=== PATIENT | male | born 1945 | race Caucasian/White ===

== ENCOUNTER 2025-04-12 11:57 | Inpatient (IN) | payer MEDICARE, OTHER, SELFPAY ==
--- OUTSIDE RECORDS SUMMARY | 2024-12-10 04:00 | XMS_ITS ---
Author Organization [facility] Address [address] [address] [place] [address] Care Team Providers Care Water Main Installer Helper Name Role Phone Bernabe Zhang Unavailable [phone] Migration, Provider Unavailable Unavailable REASON FOR VISIT EMR-Kalia Encounters Encounter Location Date Provider Diagnosis [place] [address] 12/10/2024 Provider Migration Plan Of Treatment No Information Progress Notes * GABRIELLE SILVERIODOB:[birth year] (79 yo M)Acc No.[id number]:12/10/2024 Patient: GABRIELLE AUGUSTE :1945 A ge:79 Y S ex:Male Address:[facility] [address], [place], [address] Subjective: * Chief Complaints: * E MR-Kalia * * Date:
--- OUTSIDE RECORDS SUMMARY | 2024-12-11 04:00 | XMS_ITS ---
Author Organization [facility] Address [address] [address] [place] [address] Care Team Providers Care Automatic Lathe Setter Name Role Phone Bernabe Zhang Unavailable [phone] Migration, Provider Unavailable Unavailable REASON FOR VISIT EMR-[facility] Medications Medication SIG (Take, Route, Frequency, Duration) Notes Start Date End Date Status Proscar *Pick strength-f orm from Medispan for eRX* Active Loradamed *Pick strength-f orm from Medispan for eRX* Active Hytrin *Reorder from Medispan for eRx and Interaction Alerts* Active E.C. PRIN *Reorder from Medispan for eRx and Interaction Alerts* Active Viagra *Pick strength-f orm from Medispan for eRX* Active Zocor *Pick strength-f orm from Medispan for eRX* Active Lantus SoloStar 100 UNIT/ML Solution Pen-injector Subcutaneous Active Encounters Encounter Location Date Provider Diagnosis [address] [place] [address] 12/11/2024 Provider Migration Plan Of Treatment No Information Progress Notes * SILVERIO, GABRIELLEDOB:[birth year] (79 yo M)Acc No.[id number]:12/11/2024 Patient: GABRIELLE AUGUSTE :1945 A ge:79 Y S ex:Male Address:[facility] [address], [place], [address] Subjective: * Chief Complaints: * E MR-Kalia * Medications: T akingE.C. PRIN , Notes to Pharmacist: *Reorder from Medispan for eRx and Interaction Alerts*Hytrin , Notes to Pharmacist: *Reorder from Medispan for eRx and Interaction Alerts*Lantus SoloStar 100 UNIT/ML Solution Pen-injector Subcutaneous Loradamed , Notes to Pharmacist: *Pick strength-form from Medispan for eRX*Proscar , Notes to Pharmacist: *Pick strength-form from Medispan for eRX*Viagra , Notes to Pharmacist: *Pick strength-form from Medispan for eRX*Zocor , Notes to Pharmacist: *Pick strength-form from Medispan for eRX*Taking E.C. PRIN , Notes to Pharmacist: *Reorder from Medispan for eRx and Interaction Alerts*Taking Hytrin , Notes to Pharmacist: *Reorder from Medispan for eRx and Interaction Alerts*Taking Lantus SoloStar 100 UNIT/ML Solution Pen-injector Subcutaneous Taking Loradamed , Notes to Pharmacist: *Pick strength-form from Medispan for eRX*Taking Proscar , Notes to Pharmacist: *Pick strength-form from Medispan for eRX*Taking Viagra , Notes to Pharmacist: *Pick strength-form from Medispan for eRX*Taking Zocor , Notes to Pharmacist: *Pick strength-form from Medispan for eRX* * * Date:
[2025-04-12] VITALS (9 sets, daily range): BP systolic 89–136; BP diastolic 59–101; PULSE 71–118; RESP 22–28; TEMP 36.4–36.5; O2SAT 95–100; BMI 29.0; BMI 29.1
--- NOTE | 2025-04-12 | ECHO_ITS ---
Patient Info Name: Cosmo Voss Age: 79 years : 1945 Gender: Male Ht: 68 in Wt: 201 lbs BSA: 2.12 m2 HR: 87 bpm BP: 132 / 101 mmHg Heart Rhythm: Indeterminant Technical Quality: Poor Exam Date: 04/12/2025 3:20 PM Patient Status: I Admit Date: 04/12/2025 Exam Type: CA echo dop color flow w con Complete two-dimensional, color flow and Doppler transthoracic echocardiogram is performed with contrast to opacify the left ventricle and to improve the deliniation of the left ventricle endocardial borders. Staff Referring Physician: Lesvia Boyer Bag Bailer: Mark Anthony Jordan III Attending Provider: Klarissa Blackmon Contrast/Agitated Saline Contrast/Ag. Saline: Definity Amount: 2.00 ml Administered By: Mark Anthony Jordan III Existing IV Access: Yes IV Access Condition: patent with no signs of infiltration Summary 1. Patient supine, breathing treatment/meds pushed during echo. Technically difficult echo. 2. Technically difficult echocardiogram, to contrast injected to improve visualization. 3. Normal appearing left ventricular size with vigorous systolic function. 4. Right ventricular enlargement with right ventricular hypokinesia. 5. At least moderate if not moderate to severe aortic stenosis. Left Ventricle Left ventricular chamber dimension is normal. Left ventricular systolic function is normal, estimated at 55-60. The left ventricular diastolic function is indeterminate. Right Ventricle Right ventricular chamber dimension is moderately enlarged. Right ventricular systolic function is reduced. Left Atria Left atrial chamber dimension is normal. Right Atria Right atrial chamber dimension is not well visualized. Aortic Valve The aortic valve is trileaflet. There is moderate aortic valve sclerosis. There is moderate to severe aortic valve stenosis with a peak velocity of 360 cm/s, mean gradient of 29 mmHg, and aortic valve area of 1.3 cm2. Pulmonic Valve The pulmonic valve is not well visualized. Mitral Valve The mitral valve has normal leaflets. The mitral valve annulus is mildly calcified. Tricuspid Valve The tricuspid valve leaflets are not well visualized. Pericardium/Pleural The pericardium appears normal. Aorta The aortic root size at the sinus of Valsalva is normal. Left Ventricular Outflow Tract Name Value Normal LVOT 2D LVOT Diameter 2.3 cm LVOT Doppler LVOT Peak Velocity 103 cm/s LVOT Peak Gradient 4 mmHg LVOT Mean Gradient 2 mmHg LVOT VTI 16 cm LVOT VTI/AV VTI Ratio 0.3 LVOT Stroke Volume 65 ml LVOT CO 15.3 l/min LVOT CI 7.2 l/min/m2 Pulmonic Valve Name Value Normal PV Doppler PV Peak Velocity 87 cm/s PV Peak Gradient 3 mmHg PV Mean Gradient 2 mmHg Mitral Valve Name Value Normal MV Doppler MV Peak Gradient 2 mmHg MV Mean Gradient 1 mmHg MV Area (Cont Eq VTI) 5.5 cm2 MV Diastolic Function MV E Peak Velocity 53 cm/s MV A Peak Velocity 43 cm/s MV E/A 1.2 MV Decel Time (PW) 218 ms MV Annular TDI MV E/e' (Septal) 10.7 MV E/e' (Lateral) 4.6 MV E/e' (Average) 7.6 Tricuspid Valve Name Value Normal TV Annular TDI TV Lateral Мария s' Velocity 11.5 cm/s >=9.5 Aortic Valve Name Value Normal AV Doppler AV Peak Velocity 360 cm/s AV Peak Gradient 52 mmHg AV Mean Gradient 29 mmHg AV VTI 50 cm AV Area (Cont Eq VTI) 1.3 cm2 >=3.0 AV Area (Cont Eq Tay) 1.1 cm2 AV DI (Tay) 0.28 AV Regurgitation 2D LVOT Area 4.0 cm2 Ventricles Name Value Normal LV Dimensions 2D/MM LVOT Diameter 2.3 cm Atria Name Value Normal LA Dimensions LA Volume (4C A-L) 70 ml LA Volume (BP A-L) 64 ml RA Dimensions RA Systolic Major [place] Length (4C) 6.8 cm 2.1-2.7 RA Area (4C) 31.1 cm2 <=18.0 Report Signatures
--- NOTE | ~2025-04-12 | US_ITS ---
EXAMINATION: US venous doppler [facility], 04/15/2025 16:20 CDT HISTORY: rule out DVT COMPARISON: None Technique: James-scale and color Doppler images were attempted of the lower saphenofemoral junction, common femoral vein,superficial femoral vein, proximal deep femoral vein, proximal deep femoral vein, popliteal vein and posterior tibial veins. Findings: Deep Venous System:There is prominence with diminished flow in the right femoral, popliteal and posterior tibial veins, the remaining visualized deep venous system is unremarkable Superficial Venous SystemNo superficial thrombophlebitis. Soft tissues: Soft tissues are unremarkable. Impression: Right-sided DVT detailed above. Reviewed, dictated and finalized at location A. Impression: Right-sided DVT detailed above.
--- NOTE | ~2025-04-12 | US_ITS ---
US renal BI 04/12/2025 20:50 Procedure: Realtime transabdominal ultrasound of the kidneys and bladder. Indication: Acute renal failure Comparison: CT abdomen dated 04/12/2025 Findings: Renal echotexture is normal bilaterally without hydronephrosis, contour deforming mass or renal calculus. There are multiple right renal cysts. Largest cyst measures approximately 2.6 cm. Right kidney measures 12 cm and left kidney measures 12.3 cm. Ackerman catheter present in the bladder limiting evaluation. Impression: 1: Multiple right renal cysts. No suspicious solid masses are identified to suggest malignancy. Reviewed, dictated and finalized at location O. Impression: 1: Multiple right renal cysts. No suspicious solid masses are identified to sug gest malignancy.
--- NOTE | ~2025-04-12 | CT_ITS ---
EXAMINATION: CT abdomen pelvis wo con DATE: 04/12/2025 15:06 INDICATION: Acute renal failure TECHNIQUE: Computed tomography (CT) of the abdomen and pelvis was performed without intravenous contrast. The dose-length product was 870.88 mGy-cm. Automated exposure control and iterative reconstruction technique were employed. COMPARISON: None. FINDINGS: There are interstitial changes in the right lower lobe, likely atelectasis or scarring. Heart size normal. No significant pleural or pericardial effusion. There are multiple right renal masses which are intermediate density. There is bilateral hydroureteronephrosis. There is moderate bilateral perinephric stranding. There is a small hiatal hernia. There is atherosclerosis of the aorta without aneurysm. Right inguinal hernia containing fat. The liver, spleen, pancreas, adrenal glands are unremarkable. Severely enlarged prostate gland with bladder base impression. Severe distention of the bladder, likely secondary to outlet obstruction. Nonobstructive bowel gas pattern. There is a wedge compression fracture of L1, likely chronic. Moderate lumbar spondylosis. IMPRESSION: 1. Multiple right renal masses with intermediate density. Correlation with CT or MRI with contrast recommended for further assessment. 2: Severe enlargement of the prostate gland likely causing outlet obstruction with resultant distention of the bladder and bilateral hydronephrosis. Reviewed, dictated and finalized at location O. IMPRESSION: 1. Multiple right renal masses with intermediate density. Correlation with CT o r MRI with contrast recommended for further assessment. 2: Severe enlargement of the prostate gland likely causing outlet obstruction with resultant distention of the bladder and bilateral hydronephrosis.
--- NOTE | ~2025-04-12 | XR_ITS ---
EXAMINATION: XR chest 1V portable DATE: 04/13/2025 06:47 INDICATION: Shortness of breath TECHNIQUE: frontal view of the chest was obtained. COMPARISON: Chest radiograph dated 04/12/25 FINDINGS: No focal airspace opacities, pulmonary edema, pleural effusion or pneumothorax. The cardiomediastinal silhouette is normal. IMPRESSION: 1. No acute cardiopulmonary disease. Reviewed, dictated and finalized at location A.
--- NOTE | ~2025-04-12 | XR_ITS ---
EXAMINATION: XR abdomen/kub 1V DATE: 04/15/2025 09:43 INDICATION: Ileus versus small bowel obstruction on prior radiographs. TECHNIQUE: A supine view of the abdomen on 2 radiographs was obtained. COMPARISON: 04/13/25 FINDINGS: Ackerman catheter in the bladder. There is oral contrast material throughout the proximal colon. There are multiple gas-filled but not frankly dilated gas-filled loops of large and small bowel in the abdomen. No dilated loops of gas-filled bowel to suggest obstruction. Visualized lower lungs are clear. Heart size is normal. IMPRESSION: 1. Nonspecific mild gas pattern with no frankly dilated gas-filled loops of bowel to suggest obstruction. Reviewed, dictated and finalized at location A. IMPRESSION: 1. Nonspecific mild gas pattern with no frankly dilated gas-filled loops of bow el to suggest obstruction.
--- NOTE | ~2025-04-12 | XR_ITS ---
EXAMINATION: XR chest 2V 04/12/2025 13:16 INDICATION: Shortness of breath PROCEDURE: AP and lateral views of the chest COMPARISON: No prior studies for comparison. FINDINGS: The lungs are clear. The cardiomediastinal silhouette is within normal limits. There are no pleural effusions. There is no pneumothorax suspected. There is an upper lumbar wedge compression fracture, likely chronic. IMPRESSION: 1: NO ACUTE CARDIOPULMONARY DISEASE. Reviewed, dictated and finalized at location O.
--- NOTE | ~2025-04-12 | NM_ITS ---
EXAMINATION: NM lung vent and perfusion DATE: 04/12/2025 16:28 INDICATION: Tachypnea. Hypotension. TECHNIQUE: 19.5 mCi xenon-133 by inhalation and 5.4 mCi Tc-99m MAA by intravenous route. Scintigraphic images of the chest were obtained. COMPARISON: FINDINGS: There is homogeneous radiotracer activity throughout the lungs on the single breath ventilation sequence. There are multiple small, moderate and large perfusion defects involving all lobes of both lungs consistent with high probability for pulmonary embolism. IMPRESSION: 1. High probability for pulmonary embolism. Findings were discussed with Kenna Williamson, the nurse caring for the patient, at 4:36 PM. Reviewed, dictated and finalized at location A.
--- NOTE | ~2025-04-12 | US_ITS ---
EXAMINATION: US venous doppler [facility], 04/22/2025 17:05 CDT HISTORY: swelling Comparison: None Technique: Multiple casas scale and color Doppler sonographic images were obtained of the internal jugular, subclavian, axillary, brachial, basilar, radial and ulnar veins. Findings: Venous System:Normal flow, augmentation and compressibility. No echogenic thrombus identified. Soft tissues: Soft tissues are unremarkable. Impression: Negative for DVT. Reviewed, dictated and finalized at location A. Impression: Negative for DVT.
--- NOTE | ~2025-04-12 | XR_ITS ---
EXAMINATION: XR abdomen/kub 1V DATE: 04/13/2025 16:04 INDICATION: Left lower quadrant pain. TECHNIQUE: 2 AP portable supine images of the abdomen were obtained. COMPARISON: CT abdomen and pelvis 04/12/2025 FINDINGS: A tube projects over the lower mid pelvis. Correlate clinically. Possible contrast in bowel in the right abdomen and pelvis. Correlate clinically. There are several air-filled distended small bowel loops in the left abdomen and pelvis. IMPRESSION: 1. There are several air-filled distended small bowel loops in the left abdomen and pelvis. Differential includes ileus or developing small bowel obstruction. 2. Possible contrast in bowel in the right abdomen and pelvis. Correlate clinically. If symptoms persist or worsen, consider a short-term follow-up study or a CT of the abdomen and pelvis for further assessment. Reviewed, dictated and finalized at location Q. IMPRESSION: 1. There are several air-filled distended small bowel loops in the left abdomen and pelvis. Differential includes ileus or developing small bowel obstruction. 2. Possible contrast in bowel in the right abdomen and pelvis. Correlate clinic ally. If symptoms persist or worsen, consider a short-term follow-up study or a CT of the abdomen and pelvis for further assessment.
--- NOTE | 2025-04-12 12:06 | ECG_ITS ---
Test Date: 2025-04-12 12:08:19 Measurements Intervals [place] Rate: 84 P: 0 CT: 0 QRS: -22 QRSD: 105 T: -14 QT: 410 QTc: 487 Interpretive Statements ATRIAL FIBRILLATION INCOMPLETE RIGHT BUNDLE BRANCH BLOCK [90+ ms QRS DURATION, TERMINAL R IN V1/V2, 40+ ms S IN I/aVL/V4/V5/V6] NONSPECIFIC T-WAVE ABNORMALITY ABNORMAL ELECTROCARDIOGRAM No previous ECG available for comparison Electronically Signed On 04-12-2025 16:24:10 CDT by Rodrick Rodriguez M.D.
--- NOTE | 2025-04-12 12:15 | ED.SOB ---
HPI - SOB/Dyspnea General Chief Complaint: Shortness of Breath/Dyspnea Stated Complaint: SOB Time Seen by Provider: 04/12/25 12:05 History of Present Illness HPI Narrative: This is a 79-year-old male with history of CHF, CKD who presents to the ED for shortness of breath. Patient states that for the past 2 days, he has had worsening shortness of breath to the point this morning he was having difficulty breathing sitting prompting him to call EMS. EN route, he was given a DuoNeb and he feels better since then. He does note that last week, he did drive back here from [place]. He is not on any blood thinners. Denies any chest pain, headache, change in vision, cough, congestion, nausea, diarrhea, constipation, abdominal pain. He does report some mild ankle swelling as well. He has never been admitted for CHF exacerbation. Related Data Allergies Allergy/AdvReac Type Severity Reaction Status Date / Time No Known Allergies Allergy Verified 04/12/25 13:46 Review of Systems Review of Systems: Gen.: Denies fevers or chills Eyes: Denies eye pain or visual change ENT: Denies congestion Respiratory: As per HPI CV: Denies chest pain or palpitations GI: Denies abdominal pain nausea, emesis or diarrhea denies burning, urgency, frequency or hematuria Musculoskeletal: Denies back pain or muscle pain Neuro: Denies numbness, tingling, weakness or focal weakness Skin: Denies rash Except as documented, all other systems reviewed and negative [facility] Past Medical History Medical History (Updated 04/12/25 @ 18:30 by Helio Padilla MD) Hyperlipidemia History of DVT (deep vein thrombosis) Anemia Hypertension Diabetes Multiple myeloma CHF (congestive heart failure) CKD (chronic kidney disease) Surgical History Surgical History (Updated 04/12/25 @ 18:18 by Mari Del Toro MD) Hx of partial nephrectomy left Social History Social History (Updated 04/12/25 @ 18:22 by Mari Del Toro MD) Smoking status: Former smoker Exam Narrative: APPEARANCE: No acute distress, nontoxic, resting in bed EYES: EOMI HEENT: Normocephalic, atraumatic, OMM RESPIRATORY: Mildly increased work of breathing, clear to auscultation bilaterally. CARDIOVASCULAR: Regular rate and rhythm without murmurs rubs or gallops. ABDOMINAL: Soft, nontender, nondistended, no rebound or guarding MUSCULOSKELETAl: Moves all extremities. Trace edema to the bilateral ankles NEURO: Awake and alert. Following commands, speech normal, no focal deficits SKIN:: Warm, dry. No rashes lesions or abrasions PSYCHIATRIC: Normal affect/mood, Course Vital Signs Vital signs: Vital Signs Pulse Rate 75 04/12/25 11:57 Respiratory Rate 26 H 04/12/25 11:57 Blood Pressure 98/66 L 04/12/25 11:57 Pulse Oximetry 100 04/12/25 11:57 Oxygen Delivery Room Air 04/12/25 11:57 Temperature 97.7 F 04/12/25 12:18 Pulse Rate 86 04/12/25 15:15 Respiratory Rate 23 H 04/12/25 15:15 Blood Pressure 132/101 H 04/12/25 13:58 Pulse Oximetry 99 04/12/25 13:58 Oxygen Delivery Room Air 04/12/25 12:07 MDM - SOB/Dyspnea MDM Narrative Medical decision making narrative: 79-year-old male who presents to the ED for shortness of breath. On initial evaluation, patient was mildly tachypneic but otherwise hemodynamically stable, afebrile. Heart and lungs were clear. He had mild bilateral ankle edema. Abdomen soft nontender. He had a mild leukocytosis at 11.7 and mild thrombocytopenia at 114. CMP revealed a potassium of 6.9, bicarb of 8 with anion gap 19 and creatinine 7. This is likely an acute on chronic renal failure. EKG showed no concerning findings. Troponin noted to be 2.76. [place] [address]. Potassium rechecked and was still 6.1. I discussed case with Dr. Del Toro, nephrology, who will see the patient as consult, will discuss with patient possible dialysis today versus tomorrow but does recommend hyperkalemia treatment at this time while that is being determined. Patient was given Kayexalate, insulin, D50. Case was discussed with hospitalist who will admit the patient Differential Diagnosis Differential diagnosis: Likely other (CHF exacerbation, electrolyte abnormality, pneumonia, PE) Medical Records Attestation: I reviewed the patient's medical records. Lab Data Attestation: I reviewed the patient's lab results. 04/12/25 12:21 04/12/25 13:39 Labs: Lab Results 04/12/25 Range/Units 12:21 WBC 11.7 H (4.5-10.0) K/mm3 RBC 4.58 L (4.6-6.20) M/mm3 Hgb 13.6 L (14.0-18.0) g/dL Hct 43.2 (42.0-52.0) % MCV 94.3 (80-100) fl MCH 29.7 (26-34) pg MCHC 31.5 L (32-36) g/dl RDW 15.9 H (11.5-14.5) % Plt Count 114 L (150-375) k/mm3 MPV 11.1 H (7.4-10.4) fl Immature Gran % (Auto) 0.8 H (0-0.5) % Neut % (Auto) 84.3 H (45.5-73.1) % Lymph % (Auto) 7.7 L (18.3-44.2) % [place] % (Auto) 7.1 (2.6-8.5) % Eos % (Auto) 0.0 (0-4.4) % Baso % (Auto) 0.1 L (0.2-1.2) % Lymph # (Auto) 0.90 (0.9-3.2) K/mm3 [place] # (Auto) 0.8 H (0.1-0.6) K/mm3 Eos # (Auto) 0.0 (0-0.3) K/mm3 Baso # (Auto) 0.0 (0.0-0.1) K/mm3 Abs Immat Gran (auto) 0.09 H (0.00-0.031) K/mm3 Absolute Neuts (auto) 9.8 H (1.3-6.7) K/mm3 Absolute Nucleated RBC 0.000 (0.0-0.012) K/mm3 Nucleated RBC % 0.0 (0.0-0.2) % % Immature Plt Fraction 5.2 (0.9-11.2) % PT 16.7 H (11.1-14.7) Seconds INR 1.4 APTT 29.3 (22.3-36.8) Seconds Sodium 141 (137-145) mmol/L Potassium 6.9 H* (3.4-5.0) mmol/L Chloride 114 H (98-107) mmol/L Carbon Dioxide 8 L (22-30) mmol/L Anion Gap 19 H (4-12) mmol/L BUN 75 H (9-20) mg/dL Creatinine 6.99 H (0.7-1.3) mg/dL Estim Creat Clear Calc 9 ml/min Estimated GFR 8 L (59 - ) Glucose 205 H (65-110) mg/dL Calcium 9.2 (8.4-10.2) mg/dL Total Bilirubin 0.9 (0.2-1.3) mg/dL AST 26 (17-59) U/L ALT 18 (6-50) U/L Alkaline Phosphatase 67 (38-126) U/L Troponin I 2.230 H* (0.000-0.034) ng/mL NT-Pro-B Natriuret Pep > 68809 H (19.9-100) pg/mL Total Protein 6.8 (6.3-8.2) g/dL Albumin 4.2 (3.5-5.1) g/dL Imaging Data Radiologist's impression: Impressions Chest X-Ray 04/12/25 13:17 IMPRESSION: 1: NO ACUTE CARDIOPULMONARY DISEASE. ECG Data EKG #1: ECG completion date: 04/12/25 ECG completion time: 12:08 Interpretation: AFib rate of 80 for in a normal axis, her bundle-branch block, nonspecific T-wave changes and no ST wave changes. Discharge Plan Discharge Clinical Impression: Acute hyperkalemia, Acute non-ST elevation myocardial infarction (NSTEMI), Thrombocytopenia Acute on chronic kidney failure Qualifiers: Acute renal failure type: unspecified Chronic kidney disease stage: unspecified stage Qualified Code(s): N17.9 - Acute kidney failure, unspecified; N18.9 - Chronic kidney disease, unspecified CHF (congestive heart failure) Qualifiers: Heart failure type: unspecified Heart failure chronicity: unspecified Qualified Code(s): I50.9 - Heart failure, unspecified Patient Disposition: Still a Patient Condition: Guarded Prognosis
[2025-04-12 12:31] LABS: Hematocrit 43.2 % (42.0-52.0); Hemoglobin 13.6 g/dL (14.0-18.0); Immature Granulocyte Percent A 0.8 % (0-0.5); Immature Platelet Fraction Pct 5.2 % (0.9-11.2); Lymphocytes Absolute Auto 0.90 K/mm3 (0.9-3.2); Mean Corpuscular HGB Conc 31.5 g/dl (32-36); Mean Corpuscular Hemoglobin 29.7 pg (26-34); Mean Corpuscular Volume 94.3 fl (80-100); Nucleated Red Blood Cells Absolute Auto 0.000 K/mm3 (0.0-0.012); Nucleated Red Blood Cells Perc 0.0 % (0.0-0.2); Platelet Count Result 114 k/mm3 (150-375); Red Blood Count 4.58 M/mm3 (4.6-6.20); White Blood Count 11.7 K/mm3 (4.5-10.0)
[2025-04-12 12:43] LABS: Alanine Aminotransferase 18 U/L (6-50); Albumin Level 4.2 g/dL (3.5-5.1); Alkaline Phosphatase 67 U/L (38-126); Anion Gap 19 mmol/L (4-12); Aspartate Amino Transferase 26 U/L (17-59); Bilirubin,Total 0.9 mg/dL (0.2-1.3); Blood Urea Nitrogen 75 mg/dL (9-20); Calcium 9.2 mg/dL (8.4-10.2); Carbon Dioxide 8 mmol/L (22-30); Chloride 114 mmol/L (98-107); Estimated CRCL calculation 9 ml/min; Estimated Glomerular Filt Rate 8; Glucose 205 mg/dL (65-110); Potassium 6.9 mmol/L (3.4-5.0); Sodium 141 mmol/L (137-145); Total Protein 6.8 g/dL (6.3-8.2)
--- OUTSIDE RECORDS SUMMARY | 2025-04-12 12:50 | XMS_ITS | Clinical Summary ---
Author Organization [email or web address] Address [address] [place] [address] Care Team Providers Care Db2 Developer Name Role Phone Kush Romero MD Primary Care Provider Unavail able Social History Tobacco Use Types Packs/Day Years Used Date Smoking Tobacco: Never Assessed Sex and Gender Information Value Date Recorded Sex Assigned at Not on file Legal Sex Male 2:29 PM EST Gender Identity Not on file Sexual Orientation Not on file Last Filed Vital Signs Vital Sign Reading Time Taken Comments Blood Pressure - - Pulse - - Temperature - - Respiratory Rate - - Oxygen Saturation - - Inhaled Oxygen Concentration - - Weight 90.7 kg (200 lb) 10/18/2019 10:29 AM EDT Height 175.3 cm (5' 9) 10/18/2019 10:29 AM EDT Body Mass Index 29.53 10/18/2019 10:29 AM EDT Plan of Treatment Health Maintenance Due Date Last Done Comments Hepatitis C Screening 1945 COVID-19 Vaccine (1 of 4) 1959 DTAP/TDAP/TD (1 - Tdap) 1966 Pneumococcal Vaccine: 65+ Years (1 of 1 - PCV) 1997 Shingrix (1 of 2) 1997 Influenza vaccine (#1) 2025 8, 07/08/2017, 05/12/2016 HEPATITIS B VACCINES Aged Out No long er eligible based on patient's age to complete this topic Meningococcal B Aged Out No longer el igible based on patient's age to complete this topic Care Teams Db2 Developer Relationship Specialty Start Date End Date Kush Romero MD PCP - General 10/18/19
--- OUTSIDE RECORDS SUMMARY | 2025-04-12 12:50 | XMS_ITS | Encounter Summary ---
Author Organization [facility] Address [address] [place] [address] Phone Care Team Providers Care [employer]cre[employer]ion[employer] Name Role Phone Unavailable Primary Care Provider Unavailabl e Encounter Details Date Type Department Care Team (Late st Contact Info) Description 12/04/2022 Community Orders [facility] [place] Travis Maki [facility] [address] [place] [address] Social History Tobacco Use Types Packs/Day Years Used Date Smoking Tobacco: Never Assessed Sex and Gender Information Value Date Recorded Sex Assigned at Not on file Legal Sex Male 11:13 AM EDT Gender Identity Not on file Sexual Orientation Not on file documented as of this encounter Plan of Treatment Not on file documented as of this encounter Visit Diagnoses Not on filedocumented in this encounter
--- OUTSIDE RECORDS SUMMARY | 2025-04-12 12:50 | XMS_ITS | Clinical Summary ---
Author Organization [facility] Address [address] [place] [address] Care Team Providers Care Air Reduction Equipment Operator Name Role Phone Unavailable Primary Care Provider Unavailabl e Social History Tobacco Use Types Packs/Day Years Used Date Smoking Tobacco: Never Assessed Sex and Gender Information Value Date Recorded Sex Assigned at Not on file Legal Sex Male 7:47 AM EDT Gender Identity Not on file Sexual Orientation Not on file Plan of Treatment Health Maintenance Due Date Last Done Comments Pneumococcal Vaccine: 50+ Ye ars (1 of 2 - PCV) 1966 Diabetes: Hemoglobin A1C 12/10/2022 Diabetes: Ophthalmology Exam 12/10/2022 Diabetes: Pedal Pulse Checked 12/10/2022 Diabetes: Sensory Foot Exam 12/10/2022 Diabetes: Visual Foot Exam 12/10/2022 Influenza Vaccine (#1) 2025 Hepatitis B Vaccine Aged Out No longe r eligible based on patient's age to complete this topic Insurance Medicare [facility] [place] 1,2,3 (VACCN)
--- OUTSIDE RECORDS SUMMARY | 2025-04-12 12:50 | XMS_ITS | Encounter Summary ---
Author Organization [facility] Address [address] [place] [address] Care Team Providers Care Plastic Fixture Builder Name Role Phone Rodrick Bosch MD Primary Care Provid er Reason for Referral * MRI/CAT/PET Scan (Routine) - Pending Review Specialty Diagnoses / Procedures Referred By Contac t Referred To Contact Radiology Diagnoses Renal cell carcinoma, unspecified laterality (CMS/HCC) Procedures MRI ABDOMEN W WO CONTRAST Lauri Currie MD [address] [facility] [address] [place] [address] Phone: tel: fax: Referral ID Status Reason Start Date Expiration Date V isits Requested Visits Authorized [id number] Pending Review 02/21/2025 02/21/2026 1 1 Encounter Details Date Type Department Care Team (Late st Contact Info) Description 02/21/2025 [facility] [address] [place] [address] Lauri Currie MD [address] [facility] [address] [place], [place] [id number] Renal cell carcinoma, unspecified laterality (CMS/HCC) (Primary Dx) Social History Tobacco Use Types Packs/Day Years Used Date Smoking Tobacco: Former Cigarettes Q uit: 1990 Smokeless Tobacco: Never Alcohol Use Standard Drinks/Week Comments Never 0 (1 standard drink = 0.6 oz pur e alcohol) Sex and Gender Information Value Date Recorded Sex Assigned at Not on file Legal Sex Male 4:58 PM EDT Gender Identity Male 06/09/2017 3:30 PM EST Sexual Orientation Not on file documented as of this encounter Plan of Treatment Upcoming Encounters Date Type Department Care Team (Late st Contact Info) Description 05/05/2025 2:00 PM EDT Office Visit [facility] [place] [address] [facility] [address] [place] [address] Cosmo Bryant MD [address] [facility] [address] [place], [place] [phone] Return in about 1 month (around 04/30/2025) for 1 month with vein mapping. Scheduled Orders Name Type Priority Associated Diagnoses Orde r Schedule MRI ABDOMEN W WO CONTRAST Imaging Routine Renal cell carcinoma, unspecified laterality (CMS/HCC) Expected: 02/21/2025, Expires: 02/21/2026 documented as of this encounter Visit Diagnoses Diagnosis Renal cell carcinoma, unspecified laterality (CMS/HCC)- Primary documented in this encounter Care Teams Plastic Fixture Builder Relationship Specialty Start Date End Date Rodrick Bosch MD [address] [place] [address] PCP - General Internal Medicine 12/08/22 documented as of this encounter
--- OUTSIDE RECORDS SUMMARY | 2025-04-12 12:50 | XMS_ITS | Encounter Summary ---
Author Organization [facility] Address [address] [place] [address] Care Team Providers Care Mixer Foam Rubber Name Role Phone Rodrick Bosch MD Primary Care Provid er Reason for Referral * MRI/CAT/PET Scan (Routine) - Closed Specialty Diagnoses / Procedures Referred By Contac t Referred To Contact Radiology Diagnoses Malignant neoplasm of prostate (CMS/HCC) Procedures MRI PROSTATE Sachin Gale MD [address] [place] [address], [address] [place] [address] Phone: tel: fax: Referral ID Status Reason Start Date Expiration Date Visits Re quested Visits Authorized [id number] Closed 09/02/2024 03/12/2025 1 1 Encounter Details Date Type Department Care Team (Late st Contact Info) Description 12/06/2024 Transcribe Orders [facility] [address] [place] [address] Sachin Gale MD [address] [place] [address], [address] [place] [address] Malignant neoplasm of prostate (CMS/HCC) (Primary Dx) Social History Tobacco Use [...] EDT Office Visit [facility] [place] [address] [facility] [address] [place] [phone] Cosmo Bryant MD [address] [facility] [address] [place] [address] Return in about 1 month (around 04/30/2025) for 1 month with vein mapping. Scheduled Orders Name Type Priority Associated Diagnoses Orde r Schedule MRI PROSTATE Imaging Routine Malignant neoplasm of prostate (CMS/HCC) Expected: 12/06/2024, Expires: 12/06/2025 documented as of this encounter Visit Diagnoses Diagnosis Malignant neoplasm of prostate (CMS/HCC)- Primary Malignant neoplasm of prostate documented in this encounter Care Teams Mixer Foam Rubber Relationship Specialty Start Date End Date Rodrick Bosch MD [address] [place] [address] PCP - General Internal Medicine 12/08/22 documented as of this encounter
--- OUTSIDE RECORDS SUMMARY | 2025-04-12 12:50 | XMS_ITS | Clinical Summary ---
Author Organization [facility] Address [address] [place] [address] Phone Care Team Providers Care C S S Representative Name Role Phone Unavailable Primary Care Provider Unavailabl e Encounters Date Type Department Care Team Description 01/11/2025 Telephone [facility] [address] [place] [address] Satya Lugo MD from Last 3 Months Social History Tobacco Use Types Packs/Day Years Used Date Smoking Tobacco: Never Assessed Sex and Gender Information Value Date Recorded Sex Assigned at Not on file Legal Sex Male 11:13 AM EDT Gender Identity Not on file Sexual Orientation Not on file Plan of Treatment Not on file
--- OUTSIDE RECORDS SUMMARY | 2025-04-12 12:51 | XMS_ITS | Encounter Summary ---
Author Organization [facility] Address [address] [place] [address] Care Team Providers Care Director Of Research Name Role Phone Pcp, Nessa PENNINGTON Primary Care Provider Rodrick Newton MD Primary Care Provid er Encounter Details Date Type Department Care Team (Late st Contact Info) Description 10/23/2022 Transcribe Orders [facility] [address] [place] [address] Nagi Modi [address] [place], [place] [phone] Malignant neoplasm of prostate (CMS/HCC) (Primary Dx) [...] Description 05/05/2025 2:00 PM EDT Office Visit [facility] Vascular Surgery in [place] [address] [place] [address] Cosmo Bryant MD [address] [place], [place] [phone] Return in about 1 month (around 04/30/2025) for 1 month with vein mapping. documented as of this encounter Visit Diagnoses Diagnosis Malignant neoplasm of prostate (CMS/HCC)- Primary Malignant neoplasm of prostate documented in this encounter Care Teams Director Of Research Relationship Specialty Start Date End Date Nessa Barbosa MD PCP - General Family Medicine 06/09/17 12/07/22 Rodrick Bosch MD [address] [place] [address] PCP - General Internal Medicine 12/08/22 documented as of this encounter
--- OUTSIDE RECORDS SUMMARY | 2025-04-12 12:51 | XMS_ITS | Patient Health Record ---
Author Organization [email or web address] Address [address] [address] [place] [address] Care Team Providers Care Nursing Information Systems Coordinator Name Role Phone Bernabe Zhang Unavailable [phone] Migration, Provider Unavailable Unavailable Reason For Referral No Information Medications Medication SIG (Take, Route, Frequency, Duration) Notes Start Date End Date Status Proscar *Pick strength-f orm from [facility] for eRX* Active Loradamed *Pick strength-f orm from [facility] for eRX* Active Zocor *Pick strength-f orm from [facility] for eRX* Active Lantus SoloStar 100 UNIT/ML Solution Pen-injector Subcutaneous Active Hytrin [facility]* Active E.C. PRIN [facility] and Interaction Alert[facility]* Active Viagra *Pick strength-f orm [facility]* Active Encounters Encounter Location Date Provider Diagnosis Jeri Mart[place] [address] [place] [id number] 12/10/2024 Provider Migration Jeri Marti [address] [place] [address] 12/11/2024 Provider Migration Plan Of Treatment No Information
--- OUTSIDE RECORDS SUMMARY | 2025-04-12 12:51 | XMS_ITS | Encounter Summary ---
Author Organization [facility] Address [address] [place] [address] Care Team Providers Care Detasseler Name Role Phone Rodrick Bosch MD Primary Care Provid er Encounter Details Date Type Department Care Team (Late st Contact Info) Description 11/03/2023 [facility] [address] [place] [address] Surya Sosa, [facility] [address] [facility] [address] [place] [address] Social History Tobacco Use Types Packs/Day Years Used Date Smoking Tobacco: Former Cigarettes Q uit: 1991 Smokeless Tobacco: Never Alcohol Use Standard Drinks/Week [...] Description 05/05/2025 2:00 PM EDT Office Visit [facility] in [place] [address] [place] [phone] Cosmo Bryant MD [address] [facility] [address] [place] [address] Return in about 1 month (around 04/30/2025) for 1 month with vein mapping. documented as of this encounter Visit Diagnoses Not on filedocumented in this encounter Care Teams Detasseler Relationship Specialty Start Date End Date Rodrick Bosch MD [address] [place] [address] PCP - General Internal Medicine 12/08/22 documented as of this encounter
--- OUTSIDE RECORDS SUMMARY | 2025-04-12 12:51 | XMS_ITS | Encounter Summary ---
Author Organization [facility] Address [address] [place] [address] Care Team Providers Care Ultrasound Coordinator Name Role Phone Rodrick Bosch MD Primary Care Provid er Reason for Referral * MRI/CAT/PET Scan (STAT) - Closed Specialty Diagnoses / Procedures Referred By Contac t Referred To Contact Radiology Diagnoses Multiple myeloma not having achieved remission (CMS/HCC) Procedures PET CT WHOLE BODY Lauri Currie MD [address] [facility] [address] [place] [address] Phone: tel: fax: Referral ID Status Reason Start Date Expiration Date Visits Re quested Visits Authorized [id number] Closed 11/24/2022 12/04/2023 1 1 Encounter Details Date Type Department Care Team (Late st Contact Info) Description 02/17/2023 [facility] [address] [place] [address] Lauri Currie MD [address] [facility] [address] [place], [place] [phone] Multiple myeloma not having achieved remission (CMS/HCC) (Primary Dx) Social History Tobacco Use [...] Description 05/05/2025 2:00 PM EDT Office Visit [facility] Vascular Surgery in [place] [address] [place] [address] Cosmo Bryant MD [address] [place], [place] [phone] Return in about 1 month (around 04/30/2025) for 1 month with vein mapping. documented as of this encounter Results * PET CT WHOLE BODY (02/25/2023 9:28 AM EDT) Anatomical Region Laterality Modality WHOLE BODY Positron Emissio n Tomography (PET) 02/25/2023 12:1 6 PM EDT Impressions 02/25/2023 12:56 PM EDT 1. Normal PET Scan Narrative 02/25/2023 12:56 PM EDT PET SCAN WHOLE BODY PET CT WHOLE BODY, 02/25/2023 8:11 AM CLINICAL Clinical Indication: multiple myeloma, C90.00-Multiple myeloma not having achieved remission (CMS/HCC). Comparison: CT dated 12/09/2022. Technique: Following intravenous injection of 9.6 millicuries F-18 FDG, images were obtained from the vertex of the skull through the feet. Images were reconstructed in multiple projections. A noncontrast low dose CT scan of the same region was obtained for attenuation correction and anatomic correlation. All CT scans at this facility use dose modulation, iterative reconstruction, and/or weight based dosing when appropriate to reduce radiation dose to as low as reasonably achievable (ALARA). FINDINGS Head and Neck: No area of abnormal activity is seen. Chest: No area of abnormal activity is seen. Calcification of the thoracic aorta is seen. No aneurysm is observed. Coronary artery calcifications noted. Abdomen and pelvis: No area of abnormal activity is seen. Dense calcification of the abdominal aorta is noted. No aneurysm is seen. Lower Extremities: No area of abnormal activity is seen. Additional: No significant abnormality of the skeleton is seen. There are mild degenerative changes in the spine. An old mild compression fracture of L1 is again observed. Procedure Note John Andrew MD - 02/25/2023 PET SCAN WHOLE BODY PET CT WHOLE BODY, 02/25/2023 8:11 AM CLINICAL Clinical Indication: multiple myeloma, C90.00-Multiple myeloma not havingachieved remission (CMS/HCC). Comparison: CT dated 12/09/2022. Technique: Following intravenous injection of 9.6 millicuries F-18 FDG,images were obtained from the vertex of the skull through the feet. Imageswere reconstructed in multiple projections. A noncontrast low dose CT scanof the same region was obtained for attenuation correction and anatomiccorrelation. All CT scans at this facility use dose modulation, iterativereconstruction, and/or weight based dosing when appropriate to reduceradiation dose to as low as reasonably achievable (ALARA). FINDINGS Head and Neck: No area of abnormal activity is seen. Chest: No area of abnormal activity is seen. Calcification of the thoracic aorta is seen. No aneurysm is observed.Coronary artery calcifications noted. Abdomen and pelvis: No area of abnormal activity is seen. Dense calcification of the abdominal aorta is noted. No aneurysm is seen. Lower Extremities: No area of abnormal activity is seen. Additional: No significant abnormality of the skeleton is seen. There aremild degenerative changes in the spine. An old mild compression fractureof L1 is again observed. IMPRESSION: 1. Normal PET Scan Lauri Currie MD IMG CT PROCEDURES Final Result documented in this encounter Visit Diagnoses Diagnosis Multiple myeloma not having achieved remission (CMS/HCC)- Primary Multiple myeloma not having achieved remission (CMS/HCC) documented in this encounter Care Teams Ultrasound Coordinator Relationship Specialty Start Date End Date Rodrick Bosch MD [address] [place], [place] [phone] PCP - General Internal Medicine 12/08/22 documented as of this encounter
--- OUTSIDE RECORDS SUMMARY | 2025-04-12 12:51 | XMS_ITS ---
Author Organization [facility] Address [address] [place] [address] Care Team Providers Care Pest Control Operator Name Role Phone Rodrick Bosch MD Primary Care Provid er Active Problems Problem Noted Date Diagnosed Date CKD (chronic kidney disease) stage 5, GFR less than 15 ml/min 03/30/2025 Assessment & Plan (03/30/2025 3:29 PM EDT): [facility] [id number] 2+ radial pulses bilaterally We discussed in great detail hemodialysis access options to include indications, risks, and benefits of AV fistula versus graft creation. Will follow-up with patient after upper extremity vein mapping and arterial duplex scan for further preoperative planning. 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 W/ 1st Degree AV block intermittent Will get ECHO Multifactorial possibilities Renal failure, transfusion, cardiology Meds reviewed no offenders. Secondary hyperparathyroidism 12/10/2022 Assessment & Plan (12/10/2022 12:02 PM EDT): Likely RT to renal failure Two x baseline high Symptomatic anemia 12/10/2022 Metabolic acidosis, NAG, bicarbonate losses 04/2023 Assessment & Plan (12/10/2022 11:50 AM EDT): Bicarb drip per [facility] /discontinued Bicarb improving to 20 just shy of normal Assessment & Plan (12/09/2022 2:48 PM EDT): Bicarb drip per [facility] Other pancytopenia 12/08/2022 Assessment & Plan (12/10/2022 11:58 AM EDT): Pancytopenia noted with WBC of 4.4, hemoglobin of 6.8 and thrombocytopenia of 31. Likely chemotherapy vs multiple myeloma related. Currently chemotherapy is on hold. Continue to monitor CBC. 6.5 this am Transfuse for 1 unit. No active bleeding HGB is 8 this morning plts trending up now 41 Assessment & Plan (12/09/2022 2:46 PM EDT): Pancytopenia noted with WBC of 4.4, hemoglobin of 6.8 and thrombocytopenia of 31. Likely chemotherapy vs multiple myeloma related. Currently chemotherapy is on hold. Continue to monitor CBC. 6.5 this am Transfuse for 1 unit. No active bleeding Assessment & Plan (12/08/2022 6:17 PM EDT): Pancytopenia noted with WBC of 4.4, hemoglobin of 6.8 and thrombocytopenia of 31. Likely chemotherapy vs multiple myeloma related. Currently chemotherapy is on hold. Continue to monitor CBC. Multiple myeloma not having achieved remission 0 12/08/2022 Assessment & Plan (12/10/2022 11:51 AM EDT): Patient recently diagnosed with multiple myeloma. He was [facility]. He is going to follow-up with oncologist Dr. Currie Currently chemotherapy on hold due to pancytopenia. Continue acyclovir for prophylaxis. Continue allopurinol. Advised patient to continue follow-up with hematology/oncology upon discharge. Dr. Currie requested 40 mg Decadron IV Pending diagnostics discussed - Pending Renal review Assessment & Plan (12/09/2022 2:47 PM EDT): Patient recently diagnosed with multiple myeloma. He was started on chemotherapy at the [facility]. He is going to follow-up with oncologist Dr. Currie Currently chemotherapy on hold due to pancytopenia. Continue acyclovir for prophylaxis. Continue allopurinol. Advised patient to continue follow-up with hematology/oncology upon discharge. Assessment & Plan (12/08/2022 6:24 PM EDT): Patient recently diagnosed with multiple myeloma. He was started on chemotherapy at the [facility]. He is going to follow-up with oncologist around here. Currently chemotherapy on hold due to pancytopenia. Continue acyclovir for prophylaxis. Continue allopurinol. Advised patient to continue follow-up with hematology/oncology upon discharge. Essential hypertension 12/08/2022 Assessment & Plan (12/10/2022 11:37 AM EDT): Blood pressure currently stable. Continue amlodipine. Held lisinopril due to elevated serum creatinine. Ordered as needed IV hydralazine. Monitor blood pressure. Assessment & Plan (12/09/2022 2:46 PM EDT): Blood pressure currently stable. Continue amlodipine. Held lisinopril due to elevated serum creatinine. Ordered as needed IV hydralazine. Monitor blood pressure. Assessment & Plan (12/08/2022 5:53 PM EDT): Blood pressure currently stable. Continue amlodipine. Held lisinopril due to elevated serum creatinine. Ordered as needed IV hydralazine. Monitor blood pressure. Type 2 diabetes mellitus wit hout complication, with long-term current use of insulin 12/08/2022 Assessment & Plan (12/10/2022 11:37 AM EDT): Blood glucose stable on admission. Started Levemir 8 units and sliding scale insulin. We will hold metformin while in the hospital. Monitor blood glucose and adjust insulin dose as necessary. Assessment & Plan (12/09/2022 2:47 PM EDT): Blood glucose stable on admission. Started Levemir 8 units and sliding scale insulin. We will hold metformin while in the hospital. Monitor blood glucose and adjust insulin dose as necessary. Assessment & Plan (12/08/2022 5:59 PM EDT): Blood glucose stable on admission. Started Levemir 8 units and sliding scale insulin. We will hold metformin while in the hospital. Monitor blood glucose and adjust insulin dose as necessary. Acute kidney injury superimp osed on chronic kidney disease ([facility]/HCC) 12/08/2022 Assessment & Plan (12/10/2022 11:49 AM EDT): Serum creatinine elevated at 4.26. Reportedly baseline serum creatinine was around surgery in the past. Patient does have history of partial left nephrectomy couple of years ago for her left kidney cancer Likely prerenal azotemia is contributing for her recent serum creatinine worsening Avoid nephrotoxins. Renally adjust medications. Held lisinopril and metformin Urine electrolytes and renal ultrasound pending. Closely monitor serum creatinine. Is down trending and is now 3.65 down from 4.26 Nephrology is consulted. Assessment & Plan (12/09/2022 2:45 PM EDT): Serum creatinine elevated at 4.26. Reportedly baseline serum creatinine was around surgery in the past. Patient does have history of partial left nephrectomy couple of years ago for her left kidney cancer Likely prerenal azotemia is contributing for her recent serum creatinine worsening Continue bicarb drip Avoid nephrotoxins. Renally adjust medications. Held lisinopril and metformin Urine electrolytes and renal ultrasound pending. Closely monitor serum creatinine. Nephrology is consulted. Assessment & Plan (12/08/2022 6:01 PM EDT): Serum creatinine elevated at 4.26. Reportedly baseline serum creatinine was around surgery in the past. Patient does have history of partial left nephrectomy couple of years ago for her left kidney cancer Likely prerenal azotemia is contributing for her recent serum creatinine worsening Continue IV fluid. Avoid nephrotoxins. Renally adjust medications. Held lisinopril. Urine electrolytes and renal ultrasound pending. Closely monitor serum creatinine. Nephrology is consulted. History of DVT (deep vein thrombosis) 12/08/2022 Assessment & Plan (12/10/2022 11:33 AM EDT): Patient has history of lower extremity DVT. Continue anticoagulation with Eliquis. Assessment & Plan (12/09/2022 2:46 PM EDT): Patient has history of lower extremity DVT. Continue anticoagulation with Eliquis. Assessment & Plan (12/08/2022 6:01 PM EDT): Patient has history of lower extremity DVT. Continue anticoagulation with Eliquis. Personal history of colonic polyps 12/19/2020 Assessment & Plan (12/19/2020 8:57 PM EDT): After our discussion about the current working diagnosis, patient opted to proceed with colonoscopy/possible biopsies and polypectomy. Other options discussed. We had a detailed discussion about the risks and complications associated with this procedure which included but were not limited to anesthesia events, stroke, , cardiac events, DVT/PE, injury to surrounding structures (such as the spleen), bowel perforation or bleeding (especially of biopsies or polypectomy are performed). Patient was given the opportuity to ask all questions and concerns prior to signing the surgical consent. Current Treatment and Therapy Plans No current plan information found. Past Treatment and Therapy Plans No past plan information found. Treatment Summaries Clear cell renal cell carcinoma (CMS/HCC)* Cancer Treatment Summary Provided by Kesha Hernandez RN on 04/08/24 General Information Patient name Cosmo Voss (home) Date of 1945 Support contact (opt) Name Relationship Lgl Grd Work Phone Home Phone Mobile Phone NEVAEH CASSIDY* Spouse [phone] Surrogate Decision Maker or POA for Healthcare Care Team Surgeon/IR Radiologist Hector Sofia MD Nurse Navigator Kesha Hernandez RN Primary Care Physician Rodrick Bosch MD Urologist Greg Hall MD Cancer Diagnosis Information Diagnosis Clear cell renal cell carcinoma (CMS/HCC) Diagnosis date 04/08/2024 Staging information Cancer Staging No matching staging information was found for the patient. Pathology Clear cell renal cell carcinoma Surgical Treatment CT microwave ablation 12/02/23 Prognosis Prognosis is a forecast of the likely course of a disease. Some refer to prognosis as thelikelihood of cure; the likelihood of relapse; or an estimate of how long you can live with your disease or situation. Not everyone wants to know this information; or are ready for it at the same time. Talk with your doctor about what you want to know about the prognosis of your disease or situation. Expected Response to Treatment Quality of Life and Expected Patient Experience with Treatment We want to work with you and your support team to have as normal a quality of life as is possible. Many patients continue to work and care for family while going through treatment. Others have side effects that limit the ability to workand have the same independence as before treatment. Fatigue and depression or other mood changes are common. You may experience fatigue during and for a short time after chemotherapy. Many patients recover by the time the next chemotherapy cycle rolls around. We encourage you to pace yourself and rest as necessary. Exercise, walking and remaining active will greatly help your quality of life. Youmay experience some degree of sadness or depression due to multiple reasons. Side effects from chemotherapy, changes in body image, wondering about the future and the cancer diagnosis can cause anxiety and fear. We encourage you to talk with your care team, family, friends and a counselor. If you are having a problem with coping in any aspect of your journey, please speak honestly with the team. Please contact your care team for any needs that arise during your treatment with us. Discuss and ask for help along the way. Do not feel embarrassed, or feel like there is a stigma to depression, grief or emotions. Cancer is a challenge that can affect you, not just physically, but emotionally and s piritually. We can refer you to a counselor, pile driver engineer or psychiatrist. Advanced Care Planning We recommend all patients, no matter the stage or prognosis, address advancecare planning with family and legal advisors. This may include living lopez, vazquez of assistant district attorney forhealthcare and finances, personal lopez, etc. This information is stored in your electronic medicalrecord as an advanced directive. Advanced Directive This SmartLink is encounter specific and cannot be used in this activity. Psychosocial Health Needs Please contact your care team for any needs that arise during your treatment with us. Discuss and ask for help along the way. Do not feel embarrassed, or feel like there is a stigma to depression, grief or emotions. Cancer is a challenge that can affect you, not just physically but emotionally, spiritually. We can refer you to resources to address vocational disabilities, legal, financial and psychosocial needs. Estimated Total and Out of Pocket Costs of Cancer Treatment Our financial counselor has met with you and provided you with the financial assessment of your treatment plan including your expected out of pocket costs. Follow-up and Survivorship Care How Frequent? Coordinating Provider Interventional Radiology Following your primary therapy, you should receive a detailed cancer-related history and physical examination by the treating team as directed. Dr Sofia Primary Care visits As directed Rodrick Bosch MD Monitor for ongoing toxicities: As discussed with your Oncology Provider. Call your doctor if you have any of these signs or symptoms It is important to see your primary care doctor for general health care recommended for a person your age, including screening tests for other cancers when appropriate. You should also tell your doctor about brand new or persistent symptoms, and anything that you are worried about which may be related to the cancer coming back. Referrals provided Survivorship care web links National Cancer [place] -- Support Services NCI information specialists are available to help answer your cancer-related questions. https://www.cancer.gov/ https://www.cancer.gov/contact Kidney [employer] Association Educates families and physicians, and serves as an advocate on behalf of patients at the state and federal levels in the [place] and globally. Provides information about kidney cancer and research. https://www.kidneycancer.org/
--- OUTSIDE RECORDS SUMMARY | 2025-04-12 12:51 | XMS_ITS | Encounter Summary ---
Author Organization [facility] Address [address] [place] [address] Care Team Providers Care Produce Service Team Member Name Role Phone Rodrick Bosch MD Primary Care Provid er Reason for Referral * Diagnostic Imaging (STAT) - Closed Specialty Diagnoses / Procedures Referred By Contac t Referred To Contact Radiology Diagnoses Mass of right breast, unspecified quadrant Procedures BI DIAGNOSTIC MAMMOGRAM DARRYL BILATERAL BI MAMMOGRAM DIAGNOSTIC DARRYL RIGHT Lauri Currie MD [address] [facility] [address] [place] [address] Phone: tel: fax: Referral ID Status Reason Start Date Expiration Date Visits Re quested Visits Authorized [id number] Closed 11/03/2023 11/02/2024 1 1 Encounter Details Date Type Department Care Team (Late st Contact Info) Description 11/03/2023 [facility] [address] [place] [address] Lauri Currie MD [address] [facility] [address] [place], [place] [id number] Mass of right breast, unspecified quadrant (Primary Dx) Social History Tobacco Use Types [...] Description 05/05/2025 2:00 PM EDT Office Visit [facility] V[facility] Surgery in [place] [address] [facility] [address] [place] [address] Cosmo Bryant MD [address] [place] [address] Return in about 1 month (around 04/30/2025) for 1 month with vein mapping. documented as of this encounter Results * BI DIAGNOSTIC MAMMOGRAM DARRYL BILATERAL (11/13/2023 10:45 AM EDT) Anatomical Region Laterality Modality BREASTS Bilateral Mammography 11/13/2023 11:0 5 AM EDT Impressions 11/13/2023 5:03 PM EDT 1. Prominent right breast gynecomastia. Minimal gynecomastia on the left. 2. Clinical follow-up is recommended. ACR BIRADS: 2 - Benign RECOMMENDATIONS: Recommend Clinical Exam Follow-up. THE FALSE NEGATIVE RATE FOR MAMMOGRAPHY IS 10%. MANAGEMENT OF PALPABLE ABNORMALITY MUST BE BASED UPON CLINICAL GROUNDS. The [place] [employer] recommends screening breast MRI for women with greater than a 20%-25% lifetime risk for breast cancer, including women with a strong family history of breast or ovarian cancer. Narrative 11/13/2023 5:03 PM EDT PROCEDURE(S): BI DIAGNOSTIC MAMMOGRAM DARRYL BILATERAL, US BREAST RIGHT LIMITED, 11/13/2023 10:28 AM TECHNIQUE: Digital mammography performed with CAD. Digital breast tomosynthesis performed. COMPARISON: None. TISSUE DENSITY: There are scattered areas of fibroglandular density. CLINICAL HISTORY: right breast mass, N63.10-Mass of right breast, unspecified quadrant. FINDINGS: Mammogram: Prominent right breast gynecomastia is noted. Minimal left breast gynecomastia. A few benign-appearing skin calcifications bilaterally with lucent centered appearance on the left and rounded appearance, approximating the skin on the tomosynthesis series bilaterally. No other suspicious masses or calcifications. No suspicious axillary adenopathy. There is no evidence of architectural distortion. Ultrasound: Targeted ultrasound in the region of palpable abnormality performed as indicated by the patient. Gynecomastia is noted in the retroareolar region. There is normal-appearing fibroglandular tissue elsewhere with no mass or cyst. Procedure Note Timmy Ely MD - 11/13/2023 PROCEDURE(S): BI DIAGNOSTIC MAMMOGRAM DARRYL BILATERAL, US BREAST RIGHTLIMITED, 11/13/2023 10:28 AM TECHNIQUE: Digital mammography performed with CAD. Digital breast tomosynthesisperformed. COMPARISON: None. TISSUE DENSITY: There are scattered areas of fibroglandular density. CLINICAL HISTORY: right breast mass, N63.10-Mass of right breast,unspecified quadrant. FINDINGS: Mammogram: Prominent right breast gynecomastia is noted. Minimal left breastgynecomastia. A few benign-appearing skin calcifications bilaterally withlucent centered appearance on the left and rounded appearance,approximating the skin on the tomosynthesis series bilaterally. No othersuspicious masses or calcifications. No suspicious axillary adenopathy.There is no evidence of architectural distortion. Ultrasound: Targeted ultrasound in the region of palpable abnormality performed asindicated by the patient. Gynecomastia is noted in the retroareolarregion. There is normal-appearing fibroglandular tissue elsewhere with nomass or cyst. IMPRESSION: 1. Prominent right breast gynecomastia. Minimal gynecomastia on theleft. 2. Clinical follow-up is recommended. ACR BIRADS: 2 - Benign RECOMMENDATIONS: Recommend Clinical Exam Follow-up. THE FALSE NEGATIVE RATE FOR MAMMOGRAPHY IS 10%. MANAGEMENT OF PALPABLEABNORMALITY MUST BE BASED UPON CLINICAL GROUNDS. The [employer] [employer] recommends screening breast MRI for women withgreater than a 20%-25% lifetime risk for breast cancer, including womenwith a strong family history of breast or ovarian cancer. Lauri Currie MD IMG BI PROCEDURES Final Result documented in this encounter Visit Diagnoses Diagnosis Mass of right breast, unspecified quadrant- Primary Mass of right breast, unspecified quadrant documented in this encounter Care Teams Produce Service Team Member Relationship Specialty Start Date End Date Rodrick Bosch MD [address] [place] [id number] PCP - General Internal Medicine 12/08/22 documented as of this encounter
--- OUTSIDE RECORDS SUMMARY | 2025-04-12 12:51 | XMS_ITS | Encounter Summary ---
Author Organization [facility] Address [address] [place] [address] Care Team Providers Care Teachers' Aide Name Role Phone Rodrick Bosch MD Primary Care Provid er Reason for Referral * Consultation (Routine) - Closed Specialty Diagnoses / Procedures Referred By Contact Referred To Contact Interventional Radiology Diagnoses Malignant neoplasm of left kidney, except renal pelvis (CMS/HCC) Lino [facility] [address] [facility] [place] [address] Phone: tel:[phone] fax:[phone] [place] [facility] [address] [place] [id number] Phone: tel: Referral ID Status Reason Start Date Expiration Date Visits Re quested Visits Authorized [id number] Closed 07/23/2023 07/22/2024 1 1 Scheduling Instructions [facility] Referral #: [id number] Maeve Hopson- Advanced House Decorator [facility] [phone] ext. [phone] Question Answer IR Consult Type? Renal Ablation Has the patient had recent imaging at [facility]? Yes Comments Right Renal Mass Encounter Details Date Type Department Care Team ([facility] st Contact Info) Description 07/23/2023 Transcribe Orders [facility] [address] [place] [address] Lino Torres [address] [place] [id number] Malignant neoplasm of left kidney, except renal pelvis (CMS/HCC) (Primary Dx) Social History Tobacco Use [...] Description 05/05/2025 2:00 PM EDT Office Visit [facility] Vascular Surgery in [place] [address] [email or web address] [address] [place] [address] Cosmo Bryant MD [address] [facility] [address] [place], [place] [phone] Return in about 1 month (around 04/30/2025) for 1 month with vein mapping. Scheduled Referrals Name Type Priority Associated Diagnoses Order Schedule Ambulatory referral to Interventional Radiology Outpatient Referral Routine Malignant neoplasm of left kidney, except renal pelvis (CMS/HCC) Expected: 07/24/2023 (Approximate), Expires: 01/22/2024 documented as of this encounter Visit Diagnoses Diagnosis Malignant neoplasm of left kidney, except renal pelvis (CMS/HCC)- Primary documented in this encounter Care Teams Teachers' Aide Relationship Specialty Start Date End Date Rodrick Bosch MD [address] [place] [id number] PCP - General Internal Medicine 12/08/22 documented as of this encounter
--- OUTSIDE RECORDS SUMMARY | 2025-04-12 12:51 | XMS_ITS | Patient Health Record ---
Author Organization [facility] Address [address] [address] Care Team Providers Care Forestry Farm Laborer Name Role Phone Sebastian Jeff Unavailable [phone] Travis Sauceda Unavailable Andra vailable Reason For Referral No Information Medications Medication SIG (Take, Route, Frequency, Duration) Notes Start Date End Date Status metformin oral *please review f or potential update for e-prescription and drug interaction check* Active Aspir-81 81 MG Tablet Delayed Release Oral *please review for potential update for e-prescription and drug interaction check* Active Simvastatin 80 MG Tablet Oral Active Omeprazole 20 MG Capsule Delayed Release Oral Active Loratadine oral *please review f or potential update for e-prescription and drug interaction check* Active Lantus 100 unit/mL solution inject by subcutaneous route as per insulin protocol subcutaneous 0 Active Social History Social History Additional Details Category Social Info Options Details Migrated Social History Migrated Social History Substance Use :: Alcohol :: Former , Substance Use :: Denies substance abuse , Substance Use :: Tobacco :: Former Problems Problem Type SNOMED Code ICD Code Onset Dates Problem Status W/U Status Risk Notes Problem Benign neoplasm of colon (45608823) Colon polyps (K63.5) Active confirmed Plan Of Treatment No Information Insurance Providers Payer Name Payer Address Payer Phone Subscriber Number Group Number Insured Name Patient Relationship to Insured Coverage Start Date Coverage End Date [employer] on [id number] [facility] [place] [address] [id number] None Cosmo Voss Self - patient is the insured 4 4 Medical (General) History Surgical History Surgery Date(Month/Year) Other: both eyes; 2014-06-20
--- OUTSIDE RECORDS SUMMARY | 2025-04-12 12:51 | XMS_ITS | Clinical Summary ---
Author Organization [facility] Address [address] [place] [address] Care Team Providers Care Fish Hatchery Worker Name Role Phone Rodrick Bosch MD Primary Care Provid er Allergies No known active allergies Medications finasteride (PROSCAR) 5 mg tablet Take 5 mg by mouth daily. Active simvastatin (ZOCOR) 80 mg tablet Take 40 mg by mouth 2 (two) times a day. Active aspirin (Ecotrin) 81 mg EC tablet Take 81 mg by mouth daily. Active omeprazole (PriLOSEC) 40 mg capsule Take 40 mg by mouth every morning before breakfast. Active insulin glargine (LANTUS) 100 unit/mL vialIndications: Acute kidney injury superimposed on chronic kidney disease (CMS/HCC) (CMS/HCC) Inject 0.1 mL (10 Units total) under the skin nightly. 0 3 Active apixaban (ELIQUIS) 5 mg tabletIndication s:Acute kidney injury superimposed on chronic kidney disease (CMS/HCC) (CMS/HCC) Take 1 tablet (5 mg total) by mouth 2 (two) times a day. 60 tablet 3 Active allopurinol (ZYLOPRIM) 100 mg tabletIndication s:Acute kidney injury superimposed on chronic kidney disease (CMS/HCC) (CMS/HCC) Take 1 tablet (100 mg total) by mouth daily. 30 tablet 3 Active amLODIPine (Norvasc) 5 mg tabletIndication s:Other pancytopenia (CMS/HCC) Take 1 tablet (5 mg total) by mouth daily. 30 tablet 3 Active rosuvastatin (CRESTOR) 20 mg tablet 10 mg. 3 Active terazosin (HYTRIN) 2 mg capsule 4 mg. 3 Active furosemide (LASIX) 20 mg tablet 20 mg. 2 Active magnesium oxide 420 mg tablet 840 mg. 2 Active montelukast (SINGULAIR) 10 mg tablet 3 Active dexAMETHasone (DECADRON) 4 mg tablet SMARTSI Tablet(s) By Mouth Once a Week 3 Active acyclovir (ZOVIRAX) 800 mg tablet Take 0.5 tablets by mouth 2 (two) times a day. 3 Active amLODIPine (NORVASC) 10 mg tablet 10 mg. 3 Active insulin glargine (LANTUS) 100 unit/mL (3 mL) pen injection INJECT 6 UNITS UNDER THE SKIN EVERY DAY 2 Active fluticasone propionate (FLONASE) 50 mcg/actuation nasal sprayIndications :Acute non-recurrent frontal sinusitis Administer 1 spray into each nostril 2 (two) times a day. 16 mL 3 Active Additional Information Patient not taking.Reason: Not available, Reported on 08/01/2023 sevelamer (RENVELA) 800 mg tablet Take 800 mg by mouth 3 (three) times a day with meals. Active promethazine-DM (PROMETHAZINE-DM ) 6.25-15 mg/5 mL syrupIndications :Acute maxillary sinusitis, recurrence not specified Take 5 mL by mouth 4 (four) times a day as needed for cough. 180 mL 3 Active Additional Information Patient not taking.Reason: Not available, Reported on 08/01/2023 benzonatate (TESSALON) 200 mg capsuleIndicatio ns:Upper respiratory tract infection, unspecified type Take 1 capsule (200 mg total) by mouth 3 (three) times a day as needed for cough. 20 capsule 3 Active Active Problems Problem Noted Date Diagnosed Date CKD (chronic kidney disease) stage 5, GFR less than 15 ml/min 03/30/2025 Assessment & Plan (03/30/2025 3:29 PM EDT): [facility] Aicqh-xvat-buwxvcme 2+ radial pulses bilaterally We discussed in [...] (12/10/2022 11:50 AM EDT): Bicarb drip per [facility] /discontinued Bicarb improving to 20 just shy of normal Assessment & Plan (12/09/2022 2:48 PM EDT): Bicarb drip per [facility] Other pancytopenia 12/08/2022 Assessment & Plan (12/10/2022 [...] [facility] was [facility] at the [place]. He is going to follow-up with oncologist [...] He was started on chemotherapy at the [place]. He is going to follow-up with oncologist Dr. Currie Currently chemotherapy on hold due to pancytopenia. Continue acyclovir for prophylaxis. Continue allopurinol. Advised patient to continue follow-up with hematology/oncology upon discharge. Assessment & Plan (12/08/2022 6:24 PM EDT): Patient recently diagnosed with multiple myeloma. He was started on chemotherapy at the [place]. He is going to follow-up with oncologist [...] injury superimp osed on chronic kidney disease ([facility]) 12/08/2022 Assessment & Plan (12/10/2022 11:49 AM [...] concerns prior to signing the surgical consent. Encounters Date Type Department Care Team Description 03/30/2025 2:15 PM EDT Office Visit [facility] [place] [address] [address] Cosmo Bryant MD CKD (chronic kidney disease) stage 5, GFR less than 15 ml/min (CMS/HCC) (Primary Dx) 03/24/2025 Telephone [facility] [place] [address] [place] [address] Cosmo Bryant MD 03/02/2025 Telephone [facility] [place] [address] [place] [address] Cosmo Bryant MD [facility] 03/01/2025 Telephone [facility] [place] [address] [place] [address] Jose Alejandro Kumar MD 02/21/2025 [facility] [address] [place] [address] Lauri Currie MD Renal cell carcinoma, unspecified laterality (CMS/HCC) (Primary Dx) 01/11/2025 Travel from Last 3 Months Family History Medical History Relation Name Comments No Known Problems Father No Known Problems Mother Relation Name Status Comments Father Mother Social History Tobacco Use Types Packs/Day Years Used Date Smoking Tobacco: Former Cigarettes Q uit: 1990 Smokeless Tobacco: Never Tobacco Cessation:Counseling Given: No Alcohol Use Standard Drinks/Week Comments Never 0 (1 standard drink = 0.6 oz pur e alcohol) Sex and Gender Information Value Date Recorded Sex Assigned at Not on file Legal Sex Male 4:58 PM EDT Gender Identity Male 06/09/2017 3:30 PM EST Sexual Orientation Not on file Last Filed Vital Signs Vital Sign Reading Time Taken Comments Blood Pressure 151/74 03/30/2025 1:43 PM EDT Pulse 55 03/30/2025 1:43 PM EDT Temperature 36.2 C (97.2 F) 03/30/2025 1:38 PM EDT Respiratory Rate 18 12/02/2023 11:40 AM EDT Oxygen Saturation 98% 03/30/2025 1:43 PM EDT Inhaled Oxygen Concentration - - Weight 92.5 kg (204 lb) 03/30/2025 1:38 PM EDT Height 175.3 cm (5' 9) 03/30/2025 1:38 PM EDT Body Mass Index 30.13 03/30/2025 1:38 PM EDT Plan of Treatment Upcoming Encounters Date Type Department Care Team (Late st Contact Info) Description 05/05/2025 2:00 PM EDT Office Visit [facility] [place] [address] [place] [address] Cosmo Bryant MD [address] [facility] [address] [place] [address] Return in about 1 month (around 04/30/2025) for 1 month with vein mapping. Health Maintenance Due Date Last Done Comments Hemoglobin A1C 1947 Hepatitis C Screening 1947 Lipid Panel 1947 Annual Visit Non Medicare 1950 Annual Visit 1950 Foot Exam 1957 Ophthalmology Exam 1957 Alcohol Screening 1958 Depression Screening 1959 Fall Risk Assessment 2012 Influenza Vaccine (#1) 2025 , 05/21/2023, 05/25/2018, Additional history exists COVID-19 Vaccine (10 - Pfizer risk 2023- season) 2025 11/14/2024, 03/14/2024, 08/10/2023, Additional history exists DTaP,Tdap,and Td Vaccines (3 - Td or Tdap) 03/14/2034 03/14/2024, 08/03/2003 Pneumococcal Vaccine 50+ Completed 018, 04/16/2015, 05/03/2010 Colonoscopy Discontinued 01/15/2021 Colorectal Cancer Screening Discontinued Zoster Vaccines Completed 09/26/2021, 06/25/2021 Abdominal Aortic Aneurysm (AAA) Screen Discontinued 03/03/2024, 10/02/2023, 08/12/2023, Additional history exists RSV Vaccine Completed 11/14/2024 Cologuard Discontinued FOBT/FIT Discontinued HIB Vaccines Aged Out No longer eligi ble based on patient's age to complete this topic Hepatitis A Vaccines Aged Out No long er eligible based on patient's age to complete this topic Hepatitis B Vaccines Aged Out No long er eligible based on patient's age to complete this topic IPV Vaccines Aged Out No longer eligi ble based on patient's age to complete this topic Meningococcal Vaccine Aged Out No sarah brennan eligible based on patient's age to complete this topic Sigmoidoscopy Discontinued Procedures Procedure Name Priority Date/Time Associated Diagnosis Comments MRI ABDOMEN WO CONTRAST Routine 03/03/2024 3:40 PM EDT Renal mass, right HM COLONOSCOPY Routine 01/15/2021 from Last 3 Months or Most Recently Relevant to Health Maintenance Results * MRI ABDOMEN WO CONTRAST (03/03/2024 3:40 PM EDT) Anatomical Region Laterality Modality Abdomen Magnetic Resonan ce 03/08/2024 2:37 PM EDT Impressions 03/08/2024 2:48 PM EDT 1. Post ablation changes noted within the exophytic mass off the lower pole the right kidney. Heterogeneous T1 and T2 signal suggest hemorrhagic/proteinaceous material with some surrounding inflammation. There is some very subtle intermediate T2 signal still present, nonspecific but attention on follow-up imaging is recommended to exclude residual tumor. 2. Changes of partial left nephrectomy again noted. Bilateral simple appearing renal cysts noted. The above report was created using voice recognition technology. Although efforts are made to correct all errors prior to signing please notify us at the following number if any dictation errors are noted. [phone]. Narrative 03/08/2024 2:48 PM EDT PROCEDURE(S): MRI ABDOMEN WO CONTRAST, 03/03/2024 3:10 PM TECHNIQUE: Multisequence, multiplanar MRI of the abdomen was performed without intravenous contrast. Informed consent was obtained and there were no immediate complications. COMPARISON: CT exams with the most recent 10/02/2023. CLINICAL HISTORY: Kidney cancer, monitor, Post right microwave ablation, N28.89-Renal mass, right Right renal microwave ablation 12/02/2023 of the lower pole lesion. History of left partial nephrectomy. FINDINGS: Liver: The liver is normal in signal intensity. No concerning liver masses. Small simple hepatic cysts just lateral to the intrahepatic IVC. Gallbladder: The gallbladder appears normal. Bile ducts: The biliary ducts are normal in caliber. 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 Pancreatic duct normal in caliber. No surrounding inflammation. Adrenal glands: Adrenal glands appear normal. Kidneys: Changes of partial nephrectomy noted on the left with the pole absent. Surrounding scarring is noted. 4.0 x 3.0 cm exophytic mass off the lower pole the right kidney is noted. Small peripheral rim of intrinsic high T1 signal suggesting a products or proteinaceous material. Predominantly low signal intensity on T2 with only very subtle margins of intermediate T2 signal. There is some surrounding inflammation in keeping with recent ablation. Simple cyst in the upper pole the right kidney. Stable peripelvic cysts in the left kidney. Lymph nodes: No suspicious lymph nodes Bowel: Stomach and visualized large and small bowel loops with no acute or concerning chronic findings. Bones: Impression deformity at L1 without chapo edema suggesting remote compression fracture. Lung bases axial small right pleural effusion.: Lung bases appear clear. Vasculature: Vascular structures appear unremarkable. Coronal views demonstrate partial visualization of a enlarged prostate gland. Procedure Note Sonny Hunt MD - 03/08/2024 PROCEDURE(S): MRI ABDOMEN WO CONTRAST, 03/03/2024 3:10 PM TECHNIQUE: Multisequence, multiplanar MRI of the abdomen was performedwithout intravenous contrast. Informed consent was obtained and there wereno immediate complications. COMPARISON: CT exams with the most recent 10/02/2023. CLINICAL HISTORY: Kidney cancer, monitor, Post right microwave ablation,N28.89- Renal mass, right Right renal microwave ablation 12/02/2023 of the lower pole lesion. Historyof left partial nephrectomy. FINDINGS: Liver: The liver is normal in signal intensity. No concerning livermasses. Small simple hepatic cysts just lateral to the intrahepatic IVC. Gallbladder: The gallbladder appears normal. Bile ducts: The biliary ducts are normal in caliber. Spleen: Lymph angioma versus small splenic cyst noted within the base ofthe spleen Pancreas: There are few cysts within the body and tail the pancreasmeasuring up to 3 mm. Pancreatic duct normal in caliber. No surroundinginflammation. Adrenal glands: Adrenal glands appear normal. Kidneys: Changes of partial nephrectomy noted on the left with the pole absent.Surrounding scarring is noted. 4.0 x 3.0 cm exophytic mass off the lower pole the right kidney is noted.Small peripheral rim of intrinsic high T1 signal suggesting a products orproteinaceous material. Predominantly low signal intensity on T2 with onlyvery subtle margins of intermediate T2 signal. There is some surroundinginflammation in keeping with recent ablation. Simple cyst in the upper pole the right kidney. Stable peripelvic cysts inthe left kidney. Lymph nodes: No suspicious lymph nodes Bowel: Stomach and visualized large and small bowel loops with no acute orconcerning chronic findings. Bones: Impression deformity at L1 without chapo edema suggesting remotecompression fracture. Lung bases axial small right pleural effusion.: Lung bases appear clear. Vasculature: Vascular structures appear unremarkable. Coronal views demonstrate partial visualization of a enlarged prostategland. IMPRESSION: 1. Post ablation changes noted within the exophytic mass off the lowerpole the right kidney. Heterogeneous T1 and T2 signal suggesthemorrhagic/proteinaceous material with some surrounding inflammation.There is some very subtle intermediate T2 signal still present,nonspecific but attention on follow-up imaging is recommended to excluderesidual tumor. 2. Changes of partial left nephrectomy again noted. Bilateral simpleappearing renal cysts noted. The above report was created using voice recognition technology. Althoughefforts are made to correct all errors prior to signing please notify usat the following number if any dictation errors are noted. [phone]. us Hector Sofia MD IMG MRI PROCEDURES Final R esult * Hm Colonoscopy (01/15/2021) Adam Calvillo MD [facility] Final Result from Last 3 Months or Most Recently Relevant to Health Maintenance Insurance MEDICARE MEDICARE [address] [place] [id number] [facility] [id number] [place] [id number] Advance Directives * Full Code (Latest Code Status on File) Date Activated Date Inactivated Comments 12/08/2022 7:21 PM 12/10/2022 6:16 PM Care Teams Fish Hatchery Worker Relationship Specialty Start Date End Date Rodrick Bosch MD [address] [place] [address] PCP - General Internal Medicine 12/08/22
[2025-04-12 12:57] LABS: Troponin I 2.230 ng/mL (0.000-0.034)
[2025-04-12 13:04] LABS: NT Pro B Type Natriuretic Pept > 30000 pg/mL (19.9-100)
--- NOTE | 2025-04-12 13:11 | PC.NURSE ---
patient to radiology at this time
--- OUTSIDE RECORDS SUMMARY | 2025-04-12 13:16 | XMS_ITS | Encounter Summary ---
Author Organization [facility] Address [address] [place] [address] Care Team Providers Care Activity Specialist Name Role Phone Rodrick Bosch MD Primary Care Provid er Reason for Referral * Diagnostic Imaging (STAT) - Closed Specialty Diagnoses / Procedures Referred By Contac t Referred To Contact Radiology Diagnoses Mass of right breast, unspecified quadrant Procedures BI DIAGNOSTIC MAMMOGRAM DARRYL BILATERAL BI MAMMOGRAM DIAGNOSTIC DARRYL RIGHT Lauri Currie MD [address] [facility] [address] [place] [address] Phone: tel: fax: Referral ID Status Reason Start Date Expiration Date Visits Re quested Visits Authorized [id number] Closed 11/03/2023 11/02/2024 1 1 Encounter Details Date Type Department Care Team (Late st Contact Info) Description 11/03/2023 [facility] [address] [place] [address] Lauri Currie MD [address] [facility] [address] [place], [place] [id number] Mass of right breast, unspecified quadrant (Primary [...] Description 05/05/2025 2:00 PM EDT Office Visit [facility] [place] [address] [facility] [address] [place] [address] Cosmo Bryant MD [address] [place] [address] Return in about 1 month [...] MUST BE BASED UPON CLINICAL GROUNDS. The [place] [employer] recommends screening breast MRI for [...] MUST BE BASED UPON CLINICAL GROUNDS. The [place] [employer] recommends screening breast MRI for women withgreater than a 20%-25% lifetime risk for breast cancer, including womenwith a strong family history of breast or ovarian cancer. Lauri Currie MD IMG BI PROCEDURES Final Result documented in this encounter Visit Diagnoses Diagnosis Mass of right breast, unspecified quadrant- Primary Mass of right breast, unspecified quadrant documented in this encounter Care Teams Activity Specialist Relationship Specialty Start Date End Date Rodrick Bosch MD [address] [place] [address] PCP - General Internal Medicine 12/08/22 documented as of this encounter
--- OUTSIDE RECORDS SUMMARY | 2025-04-12 13:16 | XMS_ITS | Encounter Summary ---
Author Organization [facility] Address [address] [place] [address] Care Team Providers Care Senior Stock Plan Administrator Name Role Phone Rodrick Bosch MD Primary Care Provid er Encounter Details Date Type Department Care Team (Late st Contact Info) Description 11/03/2023 [facility] [address] [place] [address] Surya Sosa, [facility] [address] [address] [place] [address] Social History Tobacco Use Types Packs/Day Years [...] EDT Office Visit [facility] [place] [address] [place] [phone] Cosmo Bryant MD [address] [facility] [address] [place] [address] Return in about 1 month (around 04/30/2025) for 1 month with vein mapping. documented as of this encounter Visit Diagnoses Not on filedocumented in this encounter Care Teams Senior Stock Plan Administrator Relationship Specialty Start Date End Date Rodrick Bosch MD [address] [place] [address] PCP - General Internal Medicine 12/08/22 documented as of this encounter
--- OUTSIDE RECORDS SUMMARY | 2025-04-12 13:16 | XMS_ITS | Encounter Summary ---
Author Organization [facility] Address [address] [place] [address] Care Team Providers Care Laser Beam Color Scanner Operator Name Role Phone Pcp, Nessa PENNINGTON Primary Care Provider Rodrick Newton MD Primary Care Provid er Encounter Details Date Type Department Care Team (Late st Contact Info) Description 10/23/2022 Transcribe Orders [facility] [address] [place] [address] Nagi Modi [address] [place], [place] [id number] Malignant neoplasm of prostate (CMS/HCC) (Primary Dx) [...] Description 05/05/2025 2:00 PM EDT Office Visit [facility] in [place] [address] [place] [address] Cosmo Bryant MD [address] [place], [place] [phone] Return in about 1 month (around 04/30/2025) for 1 month with vein mapping. documented as of this encounter Visit Diagnoses Diagnosis Malignant neoplasm of prostate (CMS/HCC)- Primary Malignant neoplasm of prostate documented in this encounter Care Teams Laser Beam Color Scanner Operator Relationship Specialty Start Date End Date Nessa Barbosa MD PCP - General Family Medicine 06/09/17 12/07/22 Rodrick Bosch MD [address] [place] [address] PCP - General Internal Medicine 12/08/22 documented as of this encounter
--- OUTSIDE RECORDS SUMMARY | 2025-04-12 13:16 | XMS_ITS | Encounter Summary ---
Author Organization [facility] Address [address] [place] [address] Care Team Providers Care Doweler Name Role Phone Rodrick Bosch MD Primary Care Provid er Reason for Referral * MRI/CAT/PET Scan (Routine) - Closed Specialty Diagnoses / Procedures Referred By Contac t Referred To Contact Radiology Diagnoses Malignant neoplasm of prostate (CMS/HCC) Procedures MRI PROSTATE Sachin Gale MD [address] [place] [address], [address] [place] [address] Phone: tel: fax: Referral ID Status Reason Start Date Expiration Date Visits Re quested Visits Authorized [id number] Closed 09/02/2024 03/12/2025 1 1 Encounter Details Date Type Department Care Team (Late st Contact Info) Description 12/06/2024 Transcribe Orders [facility] [address] [place] [address] Sachin Gale MD [address] [place] [address], [address] [place] [address] Malignant neoplasm of prostate (CMS/HCC) [...] EDT Office Visit [facility] [place] [address] [place] [phone] Cosmo Bryant MD [address] [facility] [address] [place] [address] Return in about 1 month (around 04/30/2025) for 1 month with vein mapping. Scheduled Orders Name Type Priority Associated Diagnoses Orde r Schedule MRI PROSTATE Imaging Routine Malignant neoplasm of prostate (CMS/HCC) Expected: 12/06/2024, Expires: 12/06/2025 documented as of this encounter Visit Diagnoses Diagnosis Malignant neoplasm of prostate (CMS/HCC)- Primary Malignant neoplasm of prostate documented in this encounter Care Teams Doweler Relationship Specialty Start Date End Date Rodrick Bosch MD [address] [place] [address] PCP - General Internal Medicine 12/08/22 documented as of this encounter
--- OUTSIDE RECORDS SUMMARY | 2025-04-12 13:16 | XMS_ITS | Encounter Summary ---
Author Organization [facility] Address [address] [place] [address] Care Team Providers Care Corporate Scheduler Name Role Phone Rodrick Bosch MD Primary Care Provid er Reason for Referral * MRI/CAT/PET Scan (Routine) - Pending Review Specialty Diagnoses / Procedures Referred By Contac t Referred To Contact Radiology Diagnoses Renal cell carcinoma, unspecified laterality (CMS/HCC) Procedures MRI ABDOMEN W WO CONTRAST Lauri Currie MD [address] [facility] [address] [facility] [address] [facility] [address] [place] [address] Phone: tel: fax: Referral ID Status Reason Start Date Expiration Date V isits Requested Visits Authorized [id number] Pending Review 02/21/2025 02/21/2026 1 1 Encounter Details Date Type Department Care Team (Late st Contact Info) Description 02/21/2025 [facility] [address] [place] [address] Lauri Currie MD [address] [facility] [address] [place], [place] [phone] Renal cell carcinoma, unspecified laterality (CMS/HCC) (Primary [...] EDT Office Visit [facility] [place] [address] [facility] [address] [place] [address] Cosmo Bryant MD [address] [facility] [address] [place], [place] [phone] Return in about 1 month (around 04/30/2025) for 1 month with vein mapping. Scheduled Orders Name Type Priority Associated Diagnoses Orde r Schedule MRI ABDOMEN W WO CONTRAST Imaging Routine Renal cell carcinoma, unspecified laterality (CMS/HCC) Expected: 02/21/2025, Expires: 02/21/2026 documented as of this encounter Visit Diagnoses Diagnosis Renal cell carcinoma, unspecified laterality (CMS/HCC)- Primary documented in this encounter Care Teams Corporate Scheduler Relationship Specialty Start Date End Date Rodrick Bosch MD [address] [place] [address] PCP - General Internal Medicine 12/08/22 documented as of this encounter
--- OUTSIDE RECORDS SUMMARY | 2025-04-12 13:16 | XMS_ITS | Encounter Summary ---
Author Organization [facility] Address [address] [place] [address] Care Team Providers Care Quality Assurance Intern Name Role Phone Rodrick Bosch MD Primary Care Provid er Reason for Referral * Consultation (Routine) - Closed Specialty Diagnoses / Procedures Referred By Contact Referred To Contact Interventional Radiology Diagnoses Malignant neoplasm of left kidney, except renal pelvis (CMS/HCC) Lino Torres [address] [facility] [place] [address] Phone: tel:[phone] fax:[phone] [place] [facility] [address] [place] [phone] Phone: tel: Referral ID Status Reason Start Date Expiration Date Visits Re quested Visits Authorized [id number] Closed 07/23/2023 07/22/2024 1 1 Scheduling Instructions [facility] Referral #: [id number] Maeve Hopson- Advanced Stoker Installer [facility] [phone] ext. [phone] Question Answer IR Consult Type? Renal Ablation Has the patient had recent imaging at [facility]? Yes Comments Right Renal Mass Encounter Details Date Type Department Care Team ([facility] st Contact Info) Description 07/23/2023 Transcribe Orders [facility] [address] [place] [address] Lino Torres [address] [place] [id number] Malignant neoplasm of left kidney, except renal [...] Description 05/05/2025 2:00 PM EDT Office Visit [facility] in [place] [address] [facility] [address] [place] [address] Cosmo Bryant MD [address] [facility] [address] [place], [place] [id number] Return in about 1 month (around 04/30/2025) [...] Primary documented in this encounter Care Teams Quality Assurance Intern Relationship Specialty Start Date End Date Rodrick Bosch MD [address] [place] [address] PCP - General Internal Medicine 12/08/22 documented as of this encounter
--- OUTSIDE RECORDS SUMMARY | 2025-04-12 13:16 | XMS_ITS | Encounter Summary ---
Author Organization [facility] Address [address] [place] [address] Care Team Providers Care Health Advisor Name Role Phone Rodrick Bosch MD Primary Care Provid er Reason for Referral * MRI/CAT/PET Scan (STAT) - Closed Specialty Diagnoses / Procedures Referred By Contac t Referred To Contact Radiology Diagnoses Multiple myeloma not having achieved remission (CMS/HCC) Procedures PET CT WHOLE BODY Lauri Currie MD [address] [facility] [address] [place] [address] Phone: tel: fax: Referral ID Status Reason Start Date Expiration Date Visits Re quested Visits Authorized [id number] Closed 11/24/2022 12/04/2023 1 1 Encounter Details Date Type Department Care Team (Late st Contact Info) Description 02/17/2023 [facility] [address] [place] [address] Lauri Currie MD [address] [facility] [address] [place], [place] [id number] Multiple myeloma not having achieved remission (CMS/HCC) [...] Description 05/05/2025 2:00 PM EDT Office Visit [facility] Vascular Surgery in [place] [address] [facility] [address] [place] [address] Cosmo Bryant MD [address] [facility] [facility] [address] [facility] [address] [place], [place] [phone] Return in about 1 month (around 04/30/2025) [...] (CMS/HCC) documented in this encounter Care Teams Health Advisor Relationship Specialty Start Date End Date Rodrick Bosch MD [address] [place], [place] [phone] PCP - General Internal Medicine 12/08/22 documented as of this encounter
--- OUTSIDE RECORDS SUMMARY | 2025-04-12 13:16 | XMS_ITS | Clinical Summary ---
Author Organization [facility] Address [address] [place] [address] Care Team Providers Care Packaging Inspector Name Role Phone Rodrick Bosch MD Primary [...] by the [facility] Not yet on dialysis Yryim-iizs-cpxsboyu 2+ radial pulses bilaterally We discussed in [...] (12/10/2022 11:50 AM EDT): Bicarb drip per [facility] /discontinued Bicarb improving to 20 just shy of normal Assessment & Plan (12/09/2022 2:48 PM EDT): Bicarb drip per [facility] Other pancytopenia 12/08/2022 Assessment & [...] He was started on [place] at the [place]. He is going to follow-up with oncologist [...] He was started on chemotherapy at the [place]. He is going to follow-up with oncologist Dr. Currie Currently chemotherapy on hold due to pancytopenia. Continue acyclovir for prophylaxis. Continue allopurinol. Advised patient to continue follow-up with hematology/oncology upon discharge. Assessment & Plan (12/08/2022 6:24 PM EDT): Patient recently diagnosed with multiple myeloma. He was started on chemotherapy at the [place]. He is going to follow-up with oncologist [...] injury superimp osed on chronic kidney disease ([facility]) 12/08/2022 Assessment & Plan (12/10/2022 11:49 AM [...] EDT Office Visit [facility] [place] [address] [place] [address] Cosmo Bryant MD CKD (chronic kidney disease) stage 5, GFR less than 15 ml/min (CMS/HCC) (Primary Dx) 03/24/2025 Telephone [facility] [place] [address] [place] [address] Cosmo Bryant MD 03/02/2025 Telephone [facility] [place] [address] [place] [address] Cosmo Bryant MD [facility] AUTH 03/01/2025 Telephone [facility] [place] [address] [place] [address] Jose Alejandro Kumar MD 02/21/2025 [facility] [address] [place] [address] Lauri Currie MD Renal cell carcinoma, unspecified [...] EDT Office Visit [facility] [place] [address] [place] [address] Cosmo Bryant MD [address] [facility] [address] [place] [address] Return in about 1 month [...] number if any dictation errors are noted. [phone]. Narrative 03/08/2024 2:48 PM EDT PROCEDURE(S): MRI [...] number if any dictation errors are noted. [phone]. us Hector Sofia MD IMG MRI PROCEDURES Final R esult * Hm Colonoscopy (01/15/2021) Adam Calvillo MD [facility] Final Result from Last 3 Months or Most Recently Relevant to Health Maintenance Insurance MEDICARE MEDICARE [address] [place] [id number] [facility] [id number] [place] [id number] Advance Directives * Full Code (Latest Code Status on File) Date Activated Date Inactivated Comments 12/08/2022 7:21 PM 12/10/2022 6:16 PM Care Teams Packaging Inspector Relationship Specialty Start Date End Date Rodrick Bosch MD [address] [place] [address] PCP - General Internal Medicine 12/08/22
--- OUTSIDE RECORDS SUMMARY | 2025-04-12 13:16 | XMS_ITS | Clinical Summary ---
Author Organization [facility] Address [address] [place] [address] Phone Care Team Providers Care Outdoor Pursuits Instructor Name Role Phone Unavailable Primary Care Provider Unavailabl e Encounters Date Type Department Care Team Description 01/11/2025 Telephone [facility] [address] [place] [address] Satya Lugo MD from Last 3 Months Social History Tobacco Use Types Packs/Day Years Used Date Smoking Tobacco: Never Assessed Sex and Gender Information Value Date Recorded Sex Assigned at Not on file Legal Sex Male 11:13 AM EDT Gender Identity Not on file Sexual Orientation Not on file Plan of Treatment Not on file
--- OUTSIDE RECORDS SUMMARY | 2025-04-12 13:16 | XMS_ITS | Clinical Summary ---
Author Organization [facility] Address [address] [place] [address] Care Team Providers Care Transplant Coordinator Name Role Phone Unavailable Primary Care Provider [...] age to complete this topic Insurance Medicare [facility] Regions 1,2,3 (VACCN)
--- OUTSIDE RECORDS SUMMARY | 2025-04-12 13:16 | XMS_ITS ---
Author Organization [facility] Address [address] [place] [address] Care Team Providers Care Alarm Installation Technician Name Role Phone Rodrick Bosch MD Primary Care Provid er Active Problems Problem Noted Date Diagnosed Date CKD (chronic kidney disease) stage 5, GFR less than 15 ml/min 03/30/2025 Assessment & Plan (03/30/2025 3:29 PM EDT): [facility] Not yet on dialysis Gulrx-bbwf-cnaukadp 2+ radial pulses bilaterally We discussed in [...] (12/10/2022 11:50 AM EDT): Bicarb drip per [facility] /discontinued Bicarb improving to 20 just shy of normal Assessment & Plan (12/09/2022 2:48 PM EDT): Bicarb drip per [facility] Other pancytopenia 12/08/2022 Assessment & [...] He was started on [place]. He is going to follow-up with oncologist [...] He was started on chemotherapy at the [place]. He is going to follow-up with oncologist Dr. Currie Currently chemotherapy on hold due to pancytopenia. Continue acyclovir for prophylaxis. Continue allopurinol. Advised patient to continue follow-up with hematology/oncology upon discharge. Assessment & Plan (12/08/2022 6:24 PM EDT): Patient recently diagnosed with multiple myeloma. He was started on chemotherapy at the [place]. He is going to follow-up with oncologist [...] injury superimp osed on chronic kidney disease ([facility]/HCC) 12/08/2022 Assessment & Plan (12/10/2022 11:49 [...] Home Phone Mobile Phone NEVAEH CASSIDY* Spouse [phone] Surrogate Decision Maker or POA for Healthcare [...] We can refer you to a counselor, agronomy manager or psychiatrist. Advanced Care Planning We recommend all patients, no matter the stage or prognosis, address advancecare planning with family and legal advisors. This may include living lopez, vazquez of rubber goods assembler forhealthcare and finances, personal lopez, etc. This [...] provided Survivorship care web links National Cancer [place] -- Support Services NCI information specialists are available to help answer your cancer-related questions. https://www.cancer.gov/ https://www.cancer.gov/contact Kidney Cancer Association Educates families and physicians, and serves as an advocate on behalf of patients at the state and federal levels in the [place] and globally. Provides information about kidney cancer and research. https://www.kidneycancer.org/
--- OUTSIDE RECORDS SUMMARY | 2025-04-12 13:16 | XMS_ITS | Encounter Summary ---
Author Organization [facility] Address [address] [place] [address] Phone Care Team Providers Care Subscription Crew Leader Name Role Phone Unavailable Primary Care Provider Unavailabl e Encounter Details Date Type Department Care Team (Late st Contact Info) Description 12/04/2022 Community Orders [facility] [place] Travis Maki [facility] Di[facility] [address] [place] [address] Social History Tobacco Use Types Packs/Day Years [...]
--- OUTSIDE RECORDS SUMMARY | 2025-04-12 13:16 | XMS_ITS | Clinical Summary ---
Author Organization [facility] Address [address] [place] [address] Care Team Providers Care Recreational Therapist Name Role Phone Kush Romero MD Primary [...] age to complete this topic Care Teams Recreational Therapist Relationship Specialty Start Date End Date Kush Romero MD PCP - General 10/18/19
[2025-04-12 14:12] LABS: Magnesium 1.8 mg/dL (1.6-2.3); Potassium 6.1 mmol/L (3.4-5.0)
[2025-04-12] MEDS: SODIUM POLYSTYRENE SULFONONATE 15 GM/60 ML BTL 30 GM PO (14:15)
[2025-04-12] MEDS: DEXTROSE 50% 25 GM/50 ML SYRINGE IV PUSH (14:15)
[2025-04-12] MEDS: INSULIN HUMAN REGULAR (*BKC) 100 UNITS/ML 10 UNITS IV PUSH (14:16)
[2025-04-12 14:33] LABS: Influenza A QL RT-PCR Negative (Negative); Influenza B QL RT-PCR Negative (Negative); RSV RNA, RT-PCR Negative (Negative); SARS-CoV-2 RNA PCR Negative (Negative)
--- NOTE | 2025-04-12 15:07 | PC.NURSE ---
pt in radiology at this time, called and gave report to Kenna in IMU- discussed calling her when the patient heads out of the department to his room. Discussed with Kenna that patient would get his medications and 3 hour troponin prior to transport to IMU.
[2025-04-12] MEDS: CALCIUM GLUCONATE 1,000 MG/10 ML VIAL 1000 MG IV PUSH (15:12)
[2025-04-12] MEDS: LACTATED RINGERS 1,000 ML 999 ML IV CONT (15:13)
[2025-04-12] MEDS: SODIUM BICARBONATE 8.4% 50 MEQ/50 ML SYRINGE 100 MEQ IV PUSH (15:13)
[2025-04-12] MEDS: ALBUTEROL SULFATE NEB 2.5 MG/3 ML INH 10 MG INHALATION (15:15)
--- NOTE | 2025-04-12 15:22 | PCRCNOTE ---
Delay in administering patients continuous Albuterol nebulizer due to the patient being taken to CT scan. Neb given when patient returned. Nurse aware.
--- NOTE | 2025-04-12 15:26 | PM.IMHP ---
H&P: HPI History of Present Illness Date/Time: 04/12/25 15:26 Chief Complaint: Shortness of Breath Narrative: 79 y/o M with PMH of CHF, multiple myeloma, partial nephrectomy (believes it was on the left), DM2, HLD, BPH, and CKD (has previously had discussion for possible dialysis) presents here with shortness of breath. The patient presents here from a local hotel on 04/12 for further evaluation of shortness of breath. He reports onset 2 days prior to arrival with significant worsening this morning which prompted him to seek care and call EMS. He reports recent travel from [place] via car approximately 1 week ago. He is not currently on anticoagulation and he denies a previous history of DVT/PE. Shortness of breath is accompanied by diarrhea, abdominal pain (mild, between his umbilicus and suprapubic, intermittent) and lower extremity edema. He denies cough, hemoptysis, chest pain, nausea, vomiting, fever, chills, abdominal pain, or weight gain. He denies a previous hx of atrial fibrillation. Typically get his care at the [facility] in [place], [place] and [facility] in [place], [place] for his oncology care ([facility]). He is currently traveling to the area to visit with friends and family. Initial VS at presentation: 97.7? F, HR 75, R 26, 98/66, and 100% on RA. ED workup showed: WBC 11.7, hemoglobin 13.6, potassium 6.9, CO2 8, gap 19, creatinine 6.99 and GFR 8 (no previous available for comparison), glucose 205, phosphorus 6.5, initial troponin 2.23, BNP greater than 30,000. CXR showed no acute cardiopulmonary disease. EKG showed atrial fibrillation, rate 84, incomplete right bundle branch block, possible anterior HI of indeterminate age. Review of Systems Review of Systems: All systems reviewed & are unremarkable except as noted in HPI and below PMFSH Past Medical History Medical History (Updated 04/12/25 @ 22:22 by Lesvia Boyer APRN) Renal carcinoma Hyperlipidemia History of DVT (deep vein thrombosis) Anemia Hypertension Diabetes Multiple myeloma CHF (congestive heart failure) CKD (chronic kidney disease) Surgical History Surgical History History of bilateral cataract extraction History of cardiac catheterization Hx of partial nephrectomy left Social History Social History Smoking packs per day: 2 Smoking cigarettes per day: 40.0 Years smoked: 20 Smoking pack-years: 40.00 Smoking status: Former smoker Tobacco type: cigarettes Additional smoking assessment comments: quit 1990 Alcohol intake: never Substance use: never Lack of Transportation: No Lack of Food: Never True Current Housing: I Have Housing Concerned About Future Housing: No Difficulty Paying Gas/Electric Bills: No Difficulty Paying for Meds: No Currently Unemployed: No Education: Bachelor's Degree Difficulty w/ Childcare or Family Care: No Spiritual care concerns: No Meds Home Medications and Allergies Home Medications ?Medication ?Instructions ?Recorded ?Confirmed ?Type acyclovir 400 mg tablet 200 mg PO Q12H 04/12/25 04/12/25 History aspirin 81 mg tablet,delayed 81 mg PO HS 04/12/25 04/12/25 History release carvedilol 3.125 mg tablet 3.125 mg PO Q12H 04/12/25 04/12/25 History dexamethasone 4 mg tablet 12 mg PO WEEKLY 04/12/25 04/12/25 History finasteride 5 mg tablet 5 mg PO HS 04/12/25 04/12/25 History tamsulosin 0.4 mg capsule 0.4 mg PO HS 04/12/25 04/12/25 History Allergies Allergy/AdvReac Type Severity Reaction Status Date / Time No Known Allergies Allergy Verified 04/12/25 13:46 Vital Signs Vital Signs - 24 hr 04/12/25 11:57 04/12/25 12:07 04/12/25 12:18 Temperature 97.7 F Pulse Rate 75 73 Respiratory Rate 26 H 24 H Blood Pressure 98/66 L 89/67 L Pulse Oximetry 100 98 100 Oxygen Delivery Room Air Room Air 04/12/25 13:58 04/12/25 15:15 Temperature Pulse Rate 87 86 Respiratory Rate 22 H 23 H Blood Pressure 132/101 H Pulse Oximetry 99 Oxygen Delivery Exam Const: General: comfortable and no acute distress Other: , male, elderly, modestly ill-appearing HENMT: Face/Nose/Sinus: Normal nares present Mouth: Yes moist mucous membranes Eyes: General: appearance normal, both eyes and all related structures Sclera: sclerae normal Pupils: Equal, round and reactive pupils present EOM: EOMs intact bilaterally Resp: Other: Increased work of breathing without accessory muscle use. No wheezing or crackles noted on exam. Nasal cannula place for patient comfort, no hypoxia noted on monitor. Cardio: Rate: regular rate Rhythm: abnormal rhythm Other: No murmur or rub appreciated. GI: Other: Abdomen soft, nondistended, nontender. Normoactive bowel sounds in all quadrants. Skin: General skin exam: normal color and no rashes or lesions noted Wounds: no wounds Neuro: Speech: normal speech Motor exam (neuro): 5/5 motor strength present throughout Sensory Exam: normal sensation Other: A&O x4 Extrem: Other: Trace edema to bilateral ankles, symmetric without erythema Psych: Mental Status: mental status grossly normal Affect: normal affect Other: Good insight and judgment, pleasant H&P: Results Labs Labs: Short CBC 04/12/25 Range/Units 12:21 WBC 11.7 H (4.5-10.0) K/mm3 Hgb 13.6 L (14.0-18.0) g/dL Hct 43.2 (42.0-52.0) % Plt Count 114 L (150-375) k/mm3 BMP 04/12/25 04/12/25 12:21 13:39 Sodium 141 Potassium 6.9 H* 6.1 H* Chloride 114 H Carbon Dioxide 8 L BUN 75 H Creatinine 6.99 H Glucose 205 H Calcium 9.2 Cardiac Enzymes 04/12/25 Range/Units 12:21 Troponin I 2.230 H* (0.000-0.034) ng/mL Liver Function 04/12/25 Range/Units 12:21 Total Bilirubin 0.9 (0.2-1.3) mg/dL AST 26 (17-59) U/L ALT 18 (6-50) U/L Alkaline Phosphatase 67 (38-126) U/L Albumin 4.2 (3.5-5.1) g/dL Assessment and Plan Assessment and plan (1) Pulmonary embolism: Qualifiers: Acute cor pulmonale presence: unspecified Chronicity: acute Pulmonary embolism type: unspecified Qualified Code(s): I26.99 - Other pulmonary embolism without acute cor pulmonale Code(s): I26.99 - Other pulmonary embolism without acute cor pulmonale Status: Acute Assessment and Plan: Patient reports recent travel from [place] approximately 1 week ago via car, denied history of DVT/PE however told the data conversion developer he has a history of a DVT. - V/Q scan and, at 04/12: High probability for PE - started on heparin gtt on 04/12 - U/S of bilateral lower extremities - checking echo for right heart strain >> no right heart strain noted - troponin elevated at 2.23, repeat 2.76. Continue to follow. (2) Shortness of breath: Code(s): R06.02 - Shortness of breath Status: Acute Assessment and Plan: - CXR: No acute cardiopulmonary disease - viral PCR negative on 04/12 - patient had a recent travel from [place] approximately 1 week ago and is not on anticoagulation at raising concerns for pulmonary embolism, due to patient's current renal function he is not a candidate for a CTA. NM V/Q scan ordered, awaiting results. Vital signs currently stable and patient remains on room air. ->> VQ scan with high probability for PE, see above. This is likely source of patient's shortness of breath. 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 No clear baseline as the patient has never before been seen at [facility]. He does report he has previously had dialysis discussed with him. This increases concern that patient has been in the later stages of CKD prior to today. - significant electrolyte derangements noted upon initial evaluation on 04/12: Potassium 6.9, CO2 8, gap 19, creatinine 6.99, BUN 75, GFR 8, phosphorus 6.5 - CT abd/pelvis showed multiple renal masses with indeterminate density ->> findings discussed with patient, he reports a history of renal carcinoma and partial nephrectomy as well as CKD. Requesting records from prior facilities in [place]. - nephrology has been consulted, but no immediate dialysis indicated - trial IV fluids over the next 24 hours and monitor renal response: 2L bolus, monitor toleration. If tolerated well will start slow infusion of IV fluids. - check renal ultrasound >> Multiple right renal cysts. No suspicious solid masses are identified to suggest malignancy. - check urine lytes and CK - bicarb IVP x1, nephro starting bicarb gtt - trend renal function and electrolytes, correct as needed (4) Hyperkalemia: Code(s): E87.5 - Hyperkalemia Status: Acute Assessment and Plan: - K 6.9 upon initial evaluation on 04/12 - initial treatment in the ED with dextrose/insulin and Kayexalate. Ordered calcium, albuterol and sodium bicarbonate IVP. Nephrology adding sodium bicarbonate gtt and Lokelma b.i.d. - recheck potassium this evening >> 5.5, will continue bicarb drip and IV fluids, repeat at 3:00 a.m. - trend - telemetry monitoring (5) Elevated troponin: Code(s): R79.89 - Other specified abnormal findings of blood chemistry Status: Acute Assessment and Plan: - EKG, initial: AFib, rate 84, incomplete right bundle branch block, nonspecific T-wave abnormality - EKG, repeat (1): Sinus rhythm with second-degree AV block Mobitz type 2 with occasional viewed jugular premature complexes, incomplete right bundle branch block, inferior HI of indeterminate age, moderate to of abnormality. When compared to EKG done earlier same day there are new ventricular premature complexes and HI findings with possible ischemia, atrial fibrillation no longer present, and T-wave abnormality still present. Awaiting formal read. >> per my review no significant ST elevations or depressions. - Troponin: 2.23 -> 2.76 -> 4.54 - cardiology consulted, awaiting recs - on heparin gtt due to concurrent concern for PE - check lipid panel - continue daily aspirin 81 mg - echo completed, see impression - telemetry monitoring Suspect patient's troponin is elevated secondary to pulmonary embolism and patient's hypotension. Denying any chest pain. (6) Atrial fibrillation: Qualifiers: Atrial fibrillation type: paroxysmal Qualified Code(s): I48.0 - Paroxysmal atrial fibrillation Code(s): I48.91 - Unspecified atrial fibrillation Status: Acute Assessment and Plan: Denies previous history of dysrhythmia or atrial fibrillation. Initial EKG showed atrial fibrillation. Repeat EKG showed resolution of AFib, likely paroxysmal. Currently rate controlled. On carvedilol daily outpatient, continued at this time. - cardiology consulted - telemetry monitoring - chads Vasc: 5 (H, CHF history, thromboembolism history), on heparin gtt (7) CHF (congestive heart failure): Qualifiers: Heart failure chronicity: unspecified Heart failure type: unspecified Qualified Code(s): I50.9 - Heart failure, unspecified Code(s): I50.9 - Heart failure, unspecified Status: Acute Assessment and Plan: - patient reported history of CHF - no previous echo on file, ordered. - BNP greater than 30,000 - monitor I&Os and daily weights - not on daily diuretic outpatient, given 1 time dose of Lasix for hyperkalemia and worsening shortness of breath with known CHF history. - on clinical exam a patient largely appears euvolemic, does have trace edema to bilateral ankles that is symmetric and nonpitting (8) Diarrhea: Qualifiers: Diarrhea type: presumed infectious Qualified Code(s): R19.7 - Diarrhea, unspecified Code(s): R19.7 - Diarrhea, unspecified Status: Acute Assessment and Plan: - viral PCR negative - CT abd/pelvis: 1. Multiple right renal masses with intermediate density. Correlation with CT or MRI with contrast recommended for further assessment. 2: Severe enlargement of the prostate gland likely causing outlet obstruction with resultant distention of the bladder and bilateral hydronephrosis. - possible TEOFILO superimposed on CKD, see CKD - check c. diff - IV fluids: 2L bolus, now on bicarb gtt - monitor BP and renal function (9) Diabetes: Qualifiers: Diabetes mellitus type: type 2 Diabetes mellitus correction insulin use: without watermelon inspector use Diabetes mellitus complication status: with kidney complications Diabetes mellitus complication detail: with chronic kidney disease Chronic kidney disease stage: stage 5 (GFR < 15), not on chronic dialysis Qualified Code(s): E11.22 - Type 2 diabetes mellitus with diabetic chronic kidney disease; N18.5 - Chronic kidney disease, stage 5 Code(s): E11.9 - Type 2 diabetes mellitus without complications Status: Chronic Assessment and Plan: - reported history of type 2 diabetes, however he denies being on anti diabetic medications - initial glucose was 185. Will check A1c. Plan Diet: Renal GI Prophylaxis: N/a DVT Prophylaxis: heparin gtt IV fluids: 2L bolus -> sodium bicarbonate gtt at 75 mL/hour Lines/Tubes: Peripheral IV Code Status: Full code Quality VTE Prophylaxis VTE prophylaxis: pharmacologic ordered Critical Care Time: I personally spent 90 minutes of direct patient care including (but not limited to) the physical examination, decision-making, bedside evaluation, review of medical records, review of labs and imaging, discussion with nursing staff and other providers for collaborative, critical care management of this patient. Hospitalist MIPS Advance Care Plan I have confirmed that the patient's Advanced Care Plan is present, code status is documented, or surrogate decision maker is listed in patient medical record.: Yes Medication Reconciliation I have utilized all available resources to obtain, update and review the patients current medications (includes all prescriptions, OTC, herbals, cannabis, and nutritional supplements).: Yes
[2025-04-12 15:54] LABS: Creatine Kinase 175 U/L (55-170)
[2025-04-12 16:08] LABS: Troponin I 2.760 ng/mL (0.000-0.034)
[2025-04-12] MEDS: PERFLUTREN LIPID MICROSPHERES 1.5 ML VIAL DILUTED TO 10 ML TOTAL VOLUME IV PUSH (16:09)
--- NOTE | 2025-04-12 16:09 | IVDEFINITY ---
Prior to administration of IV Definity the patient was educated on the risks and benefits of the imaging enhancing agent including potential adverse side effects. The patient verbalized understanding. Allergies were verified. No exclusion criteria were identified and at least one of the following inclusion criteria were met: 1) physician request, 2) patient technically difficult to image (per the [place] [employer] guidelines of two or more segments not discernable within the apical view), or 3) questionable left ventricular function. ?
[2025-04-12 16:21] LABS: Procalcitonin 0.5 ng/mL
[2025-04-12 17:09] LABS: INR 1.4; Partial Thromboplastin Time 29.3 Seconds (22.3-36.8); Prothrombin Time 16.7 Seconds (11.1-14.7)
[2025-04-12] MEDS: HEPARIN SOD/D5W 100 UNITS/ML 25,000 UNITS/250 ML BAG 14 UNITS IV CONT (17:18)
--- NOTE | 2025-04-12 17:34 | PC.NURSE ---
Dr. Wang called to speak to the RN caring for this pt. Pt still in ED at the time of the results. This RN took results from Radiologist and reported them to Lesvia Boyer NP. Results were High probability for pulmonary embolism. per VQ scan. PANTOGRAPH ENGRAVER placed orders per PE protocol. This RN then called ED and updated BIANCA St (RN caring for this patient) on VQ scan results, and that PANTOGRAPH ENGRAVER had placed new orders. Alma Rosa stated I see the heparin drip. I will get the PT/INR & PTT and start the heparin drip before bringing him up to the floor.
--- NOTE | 2025-04-12 18:14 | P.CONNP_ITS ---
Assessment and Plan Assessment and plan (1) Acute kidney injury: Code(s): N17.9 - Acute kidney failure, unspecified Status: Acute Assessment and Plan: * suspect this is present * despite #2, he was never told that he needed urgent FIELD EVIDENCE TECHNICIAN/dialysis prior to traveling... * evaluation to date noted: * CT of A/P with evidence of obstruction * urine electrolytes pending * CPK okay * renal ultrasound pending * now complicated by hyperkalemia and significant metabolic acidosis... * bailon catheter placed given CT scan findings * trial of IVFs with bicarb * follow respiratory and volume status closely * remains at risk for needing FIELD EVIDENCE TECHNICIAN/hemodialysis... * follow repeat labs and UOP (2) Stage 5 chronic kidney disease: Code(s): N18.5 - Chronic kidney disease, stage 5 Status: Chronic Assessment and Plan: * unclear what baseline creatinine normally runs... * however, patient able to verify that he has CKD stage V * was referred to Vascular Surgery for AV access placement * attempt to get records from his physician back home ([place], [place]) to ascertain baseline creatinine/GFR) (3) Hyperkalemia: Code(s): E87.5 - Hyperkalemia Status: Acute Assessment and Plan: * as noted on presentation * s/p medical management * scheduled lokelma * follow trend of K+ (4) Metabolic acidosis: Code(s): E87.20 - Acidosis, unspecified Status: Acute Assessment and Plan: * presumably secondary to TEOFILO (although may have a chronic acidosis from his advanced CKD) * bicarb IVFS and oral bicarbonate to compensate * follow trend of CO2 (5) Pulmonary embolism: Qualifiers: Acute cor pulmonale presence: unspecified Chronicity: acute Pulmonary embolism type: unspecified Qualified Code(s): I26.99 - Other pulmonary embolism without acute cor pulmonale Code(s): I26.99 - Other pulmonary embolism without acute cor pulmonale Status: Acute Assessment and Plan: * presumed etiology of shortness of breath * recent car travel a week ago ([place], [place] --> to this area) * V/Q scan with high probability for PE * checking lower extremity dopplers * started on heparin gtt (6) Shortness of breath: Code(s): R06.02 - Shortness of breath Status: Acute Assessment and Plan: * as noted on presentation * no evidence of hypoxia * viral testing for influenza/RSV/COVID negative * CXR wtih no acute cardiopulmonary disease * V/Q scan noted (see #5) (7) Elevated troponin: Code(s): R79.89 - Other specified abnormal findings of blood chemistry Status: Acute Assessment and Plan: * noted by testing in ER * EKGs noted - evidence of Afib but no acute ST elevations/depressions * Cardiology consulted * Echo results noted: * normal appearing left ventricular size with vigorous systolic function * right ventricular enlargement with right ventricular hypokinesia * at least moderate if not moderate to severe aortic stenosis. * suspect secondary to right heart strain from PE (8) Atrial fibrillation: Qualifiers: Atrial fibrillation type: paroxysmal Qualified Code(s): I48.0 - Paroxysmal atrial fibrillation Code(s): I48.91 - Unspecified atrial fibrillation Status: Acute Assessment and Plan: * supposedly new onset (or at least paroxysmal) * follow telemetry * rate control strategy * on anticoagulation (heparin gtt) (9) Multiple myeloma: Code(s): C90.00 - Multiple myeloma not having achieved remission Status: Chronic Assessment and Plan: * follows with Hem/Onc * on active treatment (10) Diabetes: Qualifiers: Chronic kidney disease stage: stage 5 (GFR < 15), not on chronic dialysis Diabetes mellitus complication detail: with chronic kidney disease D iabetes mellitus complication status: with kidney complications Diabetes mellitus assisted insulin use: without assisted use Diabetes mellitus type: t ype 2 Qualified Code(s): E11.22 - Type 2 diabetes mellitus with diabetic chronic kidney disease; N18.5 - Chronic kidney disease, stage 5 Code(s): E11.9 - Type 2 diabetes mellitus without complications Status: Chronic Assessment and Plan: * reported history * however, on no medications (diet controlled?) * follow blood sugars * institute SSI if needed Long and extensive discussion (> 20 minutes) The patient and his family members at bedside in the emergency room I voiced my concerns to him that given his advanced chronic kidney disease in association with his hyperkalemia and metabolic acidosis, he may require intervention in the form of hemodialysis. As already mentioned above, he was already somewhat aware that this possibility was clinically needed in the near future as his outpatient relationship counselor referred him for AV access placement for this purpose. I explained that we are attempting medical management to try to optimize his renal function and only time will tell this will be successful. He has family appeared to voice understanding. I will continue to follow the patient with you while he remains hospitalized and make further recommendations as deemed necessary. Thank you for allowing me to participate in the care of this patient. L History of Present Illness Reason for Consult Consult date: 04/12/25 Reason for consult: acute renal failure (on chronic kidney disease) Chief Complaint Chief complaint: Acute on Chronic Renal Failure/CHF Exacerbation/Hy History of Present Illness Narrative: The patient is a 79-year-old male with a past medical history as outlined below who presented to [facility] Room he EMS for shortness of breath Patient recently traveled to this area [employer] about a week ago from [place], [place]. He is in this area visiting with friends and family. Apparently approximately 2 days prior to his presentation to ER noticed rather acute shortness of breath. This seemed progressively get worse until this morning which prompted to call 911/EMS for further assistance. He reports that his shortness of breath has been associated with some diarrhea mild abdominal pain, and increasing lower extremity swelling /edema. Gave no history with regard to chest pain, productive hemoptysis nausea, vomiting fevers chills or significant weight gain. Workup and evaluation emergency room demonstrated the patient to be hemodynamically stable although his systolic BP was in the high 90s but was otherwise afebrile and with no evidence of hypoxia. Routine testing demonstrated hemoglobin 11.7, hemoglobin 13.6, platelet count 114, sodium 141, potassium 6.9, bicarbonate 8, creatinine 6.99, glucose 205, phosphorus 6.5, troponin of 2.23, and BNP greater than 30,000. his viral testing for influenza, RSV, and COVID were negative. His chest x-ray showed no acute cardiopulmonary disease and his EKGs initially showed atrial fibrillation with repeat EKG showing normal sinus rhythm without any evidence of acute ischemic findings the initial plan was a CTA of his chest but given his renal dysfunction, a V/Q scan was done instead which showed a high probability of a pulmonary embolism. It was presumed that his shortness of breath was secondary to suspected pulmonary embolism he was applied on supplemental oxygen more so for comfort as his oxygen saturations were stable. He was initiated on a heparin drip and received medical management for his hyperkalemia. He was initiated on a bicarb drip given his acidosis he was subsequently admitted to the hospital further evaluation therapy. Renal consultation is requested due to his suspected acute kidney injury on top of his baseline chronic kidney disease. From my discussion with the patient, he has known advanced chronic kidney disease stage 5 although he was unable to give me specifics in terms of what his last creatinine or GFR was. However, given his advanced chronic kidney disease, his outpatient relationship counselor did refer him to vascular surgery for placement of an AV access. The presumed etiology of his chronic kidney disease is likely hypertension, diabetes, and loss of nephron mass from his previous left partial nephrectomy for renal cell carcinoma with possible contributions from his multiple myeloma in association with age-related change. Currently, the time my evaluation in the ER, he still feels somewhat short of breath but in no acute distress. Review of Systems 2 Review of Systems: As per HPI. [facility] Past Medical History Medical History (Updated 04/15/25 @ 05:47 by Mari Del Toro MD) Renal carcinoma Hyperlipidemia History of DVT (deep vein thrombosis) Anemia Hypertension Diabetes Multiple myeloma CHF (congestive heart failure) CKD (chronic kidney disease) Surgical History Surgical History History of bilateral cataract extraction History of cardiac catheterization Hx of partial nephrectomy left Social History Social History Smoking packs per day: 2 Smoking cigarettes per day: 40.0 Years smoked: 20 Smoking pack-years: 40.00 Smoking status: Former smoker Tobacco type: cigarettes Additional smoking assessment comments: quit 1990 Alcohol intake: never Substance use: never Lack of Transportation: No Lack of Food: Never True Current Housing: I Have Housing Concerned About Future Housing: No Difficulty Paying Gas/Electric Bills: No Difficulty Paying for Meds: No Currently Unemployed: No Education: Bachelor's Degree Difficulty w/ Childcare or Family Care: No Spiritual care concerns: No Meds Home Medications and Allergies Home Medications ?Medication ?Instructions ?Recorded ?Confirmed ?Type acyclovir 400 mg tablet 200 mg PO Q12H 04/12/2504/03 History aspirin 81 mg tablet,delayed 81 mg PO HS 04/12/2504/03 History release carvedilol 3.125 mg tablet 3.125 mg PO Q12H 04/12/25 0 04/12/25 History dexamethasone 4 mg tablet 12 mg PO WEEKLY 04/12/2505/27 History finasteride 5 mg tablet 5 mg PO HS 04/12/25 04/12/25 History tamsulosin 0.4 mg capsule 0.4 mg PO HS 04/12/25 History Allergies Allergy/AdvReac Type Severity Reaction Status Date / Time No Known Allergies Allergy Verified 04/12/25 13:46 Vital Signs Vital Signs Temp Pulse Resp BP Pulse Ox O2 Del Method 04/12/25 15:15 86 23 H 04/12/25 13:58 87 22 H 132/101 H 99 04/12/25 12:18 97.7 F 73 24 H 89/67 L 100 04/12/25 12:07 98 Room Air 04/12/25 11:57 75 26 H 98/66 L 100 Room Air Exam 2 Narrative: GENERAL APPEARANCE: elderly but well developed well nourished male in no acute distress HEENT: normocephalic, atraumatic, normal conjunctiva and sclera, nares patient NECK: no lymphadenopathy, thyromegaly, or JVD MOUTH: normal lips, teeth, and gums CARDIOVASCULAR: RRR, normal S1 and S2, no rub RESPIRATORY: clear to auscultation ABDOMEN: soft, nontender, nondistended, positive bowel sounds present EXTREMITIES: no evidence of cyanosis, clubbing; trace edema NEUROLOGICAL: alert and oriented x 3; CN II - XII intact bilaterally; no focal deficits noted Results Lab Results 04/15/25 02:10 04/15/25 02:10 Lab results: 04/12/25 12:21 PT 16.7 H INR 1.4 APTT 29.3 Sodium 141 Potassium 6.9 H* Chloride 114 H Carbon Dioxide 8 L Anion Gap 19 H BUN 75 H Creatinine 6.99 H Estim Creat Clear Calc 9 Estimated GFR 8 L Glucose 205 H Calcium 9.2 Phosphorus 6.5 H Magnesium 1.8 Total Bilirubin 0.9 AST 26 ALT 18 Alkaline Phosphatase 67 Troponin I 2.230 H* NT-Pro-B Natriuret Pep > 71099 H Total Protein 6.8 Albumin 4.2 Influenza B (RT-PCR) Negative RSV (RT-PCR) Negative SARS-CoV-2 RNA (RT-PCR) Negative 04/12/25 04/12/25 15:38 18:09 Total Creatine Kinase 175 H Troponin I 2.760 H* D Procalcitonin 0.5 Ur Random Sodium 90 Ur Random Potassium 23.6 Urine Creatinine Pending Protein/Creat Ratio 2 Pending
--- NOTE | 2025-04-12 18:16 | PC.NURSE ---
Patient had multiple imaging and radiology echo to be done prior to the patient being transfer to the IMU- patient found to have probable PE. heparin drip orders placed. prior to heparin drip starting coagulation panel needed to be ordered and resulted. when discussing this with imu rn they asked about the ct showing distended bladder and if a bailon could be placed prior to transport upstairs. patient had a BM that he let me know about prior to placing bailon catheter. patient cleaned up, depend changed, sheets changed. bailon catheter placed, urine sample sent to lab. IMU called at 1818 to let them know that the patient was on his way.
--- NOTE | 2025-04-12 18:23 | ADMGEN ---
This patient, Cosmo Voss, was admitted to IMU Room 211-01. Patient/family oriented to hospital policies and general routines including ID bracelet, bed and alarms, visiting hours, pain management, procedures, bathroom and other care routines, personal items, smoking policy, room service/diet, and visiting hours. Information on how to activate the Rapid Response Team has been discussed. Patient/Family are encouraged to report perceived risks to care and to ask questions if they do not understand what they are told or what they should do. Report received from [facility] @ [id number]
[2025-04-12 18:29] LABS: Total Protein Urine Random 95 mg/dL; Ur Ttl Prot Creatinine Ratio 1.14 mg/mg (0-0.20)
[2025-04-12 18:50] LABS: Add Urine Microscopic? YES; Appearance Urine Clear (Clear); Glucose Urine UA Negative (Negative); Leukocyte Esterase Ur Negative LEU/UL (Negative); Nitrate Urine Negative (Negative); Non Pathogenic Casts 0-2; Specific Grav Ur 1.013 (1.001-1.035)
[2025-04-12 19:01] LABS: Total Protein Urine Random 98 mg/dL; Ur Ttl Prot Creatinine Ratio 1.10 mg/mg (0-0.20)
[2025-04-12] MEDS: SODIUM BICARBONATE 8.4% 75 MEQ in SODIUM CHLORIDE 0.45% 1,000 ML IV CONT (19:01)
[2025-04-12] MEDS: SODIUM ZIRCONIUM CYCLOSILICATE 10 GM POWD.PACK PO (19:02)
[2025-04-12] MEDS: SODIUM BICARBONATE TAB 650 MG TABLET 1300 MG PO (19:05)
[2025-04-12] MEDS: FUROSEMIDE INJ 40 MG/4 ML VIAL IV PUSH (19:12)
[2025-04-12] MEDS: LACTATED RINGERS 1,000 ML 250 ML IV CONT (19:30)
[2025-04-12 19:41] LABS: Toxigenic C. Diff NEGATIVE (NEGATIVE)
[2025-04-12 20:25] LABS: Urine Eos QC 2nd Tech Confirmed
[2025-04-12 20:33] LABS: Hematocrit 39.9 % (42.0-52.0); Hemoglobin 12.6 g/dL (14.0-18.0); Immature Platelet Fraction Pct 5.9 % (0.9-11.2); Mean Corpuscular HGB Conc 31.6 g/dl (32-36); Mean Corpuscular Hemoglobin 30.0 pg (26-34); Mean Corpuscular Volume 95.0 fl (80-100); Platelet Count Result 99 k/mm3 (150-375); Red Blood Count 4.20 M/mm3 (4.6-6.20); White Blood Count 11.0 K/mm3 (4.5-10.0)
[2025-04-12 20:46] LABS: Anion Gap 19 mmol/L (4-12); Blood Urea Nitrogen 82 mg/dL (9-20); Calcium 9.1 mg/dL (8.4-10.2); Carbon Dioxide 11 mmol/L (22-30); Chloride 115 mmol/L (98-107); Estimated CRCL calculation 8 ml/min; Estimated Glomerular Filt Rate 8; Glucose 185 mg/dL (65-110); Magnesium 1.9 mg/dL (1.6-2.3); Potassium 5.5 mmol/L (3.4-5.0); Sodium 145 mmol/L (137-145)
[2025-04-12 21:01] LABS: Band Neutrophils Percent 1 % (0-6); Basophils Absolute Manual 0.11 K/mm3 (0.0-0.1); Basophils Percent Manual 1 % (0-1); Lymphocytes Absolute Manual 0.11 K/mm3 (1.1-4.5); Lymphocytes Percent Manual 1.0 % (18-44); Monocytes Absolute Manual 0.88 K/mm3 (0.1-0.90); Monocytes Percent Manual 8 % (3-9); Neutrophils Absolute Manual 9.90 K/mm3 (1.3-6.7); Neutrophils Percent Manual 89 % (46-73); Total Cells Counted 100
[2025-04-12 21:02] LABS: Anisocytosis 2+; Hypochromasia 1+; Schistocytes None Seen; Troponin I 4.540 ng/mL (0.000-0.034)
--- NOTE | 2025-04-12 21:06 | ECG_ITS ---
Test Date: 2025-04-12 21:21:51 Measurements Intervals Machias Rate: 63 P: 0 AL: 0 QRS: -21 QRSD: 100 T: -13 QT: 442 QTc: 453 Interpretive Statements SINUS RHYTHM WITH FIRST-DEGREE AV BLOCK RARE VENTRICULAR PREMATURE COMPLEXES INCOMPLETE RIGHT BUNDLE BRANCH BLOCK [90+ ms QRS DURATION, TERMINAL R IN V1/V2, 40+ ms S IN I/aVL/V4/V5/V6] INFERIOR MYOCARDIAL INFARCTION [40+ ms Q WAVE AND/OR ST/T ABNORMALITY IN II/aVF], OF INDETERMINATE AGE MODERATE T-WAVE ABNORMALITY, CONSIDER ANTEROLATERAL ISCHEMIA [-0.1+ mV T WAVE IN V3-V6] Compared to ECG 04/12/2025 12:08:19 Ventricular premature complex(es) now present Atrial fibrillation no longer present T-wave abnormality still present Electronically Signed On 04-13-2025 11:04:56 CDT by Reji Ulrich M.D.
[2025-04-13] VITALS (19 sets, daily range): BP systolic 103–123; BP diastolic 57–79; PULSE 68–98; RESP 20–28; TEMP 36.4–36.8; O2SAT 94–98
[2025-04-13 00:03] LABS: Partial Thromboplastin Time > 200.0 Seconds (22.3-36.8)
[2025-04-13] MEDS: ASPIRIN 81 MG ENTERIC TABLET PO ×2 (00:33→21:11)
[2025-04-13] MEDS: FINASTERIDE 5 MG TABLET PO ×2 (00:33→21:11)
[2025-04-13] MEDS: ACYCLOVIR 200 MG CAPSULE PO ×3 (00:33→21:11)
[2025-04-13] MEDS: TAMSULOSIN HCL 0.4 MG CAPSULE PO ×2 (00:33→21:11)
[2025-04-13 03:16] LABS: Hematocrit 37.2 % (42.0-52.0); Hemoglobin 11.7 g/dL (14.0-18.0); Immature Granulocyte Percent A 0.6 % (0-0.5); Immature Platelet Fraction Pct 5.7 % (0.9-11.2); Lymphocytes Absolute Auto 0.94 K/mm3 (0.9-3.2); Mean Corpuscular HGB Conc 31.5 g/dl (32-36); Mean Corpuscular Hemoglobin 29.1 pg (26-34); Mean Corpuscular Volume 92.5 fl (80-100); Nucleated Red Blood Cells Absolute Auto 0.040 K/mm3 (0.0-0.012); Nucleated Red Blood Cells Perc 0.4 % (0.0-0.2); Platelet Count Result 105 k/mm3 (150-375); Red Blood Count 4.02 M/mm3 (4.6-6.20); White Blood Count 10.6 K/mm3 (4.5-10.0)
[2025-04-13 03:28] LABS: Alanine Aminotransferase 19 U/L (6-50); Albumin Level 3.3 g/dL (3.5-5.1); Alkaline Phosphatase 54 U/L (38-126); Anion Gap 14 mmol/L (4-12); Aspartate Amino Transferase 31 U/L (17-59); Bilirubin,Total 0.9 mg/dL (0.2-1.3); Blood Urea Nitrogen 85 mg/dL (9-20); Calcium 8.5 mg/dL (8.4-10.2); Carbon Dioxide 13 mmol/L (22-30); Chloride 114 mmol/L (98-107); Cholesterol 165 mg/dL (0-200); Estimated CRCL calculation 8 ml/min; Estimated Glomerular Filt Rate 8; Glucose 154 mg/dL (65-110); HDL Direct 47 mg/dL; Magnesium 1.7 mg/dL (1.6-2.3); Potassium 4.8 mmol/L (3.4-5.0); Sodium 141 mmol/L (137-145); Total Protein 5.4 g/dL (6.3-8.2); Triglycerides 95 mg/dL (<150)
[2025-04-13 03:49] LABS: Hemoglobin A1C 7.2 % (<5.7)
[2025-04-13 03:57] LABS: Thyroid Stimulating Hormone Reflex 0.213 uIU/mL (0.465-4.68)
[2025-04-13 03:58] LABS: Hepatitis B Surface Antigen Negative (Negative)
[2025-04-13 04:15] LABS: Hepatitis B Surface Anti Res Negative
[2025-04-13 04:51] LABS: Free T4 Free Thyroxine Reflex 1.69 ng/dL (0.78-2.19)
[2025-04-13 05:04] LABS: Total Triiodothyronine (T3) 0.60 NG/ML (0.82-1.58)
[2025-04-13] MEDS: SODIUM BICARBONATE 8.4% 75 MEQ in SODIUM CHLORIDE 0.45% 1,000 ML IV CONT ×2 (06:29→22:31)
[2025-04-13 07:40] LABS: Partial Thromboplastin Time 116.8 Seconds (22.3-36.8)
--- NOTE | 2025-04-13 08:26 | PM.IMPN ---
Progress Note: A&P Assessment and Plan (1) Pulmonary embolism: Qualifiers: Acute cor pulmonale presence: unspecified Chronicity: acute Pulmonary embolism type: unspecified Qualified Code(s): I26.99 - Other pulmonary embolism without acute cor pulmonale Code(s): I26.99 - Other pulmonary embolism without acute cor pulmonale Status: Acute Assessment and Plan: Patient reports recent travel from [place] approximately 1 week ago via car, denied history of DVT/PE however told the administrative hearing officer he has a history of a DVT. - V/Q scan and, at 04/12: High probability for PE - started on heparin gtt on 04/12 - U/S of bilateral lower extremities - checking echo for right heart strain >> no right heart strain noted - troponin elevated at 2.23, repeat 2.76. Continue to follow. (2) Shortness of breath: Code(s): R06.02 - Shortness of breath Status: Acute Assessment and Plan: - CXR: No acute cardiopulmonary disease - viral PCR negative on 04/12 - patient had a recent travel from [place] approximately 1 week ago and is not on anticoagulation at raising concerns for pulmonary embolism, due to patient's current renal function he is not a candidate for a CTA. NM V/Q scan ordered, awaiting results. Vital signs currently stable and patient remains on room air. ->> VQ scan with high probability for PE, see above. This is likely source of patient's shortness of breath. 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 No clear baseline as the patient has never before been seen at [facility]. He does report he has previously had dialysis discussed with him. This increases concern that patient has been in the later stages of CKD prior to today. - significant electrolyte derangements noted upon initial evaluation on 04/12: Potassium 6.9, CO2 8, gap 19, creatinine 6.99, BUN 75, GFR 8, phosphorus 6.5 - CT abd/pelvis showed multiple renal masses with indeterminate density ->> findings discussed with patient, he reports a history of renal carcinoma and partial nephrectomy as well as CKD. Requesting records from prior facilities in [place]. - nephrology has been consulted, but no immediate dialysis indicated - trial IV fluids over the next 24 hours and monitor renal response: 2L bolus, monitor toleration. If tolerated well will start slow infusion of IV fluids. - check renal ultrasound >> Multiple right renal cysts. No suspicious solid masses are identified to suggest malignancy. - check urine lytes and CK - bicarb IVP x1, nephro starting bicarb gtt - trend renal function and electrolytes, correct as needed --check PSA (may be elevated with bailon) --Referral to urology for renal masses --Check MRI abd w/wo contrast--evaluate renal masses and LLQ pain if continues. Unable to go to MRI on heparin drip. Can consider changing to eliquis if continued abdominal pain (4) Hyperkalemia: Code(s): E87.5 - Hyperkalemia Status: Acute Assessment and Plan: - K 6.9 upon initial evaluation on 04/12 - initial treatment in the ED with dextrose/insulin and Kayexalate. Ordered calcium, albuterol and sodium bicarbonate IVP. Nephrology adding sodium bicarbonate gtt and Lokelma b.i.d. - recheck potassium >> 5.5>4.8, will continue bicarb drip and IV fluids. Follow BMP in AM - trend - telemetry monitoring --Renal following (5) Elevated troponin: Code(s): R79.89 - Other specified abnormal findings of blood chemistry Status: Acute Assessment and Plan: - EKG, initial: AFib, rate 84, incomplete right bundle branch block, nonspecific T-wave abnormality - EKG, repeat (1): Sinus rhythm with second-degree AV block Mobitz type 2 with occasional viewed jugular premature complexes, incomplete right bundle branch block, inferior KS of indeterminate age, moderate to of abnormality. When compared to EKG done earlier same day there are new ventricular premature complexes and KS findings with possible ischemia, atrial fibrillation no longer present, and T-wave abnormality still present. Awaiting formal read. >> per my review no significant ST elevations or depressions. - Troponin: 2.23 -> 2.76 -> 4.54--4.52 - cardiology consulted, noted question of heart strain but no recommendation for thrombectomy at this point. Overall patient reports symptomatically improving but troponin elevated as noted --TTE no heart strain - on heparin gtt due to concurrent concern for PE - check lipid panel - continue daily aspirin 81 mg - echo completed, see impression - telemetry monitoring Suspect patient's troponin is elevated secondary to pulmonary embolism and patient's hypotension. Denying any chest pain. (6) Atrial fibrillation: Qualifiers: Atrial fibrillation type: paroxysmal Qualified Code(s): I48.0 - Paroxysmal atrial fibrillation Code(s): I48.91 - Unspecified atrial fibrillation Status: Acute Assessment and Plan: Denies previous history of dysrhythmia or atrial fibrillation. Initial EKG showed atrial fibrillation. Repeat EKG showed resolution of AFib, likely paroxysmal. Currently rate controlled. On carvedilol daily outpatient, continued at this time. - cardiology consulted - telemetry monitoring - chads Vasc: 5 (H, CHF history, thromboembolism history), on heparin gtt --Can change to apixaban closer to discharge (7) CHF (congestive heart failure): Qualifiers: Heart failure chronicity: unspecified Heart failure type: unspecified Qualified Code(s): I50.9 - Heart failure, unspecified Code(s): I50.9 - Heart failure, unspecified Status: Acute Assessment and Plan: - patient reported history of CHF - no previous echo on file, ordered. - BNP greater than 30,000 - monitor I&Os and daily weights - not on daily diuretic outpatient, given 1 time dose of Lasix for hyperkalemia and worsening shortness of breath with known CHF history. - on clinical exam a patient largely appears euvolemic, does have trace edema to bilateral ankles that is symmetric and nonpitting (8) Diarrhea: Qualifiers: Diarrhea type: presumed infectious Qualified Code(s): R19.7 - Diarrhea, unspecified Code(s): R19.7 - Diarrhea, unspecified Status: Acute Assessment and Plan: viral PCR negative - CT abd/pelvis: 1. Multiple right renal masses with intermediate density. Correlation with CT or MRI with contrast recommended for further assessment. 2: Severe enlargement of the prostate gland likely causing outlet obstruction with resultant distention of the bladder and bilateral hydronephrosis. - possible TEOFILO superimposed on CKD, see CKD - c. diff pending - IV fluids: 2L bolus, now on bicarb gtt - monitor BP and renal function (9) Diabetes: Qualifiers: Chronic kidney disease stage: stage 5 (GFR < 15), not on chronic dialysis Diabetes mellitus complication detail: with chronic kidney disease Diabetes mellitus complication status: with kidney complications Diabetes mellitus [facility] insulin use: without intermediate designer use Diabetes mellitus type: type 2 Qualified Code(s): E11.22 - Type 2 diabetes mellitus with diabetic chronic kidney disease; N18.5 - Chronic kidney disease, stage 5 Code(s): E11.9 - Type 2 diabetes mellitus without complications Status: Chronic Assessment and Plan: - reported history of type 2 diabetes, however he denies being on anti diabetic medications - initial glucose was 185. Will check A1c. (10) Abdominal pain: Code(s): R10.9 - Unspecified abdominal pain Status: Acute Assessment and Plan: Reporting Left lower abdominal pain. No explanation on recent CT --Check KUB --If continued pain, consider MRI abdomen since unable to have CT contrast, but would need to stop heparin drip and would rather switch to eliquis prior to that given high risk PE Plan Diet: Renal GI Prophylaxis: N/a DVT Prophylaxis: heparin gtt IV fluids: 2L bolus -> sodium bicarbonate gtt at 75 mL/hour Lines/Tubes: Peripheral IV Code Status: Full code Time Spent With Patient Time: 57 minutes Subjective Date/time seen: 04/13/25 08:26 Interval history: VSS Reporting LLQ pain, describes it as twisting Potassium 4.8 today, changed lokelma to daily CT abd/pelvis yesterday showed multiple right renal masses with intermediate density and severe enlargement of the prostate gland Repeat troponin downtrending this afternoon Review of Systems Review of Systems: 79 y/o M with PMH of CHF, multiple myeloma, partial nephrectomy (believes it was on the left), DM2, HLD, BPH, and CKD (has previously had discussion for possible dialysis) presents here with shortness of breath. All systems reviewed & are unremarkable except as noted in HPI and below Exam Narrative: General - Awake and alert. No acute distress Eyes - PERRLA, EOM intact ENT - No thrush, No erythema Neck - No noticeable or palpable swelling Lymph Nodes - No lymphadenopathy Cardiovascular - RRR no m/r/g, no JVD Lungs: Clear to auscultation, No wheezing, use of accessory muscles, no crackles Skin - Skin warm and dry, no wounds or rashes Abdomen - Normal bowel sounds, abdomen soft, TTP left abdomen Extremities - No edema, cyanosis or clubbing Musculoskeletal - 5/5 strength, normal range of motion, no swollen or erythematous joints. Neurological ? Alert and oriented x 3, CN 2-12 grossly intact. Psych: Normal mood and affect Objective Data Vital Signs Vital Signs: Vital Signs - 24 hr 04/12/25 11:57 04/12/25 12:07 04/12/25 12:18 Temperature 97.7 F Pulse Rate 75 73 Respiratory Rate 26 H 24 H Blood Pressure 98/66 L 89/67 L Pulse Oximetry 100 98 100 Oxygen Delivery Room Air Room Air Oxygen Flow Rate 04/12/25 13:58 04/12/25 15:15 04/12/25 18:16 Temperature Pulse Rate 87 86 118 H Respiratory Rate 22 H 23 H 28 H Blood Pressure 132/101 H Pulse Oximetry 99 95 Oxygen Delivery Nasal Cannula Oxygen Flow Rate 2 04/12/25 18:16 04/12/25 20:00 04/12/25 20:02 Temperature 97.6 F 97.6 F Pulse Rate 118 H 98 73 Respiratory Rate 28 H 23 H Blood Pressure 114/59 L 136/73 Pulse Oximetry 95 100 Oxygen Delivery Oxygen Flow Rate 04/12/25 22:00 04/13/25 00:00 04/13/25 00:33 Temperature Pulse Rate 71 90 70 Respiratory Rate Blood Pressure Pulse Oximetry Oxygen Delivery Oxygen Flow Rate 04/13/25 00:36 04/13/25 02:00 04/13/25 04:00 Temperature 97.8 F Pulse Rate 88 72 89 Respiratory Rate 22 H Blood Pressure 123/59 L Pulse Oximetry 94 Oxygen Delivery Oxygen Flow Rate 04/13/25 04:35 04/13/25 06:00 Temperature 97.6 F Pulse Rate 70 83 Respiratory Rate 21 H Blood Pressure 106/79 Pulse Oximetry 97 Oxygen Delivery Oxygen Flow Rate Intake/Output Intake/Output: Intake & Output 04/10/25 04/11/25 04/12/25 04/13/25 23:59 23:59 23:59 23:59 Intake Total 1000 1253.8 Output Total 1600 300 Balance -600 953.8 Meds/Results Medications: Active Medications Generic Name Dose Route Start Last Admin Trade Name Freq PRN Reason Stop Dose Admin Acetaminophen 650 mg 04/12/25 15:51 Acetaminophen 325 Mg Tablet PO Q6H PRN Mild Pain (1-3) or Fever Hydrocodone Bitart/Acetaminophen 1 tab 04/12/25 15:51 Hydrocodone/Acetaminophen (*Crx) 5-325 Mg Tablet PO Q6H PRN Pain Rated 4-6 Acyclovir 200 mg 04/12/25 22:30 04/13/25 00:33 Acyclovir 200 Mg Capsule PO 200 mg Q12HR MANISHA Administration Aspirin 81 mg 04/12/25 22:30 04/13/25 00:33 Aspirin 81 Mg Enteric Tablet PO 81 mg HS MANISHA Administration Calcium Carbonate 200 mg 04/12/25 15:51 Calcium Carbonate (Tums) 500 Mg (200 Mg Elemental) PO Q6H PRN Indigestion Carvedilol 3.125 mg 04/12/25 22:30 04/13/25 00:33 Carvedilol 3.125 Mg Tablet PO 3.125 mg Q12HR MANISHA Administration Dexamethasone 12 mg 04/18/25 09:00 Dexamethasone 4 Mg Tablet PO WEEKLY MANISHA Finasteride 5 mg 04/12/25 22:30 04/13/25 00:33 Finasteride 5 Mg Tablet PO 5 mg HS MANISHA Administration Heparin Sodium (Porcine) 6,000 units 04/12/25 16:39 Heparin Sodium 5,000 Units/Ml Vial IV PUSH PRN PRN aPTT less than 55 seconds Heparin Sodium (Porcine) 3,000 units 04/12/25 16:39 Heparin Sodium 5,000 Units/Ml Vial IV PUSH PRN PRN aPTT 55 - 70 seconds Sodium Bicarbonate 75 meq/ 1,075 mls @ 75 mls/hr 04/12/25 15:30 04/13/25 06:29 Sodium Chloride IV CONT 75 mls/hr .[id number] MANISHA Administration Heparin Sodium/Dextrose 25,000 units in 250 mls @ 12 mls/hr 04/12/25 16:40 04/13/25 01:14 Heparin Sodium/D5w 100 Units/Ml IV CONT 1,200 units/hr .[id number] MANISHA 12 mls/hr Protocol Titration 1,200 UNITS/HR Ondansetron HCl 4 mg 04/12/25 15:51 Ondansetron Hcl Odt 4 Mg Tablet PO Q6H PRN Nausea And Vomiting Sodium Bicarbonate 1,300 mg 04/12/25 17:00 04/12/25 19:05 Sodium Bicarbonate Tab 650 Mg Tablet PO 1,300 mg BID MANISHA Administration Sodium Zirconium Cyclosilicate 10 gm 04/12/25 18:00 04/12/25 19:02 Sodium Zirconium Cyclosilicate 10 Gm Powd.Pack PO 10 gm BID@1000,1800 MANISHA Administration Tamsulosin HCl 0.4 mg 04/12/25 22:30 04/13/25 00:33 Tamsulosin Hcl 0.4 Mg Capsule PO 0.4 mg HS MANISHA Administration Radiology Results: ITS Impressions Abdomen/Pelvis CT 04/12/25 15:19 IMPRESSION: 1. Multiple right renal masses with intermediate density. Correlation with CT or MRI with contrast recommended for further assessment. 2: Severe enlargement of the prostate gland likely causing outlet obstruction with resultant distention of the bladder and bilateral hydronephrosis. Pulmonary Perfusion Imaging 04/12/25 16:34 IMPRESSION: 1. High probability for pulmonary embolism. Findings were discussed with Kenna Williamson, the nurse caring for the patient, at 4:36 PM. Renal Ultrasound 04/12/25 21:07 Impression: 1: Multiple right renal cysts. No suspicious solid masses are identified to suggest malignancy. Labs Labs: Laboratory Results - last 24 hr 04/12/25 04/12/25 04/12/25 12:21 13:39 13:40 WBC 11.7 H RBC 4.58 L Hgb 13.6 L Hct 43.2 MCV 94.3 MCH 29.7 MCHC 31.5 L RDW 15.9 H Plt Count 114 L MPV 11.1 H Immature Gran % (Auto) 0.8 H Neut % (Auto) 84.3 H Lymph % (Auto) 7.7 L [place] % (Auto) 7.1 Eos % (Auto) 0.0 Baso % (Auto) 0.1 L Lymph # (Auto) 0.90 [place] # (Auto) 0.8 H Eos # (Auto) 0.0 Baso # (Auto) 0.0 Abs Immat Gran (auto) 0.09 H Absolute Neuts (auto) 9.8 H Absolute Nucleated RBC 0.000 Total Counted Neutrophils % (Manual) Band Neutrophils % Lymphocytes % (Manual) Monocytes % (Manual) Basophils % (Manual) Nucleated RBC % 0.0 Abs Neuts (Manual) Abs Lymphs (Manual) Abs Monocytes (Manual) Abs Basophils (Manual) Platelet Estimate % Immature Plt Fraction 5.2 Hypochromasia Anisocytosis Schistocytes PT 16.7 H INR 1.4 APTT 29.3 Sodium 141 Potassium 6.9 H* 6.1 H* Chloride 114 H Carbon Dioxide 8 L Anion Gap 19 H BUN 75 H Creatinine 6.99 H Estim Creat Clear Calc 9 Estimated GFR 8 L Glucose 205 H Hemoglobin A1c Calcium 9.2 Phosphorus 6.5 H Magnesium 1.8 Total Bilirubin 0.9 AST 26 ALT 18 Alkaline Phosphatase 67 Total Creatine Kinase Troponin I 2.230 H* NT-Pro-B Natriuret Pep > 65500 H Total Protein 6.8 Albumin 4.2 Triglycerides Cholesterol LDL Cholesterol Direct HDL Direct Procalcitonin TSH (Reflex) Free T4 Total T3 Urine Color Urine Appearance Urine pH Ur Specific [place] Urine Protein Urine Glucose (UA) Urine Ketones Ur Blood (Man) Urine Nitrate Urine Bilirubin Urine Urobilinogen Leukocyte Esterase Rfl Urine RBC Urine WBC Ur Squamous Epith Cells Urine Bacteria Urine Casts Urine Eosinophils U Random Total Protein Ur Random Sodium Ur Random Potassium Urine Total Volume Urine Creatinine Protein/Creat Ratio 2 C. difficile (PCR) Hep Bs Antigen Hep Bs Antibody Hep B Core Total Ab Influenza A (RT-PCR) Negative Influenza B (RT-PCR) Negative RSV (RT-PCR) Negative SARS-CoV-2 RNA (RT-PCR) Negative 04/12/25 04/12/25 04/12/25 15:38 18:09 18:41 WBC RBC Hgb Hct MCV MCH MCHC RDW Plt Count MPV Immature Gran % (Auto) Neut % (Auto) Lymph % (Auto) [place] % (Auto) Eos % (Auto) Baso % (Auto) Lymph # (Auto) [place] # (Auto) Eos # (Auto) Baso # (Auto) Abs Immat Gran (auto) Absolute Neuts (auto) Absolute Nucleated RBC Total Counted Neutrophils % (Manual) Band Neutrophils % Lymphocytes % (Manual) Monocytes % (Manual) Basophils % (Manual) Nucleated RBC % Abs Neuts (Manual) Abs Lymphs (Manual) Abs Monocytes (Manual) Abs Basophils (Manual) Platelet Estimate % Immature Plt Fraction Hypochromasia Anisocytosis Schistocytes PT INR APTT Sodium Potassium Chloride Carbon Dioxide Anion Gap BUN Creatinine Estim Creat Clear Calc Estimated GFR Glucose Hemoglobin A1c Calcium Phosphorus Magnesium Total Bilirubin AST ALT Alkaline Phosphatase Total Creatine Kinase 175 H Troponin I 2.760 H* D NT-Pro-B Natriuret Pep Total Protein Albumin Triglycerides Cholesterol LDL Cholesterol Direct HDL Direct Procalcitonin 0.5 TSH (Reflex) Free T4 Total T3 Urine Color Yellow Urine Appearance Clear Urine pH 5.0 Ur Specific [place] 1.013 Urine Protein 2+ H Urine Glucose (UA) Negative Urine Ketones Negative Ur Blood (Man) 1+ H Urine Nitrate Negative Urine Bilirubin Negative Urine Urobilinogen 0.2 Leukocyte Esterase Rfl Negative Urine RBC 0-2 Urine WBC 0-5 Ur Squamous Epith Cells None seen Urine Bacteria None seen Urine Casts 0-2 Urine Eosinophils None seen U Random Total Protein 95 98 Ur Random Sodium 90 Ur Random Potassium 23.6 Urine Total Volume Urine Creatinine 83.6 Protein/Creat Ratio 2 1.14 H C. difficile (PCR) Hep Bs Antigen Hep Bs Antibody Hep B Core Total Ab Influenza A (RT-PCR) Influenza B (RT-PCR) RSV (RT-PCR) SARS-CoV-2 RNA (RT-PCR) 04/12/25 04/12/25 04/12/25 18:41 20:26 23:17 WBC 11.0 H RBC 4.20 L Hgb 12.6 L Hct 39.9 L MCV 95.0 MCH 30.0 MCHC 31.6 L RDW 16.1 H Plt Count 99 L MPV 11.3 H Immature Gran % (Auto) Not Reportable Neut % (Auto) Not Reportable Lymph % (Auto) Not Reportable [place] % (Auto) Not Reportable Eos % (Auto) Not Reportable Baso % (Auto) Not Reportable Lymph # (Auto) Not Reportable [place] # (Auto) Not Reportable Eos # (Auto) Not Reportable Baso # (Auto) Not Reportable Abs Immat Gran (auto) Not Reportable Absolute Neuts (auto) Not Reportable Absolute Nucleated RBC Not Reportable Total Counted 100 Neutrophils % (Manual) 89 H Band Neutrophils % 1 Lymphocytes % (Manual) 1.0 L Monocytes % (Manual) 8 Basophils % (Manual) 1 Nucleated RBC % Not Reportable Abs Neuts (Manual) 9.90 H Abs Lymphs (Manual) 0.11 L Abs Monocytes (Manual) 0.88 Abs Basophils (Manual) 0.11 H Platelet Estimate Decreased % Immature Plt Fraction 5.9 Hypochromasia 1+ Anisocytosis 2+ Schistocytes None seen PT INR APTT > 200.0 H* Sodium 145 Potassium 5.5 H Chloride 115 H Carbon Dioxide 11 L Anion Gap 19 H BUN 82 H Creatinine 6.84 H Estim Creat Clear Calc 8 Estimated GFR 8 L Glucose 185 H Hemoglobin A1c Calcium 9.1 Phosphorus 5.4 H Magnesium 1.9 Total Bilirubin AST ALT Alkaline Phosphatase Total Creatine Kinase Troponin I 4.540 H* D NT-Pro-B Natriuret Pep Total Protein Albumin Triglycerides Cholesterol LDL Cholesterol Direct HDL Direct Procalcitonin TSH (Reflex) Free T4 Total T3 Urine Color Urine Appearance Urine pH Ur Specific [place] Urine Protein Urine Glucose (UA) Urine Ketones Ur Blood (Man) Urine Nitrate Urine Bilirubin Urine Urobilinogen Leukocyte Esterase Rfl Urine RBC Urine WBC Ur Squamous Epith Cells Urine Bacteria Urine Casts Urine Eosinophils U Random Total Protein Cancelled Ur Random Sodium Ur Random Potassium Urine Total Volume Cancelled Urine Creatinine 89.3 Protein/Creat Ratio 2 1.10 H C. difficile (PCR) Negative Hep Bs Antigen Hep Bs Antibody Hep B Core Total Ab Influenza A (RT-PCR) Influenza B (RT-PCR) RSV (RT-PCR) SARS-CoV-2 RNA (RT-PCR) 04/13/25 04/13/25 04/13/25 03:07 03:08 06:59 WBC 10.6 H RBC 4.02 L Hgb 11.7 L Hct 37.2 L MCV 92.5 MCH 29.1 MCHC 31.5 L RDW 16.1 H Plt Count 105 L MPV 11.0 H Immature Gran % (Auto) 0.6 H Neut % (Auto) 81.1 H Lymph % (Auto) 8.9 L [place] % (Auto) 9.2 H Eos % (Auto) 0.0 Baso % (Auto) 0.2 Lymph # (Auto) 0.94 [place] # (Auto) 1.0 H Eos # (Auto) 0.0 Baso # (Auto) 0.0 Abs Immat Gran (auto) 0.06 H Absolute Neuts (auto) 8.6 H Absolute Nucleated RBC 0.040 H Total Counted Neutrophils % (Manual) Band Neutrophils % Lymphocytes % (Manual) Monocytes % (Manual) Basophils % (Manual) Nucleated RBC % 0.4 H Abs Neuts (Manual) Abs Lymphs (Manual) Abs Monocytes (Manual) Abs Basophils (Manual) Platelet Estimate % Immature Plt Fraction 5.7 Hypochromasia Anisocytosis Schistocytes PT INR APTT 116.8 H Sodium 141 Potassium 4.8 Chloride 114 H Carbon Dioxide 13 L Anion Gap 14 H BUN 85 H Creatinine 6.63 H Estim Creat Clear Calc 8 Estimated GFR 8 L Glucose 154 H Hemoglobin A1c 7.2 H Calcium 8.5 Phosphorus 5.5 H Magnesium 1.7 Total Bilirubin 0.9 AST 31 ALT 19 Alkaline Phosphatase 54 Total Creatine Kinase Troponin I NT-Pro-B Natriuret Pep Total Protein 5.4 L Albumin 3.3 L Triglycerides 95 Cholesterol 165 LDL Cholesterol Direct 72 HDL Direct 47 Procalcitonin TSH (Reflex) 0.213 L Free T4 1.69 Total T3 0.60 L Urine Color Urine Appearance Urine pH Ur Specific [place] Urine Protein Urine Glucose (UA) Urine Ketones Ur Blood (Man) Urine Nitrate Urine Bilirubin Urine Urobilinogen Leukocyte Esterase Rfl Urine RBC Urine WBC Ur Squamous Epith Cells Urine Bacteria Urine Casts Urine Eosinophils U Random Total Protein Ur Random Sodium Ur Random Potassium Urine Total Volume Urine Creatinine Protein/Creat Ratio 2 C. difficile (PCR) Hep Bs Antigen Negative Hep Bs Antibody Negative Hep B Core Total Ab Cancelled Influenza A (RT-PCR) Influenza B (RT-PCR) RSV (RT-PCR) SARS-CoV-2 RNA (RT-PCR) Quality VTE Prophylaxis VTE prophylaxis: pharmacologic ordered Hospitalist MIPS Advance Care Plan I have confirmed that the patient's Advanced Care Plan is present, code status is documented, or surrogate decision maker is listed in patient medical record.: Yes Medication Reconciliation I have utilized all available resources to obtain, update and review the patients current medications (includes all prescriptions, OTC, herbals, cannabis, and nutritional supplements).: Yes
[2025-04-13] MEDS: SODIUM BICARBONATE TAB 650 MG TABLET 1300 MG PO ×2 (08:56→17:21)
[2025-04-13] MEDS: SODIUM ZIRCONIUM CYCLOSILICATE 10 GM POWD.PACK PO (08:56)
--- NOTE | 2025-04-13 10:39 | P.CONCA_ITS ---
Assessment and Plan Assessment and plan (1) Elevated troponin: Code(s): R79.89 - Other specified abnormal findings of blood chemistry Status: Acute (2) Atrial fibrillation: Qualifiers: Atrial fibrillation type: paroxysmal Qualified Code(s): I48.0 - Paroxysmal atrial fibrillation Code(s): I48.91 - Unspecified atrial fibrillation Status: Acute (3) Pulmonary embolism: Qualifiers: Pulmonary embolism type: unspecified Chronicity: acute Acute cor pulmonale presence: unspecified Qualified Code(s): I26.99 - Other pulmonary embolism without acute cor pulmonale Code(s): I26.99 - Other pulmonary embolism without acute cor pulmonale Status: Acute (4) Moderate aortic stenosis: Code(s): I35.0 - Nonrheumatic aortic (valve) stenosis Status: Acute Plan 79-year-old man with chronic systolic heart failure (LVEF normalized), paroxysmal atrial fibrillation, moderate aortic stenosis, diabetes, chronic kidney disease stage 5, previous history of partial left nephrectomy, multiple myeloma, and hyperlipidemia presents with shortness of breath found to have pulmonary embolism with right heart strain Pulmonary embolism with right heart strain -continue anticoagulation and will need to transition to oral anticoagulant -given his symptom duration and his worsening renal function, would recommend medical management -I have discussed with options of thrombectomy and medical management and at this time agree to proceed with medical management as long as he remains hemodynamically stable -trend troponins to peak Paroxysmal atrial fibrillation -will need oral anticoagulant -can continue his carvedilol at 3.125 mg p.o. b.i.d. for now Moderate aortic stenosis -continue outpatient surveillance echocardiogram History of Present Illness History of Present Illness Consult date/time: 04/13/25 10:39 Requesting physician: Maryann Hopson APRN Consult reason: Other Reason For Visit: Acute on Chronic Renal Failure/CHF Exacerbation/Hy Narrative: 79-year-old man with chronic systolic heart failure (LVEF normalized), paroxysmal atrial fibrillation, moderate aortic stenosis, diabetes, chronic kidney disease stage 5, previous history of partial left nephrectomy, multiple myeloma, and hyperlipidemia presents with shortness of breath. He was driving up from [place] and upon arrival about 1 week ago he started to develop shortness of breath. He noted that his shortness of breath had significantly worsened prompting him to come to the emergency room for further assistance. Since being admitted, he does endorse that his shortness of breath has been better. He denies any lower extremity pain. He does endorse that he has some lower extremity swelling. Denies any orthopnea. No chest discomfort. No syncopal events. Review of Systems 2 Cardiovascular: Cardiovascular: Reports as per HPI Respiratory: Respiratory: Reports as per HPI [facility] Past Medical History Medical History (Updated 04/13/25 @ 10:49 by Reji Ulrich MD) Renal carcinoma Hyperlipidemia History of DVT (deep vein thrombosis) Anemia Hypertension Diabetes Multiple myeloma CHF (congestive heart failure) CKD (chronic kidney disease) Surgical History Surgical History History of bilateral cataract extraction History of cardiac catheterization Hx of partial nephrectomy left Social History Social History Smoking packs per day: 2 Smoking cigarettes per day: 40.0 Years smoked: 20 Smoking pack-years: 40.00 Smoking status: Former smoker Tobacco type: cigarettes Additional smoking assessment comments: quit 1990 Alcohol intake: never Substance use: never Lack of Transportation: No Lack of Food: Never True Current Housing: I Have Housing Concerned About Future Housing: No Difficulty Paying Gas/Electric Bills: No Difficulty Paying for Meds: No Currently Unemployed: No Education: Bachelor's Degree Difficulty w/ Childcare or Family Care: No Spiritual care concerns: No Meds Home Medications and Allergies Home Medications ?Medication ?Instructions ?Recorded ?Confirmed ?Type acyclovir 400 mg tablet 200 mg PO Q12H 04/12/2504/03 History aspirin 81 mg tablet,delayed 81 mg PO HS 04/12/2504/03 History release carvedilol 3.125 mg tablet 3.125 mg PO Q12H 04/12/25 0 04/12/25 History dexamethasone 4 mg tablet 12 mg PO WEEKLY 04/12/2505/27 History finasteride 5 mg tablet 5 mg PO HS 04/12/25 04/12/25 History tamsulosin 0.4 mg capsule 0.4 mg PO HS 04/12/25 History Allergies Allergy/AdvReac Type Severity Reaction Status Date / Time No Known Allergies Allergy Verified 04/12/25 13:46 Vital Signs Vital Signs - 24 hr 04/12/25 11:57 04/12/25 12:07 04/12/25 12:18 Temperature 36.5 C Pulse Rate 75 73 Respiratory Rate 26 H 24 H Blood Pressure 98/66 L 89/67 L Pulse Oximetry 100 98 100 Oxygen Delivery Room Air Room Air Oxygen Flow Rate 04/12/25 13:58 04/12/25 15:15 04/12/25 18:16 Temperature Pulse Rate 87 86 118 H Respiratory Rate 22 H 23 H 28 H Blood Pressure 132/101 H Pulse Oximetry 99 95 Oxygen Delivery Nasal Cannula Oxygen Flow Rate 2 04/12/25 18:16 04/12/25 20:00 04/12/25 20:02 Temperature 36.4 C 36.4 C Pulse Rate 118 H 98 73 Respiratory Rate 28 H 23 H Blood Pressure 114/59 L 136/73 Pulse Oximetry 95 100 Oxygen Delivery Oxygen Flow Rate 04/12/25 22:00 04/13/25 00:00 04/13/25 00:33 Temperature Pulse Rate 71 90 70 Respiratory Rate Blood Pressure Pulse Oximetry Oxygen Delivery Oxygen Flow Rate 04/13/25 00:36 04/13/25 02:00 04/13/25 04:00 Temperature 36.6 C Pulse Rate 88 72 89 Respiratory Rate 22 H Blood Pressure 123/59 L Pulse Oximetry 94 Oxygen Delivery Oxygen Flow Rate 04/13/25 04:35 04/13/25 06:00 04/13/25 08:00 Temperature 36.4 C 36.6 C Pulse Rate 70 83 87 Respiratory Rate 21 H 20 Blood Pressure 106/79 103/62 Pulse Oximetry 97 97 Oxygen Delivery Oxygen Flow Rate 04/13/25 08:00 04/13/25 08:56 Temperature Pulse Rate 86 86 Respiratory Rate 20 Blood Pressure Pulse Oximetry 97 Oxygen Delivery Nasal Cannula Oxygen Flow Rate 2 Exam 2 Const: General: comfortable HENMT: Mouth: Yes moist mucous membranes Eyes: EOM: EOMs intact bilaterally Neck: Neck: no JVD Resp: Effort & Inspection: normal respiratory effort Auscultation: clear to auscultation bilaterally Cardio: Rate: regular rate Rhythm: abnormal rhythm Heart sounds: Murmur heart sound present Neuro: Speech: normal speech Extrem: General: no pedal edema Results Labs and Meds 04/13/25 03:07 04/13/25 03:07 Lab results: Cardiac Enzymes 04/12/25 04/12/25 04/12/25 Range/Units 12:21 15:38 20:26 AST 26 (17-59) U/L Troponin I 2.230 H* 2.760 H* D 4.540 H* D (0.000-0.034) ng/mL 04/13/25 Range/Units 03:07 AST 31 (17-59) U/L Troponin I (0.000-0.034) ng/mL Coagulation 04/12/25 04/12/25 04/13/25 Range/Units 12:21 23:17 06:59 PT 16.7 H (11.1-14.7) Seconds APTT 29.3 > 200.0 H* 116.8 H (22.3-36.8) Seconds Lipids 04/13/25 Range/Units 03:07 Triglycerides 95 (<150) mg/dL Cholesterol 165 (0-200) mg/dL CBC 04/12/25 04/12/25 04/13/25 Range/Units 12:21 20:26 03:07 WBC 11.7 H 11.0 H 10.6 H (4.5-10.0) K/mm3 RBC 4.58 L 4.20 L 4.02 L (4.6-6.20) M/mm3 Hgb 13.6 L 12.6 L 11.7 L (14.0-18.0) g/dL Hct 43.2 39.9 L 37.2 L (42.0-52.0) % Plt Count 114 L 99 L 105 L (150-375) k/mm3 Lymph # (Auto) 0.90 Not Reportable 0.94 (0.9-3.2) K/mm3 Swift # (Auto) 0.8 H Not Reportable 1.0 H (0.1-0.6) K/mm3 Eos # (Auto) 0.0 Not Reportable 0.0 (0-0.3) K/mm3 Baso # (Auto) 0.0 Not Reportable 0.0 (0.0-0.1) K/mm3 Comprehensive Metabolic Panel 04/12/25 04/12/25 04/12/25 Range/Units 12:21 13:39 20:26 Sodium 141 145 (137-145) mmol/L Potassium 6.9 H* 6.1 H* 5.5 H (3.4-5.0) mmol/L Chloride 114 H 115 H (98-107) mmol/L Carbon Dioxide 8 L 11 L (22-30) mmol/L BUN 75 H 82 H (9-20) mg/dL Creatinine 6.99 H 6.84 H (0.7-1.3) mg/dL Glucose 205 H 185 H (65-110) mg/dL Calcium 9.2 9.1 (8.4-10.2) mg/dL AST 26 (17-59) U/L ALT 18 (6-50) U/L Alkaline Phosphatase 67 (38-126) U/L Total Protein 6.8 (6.3-8.2) g/dL Albumin 4.2 (3.5-5.1) g/dL 04/13/25 Range/Units 03:07 Sodium 141 (137-145) mmol/L Potassium 4.8 (3.4-5.0) mmol/L Chloride 114 H (98-107) mmol/L Carbon Dioxide 13 L (22-30) mmol/L BUN 85 H (9-20) mg/dL Creatinine 6.63 H (0.7-1.3) mg/dL Glucose 154 H (65-110) mg/dL Calcium 8.5 (8.4-10.2) mg/dL AST 31 (17-59) U/L ALT 19 (6-50) U/L Alkaline Phosphatase 54 (38-126) U/L Total Protein 5.4 L (6.3-8.2) g/dL Albumin 3.3 L (3.5-5.1) g/dL Intake and Output 04/12/25 04/13/25 04/13/25 23:59 07:59 15:59 Intake Total 1000 1253.8 86.8 Output Total 1600 300 Balance -600 953.8 86.8 Intake: IV 1000 953.8 86.8 Heparin Sod/D5w 100 Units/ml 25 93.8 86.8 ,000 units In 250 ml @ 1,200 UNITS/HR 12 mls/hr IV CONT . [id number] ON LICENSE OF [facility] Rx#:[id number] Lactated Ringers 1,000 ml @ 999 1000 mls/hr IV CONT .Q1H1M STA Rx#: [id number] Sodium Bicarbonate 8.4% 75 meq 860 In Sodium Chloride 0.45% 1,000 ml @ 75 mls/hr IV CONT .[id number] ON LICENSE OF [facility] Rx#:[id number] Oral 300 Output: Urine 1600 Catheter Urine 300 Urethral Catheter 300 Other: Number of Bowel Movements Today 3 Patient Weight 04/13/25 23:59 Weight 90.5 kg
--- NOTE | 2025-04-13 13:04 | P.PNNP_ITS ---
Progress Note: A&P Assessment and Plan (1) Acute kidney injury: Code(s): N17.9 - Acute kidney failure, unspecified Status: Acute Assessment and Plan: * slow improvement * suspect this is present * despite #2, he was never told that he needed urgent BACK OFFICE MEDICAL ASSISTANT/dialysis prior to traveling... * multifactorial etiology: * obstruction/urinary retention * relative hypotension * possible embolic event (given #5)? * element of CKD progression(?) * other(?) * evaluation to date noted: * CT of A/P with evidence of BPH and obstruction/bilateral hydronephrosis * renal ultrasound with multiple right renal cysts * urine electrolytes non-prerenal * urine eosinophils negative * CPK only mildly elevated (not enough to affect kidney function) * moderate proteinuria * complicated by hyperkalemia and significant metabolic acidosis on admission * bailon catheter in place * on IVFs with bicarb * follow respiratory and volume status closely * remains at risk for needing BACK OFFICE MEDICAL ASSISTANT/hemodialysis... * follow repeat labs and UOP (2) Stage 5 chronic kidney disease: Code(s): N18.5 - Chronic kidney disease, stage 5 Status: Chronic Assessment and Plan: * unclear what baseline creatinine normally runs... * however, patient able to verify that he has CKD stage V * was referred to Vascular Surgery for AV access placement * attempt to get records from his physician back home ([place], [place]) to ascertain baseline creatinine/GFR) (3) Hyperkalemia: Code(s): E87.5 - Hyperkalemia Status: Acute Assessment and Plan: * improvement noted * as noted on presentation * s/p medical management * scheduled lokelma * follow trend of K+ (4) Metabolic acidosis: Code(s): E87.20 - Acidosis, unspecified Status: Acute Assessment and Plan: * slow improvement * presumably secondary to TEOFILO (although may have a chronic acidosis from his advanced CKD) * bicarb IVFS and oral bicarbonate to compensate * follow trend of CO2 (5) Pulmonary embolism: Qualifiers: Acute cor pulmonale presence: unspecified Chronicity: acute Pulmonary embolism type: unspecified Qualified Code(s): I26.99 - Other pulmonary embolism without acute cor pulmonale Code(s): I26.99 - Other pulmonary embolism without acute cor pulmonale Status: Acute Assessment and Plan: * presumed etiology of shortness of breath * recent car travel a week ago ([place], [place] --> to this area) * V/Q scan with high probability for PE * consider checking lower extremity dopplers (although may not exchange specialist) * started on heparin gtt (6) Shortness of breath: Code(s): R06.02 - Shortness of breath Status: Acute Assessment and Plan: * as noted on presentation * no evidence of hypoxia * viral testing for influenza/RSV/COVID negative * CXR wtih no acute cardiopulmonary disease * V/Q scan noted (see #5) (7) Elevated troponin: Code(s): R79.89 - Other specified abnormal findings of blood chemistry Status: Acute Assessment and Plan: * noted by testing in ER * EKGs noted - evidence of Afib but no acute ST elevations/depressions * Cardiology recommendations noted * Echo results noted: * normal appearing left ventricular size with vigorous systolic function * right ventricular enlargement with right ventricular hypokinesia * at least moderate if not moderate to severe aortic stenosis. * suspect secondary to right heart strain from PE (8) Atrial fibrillation: Qualifiers: Atrial fibrillation type: paroxysmal Qualified Code(s): I48.0 - Paroxysmal atrial fibrillation Code(s): I48.91 - Unspecified atrial fibrillation Status: Acute Assessment and Plan: * supposedly new onset (or at least paroxysmal) * follow telemetry * rate control strategy * on anticoagulation (heparin gtt) (9) Multiple myeloma: Code(s): C90.00 - Multiple myeloma not having achieved remission Status: Chronic Assessment and Plan: * follows with Hem/Onc * on active treatment (10) Diabetes: Qualifiers: Chronic kidney disease stage: stage 5 (GFR < 15), not on chronic dialysis Diabetes mellitus complication detail: with chronic kidney disease D iabetes mellitus complication status: with kidney complications Diabetes 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 L Subjective Date/time seen: 04/13/25 13:04 Interval history: Follow-up for acute kidney injury/acute renal failure (presumed) on chronic kidney disease. Improvement in potassium noted with slight improvement in acidosis; reports some improvement in breathing/respiratory status but now complaining left sided abdominal pain; no other acute issues/events overnight or earlier this morning. Exam 2 Narrative: General: elderly but WD/WN male in NAD Heart: normal S1 and S2; no rub Lungs: clear to auscultation Abdomen: mild TTP in LLQ; nondistended, positive bowel sounds Extremities: no cyanosis or clubbing; trace edema Skin: warm and dry Objective Data Vital Signs Vital Signs: Vital Signs Temp Pulse Resp BP Pulse Ox O2 Del Method O2 Flow Rate 04/13/25 12:00 68 28 H 98 Nasal Cannula 2 04/13/25 11:00 97.6 F 68 28 H 112/66 98 04/13/25 10:00 80 04/13/25 08:56 86 04/13/25 08:00 74 04/13/25 08:00 86 20 97 Nasal Cannula 2 04/13/25 08:00 97.8 F 87 20 103/62 97 04/13/25 06:00 83 04/13/25 04:35 97.6 F 70 21 H 106/79 97 04/13/25 04:00 89 04/13/25 02:00 72 04/13/25 00:36 97.8 F 88 22 H 123/59 L 94 04/13/25 00:33 70 04/13/25 00:00 90 04/12/25 22:00 71 04/12/25 20:02 97.6 F 73 23 H 136/73 100 04/12/25 20:00 98 04/12/25 18:16 97.6 F 118 H 28 H 114/59 L 95 04/12/25 18:16 118 H 28 H 95 Nasal Cannula 2 Intake/Output Intake/Output: Intake & Output 04/10/25 04/11/25 04/12/25 04/13/25 23:59 23:59 23:59 23:59 Intake Total 1000 2286.6 Output Total 1600 1652 Balance -600 634.6 Meds/Results Medications: Active Medications Generic Name Dose Route Start Last Admin Trade Name Freq PRN Reason Stop Dose Admin Acetaminophen 650 mg 04/12/25 15:51 Acetaminophen 325 Mg Tablet PO Q6H PRN Mild Pain (1-3) or Fever Hydrocodone Bitart/Acetaminophen 1 tab 04/12/25 15:51 Hydrocodone/Acetaminophen (*Crx) 5-325 Mg Tablet PO Q6H PRN Pain Rated 4-6 Acyclovir 200 mg 04/12/25 22:30 04/13/25 08:56 Acyclovir 200 Mg Capsule PO 200 mg Q12HR MANISHA Administration Aspirin 81 mg 04/12/25 22:30 04/13/25 00:33 Aspirin 81 Mg Enteric Tablet PO 81 mg HS MANISHA Administration Calcium Carbonate 200 mg 04/12/25 15:51 Calcium Carbonate (Tums) 500 Mg (200 Mg Elemental) PO Q6H PRN Indigestion Carvedilol 3.125 mg 04/12/25 22:30 04/13/25 08:56 Carvedilol 3.125 Mg Tablet PO 3.125 mg On Hold: 04/13/25 13:25 Q12HR MANISHA Administration Dexamethasone 12 mg 04/18/25 09:00 Dexamethasone 4 Mg Tablet PO WEEKLY MANISHA Finasteride 5 mg 04/12/25 22:30 04/13/25 00:33 Finasteride 5 Mg Tablet PO 5 mg HS MANISHA Administration Heparin Sodium (Porcine) 6,000 units 04/12/25 16:39 Heparin Sodium 5,000 Units/Ml Vial IV PUSH PRN PRN aPTT less than 55 seconds Heparin Sodium (Porcine) 3,000 units 04/12/25 16:39 Heparin Sodium 5,000 Units/Ml Vial IV PUSH PRN PRN aPTT 55 - 70 seconds Sodium Bicarbonate 75 meq/ 1,075 mls @ 75 mls/hr 04/12/25 15:30 04/13/25 06:29 Sodium Chloride IV CONT 75 mls/hr .[id number] MANISHA Administration Heparin Sodium/Dextrose 25,000 units in 250 mls @ 10 mls/hr 04/12/25 16:40 04/13/25 15:04 Heparin Sodium/D5w 100 Units/Ml IV CONT 1,000 units/hr .Q24H MANISHA 10 mls/hr Protocol Titration 1,000 UNITS/HR Ondansetron HCl 4 mg 04/12/25 15:51 Ondansetron Hcl Odt 4 Mg Tablet PO Q6H PRN Nausea And Vomiting Sodium Bicarbonate 1,300 mg 04/12/25 17:00 04/13/25 08:56 Sodium Bicarbonate Tab 650 Mg Tablet PO 1,300 mg BID MANISHA Administration Sodium Zirconium Cyclosilicate 10 gm 04/14/25 10:00 Sodium Zirconium Cyclosilicate 10 Gm Powd.Pack PO DAILY@1000 MANISHA Tamsulosin HCl 0.4 mg 04/12/25 22:30 04/13/25 00:33 Tamsulosin Hcl 0.4 Mg Capsule PO 0.4 mg HS MANISHA Administration Radiology Results: ITS Impressions Abdomen/Pelvis CT 04/12/25 15:19 IMPRESSION: 1. Multiple right renal masses with intermediate density. Correlation with CT or MRI with contrast recommended for further assessment. 2: Severe enlargement of the prostate gland likely causing outlet obstruction with resultant distention of the bladder and bilateral hydronephrosis. Pulmonary Perfusion Imaging 04/12/25 16:34 IMPRESSION: 1. High probability for pulmonary embolism. Findings were discussed with Kenna Williamson, the nurse caring for the patient, at 4:36 PM. Renal Ultrasound 04/12/25 21:07 Impression: 1: Multiple right renal cysts. No suspicious solid masses are identified to suggest malignancy. Chest X-Ray 04/13/25 08:35 IMPRESSION: 1. No acute cardiopulmonary disease. Labs Labs: Laboratory Tests 04/13/25 03:07 04/13/25 03:07 Hemoglobin A1c 7.2 H Calcium 8.5 Phosphorus 5.5 H Magnesium 1.7 Total Bilirubin 0.9 AST 31 ALT 19 Alkaline Phosphatase 54 Total Protein 5.4 L Albumin 3.3 L Triglycerides 95 Cholesterol 165 LDL Cholesterol Direct 72 HDL Direct 47
[2025-04-13 14:51] LABS: Partial Thromboplastin Time 83.9 Seconds (22.3-36.8)
[2025-04-13 15:04] LABS: Troponin I 4.520 ng/mL (0.000-0.034)
[2025-04-13] MEDS: HEPARIN SOD/D5W 100 UNITS/ML 25,000 UNITS/250 ML BAG 10 UNITS IV CONT (16:50)
[2025-04-13 21:05] LABS: Albumin Level 3.2 g/dL (3.5-5.1); Anion Gap 13 mmol/L (4-12); Blood Urea Nitrogen 90 mg/dL (9-20); Calcium 8.0 mg/dL (8.4-10.2); Carbon Dioxide 16 mmol/L (22-30); Chloride 110 mmol/L (98-107); Estimated CRCL calculation 10 ml/min; Estimated Glomerular Filt Rate 9; Glucose 198 mg/dL (65-110); Potassium 4.3 mmol/L (3.4-5.0); Sodium 139 mmol/L (137-145)
[2025-04-13 21:20] LABS: Partial Thromboplastin Time 63.4 Seconds (22.3-36.8)
[2025-04-14] VITALS (15 sets, daily range): BP systolic 93–127; BP diastolic 60–81; PULSE 60–97; RESP 18–21; TEMP 36.3–36.8; O2SAT 95–99
[2025-04-14 04:34] LABS: Hematocrit 34.5 % (42.0-52.0); Hemoglobin 11.2 g/dL (14.0-18.0); Immature Granulocyte Percent A 0.9 % (0-0.5); Immature Platelet Fraction Pct 6.8 % (0.9-11.2); Lymphocytes Absolute Auto 1.28 K/mm3 (0.9-3.2); Mean Corpuscular HGB Conc 32.5 g/dl (32-36); Mean Corpuscular Hemoglobin 29.7 pg (26-34); Mean Corpuscular Volume 91.5 fl (80-100); Nucleated Red Blood Cells Absolute Auto 0.040 K/mm3 (0.0-0.012); Nucleated Red Blood Cells Perc 0.3 % (0.0-0.2); Platelet Count Result 113 k/mm3 (150-375); Red Blood Count 3.77 M/mm3 (4.6-6.20); White Blood Count 11.6 K/mm3 (4.5-10.0)
[2025-04-14 04:40] LABS: Alanine Aminotransferase 15 U/L (6-50); Albumin Level 2.8 g/dL (3.5-5.1); Alkaline Phosphatase 55 U/L (38-126); Anion Gap 11 mmol/L (4-12); Aspartate Amino Transferase 22 U/L (17-59); Bilirubin,Total 0.5 mg/dL (0.2-1.3); Blood Urea Nitrogen 97 mg/dL (9-20); Calcium 7.6 mg/dL (8.4-10.2); Carbon Dioxide 19 mmol/L (22-30); Chloride 108 mmol/L (98-107); Estimated CRCL calculation 10 ml/min; Estimated Glomerular Filt Rate 9; Glucose 158 mg/dL (65-110); Magnesium 1.8 mg/dL (1.6-2.3); Potassium 3.9 mmol/L (3.4-5.0); Sodium 138 mmol/L (137-145); Total Protein 5.0 g/dL (6.3-8.2)
[2025-04-14 04:55] LABS: Partial Thromboplastin Time 135.1 Seconds (22.3-36.8)
[2025-04-14 05:18] LABS: Prostate Specific Antigen 37.8 ng/mL (< OR = 4.0)
[2025-04-14] MEDS: ACYCLOVIR 200 MG CAPSULE PO ×2 (09:15→20:54)
[2025-04-14] MEDS: SODIUM BICARBONATE TAB 650 MG TABLET 1300 MG PO (09:15)
[2025-04-14] MEDS: SODIUM ZIRCONIUM CYCLOSILICATE 10 GM POWD.PACK PO (09:16)
[2025-04-14 10:08] LABS: Hep B Core Ab, Total Negative (Negative)
--- NOTE | 2025-04-14 10:09 | P.PNNP_ITS ---
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 * multifactorial etiology: * obstruction/urinary retention * relative hypotension * possible embolic event (given #5)? * element of CKD progression(?) * other(?) * evaluation to date noted: * CT of A/P with evidence of BPH and obstruction/bilateral hydronephrosis * renal ultrasound with multiple right renal cysts * urine electrolytes non-prerenal * urine eosinophils negative * CPK only mildly elevated (not enough to affect kidney function) * moderate proteinuria * complicated by hyperkalemia and significant metabolic acidosis on admission * bailon catheter in place * on IVFs with bicarb * follow respiratory and volume status closely * remains at risk for needing AUTOMATION MACHINE BUILDER/hemodialysis... * follow repeat labs and UOP (2) Stage 5 chronic kidney disease: Code(s): N18.5 - Chronic kidney disease, stage 5 Status: Chronic Assessment and Plan: * unclear what baseline creatinine normally runs... * however, patient able to verify that he has CKD stage V * was referred to Vascular Surgery for AV access placement * attempt to get records from his physician back home ([place], [place]) to ascertain baseline creatinine/GFR) (3) Hyperkalemia: Code(s): E87.5 - Hyperkalemia Status: Acute Assessment and Plan: * improvement noted * as noted on presentation * s/p medical management * scheduled lokelma * follow trend of K+ (4) Metabolic acidosis: Code(s): E87.20 - Acidosis, unspecified Status: Acute Assessment and Plan: * slow improvement * presumably secondary to TEOFILO (although may have a chronic acidosis from his advanced CKD) * bicarb IVFS and oral bicarbonate to compensate * follow trend of CO2 (5) Pulmonary embolism: Qualifiers: Pulmonary embolism type: unspecified Chronicity: acute Acute cor pulmonale presence: unspecified Qualified Code(s): I26.99 - Other pulmonary embolism without acute cor pulmonale Code(s): I26.99 - Other pulmonary embolism without acute cor pulmonale Status: Acute Assessment and Plan: * presumed etiology of shortness of breath * recent car travel a week ago ([place], [place] --> to this area) * V/Q scan with high probability for PE * consider checking lower extremity dopplers (although may not exchange administrator) * started on heparin gtt (6) Azotemia: Code(s): R79.89 - Other specified abnormal findings of blood chemistry Status: Acute Assessment and Plan: * noted rising BUN (despite improvement in creatinine) * etiology? * possible catabolic state? * bleeding issue? * related to his advanced CKD... * no culprit medications (on steroids but none recently) * follow trend of BUN (7) Shortness of breath: Code(s): R06.02 - Shortness of breath Status: Acute Assessment and Plan: * as noted on presentation * no evidence of hypoxia * viral testing for influenza/RSV/COVID negative * CXR wtih no acute cardiopulmonary disease * V/Q scan noted (see #5) (8) Elevated troponin: Code(s): R79.89 - Other specified abnormal findings of blood chemistry Status: Acute Assessment and Plan: * noted by testing in ER * EKGs noted - evidence of Afib but no acute ST elevations/depressions * Cardiology recommendations noted * Echo results noted: * normal appearing left ventricular size with vigorous systolic function * right ventricular enlargement with right ventricular hypokinesia * at least moderate if not moderate to severe aortic stenosis. * suspect secondary to right heart strain from PE (9) Atrial fibrillation: Qualifiers: Atrial fibrillation type: paroxysmal Qualified Code(s): I48.0 - Paroxysmal atrial fibrillation Code(s): I48.91 - Unspecified atrial fibrillation Status: Acute Assessment and Plan: * supposedly new onset (or at least paroxysmal) * follow telemetry * rate control strategy * on anticoagulation (heparin gtt) (10) Anemia: Code(s): D64.9 - Anemia, unspecified Status: Acute Assessment and Plan: * due in part to TEOFILO and CKD along with IVF hydration * cannot discount multiple myeloma playing a role * no need for JOSE * follow trend of H/H (11) Multiple myeloma: Code(s): C90.00 - Multiple myeloma not having achieved remission Status: Chronic Assessment and Plan: * follows with Hem/Onc * on active treatment (12) Diabetes: Qualifiers: Diabetes mellitus type: type 2 Diabetes mellitus long line teamster insulin use: without long line teamster use Diabetes mellitus complication status: with kidney complications Diabetes mellitus complication detail: with chronic kidney disease Chronic kidney disease stage: stage 5 (GFR < 15), not on chronic dialysis Qualified Code(s): E11.22 - Type 2 diabetes mellitus with diabetic chronic kidney disease; N18.5 - Chronic kidney disease, stage 5 Code(s): E11.9 - Type 2 diabetes mellitus without complications Status: Chronic Assessment and Plan: * reported history * however, on no medications (diet controlled?) * follow blood sugars * institute SSI if needed Will continue to follow. L Subjective Date/time seen: 04/14/25 10:09 Interval history: Follow-up for acute kidney injury/acute renal failure on chronic kidney disease. Stability if not mild improvement in renal function/creatinine in the last 24 hours although noted rise in BUN; stable electrolytes noted with reasonable urine output as well; states that his breathing as well as his abdominal pain are doing better today; no apparent distress noted at the time of my visit. Exam 2 Narrative: General: elderly but WD/WN male in NAD Heart: normal S1 and S2; no rub Lungs: clear to auscultation Abdomen: mild TTP in LLQ; nondistended, positive bowel sounds Extremities: no cyanosis or clubbing; trace edema Skin: warm and intact Objective Data Vital Signs Vital Signs: Vital Signs Temp Pulse Resp BP Pulse Ox O2 Del Method O2 Flow Rate 04/14/25 10:00 98.2 F 76 18 93/62 L 97 04/14/25 08:00 97 04/14/25 08:00 97 Nasal Cannula 2 04/14/25 08:00 97.6 F 76 21 H 106/80 97 04/14/25 06:00 81 04/14/25 04:00 79 04/14/25 03:35 98 Nasal Cannula 2 04/14/25 03:21 97.7 F 75 18 110/60 96 04/14/25 00:00 87 04/13/25 23:58 96 Nasal Cannula 2 04/13/25 23:50 97.8 F 98 20 108/57 L 97 04/13/25 20:00 94 04/13/25 20:00 97 Nasal Cannula 2 04/13/25 19:51 97.9 F 83 22 H 116/65 97 Intake/Output Intake/Output: Intake & Output 04/11/25 04/12/25 04/13/2525 23:59 23:59 23:59 23:59 Intake Total 1000 4205.3 2729.4 Output Total 1600 1652 1400 Balance -600 2553.3 1329.4 Meds/Results Medications: Active Medications Generic Name Dose Route Start Last Admin Trade Name Freq PRN Reason Stop Dose Admin Acetaminophen 650 mg 04/12/25 15:51 Acetaminophen 325 Mg Tablet PO Q6H PRN Mild Pain (1-3) or Fever Hydrocodone Bitart/Acetaminophen 1 tab 04/12/25 15:51 Hydrocodone/Acetaminophen (*Crx) 5-325 Mg Tablet PO Q6H PRN Pain Rated 4-6 Acyclovir 200 mg 04/12/25 22:30 04/14/25 09:15 Acyclovir 200 Mg Capsule PO 200 mg Q12HR MANISHA Administration Aspirin 81 mg 04/12/25 22:30 04/13/25 21:11 Aspirin 81 Mg Enteric Tablet PO 81 mg HS MANISHA Administration Calcium Carbonate 200 mg 04/12/25 15:51 Calcium Carbonate (Tums) 500 Mg (200 Mg Elemental) PO Q6H PRN Indigestion Carvedilol 3.125 mg 04/12/25 22:30 04/13/25 08:56 Carvedilol 3.125 Mg Tablet PO 3.125 mg On Hold: 04/13/25 13:25 Q12HR MANISHA Administration Dexamethasone 12 mg 04/18/25 09:00 Dexamethasone 4 Mg Tablet PO WEEKLY MANISHA Finasteride 5 mg 04/12/25 22:30 04/13/25 21:11 Finasteride 5 Mg Tablet PO 5 mg HS MANISHA Administration Heparin Sodium (Porcine) 6,000 units 04/12/25 16:39 Heparin Sodium 5,000 Units/Ml Vial IV PUSH PRN PRN aPTT less than 55 seconds Heparin Sodium (Porcine) 3,000 units 04/12/25 16:39 04/14/25 14:05 Heparin Sodium 5,000 Units/Ml Vial IV PUSH 3,000 units PRN PRN Administration aPTT 55 - 70 seconds Sodium Bicarbonate 75 meq/ 1,075 mls @ 30 mls/hr 04/12/25 15:30 04/14/25 15:45 Sodium Chloride IV CONT 30 mls/hr .Q24H MANISHA Infusion Heparin Sodium/Dextrose 25,000 units in 250 mls @ 12 mls/hr 04/12/25 16:40 04/14/25 14:05 Heparin Sodium/D5w 100 Units/Ml IV CONT 1,200 units/hr .[id number] MANISHA 12 mls/hr Protocol Administration 1,200 UNITS/HR Ondansetron HCl 4 mg 04/12/25 15:51 Ondansetron Hcl Odt 4 Mg Tablet PO Q6H PRN Nausea And Vomiting Sodium Bicarbonate 650 mg 04/14/25 17:00 04/14/25 16:47 Sodium Bicarbonate Tab 650 Mg Tablet PO 650 mg BID MANISHA Administration Tamsulosin HCl 0.4 mg 04/12/25 22:30 04/13/25 21:11 Tamsulosin Hcl 0.4 Mg Capsule PO 0.4 mg HS MANISHA Administration Radiology Results: ITS Impressions Abdomen/Pelvis CT 04/12/25 15:19 IMPRESSION: 1. Multiple right renal masses with intermediate density. Correlation with CT or MRI with contrast recommended for further assessment. 2: Severe enlargement of the prostate gland likely causing outlet obstruction with resultant distention of the bladder and bilateral hydronephrosis. Pulmonary Perfusion Imaging 04/12/25 16:34 IMPRESSION: 1. High probability for pulmonary embolism. Findings were discussed with Kenna Williamson, the nurse caring for the patient, at 4:36 PM. Renal Ultrasound 04/12/25 21:07 Impression: 1: Multiple right renal cysts. No suspicious solid masses are identified to suggest malignancy. Chest X-Ray 04/13/25 08:35 IMPRESSION: 1. No acute cardiopulmonary disease. Abdomen X-Ray 04/13/25 16:07 IMPRESSION: 1. There are several air-filled distended small bowel loops in the left abdomen and pelvis. Differential includes ileus or developing small bowel obstruction. 2. Possible contrast in bowel in the right abdomen and pelvis. Correlate clinically. If symptoms persist or worsen, consider a short-term follow-up study or a CT of the abdomen and pelvis for further assessment. Labs Labs: Laboratory Tests 04/14/25 04:04 04/14/25 04:04 Calcium 7.6 L Phosphorus 5.7 H Magnesium 1.8 Total Bilirubin 0.5 AST 22 ALT 15 Alkaline Phosphatase 55 Total Protein 5.0 L Albumin 2.8 L Prostate Specific Ag 37.8 H
[2025-04-14] MEDS: SODIUM BICARBONATE 8.4% 75 MEQ in SODIUM CHLORIDE 0.45% 1,000 ML IV CONT (11:05)
--- NOTE | 2025-04-14 12:38 | P.PNCA_ITS ---
Progress Note: A&P Assessment and Plan (1) Elevated troponin: Code(s): R79.89 - Other specified abnormal findings of blood chemistry Status: Acute (2) Atrial fibrillation: Qualifiers: Atrial fibrillation type: paroxysmal Qualified Code(s): I48.0 - Paroxysmal atrial fibrillation Code(s): I48.91 - Unspecified atrial fibrillation Status: Acute (3) Pulmonary embolism: Qualifiers: Pulmonary embolism type: unspecified Chronicity: acute Acute cor pulmonale presence: unspecified Qualified Code(s): I26.99 - Other pulmonary embolism without acute cor pulmonale Code(s): I26.99 - Other pulmonary embolism without acute cor pulmonale Status: Acute Plan 79-year-old man with chronic systolic heart failure (LVEF normalized), paroxysmal atrial fibrillation, moderate aortic stenosis, diabetes, chronic kidney disease stage 5, previous history of partial left nephrectomy, multiple myeloma, and hyperlipidemia presents with shortness of breath found to have pulmonary embolism with right heart strain Pulmonary embolism with right heart strain -continue anticoagulation and will need to transition to oral anticoagulant -on clinically improving from a symptom standpoint on the current medical regimen -continue to hold beta-lolly and antihypertensives Paroxysmal atrial fibrillation -will need oral anticoagulant; rates are well controlled Moderate aortic stenosis -continue outpatient surveillance echocardiogram Subjective Date/time seen: 04/14/25 12:38 Interval history: Patient states that his breathing is much better today. Denies any chest pain or lightheadedness Review of Systems Cardiovascular: Cardiovascular: Reports as per HPI Respiratory: Respiratory: Reports as per HPI Exam Const: General: comfortable HENMT: Mouth: Yes moist mucous membranes Eyes: EOM: EOMs intact bilaterally Neck: Neck: no JVD Resp: Effort & Inspection: normal respiratory effort Auscultation: diminished lung sounds Cardio: Rate: regular rate Rhythm: abnormal rhythm Heart sounds: Murmur heart sound present Neuro: Speech: normal speech Extrem: General: normal to inspection Objective Data Vital Signs Vital Signs: Vital Signs - 24 hr 04/13/25 14:00 04/13/25 16:00 04/13/25 16:00 Temperature 36.8 C Pulse Rate 78 74 74 Respiratory Rate 24 H 24 H Blood Pressure 103/66 Pulse Oximetry 97 97 Oxygen Delivery Nasal Cannula Oxygen Flow Rate 2 04/13/25 16:00 04/13/25 18:00 04/13/25 19:51 Temperature 36.6 C Pulse Rate 91 82 83 Respiratory Rate 22 H Blood Pressure 116/65 Pulse Oximetry 97 Oxygen Delivery Oxygen Flow Rate 04/13/25 20:00 04/13/25 20:00 04/13/25 23:50 Temperature 36.6 C Pulse Rate 94 98 Respiratory Rate 20 Blood Pressure 108/57 L Pulse Oximetry 97 97 Oxygen Delivery Nasal Cannula Oxygen Flow Rate 2 04/13/25 23:58 04/14/25 00:00 04/14/25 03:21 Temperature 36.5 C Pulse Rate 87 75 Respiratory Rate 18 Blood Pressure 110/60 Pulse Oximetry 96 96 Oxygen Delivery Nasal Cannula Oxygen Flow Rate 2 04/14/25 03:35 04/14/25 04:00 04/14/25 06:00 Temperature Pulse Rate 79 81 Respiratory Rate Blood Pressure Pulse Oximetry 98 Oxygen Delivery Nasal Cannula Oxygen Flow Rate 2 04/14/25 08:00 04/14/25 08:00 04/14/25 08:00 Temperature 36.4 C Pulse Rate 76 97 Respiratory Rate 21 H Blood Pressure 106/80 Pulse Oximetry 97 97 Oxygen Delivery Nasal Cannula Oxygen Flow Rate 2 04/14/25 10:00 04/14/25 12:00 Temperature 36.8 C Pulse Rate 77 76 Respiratory Rate 18 Blood Pressure 93/62 L Pulse Oximetry 97 Oxygen Delivery Oxygen Flow Rate Intake/Output Intake/Output: Intake & Output 04/11/25 04/12/25 04/13/25 04/14/25 23:59 23:59 23:59 23:59 Intake Total 1000 4205.3 1821.1 Output Total 1600 1652 700 Balance -600 2553.3 1121.1 Meds/Results Medications: Active Medications Generic Name Dose Route Start Last Admin Trade Name Freq PRN Reason Stop Dose Admin Acetaminophen 650 mg 04/12/25 15:51 Acetaminophen 325 Mg Tablet PO Q6H PRN Mild Pain (1-3) or Fever Hydrocodone Bitart/Acetaminophen 1 tab 04/12/25 15:51 Hydrocodone/Acetaminophen (*Crx) 5-325 Mg Tablet PO Q6H PRN Pain Rated 4-6 Acyclovir 200 mg 04/12/25 22:30 04/14/25 09:15 Acyclovir 200 Mg Capsule PO 200 mg Q12HR MANISHA Administration Aspirin 81 mg 04/12/25 22:30 04/13/25 21:11 Aspirin 81 Mg Enteric Tablet PO 81 mg HS MANISHA Administration Calcium Carbonate 200 mg 04/12/25 15:51 Calcium Carbonate (Tums) 500 Mg (200 Mg Elemental) PO Q6H PRN Indigestion Carvedilol 3.125 mg 04/12/25 22:30 04/13/25 08:56 Carvedilol 3.125 Mg Tablet PO 3.125 mg On Hold: 04/13/25 13:25 Q12HR MANISHA Administration Dexamethasone 12 mg 04/18/25 09:00 Dexamethasone 4 Mg Tablet PO WEEKLY [facility] Finasteride 5 mg 04/12/25 22:30 04/13/25 21:11 Finasteride 5 Mg Tablet PO 5 mg HS MANISHA Administration Heparin Sodium (Porcine) 6,000 units 04/12/25 16:39 Heparin Sodium 5,000 Units/Ml Vial IV PUSH PRN PRN aPTT less than 55 seconds Heparin Sodium (Porcine) 3,000 units 04/12/25 16:39 04/13/25 21:53 Heparin Sodium 5,000 Units/Ml Vial IV PUSH 3,000 units PRN PRN Administration aPTT 55 - 70 seconds Sodium Bicarbonate 75 meq/ 1,075 mls @ 75 mls/hr 04/12/25 15:30 04/14/25 11:05 Sodium Chloride IV CONT 75 mls/hr .[id number] MANISHA Administration Heparin Sodium/Dextrose 25,000 units in 250 mls @ 10 mls/hr 04/12/25 16:40 04/14/25 06:15 Heparin Sodium/D5w 100 Units/Ml IV CONT 1,000 units/hr .Q24H MANISHA 10 mls/hr Protocol Titration 1,000 UNITS/HR Ondansetron HCl 4 mg 04/12/25 15:51 Ondansetron Hcl Odt 4 Mg Tablet PO Q6H PRN Nausea And Vomiting Sodium Bicarbonate 1,300 mg 04/12/25 17:00 04/14/25 09:15 Sodium Bicarbonate Tab 650 Mg Tablet PO 1,300 mg BID MANISHA Administration Sodium Zirconium Cyclosilicate 10 gm 04/14/25 10:00 04/14/25 09:16 Sodium Zirconium Cyclosilicate 10 Gm Powd.Pack PO 10 gm DAILY@1000 MANISHA Administration Tamsulosin HCl 0.4 mg 04/12/25 22:30 04/13/25 21:11 Tamsulosin Hcl 0.4 Mg Capsule PO 0.4 mg HS MANISHA Administration Radiology Results: ITS Impressions Abdomen/Pelvis CT 04/12/25 15:19 IMPRESSION: 1. Multiple right renal masses with intermediate density. Correlation with CT or MRI with contrast recommended for further assessment. 2: Severe enlargement of the prostate gland likely causing outlet obstruction with resultant distention of the bladder and bilateral hydronephrosis. Pulmonary Perfusion Imaging 04/12/25 16:34 IMPRESSION: 1. High probability for pulmonary embolism. Findings were discussed with Kenna Williamson, the nurse caring for the patient, at 4:36 PM. Renal Ultrasound 04/12/25 21:07 Impression: 1: Multiple right renal cysts. No suspicious solid masses are identified to suggest malignancy. Chest X-Ray 04/13/25 08:35 IMPRESSION: 1. No acute cardiopulmonary disease. Abdomen X-Ray 04/13/25 16:07 IMPRESSION: 1. There are several air-filled distended small bowel loops in the left abdomen and pelvis. Differential includes ileus or developing small bowel obstruction. 2. Possible contrast in bowel in the right abdomen and pelvis. Correlate clinically. If symptoms persist or worsen, consider a short-term follow-up study or a CT of the abdomen and pelvis for further assessment. Labs Labs: Laboratory Results - last 24 hr 04/13/25 04/13/25 04/13/25 03:08 14:29 20:29 WBC RBC Hgb Hct MCV MCH MCHC RDW Plt Count MPV Immature Gran % (Auto) Neut % (Auto) Lymph % (Auto) Appling % (Auto) Eos % (Auto) Baso % (Auto) Lymph # (Auto) [place] # (Auto) Eos # (Auto) Baso # (Auto) Abs Immat Gran (auto) Absolute Neuts (auto) Absolute Nucleated RBC Nucleated RBC % % Immature Plt Fraction APTT 83.9 H 63.4 H Sodium 139 Potassium 4.3 Chloride 110 H Carbon Dioxide 16 L Anion Gap 13 H BUN 90 H Creatinine 6.30 H Estim Creat Clear Calc 10 Estimated GFR 9 L Glucose 198 H Calcium 8.0 L Phosphorus 5.4 H Magnesium Total Bilirubin AST ALT Alkaline Phosphatase Troponin I 4.520 H* Total Protein Albumin 3.2 L Prostate Specific Ag Hep B Core Total Ab Negative 04/14/25 04:04 WBC 11.6 H RBC 3.77 L Hgb 11.2 L Hct 34.5 L MCV 91.5 MCH 29.7 MCHC 32.5 RDW 15.8 H Plt Count 113 L MPV 11.7 H Immature Gran % (Auto) 0.9 H Neut % (Auto) 77.9 H Lymph % (Auto) 11.0 L Appling % (Auto) 9.9 H Eos % (Auto) 0.1 Baso % (Auto) 0.2 Lymph # (Auto) 1.28 Appling # (Auto) 1.2 H Eos # (Auto) 0.0 Baso # (Auto) 0.0 Abs Immat Gran (auto) 0.10 H Absolute Neuts (auto) 9.0 H Absolute Nucleated RBC 0.040 H Nucleated RBC % 0.3 H % Immature Plt Fraction 6.8 APTT 135.1 H Sodium 138 Potassium 3.9 Chloride 108 H Carbon Dioxide 19 L Anion Gap 11 BUN 97 H Creatinine 6.27 H Estim Creat Clear Calc 10 Estimated GFR 9 L Glucose 158 H Calcium 7.6 L Phosphorus 5.7 H Magnesium 1.8 Total Bilirubin 0.5 AST 22 ALT 15 Alkaline Phosphatase 55 Troponin I Total Protein 5.0 L Albumin 2.8 L Prostate Specific Ag 37.8 H Hep B Core Total Ab
[2025-04-14 12:40] LABS: Partial Thromboplastin Time 55.4 Seconds (22.3-36.8)
[2025-04-14] MEDS: HEPARIN SOD/D5W 100 UNITS/ML 25,000 UNITS/250 ML BAG 12 UNITS IV CONT ×2 (14:05→17:10)
--- NOTE | 2025-04-14 14:43 | PM.IMPN ---
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 - V/Q scan and, at 04/12: High probability for PE - started on heparin gtt on 04/12 - U/S of bilateral lower extremities - checking echo for right heart strain >> no right heart strain noted - troponin elevated at 2.23, repeat 2.76. Continue to follow. (2) Shortness of breath: Code(s): R06.02 - Shortness of breath Status: Acute Assessment and Plan: - CXR: No acute cardiopulmonary disease - viral PCR negative on 04/12 - patient had a recent travel from [place] approximately 1 week ago and is not on anticoagulation at raising concerns for pulmonary embolism, due to patient's current renal function he is not a candidate for a CTA. NM V/Q scan ordered, awaiting results. Vital signs currently stable and patient remains on room air. ->> VQ scan with high probability for PE, see above. This is likely source of patient's shortness of breath. 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 No clear baseline as the patient has never before been seen at [facility]. He does report he has previously had dialysis discussed with him. This increases concern that patient has been in the later stages of CKD prior to today. - significant electrolyte derangements noted upon initial evaluation on 04/12: Potassium 6.9, CO2 8, gap 19, creatinine 6.99, BUN 75, GFR 8, phosphorus 6.5 - CT abd/pelvis showed multiple renal masses with indeterminate density ->> findings discussed with patient, he reports a history of renal carcinoma and partial nephrectomy as well as CKD. Requesting records from prior facilities in [place]. - nephrology has been consulted, but no immediate dialysis indicated - trial IV fluids over the next 24 hours and monitor renal response: 2L bolus, monitor toleration. If tolerated well will start slow infusion of IV fluids. - check renal ultrasound >> Multiple right renal cysts. No suspicious solid masses are identified to suggest malignancy. - check urine lytes and CK - bicarb IVP x1, nephro starting bicarb gtt - trend renal function and electrolytes, correct as needed --check PSA (may be elevated with bailon) --Referral to urology for renal masses --Check MRI abd w/wo contrast--evaluate renal masses and LLQ pain if continues. Unable to go to MRI on heparin drip. Can consider changing to eliquis if continued abdominal pain (4) Hyperkalemia: Code(s): E87.5 - Hyperkalemia Status: Acute Assessment and Plan: - K 6.9 upon initial evaluation on 04/12 - initial treatment in the ED with dextrose/insulin and Kayexalate. Ordered calcium, albuterol and sodium bicarbonate IVP. Nephrology adding sodium bicarbonate gtt and Lokelma b.i.d. - recheck potassium >> 5.5>4.8, will continue bicarb drip and IV fluids. Follow BMP in AM - trend - telemetry monitoring --Renal following (5) Elevated troponin: Code(s): R79.89 - Other specified abnormal findings of blood chemistry Status: Acute Assessment and Plan: - EKG, initial: AFib, rate 84, incomplete right bundle branch block, nonspecific T-wave abnormality - EKG, repeat (1): Sinus rhythm with second-degree AV block Mobitz type 2 with occasional viewed jugular premature complexes, incomplete right bundle branch block, inferior CA of indeterminate age, moderate to of abnormality. When compared to EKG done earlier same day there are new ventricular premature complexes and CA findings with possible ischemia, atrial fibrillation no longer present, and T-wave abnormality still present. Awaiting formal read. >> per my review no significant ST elevations or depressions. - Troponin: 2.23 -> 2.76 -> 4.54--4.52 - cardiology consulted, noted question of heart strain but no recommendation for thrombectomy at this point. Overall patient reports symptomatically improving but troponin elevated as noted --TTE no heart strain - on heparin gtt due to concurrent concern for PE - check lipid panel - continue daily aspirin 81 mg - echo completed, see impression - telemetry monitoring Suspect patient's troponin is elevated secondary to pulmonary embolism and patient's hypotension. Denying any chest pain. (6) Atrial fibrillation: Qualifiers: Atrial fibrillation type: paroxysmal Qualified Code(s): I48.0 - Paroxysmal atrial fibrillation Code(s): I48.91 - Unspecified atrial fibrillation Status: Acute Assessment and Plan: Denies previous history of dysrhythmia or atrial fibrillation. Initial EKG showed atrial fibrillation. Repeat EKG showed resolution of AFib, likely paroxysmal. Currently rate controlled. On carvedilol daily outpatient, continued at this time. - cardiology consulted - telemetry monitoring - chads Vasc: 5 (H, CHF history, thromboembolism history), on heparin gtt --Can change to apixaban closer to discharge (7) CHF (congestive heart failure): Qualifiers: Heart failure type: unspecified Heart failure chronicity: unspecified Qualified Code(s): I50.9 - Heart failure, unspecified Code(s): I50.9 - Heart failure, unspecified Status: Acute Assessment and Plan: - patient reported history of CHF - no previous echo on file, ordered. - BNP greater than 30,000 - monitor I&Os and daily weights - not on daily diuretic outpatient, given 1 time dose of Lasix for hyperkalemia and worsening shortness of breath with known CHF history. - on clinical exam a patient largely appears euvolemic, does have trace edema to bilateral ankles that is symmetric and nonpitting (8) Diarrhea: Qualifiers: Diarrhea type: presumed infectious Qualified Code(s): R19.7 - Diarrhea, unspecified Code(s): R19.7 - Diarrhea, unspecified Status: Acute Assessment and Plan: viral PCR negative - CT abd/pelvis: 1. Multiple right renal masses with intermediate density. Correlation with CT or MRI with contrast recommended for further assessment. 2: Severe enlargement of the prostate gland likely causing outlet obstruction with resultant distention of the bladder and bilateral hydronephrosis. - possible TEOFILO superimposed on CKD, see CKD - c. diff pending - IV fluids: 2L bolus, now on bicarb gtt - monitor BP and renal function 04/14/25 KUB noted. 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 Will check A1c. (10) Abdominal pain: Code(s): R10.9 - Unspecified abdominal pain Status: Acute Assessment and Plan: Reporting Left lower abdominal pain. No explanation on recent CT --Check KUB --If continued pain, consider MRI abdomen since unable to have CT contrast, but would need to stop heparin drip and would rather switch to eliquis prior to that given high risk PE Plan Diet: Renal GI Prophylaxis: N/a DVT Prophylaxis: heparin gtt IV fluids: 2L bolus -> sodium bicarbonate gtt at 75 mL/hour Lines/Tubes: Peripheral IV Code Status: Full code Subjective Date/time seen: 04/14/25 14:43 Interval history: Patient was seen during the morning rounds today. Patient states that his breathing is much better today. Denies any chest pain or lightheadedness Denies abdominal pain Had a bowel movement today Review of Systems Review of Systems: 79 y/o M with PMH of CHF, multiple myeloma, partial nephrectomy (believes it was on the left), DM2, HLD, BPH, and CKD (has previously had discussion for possible dialysis) presents here with shortness of breath. All systems reviewed & are unremarkable except as noted in HPI and below Exam Narrative: General - Awake and alert. No acute distress Eyes - PERRLA, EOM intact ENT - No thrush, No erythema Neck - No noticeable or palpable swelling Lymph Nodes - No lymphadenopathy Cardiovascular - RRR no m/r/g, no JVD Lungs: Clear to auscultation, No wheezing, use of accessory muscles, no crackles Skin - Skin warm and dry, no wounds or rashes Abdomen - Normal bowel sounds, abdomen soft, TTP left abdomen Extremities - No edema, cyanosis or clubbing Musculoskeletal - 5/5 strength, normal range of motion, no swollen or erythematous joints. Neurological ? Alert and oriented x 3, CN 2-12 grossly intact. Psych: Normal mood and affect Const: General: comfortable and no acute distress Other: , male, elderly, modestly ill-appearing HENMT: Face/Nose/Sinus: Normal nares present Mouth: Yes moist mucous membranes Eyes: General: appearance normal, both eyes and all related structures Sclera: sclerae normal Pupils: Equal, round and reactive pupils present EOM: EOMs intact bilaterally Resp: Other: Increased work of breathing without accessory muscle use. No wheezing or crackles noted on exam. Nasal cannula place for patient comfort, no hypoxia noted on monitor. Cardio: Rate: regular rate Rhythm: abnormal rhythm Other: No murmur or rub appreciated. GI: Other: Abdomen soft, nondistended, nontender. Normoactive bowel sounds in all quadrants. Skin: General skin exam: normal color and no rashes or lesions noted Wounds: no wounds Neuro: Cranial nerves: Yes Equal, round and reactive pupils present Speech: normal speech Motor exam (neuro): 5/5 motor strength present throughout Sensory Exam: normal sensation Other: A&O x4 Extrem: Other: Trace edema to bilateral ankles, symmetric without erythema Psych: Mental Status: mental status grossly normal Affect: normal affect Other: Good insight and judgment, pleasant Objective Data Vital Signs Vital Signs: Vital Signs - 24 hr 04/13/25 16:00 04/13/25 16:00 04/13/25 16:00 Temperature 36.8 C Pulse Rate 74 74 91 Respiratory Rate 24 H 24 H Blood Pressure 103/66 Pulse Oximetry 97 97 Oxygen Delivery Nasal Cannula Oxygen Flow Rate 2 04/13/25 18:00 04/13/25 19:51 04/13/25 20:00 Temperature 36.6 C Pulse Rate 82 83 Respiratory Rate 22 H Blood Pressure 116/65 Pulse Oximetry 97 97 Oxygen Delivery Nasal Cannula Oxygen Flow Rate 2 04/13/25 20:00 04/13/25 23:50 04/13/25 23:58 Temperature 36.6 C Pulse Rate 94 98 Respiratory Rate 20 Blood Pressure 108/57 L Pulse Oximetry 97 96 Oxygen Delivery Nasal Cannula Oxygen Flow Rate 2 04/14/25 00:00 04/14/25 03:21 04/14/25 03:35 Temperature 36.5 C Pulse Rate 87 75 Respiratory Rate 18 Blood Pressure 110/60 Pulse Oximetry 96 98 Oxygen Delivery Nasal Cannula Oxygen Flow Rate 2 04/14/25 04:00 04/14/25 06:00 04/14/25 08:00 Temperature 36.4 C Pulse Rate 79 81 76 Respiratory Rate 21 H Blood Pressure 106/80 Pulse Oximetry 97 Oxygen Delivery Oxygen Flow Rate 04/14/25 08:00 04/14/25 08:00 04/14/25 10:00 Temperature Pulse Rate 97 77 Respiratory Rate Blood Pressure Pulse Oximetry 97 Oxygen Delivery Nasal Cannula Oxygen Flow Rate 2 04/14/25 12:00 04/14/25 14:28 Temperature 36.8 C Pulse Rate 76 Respiratory Rate 18 18 Blood Pressure 93/62 L Pulse Oximetry 97 96 Oxygen Delivery Nasal Cannula Oxygen Flow Rate 1 Intake/Output Intake/Output: Intake & Output 04/11/25 04/12/25 04/13/25 04/14/25 23:59 23:59 23:59 23:59 Intake Total 1000 4205.3 2139.4 Output Total 1600 1652 700 Balance -600 2553.3 1439.4 Meds/Results Medications: Active Medications Generic Name Dose Route Start Last Admin Trade Name Freq PRN Reason Stop Dose Admin Acetaminophen 650 mg 04/12/25 15:51 Acetaminophen 325 Mg Tablet PO Q6H PRN Mild Pain (1-3) or Fever Hydrocodone Bitart/Acetaminophen 1 tab 04/12/25 15:51 Hydrocodone/Acetaminophen (*Crx) 5-325 Mg Tablet PO Q6H PRN Pain Rated 4-6 Acyclovir 200 mg 04/12/25 22:30 04/14/25 09:15 Acyclovir 200 Mg Capsule PO 200 mg Q12HR MANISHA Administration Aspirin 81 mg 04/12/25 22:30 04/13/25 21:11 Aspirin 81 Mg Enteric Tablet PO 81 mg HS MANISHA Administration Calcium Carbonate 200 mg 04/12/25 15:51 Calcium Carbonate (Tums) 500 Mg (200 Mg Elemental) PO Q6H PRN Indigestion Carvedilol 3.125 mg 04/12/25 22:30 04/13/25 08:56 Carvedilol 3.125 Mg Tablet PO 3.125 mg On Hold: 04/13/25 13:25 Q12HR MANISHA Administration Dexamethasone 12 mg 04/18/25 09:00 Dexamethasone 4 Mg Tablet PO WEEKLY MANISHA Finasteride 5 mg 04/12/25 22:30 04/13/25 21:11 Finasteride 5 Mg Tablet PO 5 mg HS MANISHA Administration Heparin Sodium (Porcine) 6,000 units 04/12/25 16:39 Heparin Sodium 5,000 Units/Ml Vial IV PUSH PRN PRN aPTT less than 55 seconds Heparin Sodium (Porcine) 3,000 units 04/12/25 16:39 04/14/25 14:05 Heparin Sodium 5,000 Units/Ml Vial IV PUSH 3,000 units PRN PRN Administration aPTT 55 - 70 seconds Sodium Bicarbonate 75 meq/ 1,075 mls @ 75 mls/hr 04/12/25 15:30 04/14/25 11:05 Sodium Chloride IV CONT 75 mls/hr .[id number] MANISHA Administration Heparin Sodium/Dextrose 25,000 units in 250 mls @ 12 mls/hr 04/12/25 16:40 04/14/25 14:05 Heparin Sodium/D5w 100 Units/Ml IV CONT 1,200 units/hr .[id number] MANISHA 12 mls/hr Protocol Administration 1,200 UNITS/HR Ondansetron HCl 4 mg 04/12/25 15:51 Ondansetron Hcl Odt 4 Mg Tablet PO Q6H PRN Nausea And Vomiting Sodium Bicarbonate 1,300 mg 04/12/25 17:00 04/14/25 09:15 Sodium Bicarbonate Tab 650 Mg Tablet PO 1,300 mg BID MANISHA Administration Sodium Zirconium Cyclosilicate 10 gm 04/14/25 10:00 04/14/25 09:16 Sodium Zirconium Cyclosilicate 10 Gm Powd.Pack PO 10 gm DAILY@1000 MANISHA Administration Tamsulosin HCl 0.4 mg 04/12/25 22:30 04/13/25 21:11 Tamsulosin Hcl 0.4 Mg Capsule PO 0.4 mg HS MANISHA Administration Radiology Results: ITS Impressions Abdomen/Pelvis CT 04/12/25 15:19 IMPRESSION: 1. Multiple right renal masses with intermediate density. Correlation with CT or MRI with contrast recommended for further assessment. 2: Severe enlargement of the prostate gland likely causing outlet obstruction with resultant distention of the bladder and bilateral hydronephrosis. Pulmonary Perfusion Imaging 04/12/25 16:34 IMPRESSION: 1. High probability for pulmonary embolism. Findings were discussed with Kenna Williamson, the nurse caring for the patient, at 4:36 PM. Renal Ultrasound 04/12/25 21:07 Impression: 1: Multiple right renal cysts. No suspicious solid masses are identified to suggest malignancy. Chest X-Ray 04/13/25 08:35 IMPRESSION: 1. No acute cardiopulmonary disease. Abdomen X-Ray 04/13/25 16:07 IMPRESSION: 1. There are several air-filled distended small bowel loops in the left abdomen and pelvis. Differential includes ileus or developing small bowel obstruction. 2. Possible contrast in bowel in the right abdomen and pelvis. Correlate clinically. If symptoms persist or worsen, consider a short-term follow-up study or a CT of the abdomen and pelvis for further assessment. Labs Labs: Laboratory Results - last 24 hr 04/13/25 04/13/25 04/13/25 03:08 14:29 20:29 WBC RBC Hgb Hct MCV MCH MCHC RDW Plt Count MPV Immature Gran % (Auto) Neut % (Auto) Lymph % (Auto) Payne % (Auto) Eos % (Auto) Baso % (Auto) Lymph # (Auto) Payne # (Auto) Eos # (Auto) Baso # (Auto) Abs Immat Gran (auto) Absolute Neuts (auto) Absolute Nucleated RBC Nucleated RBC % % Immature Plt Fraction APTT 83.9 H 63.4 H Sodium 139 Potassium 4.3 Chloride 110 H Carbon Dioxide 16 L Anion Gap 13 H BUN 90 H Creatinine 6.30 H Estim Creat Clear Calc 10 Estimated GFR 9 L Glucose 198 H Calcium 8.0 L Phosphorus 5.4 H Magnesium Total Bilirubin AST ALT Alkaline Phosphatase Troponin I 4.520 H* Total Protein Albumin 3.2 L Prostate Specific Ag Hep B Core Total Ab Negative 04/14/25 04/14/25 04:04 12:22 WBC 11.6 H RBC 3.77 L Hgb 11.2 L Hct 34.5 L MCV 91.5 MCH 29.7 MCHC 32.5 RDW 15.8 H Plt Count 113 L MPV 11.7 H Immature Gran % (Auto) 0.9 H Neut % (Auto) 77.9 H Lymph % (Auto) 11.0 L Payne % (Auto) 9.9 H Eos % (Auto) 0.1 Baso % (Auto) 0.2 Lymph # (Auto) 1.28 Payne # (Auto) 1.2 H Eos # (Auto) 0.0 Baso # (Auto) 0.0 Abs Immat Gran (auto) 0.10 H Absolute Neuts (auto) 9.0 H Absolute Nucleated RBC 0.040 H Nucleated RBC % 0.3 H % Immature Plt Fraction 6.8 APTT 135.1 H 55.4 H Sodium 138 Potassium 3.9 Chloride 108 H Carbon Dioxide 19 L Anion Gap 11 BUN 97 H Creatinine 6.27 H Estim Creat Clear Calc 10 Estimated GFR 9 L Glucose 158 H Calcium 7.6 L Phosphorus 5.7 H Magnesium 1.8 Total Bilirubin 0.5 AST 22 ALT 15 Alkaline Phosphatase 55 Troponin I Total Protein 5.0 L Albumin 2.8 L Prostate Specific Ag 37.8 H Hep B Core Total Ab Quality VTE Prophylaxis VTE prophylaxis: pharmacologic ordered
[2025-04-14] MEDS: SODIUM BICARBONATE TAB 650 MG TABLET PO (16:47)
[2025-04-14 20:12] LABS: Partial Thromboplastin Time 65.2 Seconds (22.3-36.8)
[2025-04-14 20:24] LABS: Albumin Level 2.7 g/dL (3.5-5.1); Anion Gap 13 mmol/L (4-12); Blood Urea Nitrogen 102 mg/dL (9-20); Calcium 7.2 mg/dL (8.4-10.2); Carbon Dioxide 16 mmol/L (22-30); Chloride 106 mmol/L (98-107); Estimated CRCL calculation 11 ml/min; Estimated Glomerular Filt Rate 10; Glucose 184 mg/dL (65-110); Potassium 3.7 mmol/L (3.4-5.0); Sodium 135 mmol/L (137-145)
[2025-04-14] MEDS: ASPIRIN 81 MG ENTERIC TABLET PO (20:54)
[2025-04-14] MEDS: TAMSULOSIN HCL 0.4 MG CAPSULE PO (20:54)
[2025-04-14] MEDS: FINASTERIDE 5 MG TABLET PO (20:54)
[2025-04-15] VITALS (10 sets, daily range): BP systolic 115–142; BP diastolic 72–88; PULSE 67–92; RESP 20–24; TEMP 36.7–36.9; O2SAT 96–97
[2025-04-15 02:18] LABS: Hematocrit 34.9 % (42.0-52.0); Hemoglobin 11.3 g/dL (14.0-18.0); Immature Granulocyte Percent A 1.0 % (0-0.5); Immature Platelet Fraction Pct 6.2 % (0.9-11.2); Lymphocytes Absolute Auto 1.25 K/mm3 (0.9-3.2); Mean Corpuscular HGB Conc 32.4 g/dl (32-36); Mean Corpuscular Hemoglobin 29.9 pg (26-34); Mean Corpuscular Volume 92.3 fl (80-100); Nucleated Red Blood Cells Absolute Auto 0.050 K/mm3 (0.0-0.012); Nucleated Red Blood Cells Perc 0.5 % (0.0-0.2); Platelet Count Result 125 k/mm3 (150-375); Red Blood Count 3.78 M/mm3 (4.6-6.20); White Blood Count 9.6 K/mm3 (4.5-10.0)
[2025-04-15 02:30] LABS: Partial Thromboplastin Time 111.1 Seconds (22.3-36.8)
[2025-04-15 02:34] LABS: Alanine Aminotransferase 18 U/L (6-50); Albumin Level 3.0 g/dL (3.5-5.1); Alkaline Phosphatase 55 U/L (38-126); Anion Gap 10 mmol/L (4-12); Aspartate Amino Transferase 28 U/L (17-59); Bilirubin,Total 0.6 mg/dL (0.2-1.3); Blood Urea Nitrogen 103 mg/dL (9-20); Calcium 7.5 mg/dL (8.4-10.2); Carbon Dioxide 24 mmol/L (22-30); Chloride 103 mmol/L (98-107); Estimated CRCL calculation 10 ml/min; Estimated Glomerular Filt Rate 9; Glucose 137 mg/dL (65-110); Magnesium 1.7 mg/dL (1.6-2.3); Potassium 4.1 mmol/L (3.4-5.0); Sodium 137 mmol/L (137-145); Total Protein 5.3 g/dL (6.3-8.2)
[2025-04-15] MEDS: ACYCLOVIR 200 MG CAPSULE PO ×2 (08:48→20:25)
--- NOTE | 2025-04-15 09:16 | PM.IMPN ---
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 - V/Q scan and, at 04/12: High probability for PE - started on heparin gtt on 04/12 - U/S of bilateral lower extremities - checking echo for right heart strain >> no right heart strain noted - troponin elevated at 2.23, repeat 2.76. Continue to follow. (2) Shortness of breath: Code(s): R06.02 - Shortness of breath Status: Acute Assessment and Plan: - CXR: No acute cardiopulmonary disease - viral PCR negative on 04/12 - patient had a recent travel from [place] approximately 1 week ago and is not on anticoagulation at raising concerns for pulmonary embolism, due to patient's current renal function he is not a candidate for a CTA. NM V/Q scan ordered, awaiting results. Vital signs currently stable and patient remains on room air. ->> VQ scan with high probability for PE, see above. This is likely source of patient's shortness of breath. 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 No clear baseline as the patient has never before been seen at [facility]. He does report he has previously had dialysis discussed with him. This increases concern that patient has been in the later stages of CKD prior to today. - significant electrolyte derangements noted upon initial evaluation on 04/12: Potassium 6.9, CO2 8, gap 19, creatinine 6.99, BUN 75, GFR 8, phosphorus 6.5 - CT abd/pelvis showed multiple renal masses with indeterminate density ->> findings discussed with patient, he reports a history of renal carcinoma and partial nephrectomy as well as CKD. Requesting records from prior facilities in [place]. - nephrology has been consulted, but no immediate dialysis indicated - trial IV fluids over the next 24 hours and monitor renal response: 2L bolus, monitor toleration. If tolerated well will start slow infusion of IV fluids. - check renal ultrasound >> Multiple right renal cysts. No suspicious solid masses are identified to suggest malignancy. - check urine lytes and CK - bicarb IVP x1, nephro starting bicarb gtt - trend renal function and electrolytes, correct as needed --check PSA (may be elevated with bailon) --Referral to urology for renal masses --Check MRI abd w/wo contrast--evaluate renal masses and LLQ pain if continues. Unable to go to MRI on heparin drip. Can consider changing to eliquis if continued abdominal pain (4) Hyperkalemia: Code(s): E87.5 - Hyperkalemia Status: Acute Assessment and Plan: - K 6.9 upon initial evaluation on 04/12 - initial treatment in the ED with dextrose/insulin and Kayexalate. Ordered calcium, albuterol and sodium bicarbonate IVP. Nephrology adding sodium bicarbonate gtt and Lokelma b.i.d. - recheck potassium >> 5.5>4.8, will continue bicarb drip and IV fluids. Follow BMP in AM - trend - telemetry monitoring --Renal following (5) Elevated troponin: Code(s): R79.89 - Other specified abnormal findings of blood chemistry Status: Acute Assessment and Plan: - EKG, initial: AFib, rate 84, incomplete right bundle branch block, nonspecific T-wave abnormality - EKG, repeat (1): Sinus rhythm with second-degree AV block Mobitz type 2 with occasional viewed jugular premature complexes, incomplete right bundle branch block, inferior CO of indeterminate age, moderate to of abnormality. When compared to EKG done earlier same day there are new ventricular premature complexes and CO findings with possible ischemia, atrial fibrillation no longer present, and T-wave abnormality still present. Awaiting formal read. >> per my review no significant ST elevations or depressions. - Troponin: 2.23 -> 2.76 -> 4.54--4.52 - cardiology consulted, noted question of heart strain but no recommendation for thrombectomy at this point. Overall patient reports symptomatically improving but troponin elevated as noted --TTE no heart strain - on heparin gtt due to concurrent concern for PE - check lipid panel - continue daily aspirin 81 mg - echo completed, see impression - telemetry monitoring Suspect patient's troponin is elevated secondary to pulmonary embolism and patient's hypotension. Denying any chest pain. (6) Atrial fibrillation: Qualifiers: Atrial fibrillation type: paroxysmal Qualified Code(s): I48.0 - Paroxysmal atrial fibrillation Code(s): I48.91 - Unspecified atrial fibrillation Status: Acute Assessment and Plan: Denies previous history of dysrhythmia or atrial fibrillation. Initial EKG showed atrial fibrillation. Repeat EKG showed resolution of AFib, likely paroxysmal. Currently rate controlled. On carvedilol daily outpatient, continued at this time. - cardiology consulted - telemetry monitoring - chads Vasc: 5 (H, CHF history, thromboembolism history), on heparin gtt --Can change to apixaban closer to discharge (7) CHF (congestive heart failure): Qualifiers: Heart failure chronicity: unspecified Heart failure type: unspecified Qualified Code(s): I50.9 - Heart failure, unspecified Code(s): I50.9 - Heart failure, unspecified Status: Acute Assessment and Plan: - patient reported history of CHF - no previous echo on file, ordered. - BNP greater than 30,000 - monitor I&Os and daily weights - not on daily diuretic outpatient, given 1 time dose of Lasix for hyperkalemia and worsening shortness of breath with known CHF history. - on clinical exam a patient largely appears euvolemic, does have trace edema to bilateral ankles that is symmetric and nonpitting (8) Diarrhea: Qualifiers: Diarrhea type: presumed infectious Qualified Code(s): R19.7 - Diarrhea, unspecified Code(s): R19.7 - Diarrhea, unspecified Status: Acute Assessment and Plan: viral PCR negative - CT abd/pelvis: 1. Multiple right renal masses with intermediate density. Correlation with CT or MRI with contrast recommended for further assessment. 2: Severe enlargement of the prostate gland likely causing outlet obstruction with resultant distention of the bladder and bilateral hydronephrosis. - possible TEOFILO superimposed on CKD, see CKD - c. diff pending - IV fluids: 2L bolus, now on bicarb gtt - monitor BP and renal function 04/14/25 KUB noted. Patient had a bowel movement today Will repeat in am (9) Diabetes: Qualifiers: Chronic kidney disease stage: stage 5 (GFR < 15), not on chronic dialysis Diabetes mellitus complication detail: with chronic kidney disease Diabetes mellitus complication status: with kidney complications Diabetes mellitus transportation sales consultant insulin use: without halfway use Diabetes mellitus type: type 2 Qualified Code(s): E11.22 - Type 2 diabetes mellitus with diabetic chronic kidney disease; N18.5 - Chronic kidney disease, stage 5 Code(s): E11.9 - Type 2 diabetes mellitus without complications Status: Chronic Assessment and Plan: - reported history of type 2 diabetes, however he denies being on anti diabetic medications - initial glucose was 185. Will check A1c. (10) Abdominal pain: Code(s): R10.9 - Unspecified abdominal pain Status: Acute Assessment and Plan: Reporting Left lower abdominal pain. No explanation on recent CT --Check KUB --If continued pain, consider MRI abdomen since unable to have CT contrast, but would need to stop heparin drip and would rather switch to eliquis prior to that given high risk PE Plan Diet: Renal GI Prophylaxis: N/a DVT Prophylaxis: heparin gtt IV fluids: 2L bolus -> sodium bicarbonate gtt at 75 mL/hour Lines/Tubes: Peripheral IV Code Status: Full code Subjective Date/time seen: 04/15/25 09:16 Interval history: Interval history:79-year-old man with chronic systolic heart failure (LVEF normalized), paroxysmal atrial fibrillation, moderate aortic stenosis, diabetes, chronic kidney disease stage 5, previous history of partial left nephrectomy, multiple myeloma, and hyperlipidemia presents with shortness of breath found to have pulmonary embolism with right heart strain. During the discussion patient reports he has a history of multiple myeloma and follows up with oncologist at [place]. Patient knows he has CKD [facility] cardiac catheterization was performed approximately 2 and of years ago but no significant finding. Patient also history of multiple myeloma follows up with the oncologist. No reports of diarrhea. Hematology-Oncology has been consulted Review of Systems Review of Systems: All systems reviewed & are unremarkable except as noted in HPI and below Exam Narrative: General - Awake and alert. No acute distress Eyes - PERRLA, EOM intact ENT - No thrush, No erythema Neck - No noticeable or palpable swelling Lymph Nodes - No lymphadenopathy Cardiovascular - RRR no m/r/g, no JVD Lungs: Clear to auscultation, No wheezing, use of accessory muscles, no crackles Skin - Skin warm and dry, no wounds or rashes Abdomen - Normal bowel sounds, abdomen soft, TTP left abdomen Extremities - No edema, cyanosis or clubbing Musculoskeletal - 5/5 strength, normal range of motion, no swollen or erythematous joints. Neurological ? Alert and oriented x 3, CN 2-12 grossly intact. Psych: Normal mood and affect Const: General: comfortable and no acute distress Other: , male, elderly, modestly ill-appearing HENMT: Face/Nose/Sinus: Normal nares present Mouth: Yes moist mucous membranes Eyes: General: appearance normal, both eyes and all related structures Sclera: sclerae normal Pupils: Equal, round and reactive pupils present EOM: EOMs intact bilaterally Resp: Other: Increased work of breathing without accessory muscle use. No wheezing or crackles noted on exam. Nasal cannula place for patient comfort, no hypoxia noted on monitor. Cardio: Rate: regular rate Rhythm: abnormal rhythm Other: No murmur or rub appreciated. GI: Other: Abdomen soft, nondistended, nontender. Normoactive bowel sounds in all quadrants. Skin: General skin exam: normal color and no rashes or lesions noted Wounds: no wounds Neuro: Cranial nerves: Yes Equal, round and reactive pupils present Speech: normal speech Motor exam (neuro): 5/5 motor strength present throughout Sensory Exam: normal sensation Other: A&O x4 Extrem: Other: Trace edema to bilateral ankles, symmetric without erythema Psych: Mental Status: mental status grossly normal Affect: normal affect Other: Good insight and judgment, pleasant Objective Data Vital Signs Vital Signs: Vital Signs - 24 hr 04/14/25 10:00 04/14/25 12:00 04/14/25 12:00 Temperature 98.2 F Pulse Rate 77 76 74 Respiratory Rate 18 Blood Pressure 93/62 L Pulse Oximetry 97 Oxygen Delivery Oxygen Flow Rate 04/14/25 14:00 04/14/25 14:28 04/14/25 15:47 Temperature 97.3 F L Pulse Rate 81 62 Respiratory Rate 18 18 Blood Pressure 114/67 Pulse Oximetry 96 99 Oxygen Delivery Nasal Cannula Oxygen Flow Rate 1 04/14/25 16:00 04/14/25 19:56 04/14/25 20:00 Temperature 98.2 F Pulse Rate 71 60 Respiratory Rate 20 Blood Pressure 127/81 Pulse Oximetry 97 96 Oxygen Delivery Nasal Cannula Oxygen Flow Rate 1 04/14/25 20:00 04/14/25 23:53 04/15/25 00:00 Temperature 98.1 F Pulse Rate 74 79 74 Respiratory Rate 20 Blood Pressure 110/62 Pulse Oximetry 95 Oxygen Delivery Oxygen Flow Rate 04/15/25 04:00 04/15/25 07:40 04/15/25 07:44 Temperature 98.4 F Pulse Rate 69 92 Respiratory Rate 20 Blood Pressure 142/88 H Pulse Oximetry 97 Oxygen Delivery Room Air Oxygen Flow Rate 04/15/25 07:45 Temperature Pulse Rate 80 Respiratory Rate Blood Pressure Pulse Oximetry Oxygen Delivery Oxygen Flow Rate Intake/Output Intake/Output: Intake & Output 04/12/25 04/13/25 04/14/25 04/15/25 23:59 23:59 23:59 23:59 Intake Total 1000 4205.3 2810.6 608.9 Output Total 1600 1652 1400 450 Balance -600 2553.3 1410.6 158.9 Meds/Results Medications: Active Medications Generic Name Dose Route Start Last Admin Trade Name Freq PRN Reason Stop Dose Admin Acetaminophen 650 mg 04/12/25 15:51 Acetaminophen 325 Mg Tablet PO Q6H PRN Mild Pain (1-3) or Fever Hydrocodone Bitart/Acetaminophen 1 tab 04/12/25 15:51 Hydrocodone/Acetaminophen (*Crx) 5-325 Mg Tablet PO Q6H PRN Pain Rated 4-6 Acyclovir 200 mg 04/12/25 22:30 04/15/25 08:48 Acyclovir 200 Mg Capsule PO 200 mg Q12HR MANISHA Administration Aspirin 81 mg 04/12/25 22:30 04/14/25 20:54 Aspirin 81 Mg Enteric Tablet PO 81 mg HS MANISHA Administration Calcium Carbonate 200 mg 04/12/25 15:51 Calcium Carbonate (Tums) 500 Mg (200 Mg Elemental) PO Q6H PRN Indigestion Carvedilol 3.125 mg 04/12/25 22:30 04/13/25 08:56 Carvedilol 3.125 Mg Tablet PO 3.125 mg On Hold: 04/13/25 13:25 Q12HR MANISHA Administration Dexamethasone 12 mg 04/18/25 09:00 Dexamethasone 4 Mg Tablet PO WEEKLY MANISHA Finasteride 5 mg 04/12/25 22:30 04/14/25 20:54 Finasteride 5 Mg Tablet PO 5 mg HS MANISHA Administration Heparin Sodium (Porcine) 6,000 units 04/12/25 16:39 Heparin Sodium 5,000 Units/Ml Vial IV PUSH PRN PRN aPTT less than 55 seconds Heparin Sodium (Porcine) 3,000 units 04/12/25 16:39 04/14/25 20:50 Heparin Sodium 5,000 Units/Ml Vial IV PUSH 3,000 units PRN PRN Administration aPTT 55 - 70 seconds Sodium Bicarbonate 75 meq/ 1,075 mls @ 30 mls/hr 04/12/25 15:30 04/15/25 07:44 Sodium Chloride IV CONT Not Given .Q24H MANISHA Heparin Sodium/Dextrose 25,000 units in 250 mls @ 12 mls/hr 04/12/25 16:40 04/15/25 03:12 Heparin Sodium/D5w 100 Units/Ml IV CONT 1,200 units/hr .[id number] MANISHA 12 mls/hr Protocol Titration 1,200 UNITS/HR Miscellaneous Information 1 each 04/15/25 00:01 Hold Home Sodium Bicarb Tablets? Pt Is On A Sodium Bicarb Drip XX 05/15/25 00:00 CLARIFY MANISHA Ondansetron HCl 4 mg 04/12/25 15:51 Ondansetron Hcl Odt 4 Mg Tablet PO Q6H PRN Nausea And Vomiting Sodium Bicarbonate 1,300 mg 04/15/25 09:00 Sodium Bicarbonate Tab 650 Mg Tablet PO BID MANISHA Tamsulosin HCl 0.4 mg 04/12/25 22:30 04/14/25 20:54 Tamsulosin Hcl 0.4 Mg Capsule PO 0.4 mg HS MANISHA Administration Radiology Results: ITS Impressions Abdomen/Pelvis CT 04/12/25 15:19 IMPRESSION: 1. Multiple right renal masses with intermediate density. Correlation with CT or MRI with contrast recommended for further assessment. 2: Severe enlargement of the prostate gland likely causing outlet obstruction with resultant distention of the bladder and bilateral hydronephrosis. Pulmonary Perfusion Imaging 04/12/25 16:34 IMPRESSION: 1. High probability for pulmonary embolism. Findings were discussed with Kenna Williamson, the nurse caring for the patient, at 4:36 PM. Renal Ultrasound 04/12/25 21:07 Impression: 1: Multiple right renal cysts. No suspicious solid masses are identified to suggest malignancy. Chest X-Ray 04/13/25 08:35 IMPRESSION: 1. No acute cardiopulmonary disease. Abdomen X-Ray 04/13/25 16:07 IMPRESSION: 1. There are several air-filled distended small bowel loops in the left abdomen and pelvis. Differential includes ileus or developing small bowel obstruction. 2. Possible contrast in bowel in the right abdomen and pelvis. Correlate clinically. If symptoms persist or worsen, consider a short-term follow-up study or a CT of the abdomen and pelvis for further assessment. Labs Labs: Laboratory Results - last 24 hr 04/13/25 04/14/25 04/14/25 03:08 12:22 19:53 WBC RBC Hgb Hct MCV MCH MCHC RDW Plt Count MPV Immature Gran % (Auto) Neut % (Auto) Lymph % (Auto) [place] % (Auto) Eos % (Auto) Baso % (Auto) Lymph # (Auto) [place] # (Auto) Eos # (Auto) Baso # (Auto) Abs Immat Gran (auto) Absolute Neuts (auto) Absolute Nucleated RBC Nucleated RBC % % Immature Plt Fraction APTT 55.4 H 65.2 H Sodium 135 L Potassium 3.7 Chloride 106 Carbon Dioxide 16 L Anion Gap 13 H BUN 102 H* Creatinine 5.80 H Estim Creat Clear Calc 11 Estimated GFR 10 L Glucose 184 H Calcium 7.2 L Phosphorus 5.3 H Magnesium Total Bilirubin AST ALT Alkaline Phosphatase Total Protein Albumin 2.7 L Hep B Core Total Ab Negative 04/15/25 02:10 WBC 9.6 RBC 3.78 L Hgb 11.3 L Hct 34.9 L MCV 92.3 MCH 29.9 MCHC 32.4 RDW 15.7 H Plt Count 125 L MPV 11.9 H Immature Gran % (Auto) 1.0 H Neut % (Auto) 74.3 H Lymph % (Auto) 13.1 L [place] % (Auto) 10.1 H Eos % (Auto) 1.4 Baso % (Auto) 0.1 L Lymph # (Auto) 1.25 [place] # (Auto) 1.0 H Eos # (Auto) 0.1 Baso # (Auto) 0.0 Abs Immat Gran (auto) 0.10 H Absolute Neuts (auto) 7.1 H Absolute Nucleated RBC 0.050 H Nucleated RBC % 0.5 H % Immature Plt Fraction 6.2 APTT 111.1 H Sodium 137 Potassium 4.1 Chloride 103 Carbon Dioxide 24 Anion Gap 10 BUN 103 H* Creatinine 6.16 H Estim Creat Clear Calc 10 Estimated GFR 9 L Glucose 137 H Calcium 7.5 L Phosphorus 5.4 H Magnesium 1.7 Total Bilirubin 0.6 AST 28 ALT 18 Alkaline Phosphatase 55 Total Protein 5.3 L Albumin 3.0 L Hep B Core Total Ab Quality VTE Prophylaxis VTE prophylaxis: pharmacologic ordered Hospitalist MIPS Advance Care Plan I have confirmed that the patient's Advanced Care Plan is present, code status is documented, or surrogate decision maker is listed in patient medical record.: Yes Medication Reconciliation I have utilized all available resources to obtain, update and review the patients current medications (includes all prescriptions, OTC, herbals, cannabis, and nutritional supplements).: Yes
--- NOTE | 2025-04-15 09:38 | PM.PNCARD ---
Progress Note: A&P Assessment and Plan (1) Elevated troponin: Code(s): R79.89 - Other specified abnormal findings of blood chemistry Status: Acute Assessment and Plan: Continue heparin drip. Troponin likely secondary to the right heart strain from the pulmonary embolism (2) Atrial fibrillation: Qualifiers: Atrial fibrillation type: paroxysmal Qualified Code(s): I48.0 - Paroxysmal atrial fibrillation Code(s): I48.91 - Unspecified atrial fibrillation Status: Acute Assessment and Plan: Will resume his carvedilol today at 3.125 mg p.o. b.i.d.. Blood pressure is increasing and he is having some ventricular ectopy. Her AFib is still controlled (3) Pulmonary embolism: Qualifiers: Pulmonary embolism type: unspecified Chronicity: acute Acute cor pulmonale presence: unspecified Qualified Code(s): I26.99 - Other pulmonary embolism without acute cor pulmonale Code(s): I26.99 - Other pulmonary embolism without acute cor pulmonale Status: Acute Assessment and Plan: Continue heparin for now. Significant renal failure needs to be considered when choosing anticoagulant. Treatment per hospitalist (4) Moderate aortic stenosis: Code(s): I35.0 - Nonrheumatic aortic (valve) stenosis Status: Acute Assessment and Plan: Moderate. Will need outpatient echocardiographic surveillance (5) CHF (congestive heart failure): Code(s): I50.9 - Heart failure, unspecified Status: Acute Assessment and Plan: Chronic systolic: Adding back carvedilol today Subjective Date/time seen: 04/15/25 09:38 Interval history: 79-year-old with a history of atrial fibrillation. Admitted for pulmonary embolism worsening shortness of breath, AFib Date of service 04/15/2025: Heart rate is controlled. Breathing better. No chest pain Review of Systems Review of Systems: All systems reviewed & are unremarkable except as noted in HPI and below Constitutional: Constitutional: Denies difficulty sleeping Eyes: Eyes: Denies blurry vision ENT: Reports Normal hearing present Cardiovascular: Cardiovascular: Denies chest pain Respiratory: Respiratory: Reports dyspnea Gastrointestinal: Gastrointestinal: Denies abdominal pain Genitourinary: Genitourinary: Denies hematuria Musculoskeletal: Musculoskeletal: Denies back pain Integumentary/Breasts: Skin/Breast: Denies rash Neurologic: Denies Abnormal speech present Psychiatric: Psychiatric: Denies anxiety Endocrine: Endocrine: Denies change in body appearance Hematologic/Lymphatic: Hematologic/Lymphatic: Denies easy bleeding Allergic/Immunologic: Allergic/Immunologic: Denies GI upset with certain foods Exam Narrative: Appears stated age Const: General: comfortable and no acute distress HENMT: Ears: TM's normal bilaterally Face/Nose/Sinus: Normal nares present Eyes: General: appearance normal, both eyes and all related structures Sclera: sclerae normal Neck: Neck: no JVD Resp: Effort & Inspection: normal respiratory effort Auscultation: clear to auscultation bilaterally and diminished lung sounds Cardio: Rate: regular rate Rhythm: abnormal rhythm Heart sounds: Murmur heart sound present GI: Inspection: non-distended GI Palp: Yes Soft to palpation Urinary Catheter: Urinary Catheter: patent and draining Skin: General skin exam: normal color Neuro: General: gait normal Speech: normal speech Extrem: General: normal to inspection and no pedal edema Psych: Mental Status: mental status grossly normal Objective Data Vital Signs Vital Signs: Vital Signs - 24 hr 04/14/25 10:00 04/14/25 12:00 04/14/25 12:00 Temperature 36.8 C Pulse Rate 77 76 74 Respiratory Rate 18 Blood Pressure 93/62 L Pulse Oximetry 97 Oxygen Delivery Oxygen Flow Rate 04/14/25 14:00 04/14/25 14:28 04/14/25 15:47 Temperature 36.3 C L Pulse Rate 81 62 Respiratory Rate 18 18 Blood Pressure 114/67 Pulse Oximetry 96 99 Oxygen Delivery Nasal Cannula Oxygen Flow Rate 1 04/14/25 16:00 04/14/25 19:56 04/14/25 20:00 Temperature 36.8 C Pulse Rate 71 60 Respiratory Rate 20 Blood Pressure 127/81 Pulse Oximetry 97 96 Oxygen Delivery Nasal Cannula Oxygen Flow Rate 1 04/14/25 20:00 04/14/25 23:53 04/15/25 00:00 Temperature 36.7 C Pulse Rate 74 79 74 Respiratory Rate 20 Blood Pressure 110/62 Pulse Oximetry 95 Oxygen Delivery Oxygen Flow Rate 04/15/25 04:00 04/15/25 07:40 04/15/25 07:44 Temperature 36.9 C Pulse Rate 69 92 Respiratory Rate 20 Blood Pressure 142/88 H Pulse Oximetry 97 Oxygen Delivery Room Air Oxygen Flow Rate 04/15/25 07:45 Temperature Pulse Rate 80 Respiratory Rate Blood Pressure Pulse Oximetry Oxygen Delivery Oxygen Flow Rate Intake/Output Intake/Output: Intake & Output 04/12/25 04/13/25 04/14/25 04/15/25 23:59 23:59 23:59 23:59 Intake Total 1000 4205.3 2810.6 608.9 Output Total 1600 1652 1400 450 Balance -600 2553.3 1410.6 158.9 Meds/Results Medications: Active Medications Generic Name Dose Route Start Last Admin Trade Name Freq PRN Reason Stop Dose Admin Acetaminophen 650 mg 04/12/25 15:51 Acetaminophen 325 Mg Tablet PO Q6H PRN Mild Pain (1-3) or Fever Hydrocodone Bitart/Acetaminophen 1 tab 04/12/25 15:51 Hydrocodone/Acetaminophen (*Crx) 5-325 Mg Tablet PO Q6H PRN Pain Rated 4-6 Acyclovir 200 mg 04/12/25 22:30 04/15/25 08:48 Acyclovir 200 Mg Capsule PO 200 mg Q12HR MANISHA Administration Aspirin 81 mg 04/12/25 22:30 04/14/25 20:54 Aspirin 81 Mg Enteric Tablet PO 81 mg HS MANISHA Administration Calcium Carbonate 200 mg 04/12/25 15:51 Calcium Carbonate (Tums) 500 Mg (200 Mg Elemental) PO Q6H PRN Indigestion Carvedilol 3.125 mg 04/12/25 22:30 04/13/25 08:56 Carvedilol 3.125 Mg Tablet PO 3.125 mg On Hold: 04/13/25 13:25 Q12HR MANISHA Administration Dexamethasone 12 mg 04/18/25 09:00 Dexamethasone 4 Mg Tablet PO WEEKLY MANISHA Finasteride 5 mg 04/12/25 22:30 04/14/25 20:54 Finasteride 5 Mg Tablet PO 5 mg HS MANISHA Administration Heparin Sodium (Porcine) 6,000 units 04/12/25 16:39 Heparin Sodium 5,000 Units/Ml Vial IV PUSH PRN PRN aPTT less than 55 seconds Heparin Sodium (Porcine) 3,000 units 04/12/25 16:39 04/14/25 20:50 Heparin Sodium 5,000 Units/Ml Vial IV PUSH 3,000 units PRN PRN Administration aPTT 55 - 70 seconds Sodium Bicarbonate 75 meq/ 1,075 mls @ 30 mls/hr 04/12/25 15:30 04/15/25 07:44 Sodium Chloride IV CONT Not Given .Q24H MANISHA Heparin Sodium/Dextrose 25,000 units in 250 mls @ 12 mls/hr 04/12/25 16:40 04/15/25 03:12 Heparin Sodium/D5w 100 Units/Ml IV CONT 1,200 units/hr .[id number] MANISHA 12 mls/hr Protocol Titration 1,200 UNITS/HR Miscellaneous Information 1 each 04/15/25 00:01 Hold Home Sodium Bicarb Tablets? Pt Is On A Sodium Bicarb Drip XX 05/15/25 00:00 CLARIFY MANISHA Ondansetron HCl 4 mg 04/12/25 15:51 Ondansetron Hcl Odt 4 Mg Tablet PO Q6H PRN Nausea And Vomiting Sodium Bicarbonate 1,300 mg 04/15/25 09:00 Sodium Bicarbonate Tab 650 Mg Tablet PO BID MANISHA Tamsulosin HCl 0.4 mg 04/12/25 22:30 04/14/25 20:54 Tamsulosin Hcl 0.4 Mg Capsule PO 0.4 mg HS MANISHA Administration Radiology Results: ITS Impressions Abdomen/Pelvis CT 04/12/25 15:19 IMPRESSION: 1. Multiple right renal masses with intermediate density. Correlation with CT or MRI with contrast recommended for further assessment. 2: Severe enlargement of the prostate gland likely causing outlet obstruction with resultant distention of the bladder and bilateral hydronephrosis. Pulmonary Perfusion Imaging 04/12/25 16:34 IMPRESSION: 1. High probability for pulmonary embolism. Findings were discussed with Kenna Williamson, the nurse caring for the patient, at 4:36 PM. Renal Ultrasound 04/12/25 21:07 Impression: 1: Multiple right renal cysts. No suspicious solid masses are identified to suggest malignancy. Chest X-Ray 04/13/25 08:35 IMPRESSION: 1. No acute cardiopulmonary disease. Abdomen X-Ray 04/13/25 16:07 IMPRESSION: 1. There are several air-filled distended small bowel loops in the left abdomen and pelvis. Differential includes ileus or developing small bowel obstruction. 2. Possible contrast in bowel in the right abdomen and pelvis. Correlate clinically. If symptoms persist or worsen, consider a short-term follow-up study or a CT of the abdomen and pelvis for further assessment. Labs Labs: Laboratory Results - last 24 hr 04/13/25 04/14/25 04/14/25 03:08 12:22 19:53 WBC RBC Hgb Hct MCV MCH MCHC RDW Plt Count MPV Immature Gran % (Auto) Neut % (Auto) Lymph % (Auto) [place] % (Auto) Eos % (Auto) Baso % (Auto) Lymph # (Auto) [place] # (Auto) Eos # (Auto) Baso # (Auto) Abs Immat Gran (auto) Absolute Neuts (auto) Absolute Nucleated RBC Nucleated RBC % % Immature Plt Fraction APTT 55.4 H 65.2 H Sodium 135 L Potassium 3.7 Chloride 106 Carbon Dioxide 16 L Anion Gap 13 H BUN 102 H* Creatinine 5.80 H Estim Creat Clear Calc 11 Estimated GFR 10 L Glucose 184 H Calcium 7.2 L Phosphorus 5.3 H Magnesium Total Bilirubin AST ALT Alkaline Phosphatase Total Protein Albumin 2.7 L Hep B Core Total Ab Negative 04/15/25 02:10 WBC 9.6 RBC 3.78 L Hgb 11.3 L Hct 34.9 L MCV 92.3 MCH 29.9 MCHC 32.4 RDW 15.7 H Plt Count 125 L MPV 11.9 H Immature Gran % (Auto) 1.0 H Neut % (Auto) 74.3 H Lymph % (Auto) 13.1 L [place] % (Auto) 10.1 H Eos % (Auto) 1.4 Baso % (Auto) 0.1 L Lymph # (Auto) 1.25 [place] # (Auto) 1.0 H Eos # (Auto) 0.1 Baso # (Auto) 0.0 Abs Immat Gran (auto) 0.10 H Absolute Neuts (auto) 7.1 H Absolute Nucleated RBC 0.050 H Nucleated RBC % 0.5 H % Immature Plt Fraction 6.2 APTT 111.1 H Sodium 137 Potassium 4.1 Chloride 103 Carbon Dioxide 24 Anion Gap 10 BUN 103 H* Creatinine 6.16 H Estim Creat Clear Calc 10 Estimated GFR 9 L Glucose 137 H Calcium 7.5 L Phosphorus 5.4 H Magnesium 1.7 Total Bilirubin 0.6 AST 28 ALT 18 Alkaline Phosphatase 55 Total Protein 5.3 L Albumin 3.0 L Hep B Core Total Ab
[2025-04-15 09:49] LABS: Partial Thromboplastin Time 41.3 Seconds (22.3-36.8)
--- NOTE | 2025-04-15 10:32 | P.PNNP_ITS ---
Progress Note: A&P Assessment and Plan (1) Acute kidney injury: Code(s): N17.9 - Acute kidney failure, unspecified Status: Acute Assessment and Plan: * acute kidney injury. * suspect this is present * His creatinine was almost 7 before he came in and dropped into the 5s with fluid. * multifactorial etiology: * relative hypotension * possible embolic event (given #5)? * element of CKD progression(?) * other(?) * evaluation to date noted: * CT of A/P with evidence of BPH and obstruction/bilateral hydronephrosis * renal ultrasound with multiple right renal cysts * urine electrolytes non-prerenal * urine eosinophils negative * CPK only mildly elevated (not enough to affect kidney function) * moderate proteinuria * complicated by hyperkalemia and significant metabolic acidosis on admission. Both of these have resolved. He is getting IV bicarb plus p.o. bicarb. Will change the fluids to normal saline. * bailon catheter in place * follow respiratory and volume status closely . So far no sign of volume overload. * Creatinine seemed to gradually be getting better although some up and down. Will check another creatinine tomorrow. * He has no symptoms of uremia nor volume overload and so I do not think he needs dialysis. * He said that he is going to be set up for a fistula once he gets back to [place]. * Check some labs tomorrow. (2) Stage 5 chronic kidney disease: Code(s): N18.5 - Chronic kidney disease, stage 5 Status: Chronic Assessment and Plan: * unclear what baseline creatinine normally runs... * however, patient able to verify that he has CKD stage V * was referred to Vascular Surgery for AV access placement * attempt to get records from his physician back home ([place], [place]) to ascertain baseline creatinine/GFR) (3) Hyperkalemia: Code(s): E87.5 - Hyperkalemia Status: Acute Assessment and Plan: * improvement noted * as noted on presentation * s/p medical management * scheduled lokelma . He was not on this on admission. I agree with stopping this and see how his potassium is over the next few days. * Check another potassium tomorrow (4) Metabolic acidosis: Code(s): E87.20 - Acidosis, unspecified Status: Acute Assessment and Plan: * resolved * see how he does on just oral bicarb (5) Pulmonary embolism: Qualifiers: Pulmonary embolism type: unspecified Chronicity: acute Acute cor pulmonale presence: unspecified Qualified Code(s): I26.99 - Other pulmonary embolism without acute cor pulmonale Code(s): I26.99 - Other pulmonary embolism without acute cor pulmonale Status: Acute Assessment and Plan: * presumed etiology of shortness of breath * recent car travel a week ago ([place], [place] --> to this area) * V/Q scan with high probability for PE * myeloma * consider checking lower extremity dopplers (although may not manager exchange) * on heparin gtt (6) Azotemia: Code(s): R79.89 - Other specified abnormal findings of blood chemistry Status: Acute Assessment and Plan: * noted rising BUN (despite improvement in creatinine) * etiology? * possible hypercatabolic state? * bleeding issue? * related to his advanced CKD... * BUN seems to be plateauing. * follow trend of BUN (7) Shortness of breath: Code(s): R06.02 - Shortness of breath Status: Acute Assessment and Plan: * as noted on presentation * likely due to PE (8) Elevated troponin: Code(s): R79.89 - Other specified abnormal findings of blood chemistry Status: Acute Assessment and Plan: * noted by testing in ER * EKGs noted - evidence of Afib but no acute ST elevations/depressions * Cardiology recommendations noted * Echo results noted: * normal appearing left ventricular size with vigorous systolic function * right ventricular enlargement with right ventricular hypokinesia * at least moderate if not moderate to severe aortic stenosis. * suspect secondary to right heart strain from PE (9) Atrial fibrillation: Qualifiers: Atrial fibrillation type: paroxysmal Qualified Code(s): I48.0 - Paroxysmal atrial fibrillation Code(s): I48.91 - Unspecified atrial fibrillation Status: Acute Assessment and Plan: * supposedly new onset (or at least paroxysmal) * follow telemetry * rate control strategy * on anticoagulation (heparin gtt) (10) Anemia: Code(s): D64.9 - Anemia, unspecified Status: Acute Assessment and Plan: * due in part to TEOFILO and CKD along with IVF hydration * cannot discount multiple myeloma playing a role * no need for JOSE * Hb 11.3 (11) Multiple myeloma: Code(s): C90.00 - Multiple myeloma not having achieved remission Status: Chronic Assessment and Plan: * follows with Hem/Onc * on active treatment (12) Diabetes: Qualifiers: Diabetes mellitus type: type 2 Diabetes mellitus meterman insulin use: without shelter use Diabetes mellitus complication status: with kidney complications Diabetes mellitus complication detail: with chronic kidney disease Chronic kidney disease stage: stage 5 (GFR < 15), not on chronic dialysis Qualified Code(s): E11.22 - Type 2 diabetes mellitus with diabetic chronic kidney disease; N18.5 - Chronic kidney disease, stage 5 Code(s): E11.9 - Type 2 diabetes mellitus without complications Status: Chronic Assessment and Plan: * reported history * however, on no medications (diet controlled?) * follow blood sugars * institute SSI if needed Will continue to follow. Subjective Date/time seen: 04/15/25 10:32 Interval history: Cosmo is a very pleasant gentleman from [place] who is here because of shortness of breath his breathing is better but still has some shortness of breath. Urinating okay. No nausea or vomiting. Exam Narrative: General: elderly but WD/WN male in NAD Heart: normal S1 and S2; no rub or gallop Lungs: clear to auscultation Abdomen: nontender, bowel sounds positive Extremities: no cyanosis or clubbing; trace edema Skin: No rash Objective Data Vital Signs Vital Signs: Vital Signs - 24 hr 04/14/25 12:00 04/14/25 12:00 04/14/25 14:00 Temperature 98.2 F Pulse Rate 76 74 81 Respiratory Rate 18 Blood Pressure 93/62 L Pulse Oximetry 97 Oxygen Delivery Oxygen Flow Rate 04/14/25 14:28 04/14/25 15:47 04/14/25 16:00 Temperature 97.3 F L Pulse Rate 62 71 Respiratory Rate 18 18 Blood Pressure 114/67 Pulse Oximetry 96 99 Oxygen Delivery Nasal Cannula Oxygen Flow Rate 1 04/14/25 19:56 04/14/25 20:00 04/14/25 20:00 Temperature 98.2 F Pulse Rate 60 74 Respiratory Rate 20 Blood Pressure 127/81 Pulse Oximetry 97 96 Oxygen Delivery Nasal Cannula Oxygen Flow Rate 1 04/14/25 23:53 04/15/25 00:00 04/15/25 04:00 Temperature 98.1 F Pulse Rate 79 74 69 Respiratory Rate 20 Blood Pressure 110/62 Pulse Oximetry 95 Oxygen Delivery Oxygen Flow Rate 04/15/25 07:40 04/15/25 07:44 04/15/25 07:45 Temperature 98.4 F Pulse Rate 92 80 Respiratory Rate 20 Blood Pressure 142/88 H Pulse Oximetry 97 Oxygen Delivery Room Air Oxygen Flow Rate Intake/Output Intake/Output: Intake & Output 04/12/25 04/13/25 04/14/25 04/15/25 23:59 23:59 23:59 23:59 Intake Total 1000 4205.3 2810.6 691.3 Output Total 1600 1652 1400 450 Balance -600 2553.3 1410.6 241.3 Meds/Results Medications: Active Medications Generic Name Dose Route Start Last Admin Trade Name Freq PRN Reason Stop Dose Admin Acetaminophen 650 mg 04/12/25 15:51 Acetaminophen 325 Mg Tablet PO Q6H PRN Mild Pain (1-3) or Fever Hydrocodone Bitart/Acetaminophen 1 tab 04/12/25 15:51 Hydrocodone/Acetaminophen (*Crx) 5-325 Mg Tablet PO Q6H PRN Pain Rated 4-6 Acyclovir 200 mg 04/12/25 22:30 04/15/25 08:48 Acyclovir 200 Mg Capsule PO 200 mg Q12HR MANISHA Administration Aspirin 81 mg 04/12/25 22:30 04/14/25 20:54 Aspirin 81 Mg Enteric Tablet PO 81 mg HS MANISHA Administration Calcium Carbonate 200 mg 04/12/25 15:51 Calcium Carbonate (Tums) 500 Mg (200 Mg Elemental) PO Q6H PRN Indigestion Carvedilol 3.125 mg 04/12/25 22:30 04/13/25 08:56 Carvedilol 3.125 Mg Tablet PO 3.125 mg Q12HR MANISHA Administration Dexamethasone 12 mg 04/18/25 09:00 Dexamethasone 4 Mg Tablet PO WEEKLY MANISHA Finasteride 5 mg 04/12/25 22:30 04/14/25 20:54 Finasteride 5 Mg Tablet PO 5 mg HS MANISHA Administration Heparin Sodium (Porcine) 6,000 units 04/12/25 16:39 04/15/25 10:05 Heparin Sodium 5,000 Units/Ml Vial IV PUSH 6,000 units PRN PRN Administration aPTT less than 55 seconds Heparin Sodium (Porcine) 3,000 units 04/12/25 16:39 04/14/25 20:50 Heparin Sodium 5,000 Units/Ml Vial IV PUSH 3,000 units PRN PRN Administration aPTT 55 - 70 seconds Sodium Bicarbonate 75 meq/ 1,075 mls @ 30 mls/hr 04/12/25 15:30 04/15/25 07:44 Sodium Chloride IV CONT Not Given .Q24H MANISHA Heparin Sodium/Dextrose 25,000 units in 250 mls @ 15 mls/hr 04/12/25 16:40 04/15/25 10:04 Heparin Sodium/D5w 100 Units/Ml IV CONT 1,500 units/hr .[id number] MANISHA 15 mls/hr Protocol Titration 1,500 UNITS/HR Miscellaneous Information 1 each 04/15/25 00:01 Hold Home Sodium Bicarb Tablets? Pt Is On A Sodium Bicarb Drip XX 05/15/25 00:00 CLARIFY MANISHA Ondansetron HCl 4 mg 04/12/25 15:51 Ondansetron Hcl Odt 4 Mg Tablet PO Q6H PRN Nausea And Vomiting Sodium Bicarbonate 1,300 mg 04/15/25 09:00 Sodium Bicarbonate Tab 650 Mg Tablet PO BID MANISHA Tamsulosin HCl 0.4 mg 04/12/25 22:30 04/14/25 20:54 Tamsulosin Hcl 0.4 Mg Capsule PO 0.4 mg HS MANISHA Administration Radiology Results: ITS Impressions Abdomen/Pelvis CT 04/12/25 15:19 IMPRESSION: 1. Multiple right renal masses with intermediate density. Correlation with CT or MRI with contrast recommended for further assessment. 2: Severe enlargement of the prostate gland likely causing outlet obstruction with resultant distention of the bladder and bilateral hydronephrosis. Pulmonary Perfusion Imaging 04/12/25 16:34 IMPRESSION: 1. High probability for pulmonary embolism. Findings were discussed with Kenna Williamson, the nurse caring for the patient, at 4:36 PM. Renal Ultrasound 04/12/25 21:07 Impression: 1: Multiple right renal cysts. No suspicious solid masses are identified to suggest malignancy. Chest X-Ray 04/13/25 08:35 IMPRESSION: 1. No acute cardiopulmonary disease. Labs Labs: Laboratory Results - last 24 hr 04/14/25 04/14/25 04/15/25 12:22 19:53 02:10 WBC 9.6 RBC 3.78 L Hgb 11.3 L Hct 34.9 L MCV 92.3 MCH 29.9 MCHC 32.4 RDW 15.7 H Plt Count 125 L MPV 11.9 H Immature Gran % (Auto) 1.0 H Neut % (Auto) 74.3 H Lymph % (Auto) 13.1 L [place] % (Auto) 10.1 H Eos % (Auto) 1.4 Baso % (Auto) 0.1 L Lymph # (Auto) 1.25 [place] # (Auto) 1.0 H Eos # (Auto) 0.1 Baso # (Auto) 0.0 Abs Immat Gran (auto) 0.10 H Absolute Neuts (auto) 7.1 H Absolute Nucleated RBC 0.050 H Nucleated RBC % 0.5 H % Immature Plt Fraction 6.2 APTT 55.4 H 65.2 H 111.1 H Sodium 135 L 137 Potassium 3.7 4.1 Chloride 106 103 Carbon Dioxide 16 L 24 Anion Gap 13 H 10 BUN 102 H* 103 H* Creatinine 5.80 H 6.16 H Estim Creat Clear Calc 11 10 Estimated GFR 10 L 9 L Glucose 184 H 137 H Calcium 7.2 L 7.5 L Phosphorus 5.3 H 5.4 H Magnesium 1.7 Total Bilirubin 0.6 AST 28 ALT 18 Alkaline Phosphatase 55 Total Protein 5.3 L Albumin 2.7 L 3.0 L 04/15/25 09:07 WBC RBC Hgb Hct MCV MCH MCHC RDW Plt Count MPV Immature Gran % (Auto) Neut % (Auto) Lymph % (Auto) [place] % (Auto) Eos % (Auto) Baso % (Auto) Lymph # (Auto) [place] # (Auto) Eos # (Auto) Baso # (Auto) Abs Immat Gran (auto) Absolute Neuts (auto) Absolute Nucleated RBC Nucleated RBC % % Immature Plt Fraction APTT 41.3 H Sodium Potassium Chloride Carbon Dioxide Anion Gap BUN Creatinine Estim Creat Clear Calc Estimated GFR Glucose Calcium Phosphorus Magnesium Total Bilirubin AST ALT Alkaline Phosphatase Total Protein Albumin
[2025-04-15] MEDS: SODIUM CHLORIDE 0.9% IV 1,000 ML 75 ML IV CONT (11:15)
[2025-04-15] MEDS: SODIUM BICARBONATE TAB 650 MG TABLET 1300 MG PO ×2 (11:15→16:44)
--- NOTE | 2025-04-15 14:58 | WPDONCCN ---
Assessment and Plan Assessment and plan (1) Pulmonary embolism: Qualifiers: Pulmonary embolism type: unspecified Chronicity: acute Acute cor pulmonale presence: unspecified Qualified Code(s): I26.99 - Other pulmonary embolism without acute cor pulmonale Code(s): I26.99 - Other pulmonary embolism without acute cor pulmonale Status: Acute Assessment and Plan: Patient presented to ER on 04/12/2025 for acute shortness of breath. Patient has been visiting the family here and lives in [place]. At admission patient was found to have a creatinine of 6.99 and potassium of 6.9. He was admitted for renal failure. A V/Q scan was performed to rule out pulmonary embolism due to his acute shortness of breath on 04/12/2025 which showed multiple small, moderate and large perfusion defects involving all lobes of both lungs consistent with high probability for pulmonary embolism. Due to his renal dysfunction he was started on heparin drip and remains on heparin drip. Due to severe renal dysfunction with a GFR of 9, none of the direct oral anticoagulants can be administered as all of them has significant renal excretion and are not recommended for GFR less than 15. Therefore patient cannot get any of the DOAC. His only option is vitamin K antagonist- warfarin. Patient can be transitioned to warfarin from heparin per pharmacy warfarin to heparin switching guidelines. We recommend both anticoagulant to be overlapped until the INR is therapeutic at greater than 2. INR goal is between 2- 3 for therapeutic warfarin as anticoagulation for PE. (2) Multiple myeloma: Code(s): C90.00 - Multiple myeloma not having achieved remission Status: Chronic Assessment and Plan: Patient has a known diagnosis of multiple myeloma. He reports that he was diagnosed about 2 and half years ago and has been getting chemotherapy with Dr. Currie in [facility]. He is currently on Velcade day 1 8 and 15 on at 28 day cycle and Daratumumab every 28 days. This is maintenance treatment for multiple myeloma after the induction regimen about 2 and half years ago. He never had autologous stem cell transplant. Per patient he is stable with myeloma with this regimen for bone marrow biopsy done previously. Patient was to start his next cycle of Velcade on 04/18/2025 but will have to postpone since he is here. 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 Currie as soon as he reaches home. HPI Data of Consult Date/Time: 04/15/25 14:58 Requesting Physician: Klarissa Blackmon MD Primary Care Provider: [facility] Consult Narrative Narrative: Cosmo Voss is a 79 year old male who presented to ER on 04/12/2025 for acute shortness of breath. Patient has been visiting the family here and lives in [place]. At admission patient was found to have a creatinine of 6.99 and potassium of 6.9. He was admitted for renal failure. A V/Q scan was performed to rule out pulmonary embolism due to his acute shortness of breath on 04/12/2025 which showed multiple small, moderate and large perfusion defects involving all lobes of both lungs consistent with high probability for pulmonary embolism. Due to his renal dysfunction he was started on heparin drip and remains on heparin drip. Patient has a known diagnosis of multiple myeloma. He reports that he was diagnosed about 2 and half years ago and has been getting chemotherapy with Dr. Currie in [facility]. He is currently on Velcade day 1 8 and 15 on at 28 day cycle and Daratumumab every 28 days. This is maintenance treatment for multiple myeloma after the induction regimen about 2 and half years ago. He never had autologous stem cell transplant. Per patient he is stable with myeloma with this regimen for bone marrow biopsy done previously. 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 Review of Systems Review of Systems: Patient reports that he feels better since admission and shortness of breath is also resolved. He denies any lower extremity edema. Patient reports that he drove from [place] to [place] to visit family with his . He was taking breaks in between during the road trip. Patient states that he has been tolerating multiple myeloma treatment very well and denies any neuropathy. Currently he does not have any nausea vomiting or diarrhea. He denies any chest pain or shortness of breath at this time. He denies fever chills or night sweats. Weight is stable. No hematochezia or melena no diarrhea. Rest of the 12 point review of system is negative. [facility] Past Medical History Medical History (Updated 04/15/25 @ 09:45 by Ricky Jung MD) Renal carcinoma Hyperlipidemia History of DVT (deep vein thrombosis) Anemia Hypertension Diabetes Multiple myeloma CHF (congestive heart failure) CKD (chronic kidney disease) Surgical History Surgical History History of bilateral cataract extraction History of cardiac catheterization Hx of partial nephrectomy left Social History Social History Smoking packs per day: 2 Smoking cigarettes per day: 40.0 Years smoked: 20 Smoking pack-years: 40.00 Smoking status: Former smoker Tobacco type: cigarettes Additional smoking assessment comments: quit 1990 Alcohol intake: never Substance use: never Lack of Transportation: No Lack of Food: Never True Current Housing: I Have Housing Concerned About Future Housing: No Difficulty Paying Gas/Electric Bills: No Difficulty Paying for Meds: No Currently Unemployed: No Education: Bachelor's Degree Difficulty w/ Childcare or Family Care: No Spiritual care concerns: No Meds Home Medications and Allergies Home Medications ?Medication ?Instructions ?Recorded ?Confirmed ?Type acyclovir 400 mg tablet 200 mg PO Q12H 04/12/25 04/12/25 History aspirin 81 mg tablet,delayed 81 mg PO 04/12/25 04/12/25 History release carvedilol 3.125 mg tablet 3.125 mg PO Q12H 04/12/25 04/12/25 History dexamethasone 4 mg tablet 12 mg PO WEEKLY 04/12/25 04/12/25 History finasteride 5 mg tablet 5 mg PO 04/12/25 04/12/25 History tamsulosin 0.4 mg capsule 0.4 mg PO 04/12/25 04/12/25 History Allergies Allergy/AdvReac Type Severity Reaction Status Date / Time No Known Allergies Allergy Verified 04/12/25 13:46 Vital Signs Vital Signs - 24 hr 04/14/25 15:47 04/14/25 16:00 04/14/25 19:56 Temperature 36.3 C L 36.8 C Pulse Rate 62 71 60 Respiratory Rate 18 20 Blood Pressure 114/67 127/81 Pulse Oximetry 99 97 Oxygen Delivery Oxygen Flow Rate 04/14/25 20:00 04/14/25 20:00 04/14/25 23:53 Temperature 36.7 C Pulse Rate 74 79 Respiratory Rate 20 Blood Pressure 110/62 Pulse Oximetry 96 95 Oxygen Delivery Nasal Cannula Oxygen Flow Rate 1 04/15/25 00:00 04/15/25 04:00 04/15/25 07:40 Temperature Pulse Rate 74 69 Respiratory Rate Blood Pressure Pulse Oximetry Oxygen Delivery Room Air Oxygen Flow Rate 04/15/25 07:44 04/15/25 07:45 04/15/25 12:00 Temperature 36.9 C Pulse Rate 92 80 76 Respiratory Rate 20 Blood Pressure 142/88 H Pulse Oximetry 97 Oxygen Delivery Oxygen Flow Rate Exam Narrative: General: Alert and oriented x3, no acute distress HEENT: EOMI, PERRL, no lymphadenopathy CV: RRR, No m/g/r RESP: Clear to auscultation bilaterally ABD: soft, NT, ND, BS+ EXT: no edema or cyanosis NEURO: No focal deficits SKIN: no rash or open wounds Results Labs 04/15/25 02:10 04/15/25 02:10 Labs: Short CBC 04/15/25 Range/Units 02:10 WBC 9.6 (4.5-10.0) K/mm3 Hgb 11.3 L (14.0-18.0) g/dL Hct 34.9 L (42.0-52.0) % Plt Count 125 L (150-375) k/mm3 BMP 04/14/25 04/15/25 19:53 02:10 Sodium 135 L 137 Potassium 3.7 4.1 Chloride 106 103 Carbon Dioxide 16 L 24 BUN 102 H* 103 H* Creatinine 5.80 H 6.16 H Glucose 184 H 137 H Calcium 7.2 L 7.5 L Liver Function 04/14/25 04/15/25 Range/Units 19:53 02:10 Total Bilirubin 0.6 (0.2-1.3) mg/dL AST 28 (17-59) U/L ALT 18 (6-50) U/L Alkaline Phosphatase 55 (38-126) U/L Albumin 2.7 L 3.0 L (3.5-5.1) g/dL
[2025-04-15 17:10] LABS: Partial Thromboplastin Time 128.3 Seconds (22.3-36.8)
[2025-04-15] MEDS: HEPARIN SOD/D5W 100 UNITS/ML 25,000 UNITS/250 ML BAG 13 UNITS IV CONT (19:20)
[2025-04-15] MEDS: ASPIRIN 81 MG ENTERIC TABLET PO (20:25)
[2025-04-15] MEDS: FINASTERIDE 5 MG TABLET PO (20:26)
[2025-04-15] MEDS: TAMSULOSIN HCL 0.4 MG CAPSULE PO (20:26)
[2025-04-16] VITALS (7 sets, daily range): BP systolic 133–142; BP diastolic 67–75; PULSE 64–79; RESP 16–20; TEMP 36.8; O2SAT 94–95
--- NOTE | 2025-04-16 00:27 | PC.NURSE ---
This patient, Cosmo Voss, was transferred to room 206-01 on 04/15/25 at 2137 due to increased confusion/impulsiveness upon awakening. Personal belongings sent with patient. Appropriate documentation sent with patient.
[2025-04-16 00:51] LABS: Partial Thromboplastin Time 92.6 Seconds (22.3-36.8)
[2025-04-16 06:23] LABS: Hematocrit 34.0 % (42.0-52.0); Hemoglobin 11.1 g/dL (14.0-18.0); Immature Granulocyte Percent A 1.2 % (0-0.5); Lymphocytes Absolute Auto 1.00 K/mm3 (0.9-3.2); Mean Corpuscular HGB Conc 32.6 g/dl (32-36); Mean Corpuscular Hemoglobin 30.2 pg (26-34); Mean Corpuscular Volume 92.6 fl (80-100); Nucleated Red Blood Cells Absolute Auto 0.120 K/mm3 (0.0-0.012); Nucleated Red Blood Cells Perc 1.5 % (0.0-0.2); Platelet Count Result 152 k/mm3 (150-375); Red Blood Count 3.67 M/mm3 (4.6-6.20); White Blood Count 7.8 K/mm3 (4.5-10.0)
[2025-04-16 06:39] LABS: Partial Thromboplastin Time 93.6 Seconds (22.3-36.8)
[2025-04-16 06:49] LABS: Alanine Aminotransferase 20 U/L (6-50); Albumin Level 2.8 g/dL (3.5-5.1); Alkaline Phosphatase 62 U/L (38-126); Anion Gap 10 mmol/L (4-12); Aspartate Amino Transferase 25 U/L (17-59); Bilirubin,Total 0.8 mg/dL (0.2-1.3); Blood Urea Nitrogen 106 mg/dL (9-20); Calcium 7.4 mg/dL (8.4-10.2); Carbon Dioxide 23 mmol/L (22-30); Chloride 103 mmol/L (98-107); Estimated CRCL calculation 12 ml/min; Estimated Glomerular Filt Rate 10; Glucose 138 mg/dL (65-110); Magnesium 1.7 mg/dL (1.6-2.3); Potassium 3.3 mmol/L (3.4-5.0); Sodium 136 mmol/L (137-145); Total Protein 5.0 g/dL (6.3-8.2)
[2025-04-16] MEDS: SODIUM BICARBONATE TAB 650 MG TABLET 1300 MG PO ×2 (08:57→17:17)
[2025-04-16] MEDS: SODIUM CHLORIDE 0.9% IV 1,000 ML 75 ML IV CONT ×2 (08:58→20:25)
[2025-04-16] MEDS: ACYCLOVIR 200 MG CAPSULE PO ×2 (08:58→20:25)
--- NOTE | 2025-04-16 09:01 | P.PNNP_ITS ---
Progress Note: A&P Assessment and Plan (1) Acute kidney injury: Code(s): N17.9 - Acute kidney failure, unspecified Status: Acute Assessment and Plan: * acute kidney injury. * suspect this is present * His creatinine was almost 7 before he came in and dropped into the 5s with fluid. * multifactorial etiology: * relative hypotension * possible embolic event (given #5)? * element of CKD progression(?) * other(?) * evaluation to date noted: * CT of A/P with evidence of BPH and obstruction/bilateral hydronephrosis * renal ultrasound with multiple right renal cysts * urine electrolytes non-prerenal * urine eosinophils negative * CPK only mildly elevated (not enough to affect kidney function) * moderate proteinuria * potassium is actually low and bicarbonate is normal. * Will supplement potassium * bailon catheter in place * follow respiratory and volume status closely . So far no sign of volume overload. * Creatinine is up and down. Today is a bit lower than yesterday * He has no symptoms of uremia nor volume overload and so I do not think he needs dialysis. * He said that he is going to be set up for a fistula once he gets back to [place]. * recheck potassium and creatinine tomorrow (2) Stage 5 chronic kidney disease: Code(s): N18.5 - Chronic kidney disease, stage 5 Status: Chronic Assessment and Plan: * unclear what baseline creatinine normally runs... * however, patient able to verify that he has CKD stage V * was referred to Vascular Surgery for AV access placement * attempt to get records from his physician back home ([place], [place]) to ascertain baseline creatinine/GFR) (3) Hyperkalemia: Code(s): E87.5 - Hyperkalemia Status: Acute Assessment and Plan: * resolved actually a bit low today. Will give a supplement (4) Metabolic acidosis: Code(s): E87.20 - Acidosis, unspecified Status: Acute Assessment and Plan: * resolved * on oral bicarb (5) Pulmonary embolism: Qualifiers: Pulmonary embolism type: unspecified Chronicity: acute Acute cor pulmonale presence: unspecified Qualified Code(s): I26.99 - Other pulmonary embolism without acute cor pulmonale Code(s): I26.99 - Other pulmonary embolism without acute cor pulmonale Status: Acute Assessment and Plan: * presumed etiology of shortness of breath * recent car travel a week ago ([place], [place] --> to this area) * V/Q scan with high probability for PE * myeloma * consider checking lower extremity dopplers (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 * possible hypercatabolic state? * bleeding issue? * related to his advanced CKD... * BUN seems to be plateauing. * follow trend of BUN (7) Shortness of breath: Code(s): R06.02 - Shortness of breath Status: Acute Assessment and Plan: * as noted on presentation * likely due to PE (8) Elevated troponin: Code(s): R79.89 - Other specified abnormal findings of blood chemistry Status: Acute Assessment and Plan: * noted by testing in ER * EKGs noted - evidence of Afib but no acute ST elevations/depressions * Cardiology recommendations noted * Echo results noted: * normal appearing left ventricular size with vigorous systolic function * right ventricular enlargement with right ventricular hypokinesia * at least moderate if not moderate to severe aortic stenosis. * suspect secondary to right heart strain from PE (9) Atrial fibrillation: Qualifiers: Atrial fibrillation type: paroxysmal Qualified Code(s): I48.0 - Paroxysmal atrial fibrillation Code(s): I48.91 - Unspecified atrial fibrillation Status: Acute Assessment and Plan: * supposedly new onset (or at least paroxysmal) * last EKG shows sinus rhythm * follow telemetry * rate control strategy * on anticoagulation (heparin gtt) (10) Anemia: Code(s): D64.9 - Anemia, unspecified Status: Acute Assessment and Plan: * due in part to TEOFILO and CKD along with IVF hydration * cannot discount multiple myeloma playing a role * no need for JOSE * Hb 11.3 (11) Multiple myeloma: Code(s): C90.00 - Multiple myeloma not having achieved remission Status: Chronic Assessment and Plan: * follows with Hem/Onc * on active treatment (12) Diabetes: Qualifiers: Diabetes mellitus type: type 2 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 Subjective Date/time seen: 04/16/25 09:01 Interval history: patient is alert. He feels okay. Yesterday evening he became transiently confused. He is doing okay this morning Exam Narrative: General: elderly but WD/WN male in NAD Heart: normal S1 and S2; no rub or gallop Lungs: clear to auscultation Abdomen: nontender, bowel sounds positive Extremities: no cyanosis or clubbing; trace edema Skin: No rash or subcu nodules Objective Data Vital Signs Vital Signs: Vital Signs - 24 hr 04/15/25 12:00 04/15/25 15:59 04/15/25 16:00 Temperature 98.0 F Pulse Rate 76 75 71 Respiratory Rate 24 H Blood Pressure 115/72 Pulse Oximetry 96 Oxygen Delivery 04/15/25 20:00 04/15/25 20:02 04/15/25 20:25 Temperature Pulse Rate 67 67 78 Respiratory Rate 20 Blood Pressure Pulse Oximetry 96 Oxygen Delivery Room Air 04/16/25 00:00 04/16/25 00:00 04/16/25 04:00 Temperature 98.3 F Pulse Rate 69 72 79 Respiratory Rate 20 Blood Pressure 133/75 Pulse Oximetry 94 Oxygen Delivery 04/16/25 07:46 04/16/25 08:00 Temperature 98.2 F Pulse Rate 64 Respiratory Rate 16 Blood Pressure 142/67 H Pulse Oximetry 95 Oxygen Delivery Room Air Intake/Output Intake/Output: Intake & Output 09/11/25 09/12/25 09/13/25 09/14/25 23:59 23:59 23:59 23:59 Intake Total 4205.3 2810.6 1085.8 1189.1 Output Total 1652 1400 850 525 Balance 2553.3 1410.6 235.8 664.1 Meds/Results Medications: Active Medications Generic Name Dose Route Start Last Admin Trade Name Freq PRN Reason Stop Dose Admin Acetaminophen 650 mg 04/12/25 15:51 Acetaminophen 325 Mg Tablet PO Q6H PRN Mild Pain (1-3) or Fever Hydrocodone Bitart/Acetaminophen 1 tab 04/12/25 15:51 Hydrocodone/Acetaminophen (*Crx) 5-325 Mg Tablet PO Q6H PRN Pain Rated 4-6 Acyclovir 200 mg 04/12/25 22:30 04/16/25 08:58 Acyclovir 200 Mg Capsule PO 200 mg Q12HR MANISHA Administration Aspirin 81 mg 04/12/25 22:30 04/15/25 20:25 Aspirin 81 Mg Enteric Tablet PO 81 mg HS MANISHA Administration Calcium Carbonate 200 mg 04/12/25 15:51 Calcium Carbonate (Tums) 500 Mg (200 Mg Elemental) PO Q6H PRN Indigestion Carvedilol 3.125 mg 04/12/25 22:30 04/16/25 08:57 Carvedilol 3.125 Mg Tablet PO 3.125 mg Q12HR MANISHA Administration Dexamethasone 12 mg 04/18/25 09:00 Dexamethasone 4 Mg Tablet PO WEEKLY MANISHA Finasteride 5 mg 04/12/25 22:30 04/15/25 20:26 Finasteride 5 Mg Tablet PO 5 mg HS MANISHA Administration Heparin Sodium (Porcine) 6,000 units 04/12/25 16:39 04/15/25 10:05 Heparin Sodium 5,000 Units/Ml Vial IV PUSH 6,000 units PRN PRN Administration aPTT less than 55 seconds Heparin Sodium (Porcine) 3,000 units 04/12/25 16:39 04/14/25 20:50 Heparin Sodium 5,000 Units/Ml Vial IV PUSH 3,000 units PRN PRN Administration aPTT 55 - 70 seconds Heparin Sodium/Dextrose 25,000 units in 250 mls @ 13 mls/hr 04/12/25 16:40 04/16/25 07:46 Heparin Sodium/D5w 100 Units/Ml IV CONT Not Given .[id number] MANISHA Protocol 1,300 UNITS/HR Sodium Chloride 1,000 mls @ 75 mls/hr 04/15/25 10:40 04/16/25 08:58 Normal Saline Iv IV CONT 75 mls/hr .[id number] MANISHA Administration Ondansetron HCl 4 mg 04/12/25 15:51 Ondansetron Hcl Odt 4 Mg Tablet PO Q6H PRN Nausea And Vomiting Sodium Bicarbonate 1,300 mg 04/15/25 10:45 04/16/25 08:57 Sodium Bicarbonate Tab 650 Mg Tablet PO 1,300 mg BID MANISHA Administration Tamsulosin HCl 0.4 mg 04/12/25 22:30 04/15/25 20:26 Tamsulosin Hcl 0.4 Mg Capsule PO 0.4 mg HS MANISHA Administration Radiology Results: ITS Impressions Abdomen/Pelvis CT 04/12/25 15:19 IMPRESSION: 1. Multiple right renal masses with intermediate density. Correlation with CT or MRI with contrast recommended for further assessment. 2: Severe enlargement of the prostate gland likely causing outlet obstruction with resultant distention of the bladder and bilateral hydronephrosis. Pulmonary Perfusion Imaging 04/12/25 16:34 IMPRESSION: 1. High probability for pulmonary embolism. Findings were discussed with Kenna Williamson, the nurse caring for the patient, at 4:36 PM. Renal Ultrasound 04/12/25 21:07 Impression: 1: Multiple right renal cysts. No suspicious solid masses are identified to suggest malignancy. Chest X-Ray 04/13/25 08:35 IMPRESSION: 1. No acute cardiopulmonary disease. Venous Doppler Study 04/15/25 16:38 Impression: Right-sided DVT detailed above. Labs Labs: Laboratory Results - last 24 hr 04/15/25 04/15/25 04/15/25 09:07 16:49 17:58 WBC RBC Hgb Hct MCV MCH MCHC RDW Plt Count MPV Immature Gran % (Auto) Neut % (Auto) Lymph % (Auto) Ferry % (Auto) Eos % (Auto) Baso % (Auto) Lymph # (Auto) [place]erry # (Auto) Eos # (Auto) Baso # (Auto) Abs Immat Gran (auto) Absolute Neuts (auto) Absolute Nucleated RBC Nucleated RBC % APTT 41.3 H 128.3 H Sodium Potassium Chloride Carbon Dioxide Anion Gap BUN Creatinine Estim Creat Clear Calc Estimated GFR Glucose POC Capillary Glucose 145 H Calcium Phosphorus Magnesium Total Bilirubin AST ALT Alkaline Phosphatase Total Protein Albumin 04/16/25 04/16/25 00:18 06:02 WBC 7.8 RBC 3.67 L Hgb 11.1 L Hct 34.0 L MCV 92.6 MCH 30.2 MCHC 32.6 RDW 15.6 H Plt Count 152 MPV 12.1 H Immature Gran % (Auto) 1.2 H Neut % (Auto) 74.7 H Lymph % (Auto) 12.9 L Ferry % (Auto) 9.9 H Eos % (Auto) 1.2 Baso % (Auto) 0.1 L Lymph # (Auto) 1.00 Ferry # (Auto) 0.8 H Eos # (Auto) 0.1 Baso # (Auto) 0.0 Abs Immat Gran (auto) 0.09 H Absolute Neuts (auto) 5.8 Absolute Nucleated RBC 0.120 H Nucleated RBC % 1.5 H APTT 92.6 H 93.6 H Sodium 136 L Potassium 3.3 L Chloride 103 Carbon Dioxide 23 Anion Gap 10 BUN 106 H* Creatinine 5.43 H Estim Creat Clear Calc 12 Estimated GFR 10 L Glucose 138 H POC Capillary Glucose Calcium 7.4 L Phosphorus 5.0 H Magnesium 1.7 Total Bilirubin 0.8 AST 25 ALT 20 Alkaline Phosphatase 62 Total Protein 5.0 L Albumin 2.8 L
--- NOTE | 2025-04-16 09:48 | P.PNIM_ITS ---
Progress Note: A&P Assessment and Plan (1) Pulmonary embolism: Qualifiers: Acute cor pulmonale presence: unspecified Chronicity: acute Pulmonary embolism type: unspecified Qualified Code(s): I26.99 - Other pulmonary embolism without acute cor pulmonale Code(s): I26.99 - Other pulmonary embolism without acute cor pulmonale Status: Acute Assessment and Plan: Patient reports recent travel from [place] approximately 1 week ago via car, denied history of DVT/PE however told the finger buffs assembler he has a history of a DVT. - V/Q scan and, at 04/12: High probability for PE - started on heparin gtt on 04/12 - U/S of bilateral lower extremities - checking echo for right heart strain >> no right heart strain noted - troponin elevated at 2.23, repeat 2.76. Continue to follow. 04/16/2025:Right leg DVT Possible pulmonary embolism Currently on heparin Started warfarin 5 mg p.o. q.d.. Target INR 2-3. Will stop heparin once INR 2-3. INR daily Follow recommendation from Hematology and pharmacy (2) Shortness of breath: Code(s): R06.02 - Shortness of breath Status: Acute Assessment and Plan: - CXR: No acute cardiopulmonary disease - viral PCR negative on 04/12 - patient had a recent travel from [place] approximately 1 week ago and is not on anticoagulation at raising concerns for pulmonary embolism, due to patient's current renal function he is not a candidate for a CTA. NM V/Q scan ordered, awaiting results. Vital signs currently stable and patient remains on room air. ->> VQ scan with high probability for PE, see above. This is likely source of patient's shortness of breath. 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 No clear baseline as the patient has never before been seen at [facility]. He does report he has previously had dialysis discussed with him. This increases concern that patient has been in the later stages of CKD prior to today. - significant electrolyte derangements noted upon initial evaluation on 04/12: Potassium 6.9, CO2 8, gap 19, creatinine 6.99, BUN 75, GFR 8, phosphorus 6.5 - CT abd/pelvis showed multiple renal masses with indeterminate density ->> findings discussed with patient, he reports a history of renal carcinoma and partial nephrectomy as well as CKD. Requesting records from prior facilities in [place]. - nephrology has been consulted, but no immediate dialysis indicated - trial IV fluids over the next 24 hours and monitor renal response: 2L bolus, monitor toleration. If tolerated well will start slow infusion of IV fluids. - check renal ultrasound >> Multiple right renal cysts. No suspicious solid masses are identified to suggest malignancy. - check urine lytes and CK - bicarb IVP x1, nephro starting bicarb gtt - trend renal function and electrolytes, correct as needed --check PSA (may be elevated with bailon) --Referral to urology for renal masses --Check MRI abd w/wo contrast--evaluate renal masses and LLQ pain if continues. Unable to go to MRI on heparin drip. Can consider changing to eliquis if continued abdominal pain (4) Hyperkalemia: Code(s): E87.5 - Hyperkalemia Status: Acute Assessment and Plan: - K 6.9 upon initial evaluation on 04/12 - initial treatment in the ED with dextrose/insulin and Kayexalate. Ordered calcium, albuterol and sodium bicarbonate IVP. Nephrology adding sodium bicarbonate gtt and Lokelma b.i.d. - recheck potassium >> 5.5>4.8, will continue bicarb drip and IV fluids. Follow BMP in AM - trend - telemetry monitoring --Renal following (5) Elevated troponin: Code(s): R79.89 - Other specified abnormal findings of blood chemistry Status: Acute Assessment and Plan: - EKG, initial: AFib, rate 84, incomplete right bundle branch block, nonspecific T-wave abnormality - EKG, repeat (1): Sinus rhythm with second-degree AV block Mobitz type 2 with occasional viewed jugular premature complexes, incomplete right bundle branch block, inferior TN of indeterminate age, moderate to of abnormality. When compared to EKG done earlier same day there are new ventricular premature complexes and TN findings with possible ischemia, atrial fibrillation no longer present, and T-wave abnormality still present. Awaiting formal read. >> per my review no significant ST elevations or depressions. - Troponin: 2.23 -> 2.76 -> 4.54--4.52 - cardiology consulted, noted question of heart strain but no recommendation for thrombectomy at this point. Overall patient reports symptomatically improving but troponin elevated as noted --TTE no heart strain - on heparin gtt due to concurrent concern for PE - check lipid panel - continue daily aspirin 81 mg - echo completed, see impression - telemetry monitoring Suspect patient's troponin is elevated secondary to pulmonary embolism and patient's hypotension. Denying any chest pain. (6) Atrial fibrillation: Qualifiers: Atrial fibrillation type: paroxysmal Qualified Code(s): I48.0 - Paroxysmal atrial fibrillation Code(s): I48.91 - Unspecified atrial fibrillation Status: Acute Assessment and Plan: Denies previous history of dysrhythmia or atrial fibrillation. Initial EKG showed atrial fibrillation. Repeat EKG showed resolution of AFib, likely paroxysmal. Currently rate controlled. On carvedilol daily outpatient, continued at this time. - cardiology consulted - telemetry monitoring - chads Vasc: 5 (H, CHF history, thromboembolism history), on heparin gtt --discussed with plating stripper patient needs to be on warfarin -Right leg DVT Possible pulmonary embolism Currently on heparin Started warfarin 5 mg p.o. q.d.. Target INR 2-3. Will stop heparin once INR 2-3. INR daily Follow recommendation from Hematology and pharmacy (7) CHF (congestive heart failure): Qualifiers: Heart failure chronicity: unspecified Heart failure type: unspecified Qualified Code(s): I50.9 - Heart failure, unspecified Code(s): I50.9 - Heart failure, unspecified Status: Acute Assessment and Plan: - patient reported history of CHF - no previous echo on file, ordered. - BNP greater than 30,000 - monitor I&Os and daily weights - not on daily diuretic outpatient, given 1 time dose of Lasix for hyperkalemia and worsening shortness of breath with known CHF history. - on clinical exam a patient largely appears euvolemic, does have trace edema to bilateral ankles that is symmetric and nonpitting (8) Diarrhea: Qualifiers: Diarrhea type: presumed infectious Qualified Code(s): R19.7 - Diarrhea, unspecified Code(s): R19.7 - Diarrhea, unspecified Status: Acute Assessment and Plan: viral PCR negative - CT abd/pelvis: 1. Multiple right renal masses with intermediate density. Correlation with CT or MRI with contrast recommended for further assessment. 2: Severe enlargement of the prostate gland likely causing outlet obstruction with resultant distention of the bladder and bilateral hydronephrosis. - possible TEOFILO superimposed on CKD, see CKD - c. diff pending - IV fluids: 2L bolus, now on bicarb gtt - monitor BP and renal function 04/14/25 KUB noted. Patient had a bowel movement today (9) Diabetes: Qualifiers: Chronic kidney disease stage: stage 5 (GFR < 15), not on chronic dialysis Diabetes mellitus complication detail: with chronic kidney disease Diabetes mellitus complication status: with kidney complications Diabetes mellitus assisted insulin use: without assisted use Diabetes mellitus type: type 2 Qualified Code(s): E11.22 - Type 2 diabetes mellitus with diabetic chronic kidney disease; N18.5 - Chronic kidney disease, stage 5 Code(s): E11.9 - Type 2 diabetes mellitus without complications Status: Chronic Assessment and Plan: - reported history of type 2 diabetes, however he denies being on anti diabetic medications - initial glucose was 185. Will check A1c. (10) Abdominal pain: Code(s): R10.9 - Unspecified abdominal pain Status: Acute Assessment and Plan: Reporting Left lower abdominal pain. No explanation on recent CT --Check KUB --If continued pain, consider MRI abdomen since unable to have CT contrast, but would need to stop heparin drip and would rather switch to eliquis prior to that given high risk PE (11) DVT (deep venous thrombosis): Code(s): I82.409 - Acute embolism and thrombosis of unspecified deep veins of unspecified lower extremity Status: Acute Assessment and Plan: Right leg DVT Possible pulmonary embolism Currently on heparin Started warfarin 5 mg p.o. q.d.. Target INR 2-3. Will stop heparin once INR 2-3. INR daily Follow recommendation from Hematology and pharmacy Plan Diet: Renal GI Prophylaxis: N/a DVT Prophylaxis: heparin gtt IV fluids: 2L bolus -> sodium bicarbonate gtt at 75 mL/hour Lines/Tubes: Peripheral IV Code Status: Full code Subjective Date/time seen: 04/16/25 09:48 Interval history: Patient has evidence of a right lower extremity DVT. Discussed with a plating stripper. Patient Is a not a candidate for any DOAC. Will start him on warfarin 5 mg p.o. q.d.. Target INR 2-3. Will stop heparin once INR 2-3. INR daily In regards to CKD patient will be getting fistula. Patient is from [facility] and needs to follows up with his primary finger buffs assembler for further treatment in regards to CKD. Patient also has diagnosis of multiple myeloma and he follows up with Dr. Currie in [facility] Review of Systems Review of Systems: 79 y/o M with PMH of CHF, multiple myelo ma, partial nephrectomy (believes it was on the left), DM2, HLD, BPH, and CKD (has previously had discussion for possible dialysis) presents here with shortness of breath. All systems reviewed & are unremarkable except as noted in HPI and below Exam Narrative: General - Awake and alert. No acute distress Eyes - PERRLA, EOM intact ENT - No thrush, No erythema Neck - No noticeable or palpable swelling Lymph Nodes - No lymphadenopathy Cardiovascular - RRR no m/r/g, no JVD Lungs: Clear to auscultation, No wheezing, use of accessory muscles, no crackles Skin - Skin warm and dry, no wounds or rashes Abdomen - Normal bowel sounds, abdomen soft, TTP left abdomen Extremities - No edema, cyanosis or clubbing Musculoskeletal - 5/5 strength, normal range of motion, no swollen or erythematous joints. Neurological ? Alert and oriented x 3, CN 2-12 grossly intact. Psych: Normal mood and affect Const: General: comfortable and no acute distress Other: , male, elderly, modestly ill-appearing HENMT: Face/Nose/Sinus: Normal nares present Mouth: Yes moist mucous membranes Eyes: General: appearance normal, both eyes and all related structures Sclera: sclerae normal Pupils: Equal, round and reactive pupils present EOM: EOMs intact bilaterally Resp: Other: Increased work of breathing without accessory muscle use. No wheezing or crackles noted on exam. Nasal cannula place for patient comfort, no hypoxia noted on monitor. Cardio: Rate: regular rate Rhythm: abnormal rhythm Other: No murmur or rub appreciated. GI: Other: Abdomen soft, nondistended, nontender. Normoactive bowel sounds in all quadrants. Skin: General skin exam: normal color and no rashes or lesions noted Wounds: no wounds Neuro: Cranial nerves: Yes Equal, round and reactive pupils present Speech: normal speech Motor exam (neuro): 5/5 motor strength present throughout Sensory Exam: normal sensation Other: A&O x4 Extrem: Other: Trace edema to bilateral ankles, symmetric without erythema Psych: Mental Status: mental status grossly normal Affect: normal affect Other: Good insight and judgment, pleasant Objective Data Vital Signs Vital Signs: Vital Signs - 24 hr 04/15/25 12:00 04/15/25 15:59 04/15/25 16:00 Temperature 98.0 F Pulse Rate 76 75 71 Respiratory Rate 24 H Blood Pressure 115/72 Pulse Oximetry 96 Oxygen Delivery 04/15/25 20:00 04/15/25 20:02 04/15/25 20:25 Temperature Pulse Rate 67 67 78 Respiratory Rate 20 Blood Pressure Pulse Oximetry 96 Oxygen Delivery Room Air 04/16/25 00:00 04/16/25 00:00 04/16/25 04:00 Temperature 98.3 F Pulse Rate 69 72 79 Respiratory Rate 20 Blood Pressure 133/75 Pulse Oximetry 94 Oxygen Delivery 04/16/25 07:46 04/16/25 08:00 Temperature 98.2 F Pulse Rate 64 Respiratory Rate 16 Blood Pressure 142/67 H Pulse Oximetry 95 Oxygen Delivery Room Air Intake/Output Intake/Output: Intake & Output 04/13/25 04/14/25 04/15/25 04/16/25 23:59 23:59 23:59 23:59 Intake Total 4205.3 2810.6 1085.8 1189.1 Output Total 1652 1400 850 525 Balance 2553.3 1410.6 235.8 664.1 Meds/Results Medications: Active Medications Generic Name Dose Route Start Last Admin Trade Name Freq PRN Reason Stop Dose Admin Acetaminophen 650 mg 04/12/25 15:51 Acetaminophen 325 Mg Tablet PO Q6H PRN Mild Pain (1-3) or Fever Hydrocodone Bitart/Acetaminophen 1 tab 04/12/25 15:51 Hydrocodone/Acetaminophen (*Crx) 5-325 Mg Tablet PO Q6H PRN Pain Rated 4-6 Acyclovir 200 mg 04/12/25 22:30 04/16/25 08:58 Acyclovir 200 Mg Capsule PO 200 mg Q12HR MANISHA Administration Aspirin 81 mg 04/12/25 22:30 04/15/25 20:25 Aspirin 81 Mg Enteric Tablet PO 81 mg HS MANISHA Administration Calcium Carbonate 200 mg 04/12/25 15:51 Calcium Carbonate (Tums) 500 Mg (200 Mg Elemental) PO Q6H PRN Indigestion Carvedilol 3.125 mg 04/12/25 22:30 04/16/25 08:57 Carvedilol 3.125 Mg Tablet PO 3.125 mg Q12HR MANISHA Administration Dexamethasone 12 mg 04/18/25 09:00 Dexamethasone 4 Mg Tablet PO WEEKLY MANISHA Finasteride 5 mg 04/12/25 22:30 04/15/25 20:26 Finasteride 5 Mg Tablet PO 5 mg HS MANISHA Administration Heparin Sodium (Porcine) 6,000 units 04/12/25 16:39 04/15/25 10:05 Heparin Sodium 5,000 Units/Ml Vial IV PUSH 6,000 units PRN PRN Administration aPTT less than 55 seconds Heparin Sodium (Porcine) 3,000 units 04/12/25 16:39 04/14/25 20:50 Heparin Sodium 5,000 Units/Ml Vial IV PUSH 3,000 units PRN PRN Administration aPTT 55 - 70 seconds Heparin Sodium/Dextrose 25,000 units in 250 mls @ 13 mls/hr 04/12/25 16:40 04/16/25 07:46 Heparin Sodium/D5w 100 Units/Ml IV CONT Not Given .[id number] MANISHA Protocol 1,300 UNITS/HR Sodium Chloride 1,000 mls @ 75 mls/hr 04/15/25 10:40 04/16/25 08:58 Normal Saline Iv IV CONT 75 mls/hr .[id number] MANISHA Administration Ondansetron HCl 4 mg 04/12/25 15:51 Ondansetron Hcl Odt 4 Mg Tablet PO Q6H PRN Nausea And Vomiting Sodium Bicarbonate 1,300 mg 04/15/25 10:45 04/16/25 08:57 Sodium Bicarbonate Tab 650 Mg Tablet PO 1,300 mg BID MANISHA Administration Tamsulosin HCl 0.4 mg 04/12/25 22:30 04/15/25 20:26 Tamsulosin Hcl 0.4 Mg Capsule PO 0.4 mg HS MANISHA Administration Radiology Results: ITS Impressions Abdomen/Pelvis CT 04/12/25 15:19 IMPRESSION: 1. Multiple right renal masses with intermediate density. Correlation with CT or MRI with contrast recommended for further assessment. 2: Severe enlargement of the prostate gland likely causing outlet obstruction with resultant distention of the bladder and bilateral hydronephrosis. Pulmonary Perfusion Imaging 04/12/25 16:34 IMPRESSION: 1. High probability for pulmonary embolism. Findings were discussed with Kenna Williamson, the nurse caring for the patient, at 4:36 PM. Renal Ultrasound 04/12/25 21:07 Impression: 1: Multiple right renal cysts. No suspicious solid masses are identified to suggest malignancy. Chest X-Ray 04/13/25 08:35 IMPRESSION: 1. No acute cardiopulmonary disease. Venous Doppler Study 04/15/25 16:38 Impression: Right-sided DVT detailed above. Labs Labs: Laboratory Results - last 24 hr 04/15/25 04/15/25 04/15/25 09:07 16:49 17:58 WBC RBC Hgb Hct MCV MCH MCHC RDW Plt Count MPV Immature Gran % (Auto) Neut % (Auto) Lymph % (Auto) [place] % (Auto) Eos % (Auto) Baso % (Auto) Lymph # (Auto) [place] # (Auto) Eos # (Auto) Baso # (Auto) Abs Immat Gran (auto) Absolute Neuts (auto) Absolute Nucleated RBC Nucleated RBC % APTT 41.3 H 128.3 H Sodium Potassium Chloride Carbon Dioxide Anion Gap BUN Creatinine Estim Creat Clear Calc Estimated GFR Glucose POC Capillary Glucose 145 H Calcium Phosphorus Magnesium Total Bilirubin AST ALT Alkaline Phosphatase Total Protein Albumin 04/16/25 04/16/25 00:18 06:02 WBC 7.8 RBC 3.67 L Hgb 11.1 L Hct 34.0 L MCV 92.6 MCH 30.2 MCHC 32.6 RDW 15.6 H Plt Count 152 MPV 12.1 H Immature Gran % (Auto) 1.2 H Neut % (Auto) 74.7 H Lymph % (Auto) 12.[address] [place] % (Auto) 9.9 H Eos % (Auto) 1.2 Baso % (Auto) 0.1 L Lymph # (Auto) 1.00 [place] # (Auto) 0.8 H Eos # (Auto) 0.1 Baso # (Auto) 0.0 Abs Immat Gran (auto) 0.09 H Absolute Neuts (auto) 5.8 Absolute Nucleated RBC 0.120 H Nucleated RBC % 1.5 H APTT 92.6 H 93.6 H Sodium 136 L Potassium 3.3 L Chloride 103 Carbon Dioxide 23 Anion Gap 10 BUN 106 H* Creatinine 5.43 H Estim Creat Clear Calc 12 Estimated GFR 10 L Glucose 138 H POC Capillary Glucose Calcium 7.4 L Phosphorus 5.0 H Magnesium 1.7 Total Bilirubin 0.8 AST 25 ALT 20 Alkaline Phosphatase 62 Total Protein 5.0 L Albumin 2.8 L Hospitalist MIPS Advance Care Plan I have confirmed that the patient's Advanced Care Plan is present, code status is documented, or surrogate decision maker is listed in patient medical record.: Yes Medication Reconciliation I have utilized all available resources to obtain, update and review the patients current medications (includes all prescriptions, OTC, herbals, ca nnabis, and nutritional supplements).: Yes
[2025-04-16] MEDS: POTASSIUM CHLORIDE 20 MEQ ER TABLET PO (09:53)
--- NOTE | 2025-04-16 10:15 | WPDONCPN ---
Progress Note: A&P Assessment and Plan (1) Pulmonary embolism: Qualifiers: Acute cor pulmonale presence: unspecified Chronicity: acute Pulmonary embolism type: unspecified Qualified Code(s): I26.99 - Other pulmonary embolism without acute cor pulmonale Code(s): I26.99 - Other pulmonary embolism without acute cor pulmonale Status: Acute Assessment and Plan: Patient presented to ER on 04/12/2025 for acute shortness of breath. Patient has been visiting the family here and lives in [place]. At admission patient was found to have a creatinine of 6.99 and potassium of 6.9. He was admitted for renal failure. A V/Q scan was performed to rule out pulmonary embolism due to his acute shortness of breath on 04/12/2025 which showed multiple small, moderate and large perfusion defects involving all lobes of both lungs consistent with high probability for pulmonary embolism. Due to his renal dysfunction he was started on heparin drip and remains on heparin drip. 04/15/25 lower extremity venous Doppler showed Right Lower extremity DVT. Due to severe renal dysfunction with a GFR of 9, none of the direct oral anticoagulants can be administered as all of them has significant renal excretion and are not recommended for GFR less than 15. Therefore patient cannot get any of the DOAC. His only option is vitamin K antagonist- warfarin. Patient can be transitioned to warfarin from heparin per pharmacy warfarin to heparin switching guidelines. We recommend both anticoagulant to be overlapped until the INR is therapeutic at range of more than 2 for at least TWO consecutive days. INR goal is between 2- 3 for therapeutic warfarin as anticoagulation for PE. Patient should follow with his denture packer in [place] when he returns back home. Hem/onc will now sign off (2) Multiple myeloma: Code(s): C90.00 - Multiple myeloma not having achieved remission Status: Chronic Assessment and Plan: Patient has a known diagnosis of multiple myeloma. He reports that he was diagnosed about 2 and half years ago and has been getting chemotherapy with Dr. Currie in [facility]. He is currently on Velcade day 1 8 and 15 on at 28 day cycle and Daratumumab every 28 days. This is maintenance treatment for multiple myeloma after the induction regimen about 2 and half years ago. He never had autologous stem cell transplant. Per patient he is stable with myeloma with this regimen for bone marrow biopsy done previously. Patient was to start his next cycle of Velcade on 04/18/2025 but will have to postpone since he is here. Patient will follow up with his denture packer Dr. Currie as soon as he reaches home. Subjective Date/time seen: 04/16/25 10:15 Interval history: No overnight events. Review of Systems Review of Systems Patient reports that he feels better since admission and shortness of breath has resolved. He denies any lower extremity edema. Patient reports that he drove from [place] to [place] to visit family with his . He was taking breaks in between during the road trip. Patient states that he has been tolerating multiple myeloma treatment very well and denies any neuropathy. Currently he does not have any nausea vomiting or diarrhea. He denies any chest pain or shortness of breath at this time. He denies fever chills or night sweats. Weight is stable. No hematochezia or melena no diarrhea. Rest of the 12 point review of system is negative. Exam Narrative: General: Alert and oriented x3, no acute distress HEENT: EOMI, PERRL, no lymphadenopathy CV: RRR, No m/g/r RESP: Clear to auscultation bilaterally ABD: soft, NT, ND, BS+ EXT: no edema or cyanosis NEURO: No focal deficits SKIN: no rash or open wounds Objective Data Vital Signs Vital Signs: Vital Signs - 24 hr 04/15/25 12:00 04/15/25 15:59 04/15/25 16:00 Temperature 36.7 C Pulse Rate 76 75 71 Respiratory Rate 24 H Blood Pressure 115/72 Pulse Oximetry 96 Oxygen Delivery 04/15/25 20:00 04/15/25 20:02 04/15/25 20:25 Temperature Pulse Rate 67 67 78 Respiratory Rate 20 Blood Pressure Pulse Oximetry 96 Oxygen Delivery Room Air 04/16/25 00:00 04/16/25 00:00 04/16/25 04:00 Temperature 36.8 C Pulse Rate 69 72 79 Respiratory Rate 20 Blood Pressure 133/75 Pulse Oximetry 94 Oxygen Delivery 04/16/25 07:46 04/16/25 08:00 Temperature 36.8 C Pulse Rate 64 Respiratory Rate 16 Blood Pressure 142/67 H Pulse Oximetry 95 Oxygen Delivery Room Air Intake/Output Intake/Output: Intake & Output 04/13/25 04/14/25 04/15/25 04/16/25 23:59 23:59 23:59 23:59 Intake Total 4205.3 2810.6 1085.8 1189.1 Output Total 1652 1400 850 525 Balance 2553.3 1410.6 235.8 664.1 Meds/Results Medications: Active Medications Generic Name Dose Route Start Last Admin Trade Name Freq PRN Reason Stop Dose Admin Acetaminophen 650 mg 04/12/25 15:51 Acetaminophen 325 Mg Tablet PO Q6H PRN Mild Pain (1-3) or Fever Hydrocodone Bitart/Acetaminophen 1 tab 04/12/25 15:51 Hydrocodone/Acetaminophen (*Crx) 5-325 Mg Tablet PO Q6H PRN Pain Rated 4-6 Acyclovir 200 mg 04/12/25 22:30 04/16/25 08:58 Acyclovir 200 Mg Capsule PO 200 mg Q12HR MANISHA Administration Aspirin 81 mg 04/12/25 22:30 04/15/25 20:25 Aspirin 81 Mg Enteric Tablet PO 81 mg HS MANISHA Administration Calcium Carbonate 200 mg 04/12/25 15:51 Calcium Carbonate (Tums) 500 Mg (200 Mg Elemental) PO Q6H PRN Indigestion Carvedilol 3.125 mg 04/12/25 22:30 04/16/25 08:57 Carvedilol 3.125 Mg Tablet PO 3.125 mg Q12HR MANISHA Administration Dexamethasone 12 mg 04/18/25 09:00 Dexamethasone 4 Mg Tablet PO WEEKLY MANISHA Finasteride 5 mg 04/12/25 22:30 04/15/25 20:26 Finasteride 5 Mg Tablet PO 5 mg HS MANISHA Administration Heparin Sodium (Porcine) 6,000 units 04/12/25 16:39 04/15/25 10:05 Heparin Sodium 5,000 Units/Ml Vial IV PUSH 6,000 units PRN PRN Administration aPTT less than 55 seconds Heparin Sodium (Porcine) 3,000 units 04/12/25 16:39 04/14/25 20:50 Heparin Sodium 5,000 Units/Ml Vial IV PUSH 3,000 units PRN PRN Administration aPTT 55 - 70 seconds Heparin Sodium/Dextrose 25,000 units in 250 mls @ 13 mls/hr 04/12/25 16:40 04/16/25 07:46 Heparin Sodium/D5w 100 Units/Ml IV CONT Not Given .[id number] MANISHA Protocol 1,300 UNITS/HR Sodium Chloride 1,000 mls @ 75 mls/hr 04/15/25 10:40 04/16/25 08:58 Normal Saline Iv IV CONT 75 mls/hr .[id number] MANISHA Administration Ondansetron HCl 4 mg 04/12/25 15:51 Ondansetron Hcl Odt 4 Mg Tablet PO Q6H PRN Nausea And Vomiting Sodium Bicarbonate 1,300 mg 04/15/25 10:45 04/16/25 08:57 Sodium Bicarbonate Tab 650 Mg Tablet PO 1,300 mg BID MANISHA Administration Tamsulosin HCl 0.4 mg 04/12/25 22:30 04/15/25 20:26 Tamsulosin Hcl 0.4 Mg Capsule PO 0.4 mg HS MANISHA Administration Radiology Results: ITS Impressions Abdomen/Pelvis CT 04/12/25 15:19 IMPRESSION: 1. Multiple right renal masses with intermediate density. Correlation with CT or MRI with contrast recommended for further assessment. 2: Severe enlargement of the prostate gland likely causing outlet obstruction with resultant distention of the bladder and bilateral hydronephrosis. Pulmonary Perfusion Imaging 04/12/25 16:34 IMPRESSION: 1. High probability for pulmonary embolism. Findings were discussed with Kenna Williamson, the nurse caring for the patient, at 4:36 PM. Renal Ultrasound 04/12/25 21:07 Impression: 1: Multiple right renal cysts. No suspicious solid masses are identified to suggest malignancy. Chest X-Ray 04/13/25 08:35 IMPRESSION: 1. No acute cardiopulmonary disease. Venous Doppler Study 04/15/25 16:38 Impression: Right-sided DVT detailed above. Labs Labs: Laboratory Results - last 24 hr 04/15/25 04/15/25 04/16/25 16:49 17:58 00:18 WBC RBC Hgb Hct MCV MCH MCHC RDW Plt Count MPV Immature Gran % (Auto) Neut % (Auto) Lymph % (Auto) [place] % (Auto) Eos % (Auto) Baso % (Auto) Lymph # (Auto) [place] # (Auto) Eos # (Auto) Baso # (Auto) Abs Immat Gran (auto) Absolute Neuts (auto) Absolute Nucleated RBC Nucleated RBC % APTT 128.3 H 92.6 H Sodium Potassium Chloride Carbon Dioxide Anion Gap BUN Creatinine Estim Creat Clear Calc Estimated GFR Glucose POC Capillary Glucose 145 H Calcium Phosphorus Magnesium Total Bilirubin AST ALT Alkaline Phosphatase Total Protein Albumin 04/16/25 06:02 WBC 7.8 RBC 3.67 L Hgb 11.1 L Hct 34.0 L MCV 92.6 MCH 30.2 MCHC 32.6 RDW 15.6 H Plt Count 152 MPV 12.1 H Immature Gran % (Auto) 1.2 H Neut % (Auto) 74.7 H Lymph % (Auto) 12.9 L [place] % (Auto) 9.9 H Eos % (Auto) 1.2 Baso % (Auto) 0.1 L Lymph # (Auto) 1.00 [place] # (Auto) 0.8 H Eos # (Auto) 0.1 Baso # (Auto) 0.0 Abs Immat Gran (auto) 0.09 H Absolute Neuts (auto) 5.8 Absolute Nucleated RBC 0.120 H Nucleated RBC % 1.5 H APTT 93.6 H Sodium 136 L Potassium 3.3 L Chloride 103 Carbon Dioxide 23 Anion Gap 10 BUN 106 H* Creatinine 5.43 H Estim Creat Clear Calc 12 Estimated GFR 10 L Glucose 138 H POC Capillary Glucose Calcium 7.4 L Phosphorus 5.0 H Magnesium 1.7 Total Bilirubin 0.8 AST 25 ALT 20 Alkaline Phosphatase 62 Total Protein 5.0 L Albumin 2.8 L
--- NOTE | 2025-04-16 10:44 | PC.NURSE ---
This patient, Cosmo Voss, was transferred to [ [facility]] on 04/16/25 at 1044. Personal belongings sent with patient. Report given to [ neil]. Appropriate documentation sent with patient.
--- NOTE | 2025-04-16 11:17 | PM.PNCARD ---
Progress Note: A&P Assessment and Plan (1) Elevated troponin: Code(s): R79.89 - Other specified abnormal findings of blood chemistry Status: Acute Assessment and Plan: Continue heparin drip. Troponin likely secondary to the right heart strain from the pulmonary embolism (2) Atrial fibrillation: Qualifiers: Atrial fibrillation type: paroxysmal Qualified Code(s): I48.0 - Paroxysmal atrial fibrillation Code(s): I48.91 - Unspecified atrial fibrillation Status: Acute Assessment and Plan: Is tolerating low-dose carvedilol at 3.125 mg p.o. b.i.d.. Rate controlled (3) Pulmonary embolism: Qualifiers: Pulmonary embolism type: unspecified Chronicity: acute Acute cor pulmonale presence: unspecified Qualified Code(s): I26.99 - Other pulmonary embolism without acute cor pulmonale Code(s): I26.99 - Other pulmonary embolism without acute cor pulmonale Status: Acute Assessment and Plan: Continue heparin for now. Significant renal failure needs to be considered when choosing anticoagulant. Treatment per hospitalist (4) Moderate aortic stenosis: Code(s): I35.0 - Nonrheumatic aortic (valve) stenosis Status: Acute Assessment and Plan: Moderate. Will need outpatient echocardiographic surveillance (5) CHF (congestive heart failure): Code(s): I50.9 - Heart failure, unspecified Status: Acute Assessment and Plan: Chronic systolic: Carvedilol restarted yesterday. Potassium 3.4 but already replaced with 20 mEq per Nephrology Subjective Date/time seen: 04/16/25 11:17 Interval history: 79-year-old with a history of atrial fibrillation. Admitted for pulmonary embolism worsening shortness of breath, AFib Date of service 04/15/2025: Heart rate is controlled. Breathing better. No chest pain Date of service 04/16/2025: Doing better. Breathing easier. No chest pain. No edema. Review of Systems Review of Systems: All systems reviewed & are unremarkable except as noted in HPI and below Constitutional: Constitutional: Denies difficulty sleeping Eyes: Eyes: Denies blurry vision ENT: Reports Normal hearing present Cardiovascular: Cardiovascular: Reports as per HPI, Denies chest pain and Reports dyspnea Respiratory: Respiratory: Reports as per HPI and Reports dyspnea Gastrointestinal: Gastrointestinal: Denies abdominal pain Genitourinary: Genitourinary: Denies hematuria Musculoskeletal: Musculoskeletal: Denies back pain Integumentary/Breasts: Skin/Breast: Denies rash Neurologic: Reports Normal hearing present and Denies Abnormal speech present Psychiatric: Psychiatric: Denies anxiety Endocrine: Endocrine: Denies change in body appearance Hematologic/Lymphatic: Hematologic/Lymphatic: Denies easy bleeding Allergic/Immunologic: Allergic/Immunologic: Denies GI upset with certain foods Exam Narrative: Appears stated age Const: General: comfortable and no acute distress HENMT: Ears: TM's normal bilaterally Face/Nose/Sinus: Normal nares present Mouth: Yes moist mucous membranes Eyes: General: appearance normal, both eyes and all related structures Sclera: sclerae normal Neck: Neck: no JVD Resp: Effort & Inspection: normal respiratory effort Auscultation: clear to auscultation bilaterally Cardio: Rate: regular rate Rhythm: abnormal rhythm Heart sounds: Murmur heart sound present GI: Inspection: non-distended Skin: General skin exam: normal color Neuro: General: gait normal Cranial nerves: Yes Normal hearing present Speech: normal speech Extrem: General: normal to inspection and no pedal edema Psych: Mental Status: mental status grossly normal Objective Data Vital Signs Vital Signs: Vital Signs - 24 hr 04/15/25 12:00 04/15/25 15:59 04/15/25 16:00 Temperature 36.7 C Pulse Rate 76 75 71 Respiratory Rate 24 H Blood Pressure 115/72 Pulse Oximetry 96 Oxygen Delivery 04/15/25 20:00 04/15/25 20:02 04/15/25 20:25 Temperature Pulse Rate 67 67 78 Respiratory Rate 20 Blood Pressure Pulse Oximetry 96 Oxygen Delivery Room Air 04/16/25 00:00 04/16/25 00:00 04/16/25 04:00 Temperature 36.8 C Pulse Rate 69 72 79 Respiratory Rate 20 Blood Pressure 133/75 Pulse Oximetry 94 Oxygen Delivery 04/16/25 07:46 04/16/25 08:00 04/16/25 08:00 Temperature 36.8 C Pulse Rate 64 64 Respiratory Rate 16 Blood Pressure 142/67 H Pulse Oximetry 95 Oxygen Delivery Room Air Intake/Output Intake/Output: Intake & Output 04/13/25 04/14/25 04/15/25 04/16/25 23:59 23:59 23:59 23:59 Intake Total 4205.3 2810.6 1085.8 1189.1 Output Total 1652 1400 850 525 Balance 2553.3 1410.6 235.8 664.1 Meds/Results Medications: Active Medications Generic Name Dose Route Start Last Admin Trade Name Freq PRN Reason Stop Dose Admin Acetaminophen 650 mg 04/12/25 15:51 Acetaminophen 325 Mg Tablet PO Q6H PRN Mild Pain (1-3) or Fever Hydrocodone Bitart/Acetaminophen 1 tab 04/12/25 15:51 Hydrocodone/Acetaminophen (*Crx) 5-325 Mg Tablet PO Q6H PRN Pain Rated 4-6 Acyclovir 200 mg 04/12/25 22:30 04/16/25 08:58 Acyclovir 200 Mg Capsule PO 200 mg Q12HR MANISHA Administration Aspirin 81 mg 04/12/25 22:30 04/15/25 20:25 Aspirin 81 Mg Enteric Tablet PO 81 mg HS MANISHA Administration Calcium Carbonate 200 mg 04/12/25 15:51 Calcium Carbonate (Tums) 500 Mg (200 Mg Elemental) PO Q6H PRN Indigestion Carvedilol 3.125 mg 04/12/25 22:30 04/16/25 08:57 Carvedilol 3.125 Mg Tablet PO 3.125 mg Q12HR MANISHA Administration Dexamethasone 12 mg 04/18/25 09:00 Dexamethasone 4 Mg Tablet PO WEEKLY MANISHA Finasteride 5 mg 04/12/25 22:30 04/15/25 20:26 Finasteride 5 Mg Tablet PO 5 mg HS MANISHA Administration Heparin Sodium (Porcine) 6,000 units 04/12/25 16:39 04/15/25 10:05 Heparin Sodium 5,000 Units/Ml Vial IV PUSH 6,000 units PRN PRN Administration aPTT less than 55 seconds Heparin Sodium (Porcine) 3,000 units 04/12/25 16:39 04/14/25 20:50 Heparin Sodium 5,000 Units/Ml Vial IV PUSH 3,000 units PRN PRN Administration aPTT 55 - 70 seconds Heparin Sodium/Dextrose 25,000 units in 250 mls @ 13 mls/hr 04/12/25 16:40 04/16/25 07:46 Heparin Sodium/D5w 100 Units/Ml IV CONT Not Given .[id number] MANISHA Protocol 1,300 UNITS/HR Sodium Chloride 1,000 mls @ 75 mls/hr 04/15/25 10:40 04/16/25 08:58 Normal Saline Iv IV CONT 75 mls/hr .[id number] MANISHA Administration Ondansetron HCl 4 mg 04/12/25 15:51 Ondansetron Hcl Odt 4 Mg Tablet PO Q6H PRN Nausea And Vomiting Sodium Bicarbonate 1,300 mg 04/15/25 10:45 04/16/25 08:57 Sodium Bicarbonate Tab 650 Mg Tablet PO 1,300 mg BID MANISHA Administration Tamsulosin HCl 0.4 mg 04/12/25 22:30 04/15/25 20:26 Tamsulosin Hcl 0.4 Mg Capsule PO 0.4 mg HS MANISHA Administration Radiology Results: ITS Impressions Abdomen/Pelvis CT 04/12/25 15:19 IMPRESSION: 1. Multiple right renal masses with intermediate density. Correlation with CT or MRI with contrast recommended for further assessment. 2: Severe enlargement of the prostate gland likely causing outlet obstruction with resultant distention of the bladder and bilateral hydronephrosis. Pulmonary Perfusion Imaging 04/12/25 16:34 IMPRESSION: 1. High probability for pulmonary embolism. Findings were discussed with Kenna Williamson, the nurse caring for the patient, at 4:36 PM. Renal Ultrasound 04/12/25 21:07 Impression: 1: Multiple right renal cysts. No suspicious solid masses are identified to suggest malignancy. Chest X-Ray 04/13/25 08:35 IMPRESSION: 1. No acute cardiopulmonary disease. Venous Doppler Study 04/15/25 16:38 Impression: Right-sided DVT detailed above. Labs Labs: Laboratory Results - last 24 hr 04/15/25 04/15/25 04/16/25 16:49 17:58 00:18 WBC RBC Hgb Hct MCV MCH MCHC RDW Plt Count MPV Immature Gran % (Auto) Neut % (Auto) Lymph % (Auto) [place] % (Auto) Eos % (Auto) Baso % (Auto) Lymph # (Auto) [place] # (Auto) Eos # (Auto) Baso # (Auto) Abs Immat Gran (auto) Absolute Neuts (auto) Absolute Nucleated RBC Nucleated RBC % APTT 128.3 H 92.6 H Sodium Potassium Chloride Carbon Dioxide Anion Gap BUN Creatinine Estim Creat Clear Calc Estimated GFR Glucose POC Capillary Glucose 145 H Calcium Phosphorus Magnesium Total Bilirubin AST ALT Alkaline Phosphatase Total Protein Albumin 04/16/25 06:02 WBC 7.8 RBC 3.67 L Hgb 11.1 L Hct 34.0 L MCV 92.6 MCH 30.2 MCHC 32.6 RDW 15.6 H Plt Count 152 MPV 12.1 H Immature Gran % (Auto) 1.2 H Neut % (Auto) 74.7 H Lymph % (Auto) 12.9 L [place] % (Auto) 9.9 H Eos % (Auto) 1.2 Baso % (Auto) 0.1 L Lymph # (Auto) 1.00 [place] # (Auto) 0.8 H Eos # (Auto) 0.1 Baso # (Auto) 0.0 Abs Immat Gran (auto) 0.09 H Absolute Neuts (auto) 5.8 Absolute Nucleated RBC 0.120 H Nucleated RBC % 1.5 H APTT 93.6 H Sodium 136 L Potassium 3.3 L Chloride 103 Carbon Dioxide 23 Anion Gap 10 BUN 106 H* Creatinine 5.43 H Estim Creat Clear Calc 12 Estimated GFR 10 L Glucose 138 H POC Capillary Glucose Calcium 7.4 L Phosphorus 5.0 H Magnesium 1.7 Total Bilirubin 0.8 AST 25 ALT 20 Alkaline Phosphatase 62 Total Protein 5.0 L Albumin 2.8 L
[2025-04-16] MEDS: HEPARIN SOD/D5W 100 UNITS/ML 25,000 UNITS/250 ML BAG 13 UNITS IV CONT (11:18)
[2025-04-16 12:29] LABS: INR 1.3; Prothrombin Time 16.1 Seconds (11.1-14.7)
[2025-04-16] MEDS: WARFARIN (*PBKC) 5 MG TABLET PO (17:17)
[2025-04-16] MEDS: TAMSULOSIN HCL 0.4 MG CAPSULE PO (20:25)
[2025-04-16] MEDS: ASPIRIN 81 MG ENTERIC TABLET PO (20:25)
[2025-04-16] MEDS: FINASTERIDE 5 MG TABLET PO (20:25)
[2025-04-17] VITALS (8 sets, daily range): BP systolic 124–152; BP diastolic 76–85; PULSE 54–84; RESP 16–18; TEMP 36.4–36.6; O2SAT 94–97
[2025-04-17 05:47] LABS: Hematocrit 34.5 % (42.0-52.0); Hemoglobin 11.0 g/dL (14.0-18.0); Immature Granulocyte Percent A 1.2 % (0-0.5); Lymphocytes Absolute Auto 0.82 K/mm3 (0.9-3.2); Mean Corpuscular HGB Conc 31.9 g/dl (32-36); Mean Corpuscular Hemoglobin 29.5 pg (26-34); Mean Corpuscular Volume 92.5 fl (80-100); Nucleated Red Blood Cells Absolute Auto 0.120 K/mm3 (0.0-0.012); Nucleated Red Blood Cells Perc 1.8 % (0.0-0.2); Platelet Count Result 148 k/mm3 (150-375); Red Blood Count 3.73 M/mm3 (4.6-6.20); White Blood Count 6.8 K/mm3 (4.5-10.0)
[2025-04-17] MEDS: HEPARIN SOD/D5W 100 UNITS/ML 25,000 UNITS/250 ML BAG 13 UNITS IV CONT (05:57)
[2025-04-17 06:03] LABS: INR 1.2; Prothrombin Time 15.7 Seconds (11.1-14.7)
[2025-04-17 06:04] LABS: Alanine Aminotransferase 17 U/L (6-50); Albumin Level 2.8 g/dL (3.5-5.1); Alkaline Phosphatase 56 U/L (38-126); Anion Gap 10 mmol/L (4-12); Aspartate Amino Transferase 21 U/L (17-59); Bilirubin,Total 0.6 mg/dL (0.2-1.3); Blood Urea Nitrogen 97 mg/dL (9-20); Calcium 7.4 mg/dL (8.4-10.2); Carbon Dioxide 22 mmol/L (22-30); Chloride 104 mmol/L (98-107); Estimated CRCL calculation 13 ml/min; Estimated Glomerular Filt Rate 12; Glucose 136 mg/dL (65-110); Magnesium 1.7 mg/dL (1.6-2.3); Potassium 3.5 mmol/L (3.4-5.0); Sodium 136 mmol/L (137-145); Total Protein 5.0 g/dL (6.3-8.2)
[2025-04-17 06:05] LABS: Partial Thromboplastin Time 89.1 Seconds (22.3-36.8)
[2025-04-17] MEDS: SODIUM BICARBONATE TAB 650 MG TABLET 1300 MG PO ×2 (09:18→17:45)
[2025-04-17] MEDS: ACYCLOVIR 200 MG CAPSULE PO ×2 (09:18→20:34)
--- NOTE | 2025-04-17 11:36 | P.PNNP_ITS ---
Progress Note: A&P Assessment and Plan (1) Acute kidney injury: Code(s): N17.9 - Acute kidney failure, unspecified Status: Acute Assessment and Plan: * suspect this was present on admission * slow improvement in creatinine noted since hospitalization began... * multifactorial etiology: * relative hypotension * possible embolic event (given #5)? * element of CKD progression(?) * other(?) * evaluation to date noted: * CT of A/P with evidence of BPH and obstruction/bilateral hydronephrosis * renal ultrasound with multiple right renal cysts * urine electrolytes non-prerenal * urine eosinophils negative * CPK only mildly elevated (not enough to affect kidney function) * moderate proteinuria * bailon catheter in place * follow respiratory and volume status closely - so far no sign of volume overload * no symptoms of uremia, critical electrolytes, or volume overload; hence, no need urgent dialysis at this time * follow trend of repeat labs and UOP (2) Stage 5 chronic kidney disease: Code(s): N18.5 - Chronic kidney disease, stage 5 Status: Chronic Assessment and Plan: * unclear what baseline creatinine normally runs... * however, patient able to verify that he has CKD stage V * was referred to Vascular Surgery for AV access placement * attempt to get records from his physician back home ([place], [place]) to ascertain baseline creatinine/GFR) (3) Hyperkalemia: Code(s): E87.5 - Hyperkalemia Status: Acute Assessment and Plan: * resolved (4) Metabolic acidosis: Code(s): E87.20 - Acidosis, unspecified Status: Acute Assessment and Plan: * resolved * on oral bicarb (5) Pulmonary embolism: Qualifiers: Acute cor pulmonale presence: unspecified Chronicity: acute Pulmonary embolism type: unspecified Qualified Code(s): I26.99 - Other pulmonary embolism without acute cor pulmonale Code(s): I26.99 - Other pulmonary embolism without acute cor pulmonale Status: Acute Assessment and Plan: * presumed etiology of shortness of breath * recent car travel a week ago ([place], [place] --> to this area) * V/Q scan with high probability for PE * lower extremity dopplers with right LE DVT * on heparin gtt and coumadin * follow INR (6) Azotemia: Code(s): R79.89 - Other specified abnormal findings of blood chemistry Status: Acute Assessment and Plan: * noted rising BUN (despite improvement in creatinine) * DUN slowly down trending * etiology? * possible hypercatabolic state? * bleeding issue? * related to his advanced CKD... * follow trend of BUN (7) Shortness of breath: Code(s): R06.02 - Shortness of breath Status: Acute Assessment and Plan: * slow improvement * as noted on presentation * likely due to PE (8) Elevated troponin: Code(s): R79.89 - Other specified abnormal findings of blood chemistry Status: Acute Assessment and Plan: * noted by testing in ER * EKGs noted - evidence of Afib but no acute ST elevations/depressions * Cardiology recommendations noted * Echo results noted: * normal appearing left ventricular size with vigorous systolic function * right ventricular enlargement with right ventricular hypokinesia * at least moderate if not moderate to severe aortic stenosis. * suspect secondary to right heart strain from PE (9) Atrial fibrillation: Qualifiers: Atrial fibrillation type: paroxysmal Qualified Code(s): I48.0 - Paroxysmal atrial fibrillation Code(s): I48.91 - Unspecified atrial fibrillation Status: Acute Assessment and Plan: * supposedly new onset (or at least paroxysmal) * follow telemetry * rate control strategy * on anticoagulation (heparin gtt + coumadin) (10) Anemia: Code(s): D64.9 - Anemia, unspecified Status: Acute Assessment and Plan: * due in part to TEOFILO and CKD along with IVF hydration * cannot discount multiple myeloma playing a role * no need for JOSE * follow trend of H/H (11) Multiple myeloma: Code(s): C90.00 - Multiple myeloma not having achieved remission Status: Chronic Assessment and Plan: * follows with Hem/Onc * on active treatment (12) Diabetes: Qualifiers: Chronic kidney disease stage: stage 5 (GFR < 15), not on chronic dialysis Diabetes mellitus complication detail: with chronic kidney disease D iabetes mellitus complication status: with kidney complications 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 L Subjective Date/time seen: 04/17/25 11:36 Interval history: Follow-up for acute kidney injury/acute renal failure on chronic kidney disease. Chart reviewed since last seen -- renal function/creatinine continues to slowly improve with current interventions/therapy; breathing seems to be doing reasonably well (off supplemental oxygen); remains on heparin gtt as well as coumadin; no apparent distress noted when seen. Exam 2 Narrative: General: elderly but WD/WN male in NAD Heart: normal S1 and S2; no rub Lungs: clear to auscultation Abdomen: soft, nondistended, positive bowel sounds Extremities: no cyanosis or clubbing; trace edema Skin: no rash Objective Data Vital Signs Vital Signs: Vital Signs Temp Pulse Resp BP Pulse Ox O2 Del Method 04/17/25 08:00 69 04/17/25 08:00 69 16 94 Room Air 04/17/25 06:01 98 F 69 16 152/77 H 94 04/17/25 04:00 73 04/17/25 00:00 97.8 F 55 L 18 147/76 H 04/17/25 00:00 70 04/16/25 20:00 64 04/16/25 20:00 Room Air Intake/Output Intake/Output: Intake & Output 04/14/25 04/15/25 04/16/25 04/17/25 23:59 23:59 23:59 23:59 Intake Total 2810.6 1085.8 2116.4 2322.5 Output Total 1400 518 179 3054 Balance 1410.6 235.8 1591.4 1147.5 Meds/Results Medications: Active Medications Generic Name Dose Route Start Last Admin Trade Name Freq PRN Reason Stop Dose Admin Acetaminophen 650 mg 04/12/25 15:51 Acetaminophen 325 Mg Tablet PO Q6H PRN Mild Pain (1-3) or Fever Hydrocodone Bitart/Acetaminophen 1 tab 04/12/25 15:51 Hydrocodone/Acetaminophen (*Crx) 5-325 Mg Tablet PO Q6H PRN Pain Rated 4-6 Acyclovir 200 mg 04/12/25 22:30 04/17/25 09:18 Acyclovir 200 Mg Capsule PO 200 mg Q12HR MANISHA Administration Aspirin 81 mg 04/12/25 22:30 04/16/25 20:25 Aspirin 81 Mg Enteric Tablet PO 81 mg HS MANISHA Administration Calcium Carbonate 200 mg 04/12/25 15:51 Calcium Carbonate (Tums) 500 Mg (200 Mg Elemental) PO Q6H PRN Indigestion Carvedilol 3.125 mg 04/12/25 22:30 04/17/25 09:18 Carvedilol 3.125 Mg Tablet PO 3.125 mg Q12HR MANISHA Administration Dexamethasone 12 mg 04/18/25 09:00 Dexamethasone 4 Mg Tablet PO WEEKLY MANISHA Finasteride 5 mg 04/12/25 22:30 04/16/25 20:25 Finasteride 5 Mg Tablet PO 5 mg HS MANISHA Administration Heparin Sodium (Porcine) 6,000 units 04/12/25 16:39 04/15/25 10:05 Heparin Sodium 5,000 Units/Ml Vial IV PUSH 6,000 units PRN PRN Administration aPTT less than 55 seconds Heparin Sodium (Porcine) 3,000 units 04/12/25 16:39 04/14/25 20:50 Heparin Sodium 5,000 Units/Ml Vial IV PUSH 3,000 units PRN PRN Administration aPTT 55 - 70 seconds Heparin Sodium/Dextrose 25,000 units in 250 mls @ 13 mls/hr 04/12/25 16:40 04/17/25 05:57 Heparin Sodium/D5w 100 Units/Ml IV CONT 1,300 units/hr .[id number] MANISHA 13 mls/hr Protocol Administration 1,300 UNITS/HR Sodium Chloride 1,000 mls @ 75 mls/hr 04/15/25 10:40 04/17/25 14:37 Normal Saline Iv IV CONT 75 mls/hr .[id number] MANISHA Administration Ondansetron HCl 4 mg 04/12/25 15:51 Ondansetron Hcl Odt 4 Mg Tablet PO Q6H PRN Nausea And Vomiting Sodium Bicarbonate 1,300 mg 04/15/25 10:45 04/17/25 17:45 Sodium Bicarbonate Tab 650 Mg Tablet PO 1,300 mg BID MANISHA Administration Tamsulosin HCl 0.4 mg 04/12/25 22:30 04/16/25 20:25 Tamsulosin Hcl 0.4 Mg Capsule PO 0.4 mg HS MANISHA Administration Warfarin Sodium 5 mg 04/16/25 17:00 04/17/25 17:45 Warfarin (*Pbkc) 5 Mg Tablet PO 5 mg DAILY@1700 MANISHA Administration Radiology Results: ITS Impressions Abdomen/Pelvis CT 04/12/25 15:19 IMPRESSION: 1. Multiple right renal masses with intermediate density. Correlation with CT or MRI with contrast recommended for further assessment. 2: Severe enlargement of the prostate gland likely causing outlet obstruction with resultant distention of the bladder and bilateral hydronephrosis. Pulmonary Perfusion Imaging 04/12/25 16:34 IMPRESSION: 1. High probability for pulmonary embolism. Findings were discussed with Kenna Williamson, the nurse caring for the patient, at 4:36 PM. Renal Ultrasound 04/12/25 21:07 Impression: 1: Multiple right renal cysts. No suspicious solid masses are identified to suggest malignancy. Chest X-Ray 04/13/25 08:35 IMPRESSION: 1. No acute cardiopulmonary disease. Venous Doppler Study 04/15/25 16:38 Impression: Right-sided DVT detailed above. Abdomen X-Ray 04/17/25 08:50 IMPRESSION: 1. Nonspecific mild gas pattern with no frankly dilated gas-filled loops of bowel to suggest obstruction. Labs Labs: Laboratory Tests 04/17/25 05:20 04/17/25 05:20 Calcium 7.4 L Phosphorus 4.6 H Magnesium 1.7 Total Bilirubin 0.6 AST 21 ALT 17 Alkaline Phosphatase 56 Total Protein 5.0 L Albumin 2.8 L
--- NOTE | 2025-04-17 14:26 | P.PNCA_ITS ---
Progress Note: A&P Assessment and Plan (1) Elevated troponin: Code(s): R79.89 - Other specified abnormal findings of blood chemistry Status: Acute Assessment and Plan: Continue heparin drip. Troponin likely secondary to the right heart strain from the pulmonary embolism. No chest pain (2) Atrial fibrillation: Qualifiers: Atrial fibrillation type: paroxysmal Qualified Code(s): I48.0 - Paroxysmal atrial fibrillation Code(s): I48.91 - Unspecified atrial fibrillation Status: Acute Assessment and Plan: Is tolerating low-dose carvedilol at 3.125 mg p.o. b.i.d.. Rate controlled Continue heparin for anticoagulation (3) Pulmonary embolism: Qualifiers: Acute cor pulmonale presence: unspecified Chronicity: acute Pulmonary embolism type: unspecified Qualified Code(s): I26.99 - Other pulmonary embolism without acute cor pulmonale Code(s): I26.99 - Other pulmonary embolism without acute cor pulmonale Status: Acute Assessment and Plan: Continue heparin for now. Transition to Coumadin. Unable to add DOAC due to renal failure. Treatment per hospitalist (4) Moderate aortic stenosis: Code(s): I35.0 - Nonrheumatic aortic (valve) stenosis Status: Acute Assessment and Plan: Moderate. Will need outpatient echocardiographic surveillance (5) CHF (congestive heart failure): Code(s): I50.9 - Heart failure, unspecified Status: Acute Assessment and Plan: * Chronic systolic, last TTE shows normal LVEF: Continue Coreg Subjective Date/time seen: 04/17/25 14:26 Interval history: Reason for encounter: 79-year-old with a history of atrial fibrillation. Admitted for pulmonary embolism, worsening shortness of breath, AFib Interval history: Heart rate is controlled. No chest pain or shortness of breath. Review of Systems Cardiovascular: Comments: As per HPI Respiratory: Comments: As per HPI Exam Narrative: General: Alert oriented x3, no acute distress Neck: Supple, JVD + Chest: Bilaterally clear to auscultation, no rales or rhonchi Cardiac: S1, S2 +, regular rate, regular rhythm, no murmurs or rubs Extremities: Bilateral lower extremity edema 1+, no skin rash Neurologic: Alert and oriented x3, no focal neurological deficits Objective Data Vital Signs Vital Signs: Vital Signs - 24 hr 04/16/25 16:00 04/16/25 20:00 04/16/25 20:00 Temperature Pulse Rate 72 64 Respiratory Rate Blood Pressure Pulse Oximetry Oxygen Delivery Room Air 04/17/25 00:00 04/17/25 00:00 04/17/25 04:00 Temperature 36.6 C Pulse Rate 70 55 L 73 Respiratory Rate 18 Blood Pressure 147/76 H Pulse Oximetry Oxygen Delivery 04/17/25 06:01 04/17/25 08:00 04/17/25 08:00 Temperature 36.6 C Pulse Rate 69 69 69 Respiratory Rate 16 16 Blood Pressure 152/77 H Pulse Oximetry 94 94 Oxygen Delivery Room Air 04/17/25 12:00 Temperature Pulse Rate 54 L Respiratory Rate Blood Pressure Pulse Oximetry Oxygen Delivery Intake/Output Intake/Output: Intake & Output 04/14/25 04/15/25 04/16/25 04/17/25 23:59 23:59 23:59 23:59 Intake Total 2810.6 1085.8 2116.4 722.5 Output Total 1400 850 525 625 Balance 1410.6 235.8 1591.4 97.5 Meds/Results Medications: Active Medications Generic Name Dose Route Start Last Admin Trade Name Freq PRN Reason Stop Dose Admin Acetaminophen 650 mg 04/12/25 15:51 Acetaminophen 325 Mg Tablet PO Q6H PRN Mild Pain (1-3) or Fever Hydrocodone Bitart/Acetaminophen 1 tab 04/12/25 15:51 Hydrocodone/Acetaminophen (*Crx) 5-325 Mg Tablet PO Q6H PRN Pain Rated 4-6 Acyclovir 200 mg 04/12/25 22:30 04/17/25 09:18 Acyclovir 200 Mg Capsule PO 200 mg Q12HR MANISHA Administration Aspirin 81 mg 04/12/25 22:30 04/16/25 20:25 Aspirin 81 Mg Enteric Tablet PO 81 mg HS MANISHA Administration Calcium Carbonate 200 mg 04/12/25 15:51 Calcium Carbonate (Tums) 500 Mg (200 Mg Elemental) PO Q6H PRN Indigestion Carvedilol 3.125 mg 04/12/25 22:30 04/17/25 09:18 Carvedilol 3.125 Mg Tablet PO 3.125 mg Q12HR MANISHA Administration Dexamethasone 12 mg 04/18/25 09:00 Dexamethasone 4 Mg Tablet PO WEEKLY MANISHA Finasteride 5 mg 04/12/25 22:30 04/16/25 20:25 Finasteride 5 Mg Tablet PO 5 mg HS MANISHA Administration Heparin Sodium (Porcine) 6,000 units 04/12/25 16:39 04/15/25 10:05 Heparin Sodium 5,000 Units/Ml Vial IV PUSH 6,000 units PRN PRN Administration aPTT less than 55 seconds Heparin Sodium (Porcine) 3,000 units 04/12/25 16:39 04/14/25 20:50 Heparin Sodium 5,000 Units/Ml Vial IV PUSH 3,000 units PRN PRN Administration aPTT 55 - 70 seconds Heparin Sodium/Dextrose 25,000 units in 250 mls @ 13 mls/hr 04/12/25 16:40 04/17/25 05:57 Heparin Sodium/D5w 100 Units/Ml IV CONT 1,300 units/hr .[id number] MANISHA 13 mls/hr Protocol Administration 1,300 UNITS/HR Sodium Chloride 1,000 mls @ 75 mls/hr 04/15/25 10:40 04/16/25 20:25 Normal Saline Iv IV CONT 75 mls/hr .[id number] MANISHA Administration Ondansetron HCl 4 mg 04/12/25 15:51 Ondansetron Hcl Odt 4 Mg Tablet PO Q6H PRN Nausea And Vomiting Sodium Bicarbonate 1,300 mg 04/15/25 10:45 04/17/25 09:18 Sodium Bicarbonate Tab 650 Mg Tablet PO 1,300 mg BID MANISHA Administration Tamsulosin HCl 0.4 mg 04/12/25 22:30 04/16/25 20:25 Tamsulosin Hcl 0.4 Mg Capsule PO 0.4 mg HS MANISHA Administration Warfarin Sodium 5 mg 04/16/25 17:00 04/16/25 17:17 Warfarin (*Pbkc) 5 Mg Tablet PO 5 mg DAILY@1700 MANISHA Administration Radiology Results: ITS Impressions Abdomen/Pelvis CT 04/12/25 15:19 IMPRESSION: 1. Multiple right renal masses with intermediate density. Correlation with CT or MRI with contrast recommended for further assessment. 2: Severe enlargement of the prostate gland likely causing outlet obstruction with resultant distention of the bladder and bilateral hydronephrosis. Pulmonary Perfusion Imaging 04/12/25 16:34 IMPRESSION: 1. High probability for pulmonary embolism. Findings were discussed with Kenna Williamson, the nurse caring for the patient, at 4:36 PM. Renal Ultrasound 04/12/25 21:07 Impression: 1: Multiple right renal cysts. No suspicious solid masses are identified to suggest malignancy. Chest X-Ray 04/13/25 08:35 IMPRESSION: 1. No acute cardiopulmonary disease. Venous Doppler Study 04/15/25 16:38 Impression: Right-sided DVT detailed above. Abdomen X-Ray 04/17/25 08:50 IMPRESSION: 1. Nonspecific mild gas pattern with no frankly dilated gas-filled loops of bowel to suggest obstruction. Labs Labs: Laboratory Results - last 24 hr 04/17/25 05:20 WBC 6.8 RBC 3.73 L Hgb 11.0 L Hct 34.5 L MCV 92.5 MCH 29.5 MCHC 31.9 L RDW 15.3 H Plt Count 148 L MPV 11.0 H Immature Gran % (Auto) 1.2 H Neut % (Auto) 74.7 H Lymph % (Auto) 12.1 L [place] % (Auto) 9.0 H Eos % (Auto) 2.7 Baso % (Auto) 0.3 Lymph # (Auto) 0.82 L [place] # (Auto) 0.6 Eos # (Auto) 0.2 Baso # (Auto) 0.0 Abs Immat Gran (auto) 0.08 H Absolute Neuts (auto) 5.1 Absolute Nucleated RBC 0.120 H Nucleated RBC % 1.8 H PT 15.7 H INR 1.2 APTT 89.1 H Sodium 136 L Potassium 3.5 Chloride 104 Carbon Dioxide 22 Anion Gap 10 BUN 97 H Creatinine 4.87 H Estim Creat Clear Calc 13 Estimated GFR 12 L Glucose 136 H Calcium 7.4 L Phosphorus 4.6 H Magnesium 1.7 Total Bilirubin 0.6 AST 21 ALT 17 Alkaline Phosphatase 56 Total Protein 5.0 L Albumin 2.8 L
[2025-04-17] MEDS: SODIUM CHLORIDE 0.9% IV 1,000 ML 75 ML IV CONT (14:37)
[2025-04-17] MEDS: WARFARIN (*PBKC) 5 MG TABLET PO (17:45)
[2025-04-17] MEDS: TAMSULOSIN HCL 0.4 MG CAPSULE PO (20:34)
[2025-04-17] MEDS: ASPIRIN 81 MG ENTERIC TABLET PO (20:34)
[2025-04-17] MEDS: FINASTERIDE 5 MG TABLET PO (20:35)
[2025-04-18] VITALS (10 sets, daily range): BP systolic 135–159; BP diastolic 61–87; PULSE 46–70; RESP 16–18; TEMP 36.3–36.7; O2SAT 97
--- NOTE | 2025-04-18 00:12 | P.PNIM_ITS ---
Progress Note: A&P Assessment and Plan (1) Pulmonary embolism: Qualifiers: Pulmonary embolism type: unspecified Chronicity: acute Acute cor pulmonale presence: unspecified Qualified Code(s): I26.99 - Other pulmonary embolism without acute cor pulmonale Code(s): I26.99 - Other pulmonary embolism without acute cor pulmonale Status: Acute Plan monitor INR and adjust warfarin per hospital/pharmacy protocol, first dose adjustment should be on day 3 (04/18/25) Subjective Date/time seen: 04/17/25 1900 Interval history: NAOE. pt denying any complaints. multiple family members at bedside, all of their concerns were addressed. pt denies SOB Review of Systems Review of Systems: All systems reviewed & are unremarkable except as noted in HPI and below (subjective) Exam Const: General: comfortable and no acute distress HENMT: Mouth: Yes moist mucous membranes Eyes: Pupils: Equal, round and reactive pupils present Neck: Neck: supple Resp: Effort & Inspection: normal respiratory effort Auscultation: clear to auscultation bilaterally Cardio: Rhythm: abnormal rhythm GI: GI Palp: Yes Soft to palpation Extrem: General: no edema Objective Data Vital Signs Vital Signs: Vital Signs - 24 hr 04/17/25 04:00 04/17/25 06:01 04/17/25 08:00 Temperature 98 F Pulse Rate 73 69 69 Respiratory Rate 16 16 Blood Pressure 152/77 H Pulse Oximetry 94 94 Oxygen Delivery Room Air 04/17/25 08:00 04/17/25 12:00 04/17/25 16:00 Temperature 97.5 F L Pulse Rate 69 54 L 60 Respiratory Rate 18 Blood Pressure 143/85 H Pulse Oximetry 97 Oxygen Delivery 04/17/25 16:00 04/17/25 20:00 04/17/25 20:00 Temperature Pulse Rate 57 L 55 L Respiratory Rate Blood Pressure Pulse Oximetry Oxygen Delivery Room Air 04/17/25 21:17 Temperature 97.8 F Pulse Rate 84 Respiratory Rate 18 Blood Pressure 124/77 Pulse Oximetry 95 Oxygen Delivery Intake/Output Intake/Output: Intake & Output 04/15/25 04/16/25 04/17/25 04/18/25 23:59 23:59 23:59 23:59 Intake Total 1085.8 2116.4 2322.5 Output Total 906 750 7250 Balance 235.8 1591.4 1147.5 Meds/Results Medications: Active Medications Generic Name Dose Route Start Last Admin Trade Name Freq PRN Reason Stop Dose Admin Acetaminophen 650 mg 04/12/25 15:51 Acetaminophen 325 Mg Tablet PO Q6H PRN Mild Pain (1-3) or Fever Hydrocodone Bitart/Acetaminophen 1 tab 04/12/25 15:51 Hydrocodone/Acetaminophen (*Crx) 5-325 Mg Tablet PO Q6H PRN Pain Rated 4-6 Acyclovir 200 mg 04/12/25 22:30 04/17/25 20:34 Acyclovir 200 Mg Capsule PO 200 mg Q12HR MANISHA Administration Aspirin 81 mg 04/12/25 22:30 04/17/25 20:34 Aspirin 81 Mg Enteric Tablet PO 81 mg HS MANISHA Administration Calcium Carbonate 200 mg 04/12/25 15:51 Calcium Carbonate (Tums) 500 Mg (200 Mg Elemental) PO Q6H PRN Indigestion Carvedilol 3.125 mg 04/12/25 22:30 04/17/25 20:34 Carvedilol 3.125 Mg Tablet PO 3.125 mg Q12HR MANISHA Administration Dexamethasone 12 mg 04/18/25 09:00 Dexamethasone 4 Mg Tablet PO WEEKLY MANISHA Finasteride 5 mg 04/12/25 22:30 04/17/25 20:35 Finasteride 5 Mg Tablet PO 5 mg HS MANISHA Administration Heparin Sodium (Porcine) 6,000 units 04/12/25 16:39 04/15/25 10:05 Heparin Sodium 5,000 Units/Ml Vial IV PUSH 6,000 units PRN PRN Administration aPTT less than 55 seconds Heparin Sodium (Porcine) 3,000 units 04/12/25 16:39 04/14/25 20:50 Heparin Sodium 5,000 Units/Ml Vial IV PUSH 3,000 units PRN PRN Administration aPTT 55 - 70 seconds Heparin Sodium/Dextrose 25,000 units in 250 mls @ 13 mls/hr 04/12/25 16:40 04/17/25 05:57 Heparin Sodium/D5w 100 Units/Ml IV CONT 1,300 units/hr .[id number] MANISHA 13 mls/hr Protocol Administration 1,300 UNITS/HR Sodium Chloride 1,000 mls @ 75 mls/hr 04/15/25 10:40 04/17/25 14:37 Normal Saline Iv IV CONT 75 mls/hr .[id number] MANISHA Administration Ondansetron HCl 4 mg 04/12/25 15:51 Ondansetron Hcl Odt 4 Mg Tablet PO Q6H PRN Nausea And Vomiting Sodium Bicarbonate 1,300 mg 04/15/25 10:45 04/17/25 17:45 Sodium Bicarbonate Tab 650 Mg Tablet PO 1,300 mg BID MANISHA Administration Tamsulosin HCl 0.4 mg 04/12/25 22:30 04/17/25 20:34 Tamsulosin Hcl 0.4 Mg Capsule PO 0.4 mg HS MANISHA Administration Warfarin Sodium 5 mg 04/16/25 17:00 04/17/25 17:45 Warfarin (*Pbkc) 5 Mg Tablet PO 5 mg DAILY@1700 MANISHA Administration Radiology Results: ITS Impressions Abdomen/Pelvis CT 04/12/25 15:19 IMPRESSION: 1. Multiple right renal masses with intermediate density. Correlation with CT or MRI with contrast recommended for further assessment. 2: Severe enlargement of the prostate gland likely causing outlet obstruction with resultant distention of the bladder and bilateral hydronephrosis. Pulmonary Perfusion Imaging 04/12/25 16:34 IMPRESSION: 1. High probability for pulmonary embolism. Findings were discussed with Kenna Williamson, the nurse caring for the patient, at 4:36 PM. Renal Ultrasound 04/12/25 21:07 Impression: 1: Multiple right renal cysts. No suspicious solid masses are identified to suggest malignancy. Chest X-Ray 04/13/25 08:35 IMPRESSION: 1. No acute cardiopulmonary disease. Venous Doppler Study 04/15/25 16:38 Impression: Right-sided DVT detailed above. Abdomen X-Ray 04/17/25 08:50 IMPRESSION: 1. Nonspecific mild gas pattern with no frankly dilated gas-filled loops of bowel to suggest obstruction. Labs Labs: Laboratory Results - last 24 hr 04/17/25 05:20 WBC 6.8 RBC 3.73 L Hgb 11.0 L Hct 34.5 L MCV 92.5 MCH 29.5 MCHC 31.9 L RDW 15.3 H Plt Count 148 L MPV 11.0 H Immature Gran % (Auto) 1.2 H Neut % (Auto) 74.7 H Lymph % (Auto) 12.1 L [place] % (Auto) 9.0 H Eos % (Auto) 2.7 Baso % (Auto) 0.3 Lymph # (Auto) 0.82 L [place] # (Auto) 0.6 Eos # (Auto) 0.2 Baso # (Auto) 0.0 Abs Immat Gran (auto) 0.08 H Absolute Neuts (auto) 5.1 Absolute Nucleated RBC 0.120 H Nucleated RBC % 1.8 H PT 15.7 H INR 1.2 APTT 89.1 H Sodium 136 L Potassium 3.5 Chloride 104 Carbon Dioxide 22 Anion Gap 10 BUN 97 H Creatinine 4.87 H Estim Creat Clear Calc 13 Estimated GFR 12 L Glucose 136 H Calcium 7.4 L Phosphorus 4.6 H Magnesium 1.7 Total Bilirubin 0.6 AST 21 ALT 17 Alkaline Phosphatase 56 Total Protein 5.0 L Albumin 2.8 L
[2025-04-18] MEDS: HEPARIN SOD/D5W 100 UNITS/ML 25,000 UNITS/250 ML BAG 13 UNITS IV CONT ×2 (00:35→19:06)
[2025-04-18] MEDS: SODIUM CHLORIDE 0.9% IV 1,000 ML 75 ML IV CONT (00:35)
[2025-04-18 05:54] LABS: Hematocrit 34.0 % (42.0-52.0); Hemoglobin 10.8 g/dL (14.0-18.0); Immature Granulocyte Percent A 1.4 % (0-0.5); Immature Platelet Fraction Pct 4.4 % (0.9-11.2); Lymphocytes Absolute Auto 0.71 K/mm3 (0.9-3.2); Mean Corpuscular HGB Conc 31.8 g/dl (32-36); Mean Corpuscular Hemoglobin 29.6 pg (26-34); Mean Corpuscular Volume 93.2 fl (80-100); Nucleated Red Blood Cells Absolute Auto 0.060 K/mm3 (0.0-0.012); Nucleated Red Blood Cells Perc 0.8 % (0.0-0.2); Platelet Count Result 141 k/mm3 (150-375); Red Blood Count 3.65 M/mm3 (4.6-6.20); White Blood Count 7.1 K/mm3 (4.5-10.0)
[2025-04-18 06:03] LABS: INR 1.5; Prothrombin Time 17.4 Seconds (11.1-14.7)
[2025-04-18 06:08] LABS: Alanine Aminotransferase 14 U/L (6-50); Albumin Level 2.7 g/dL (3.5-5.1); Alkaline Phosphatase 60 U/L (38-126); Anion Gap 8 mmol/L (4-12); Aspartate Amino Transferase 17 U/L (17-59); Bilirubin,Total 0.5 mg/dL (0.2-1.3); Blood Urea Nitrogen 89 mg/dL (9-20); Calcium 7.3 mg/dL (8.4-10.2); Carbon Dioxide 23 mmol/L (22-30); Chloride 106 mmol/L (98-107); Estimated CRCL calculation 15 ml/min; Estimated Glomerular Filt Rate 13; Glucose 141 mg/dL (65-110); Magnesium 1.7 mg/dL (1.6-2.3); Potassium 3.3 mmol/L (3.4-5.0); Sodium 137 mmol/L (137-145); Total Protein 4.9 g/dL (6.3-8.2)
[2025-04-18] MEDS: SODIUM BICARBONATE TAB 650 MG TABLET 1300 MG PO ×2 (08:59→17:17)
[2025-04-18] MEDS: ACYCLOVIR 200 MG CAPSULE PO ×2 (08:59→21:50)
--- NOTE | 2025-04-18 10:59 | PN_ITS ---
This document was recreated on 05/08/2025. The original document was signed by Benita Cameron APRN on 04/18/2025 1104. Progress Note: A&P Assessment and Plan (1) Elevated troponin: Code(s): R79.89 - Other specified abnormal findings of blood chemistry Status: Acute Assessment and Plan: Continue heparin drip. Troponin likely secondary to the right heart strain from the pulmonary embolism. No chest pain Follows with baseball inspector and repairer in [place] and will plan for follow up at time of discharge. (2) Atrial fibrillation: Qualifiers: Atrial fibrillation type: paroxysmal Qualified Code(s): I48.0 - Paroxysmal atrial fibrillation Code(s): I48.91 - Unspecified atrial fibrillation Status: Acute Assessment and Plan: Is tolerating low-dose carvedilol at 3.125 mg p.o. b.i.d.. Rate controlled Continue heparin for anticoagulation transitioning to warfarin (3) Pulmonary embolism: Qualifiers: Pulmonary embolism type: unspecified Chronicity: acute Acute cor pulmonale presence: unspecified Qualified Code(s): I26.99 - Other pulmonary embolism without acute cor pulmonale Code(s): I26.99 - Other pulmonary embolism without acute cor pulmonale Status: Acute Assessment and Plan: Continue heparin for now. Transition to Coumadin. Unable to add DOAC due to renal failure. Treatment per hospitalist (4) Moderate aortic stenosis: Code(s): I35.0 - Nonrheumatic aortic (valve) stenosis Status: Acute Assessment and Plan: Moderate. Will need outpatient echocardiographic surveillance (5) CHF (congestive heart failure): Code(s): I50.9 - Heart failure, unspecified Status: Acute Assessment and Plan: * Chronic systolic, last TTE shows normal LVEF: Continue Coreg Plan Appears stable from CV standpoint Awaiting therapuetic INR Will see prn Subjective Date/time seen: 04/18/25 10:59 Interval history: NAOE. pt denying any complaints. multiple family members at bedside, all of their concerns were addressed. pt denies SOB 04/18/25: Patient is sitting up in chair, family at bedside. This is his first time out of bed, but overall felt well. Still has some SOB with activity, but not requiring O2. No c/o any chest pain or pressure. Review of Systems Review of Systems: All systems reviewed & are unremarkable except as noted in HPI and below (HPI ) Exam Narrative: General: Alert oriented x3, no acute distress Neck: Supple Chest: Bilaterally clear to auscultation, no rales or rhonchi Cardiac: irreg irreg Extremities: Bilateral lower extremity edema 1+, no skin rash Neurologic: Alert and oriented x3, no focal neurological deficits Objective Data Vital Signs Vital Signs: Vital Signs - 24 hr 04/17/2512:00 04/17/2516:00 04/17/2516:00 Temperature 36.4 C L Pulse Rate 54 L 60 57 L Respiratory Rate 18 Blood Pressure 143/85 H Pulse Oximetry 97 Oxygen Delivery 04/17/2520:00 04/17/2520:00 04/17/2521:17 Temperature 36.6 C Pulse Rate 55 L 84 Respiratory Rate 18 Blood Pressure 124/77 Pulse Oximetry 95 Oxygen Delivery Room Air 04/18/2500:00 04/18/2504:00 04/18/2506:32 Temperature 36.5 C Pulse Rate 56 L 61 63 Respiratory Rate 16 Blood Pressure 157/87 H Pulse Oximetry 97 Oxygen Delivery 04/18/2508:00 04/18/2508:59 Temperature Pulse Rate 70 Respiratory Rate Blood Pressure Pulse Oximetry Oxygen Delivery Room Air Intake/Output Intake/Output: Intake & Output 04/15/25 04/16/25 04/17/25 04/18/25 23:59 23:59 23:59 23:59 Intake Total 1085.8 2116.4 2322.5 1259.7 Output Total 598 354 8373 825 Balance 235.8 1591.4 1147.5 434.7 Meds/Results Medications: Active Medications Generic Name Dose Route Start Last Admin Trade Name Freq PRN Reason Stop Dose Admin Acetaminophen 650 mg 04/12/25 15:51 Acetaminophen 325 Mg Tablet PO Q6H PRN Mild Pain (1-3) or Fever Hydrocodone Bitart/Acetaminophen 1 tab 04/12/25 15:51 Hydrocodone/Acetaminophen (*Crx) 5-325 Mg Tablet PO Q6H PRN Pain Rated 4-6 Acyclovir 200 mg 04/12/25 22:30 04/18/25 08:59 Acyclovir 200 Mg Capsule PO 200 mg Q12HR MANISHA Administration Aspirin 81 mg 04/12/25 22:30 04/17/25 20:34 Aspirin 81 Mg Enteric Tablet PO 81 mg HS MANISHA Administration Calcium Carbonate 200 mg 04/12/25 15:51 Calcium Carbonate (Tums) 500 Mg (200 Mg Elemental) PO Q6H PRN Indigestion Carvedilol 3.125 mg 04/12/25 22:30 04/18/25 08:59 Carvedilol 3.125 Mg Tablet PO 3.125 mg Q12HR MANISHA Administration Dexamethasone 12 mg 04/18/25 09:00 04/18/25 08:59 Dexamethasone 4 Mg Tablet PO 12 mg WEEKLY MANISHA Administration Finasteride 5 mg 04/12/25 22:30 04/17/25 20:35 Finasteride 5 Mg Tablet PO 5 mg HS MANISHA Administration Heparin Sodium (Porcine) 6,000 units 04/12/25 16:39 04/15/25 10:05 Heparin Sodium 5,000 Units/Ml Vial IV PUSH 6,000 units PRN PRN Administration aPTT less than 55 seconds Heparin Sodium (Porcine) 3,000 units 04/12/25 16:39 04/14/25 20:50 Heparin Sodium 5,000 Units/Ml Vial IV PUSH 3,000 units PRN PRN Administration aPTT 55 - 70 seconds Heparin Sodium/Dextrose 25,000 units in 250 mls @ 13 mls/hr 04/12/25 16:40 04/18/25 00:35 Heparin Sodium/D5w 100 Units/Ml IV CONT 1,300 units/hr .[id number] MANISHA 13 mls/hr Protocol Administration 1,300 UNITS/HR Sodium Chloride 1,000 mls @ 75 mls/hr 04/15/25 10:40 04/18/25 00:35 Normal Saline Iv IV CONT 75 mls/hr .[id number] MANISHA Administration Magnesium Sulfate 2 gm in 50 mls @ 25 mls/hr 04/18/25 10:59 Magnesium Sulf 2 Gm/Water 50ml IVPB 04/18/25 12:58 ONCE ONE Miscellaneous Information 1 each 04/18/25 00:10 Pharmacist Communication Order XX 04/18/25 00:11 ONCE ONE Ondansetron HCl 4 mg 04/12/25 15:51 Ondansetron Hcl Odt 4 Mg Tablet PO Q6H PRN Nausea And Vomiting Potassium Chloride 40 meq 04/18/25 10:58 Potassium Chloride 20 Meq Er Tablet PO 04/18/25 10:59 ONCE ONE Sodium Bicarbonate 1,300 mg 04/15/25 10:45 04/18/25 08:59 Sodium Bicarbonate Tab 650 Mg Tablet PO 1,300 mg BID MANISHA Administration Tamsulosin HCl 0.4 mg 04/12/25 22:30 04/17/25 20:34 Tamsulosin Hcl 0.4 Mg Capsule PO 0.4 mg HS MANISHA Administration Warfarin Sodium 5 mg 04/16/25 17:00 04/17/25 17:45 Warfarin (*Pbkc) 5 Mg Tablet PO 5 mg DAILY@1700 MANISHA Administration Radiology Results: ITS Impressions Abdomen/Pelvis CT 04/12/25 15:19 IMPRESSION: 1. Multiple right renal masses with intermediate density. Correlation with CT or MRI with contrast recommended for further assessment. 2: Severe enlargement of the prostate gland likely causing outlet obstruction with resultant distention of the bladder and bilateral hydronephrosis. Pulmonary Perfusion Imaging 04/12/25 16:34 IMPRESSION: 1. High probability for pulmonary embolism. Findings were discussed with Kenna Williamson, the nurse caring for the patient, at 4:36 PM. Renal Ultrasound 04/12/25 21:07 Impression: 1: Multiple right renal cysts. No suspicious solid masses are identified to suggest malignancy. Chest X-Ray 04/13/25 08:35 IMPRESSION: 1. No acute cardiopulmonary disease. Venous Doppler Study 04/15/25 16:38 Impression: Right-sided DVT detailed above. Abdomen X-Ray 04/17/25 08:50 IMPRESSION: 1. Nonspecific mild gas pattern with no frankly dilated gas-filled loops of bowel to suggest obstruction. Labs Labs: Laboratory Results - last 24 hr 04/18/25 05:17 WBC 7.1 RBC 3.65 L Hgb 10.8 L Hct 34.0 L MCV 93.2 MCH 29.6 MCHC 31.8 L RDW 15.4 H Plt Count 141 L MPV 10.9 H Immature Gran % (Auto) 1.4 H Neut % (Auto) 76.4 H Lymph % (Auto) 10.0 L [place] % (Auto) 8.1 Eos % (Auto) 3.8 Baso % (Auto) 0.3 Lymph # (Auto) 0.71 L [place] # (Auto) 0.6 Eos # (Auto) 0.3 Baso # (Auto) 0.0 Abs Immat Gran (auto) 0.10 H Absolute Neuts (auto) 5.4 Absolute Nucleated RBC 0.060 H Nucleated RBC % 0.8 H % Immature Plt Fraction 4.4 PT 17.4 H INR 1.5 Sodium 137 Potassium 3.3 L Chloride 106 Carbon Dioxide 23 Anion Gap 8 BUN 89 H Creatinine 4.31 H Estim Creat Clear Calc 15 Estimated GFR 13 L Glucose 141 H Calcium 7.3 L Phosphorus 4.0 Magnesium 1.7 Total Bilirubin 0.5 AST 17 ALT 14 Alkaline Phosphatase 60 Total Protein 4.9 L Albumin 2.7 L Please be advised this is a medical document. It is intended for [id number] communication. It is written in medical language and may contain unfamiliar abbreviations or verbiage. Medical documents are intended to carry relevant information, facts as evident, and the clinical opinion of the practitioner at the time of the encounter. This report may have been done utilizing a voice recognition system. Attempts have been made to correct errors. However, there may be uncorrected grammatical, spelling, and recognition errors present. The file time of this note does not necessarily represent the time the patient was seen. Report Initialized date/time: 68 [facility] 04/18/25 / 1102 Electronically signed by: [id number] [facility] 04/18/25 1104 Juani Mason MD 04/18/25 1121
[2025-04-18] MEDS: POTASSIUM CHLORIDE 20 MEQ ER TABLET 40 MEQ PO (12:14)
[2025-04-18] MEDS: MAGNESIUM SULF 2 GM/WATER 50ML 2 GM/50 ML BAG IVPB (12:15)
--- NOTE | 2025-04-18 14:57 | PM.IMPN ---
Progress Note: A&P Assessment and Plan (1) Pulmonary embolism: Qualifiers: Pulmonary embolism type: unspecified Chronicity: acute Acute cor pulmonale presence: unspecified Qualified Code(s): I26.99 - Other pulmonary embolism without acute cor pulmonale Code(s): I26.99 - Other pulmonary embolism without acute cor pulmonale Status: Acute Plan Right lower extremity DVT Probable PE -patient is from [place], recent travel 1 week ago via car. -V/Q scan on 04/12/2025 with high probability for PE -currently on heparin GTT -warfarin started on 04/16/2025 at 5 mg p.o. at 5:00 p.m. -INR on day 2 of warfarin is 1.5, continue warfarin 5 mg p.o. daily Weakness/deconditioning -PT OT consulted. -ambulate with assistance, fall precautions. Patient wishes to be full code. Continue telemetry monitoring. Subjective Date/time seen: 04/18/25 14:57 Interval history: When getting up to go to the bathroom the patient felt weak and shaky. Reportedly he has not gotten up during this hospital stay. Otherwise he has no complaints. Review of Systems Review of Systems: All systems reviewed & are unremarkable except as noted in HPI and below (Subjective) Exam Const: General: comfortable and no acute distress HENMT: Mouth: Yes moist mucous membranes Eyes: Pupils: Equal, round and reactive pupils present Neck: Neck: supple Resp: Effort & Inspection: normal respiratory effort Auscultation: clear to auscultation bilaterally Cardio: Rate: regular rate Rhythm: abnormal rhythm GI: Inspection: non-distended GI Palp: Yes Soft to palpation Extrem: General: no edema Objective Data Vital Signs Vital Signs: Vital Signs - 24 hr 04/17/25 16:00 04/17/25 16:00 04/17/25 20:00 Temperature 97.5 F L Pulse Rate 60 57 L Respiratory Rate 18 Blood Pressure 143/85 H Pulse Oximetry 97 Oxygen Delivery Room Air 04/17/25 20:00 04/17/25 21:17 04/18/25 00:00 Temperature 97.8 F Pulse Rate 55 L 84 56 L Respiratory Rate 18 Blood Pressure 124/77 Pulse Oximetry 95 Oxygen Delivery 04/18/25 04:00 04/18/25 06:32 04/18/25 08:00 Temperature 97.7 F Pulse Rate 61 63 Respiratory Rate 16 Blood Pressure 157/87 H Pulse Oximetry 97 Oxygen Delivery Room Air 04/18/25 08:59 Temperature Pulse Rate 70 Respiratory Rate Blood Pressure Pulse Oximetry Oxygen Delivery Intake/Output Intake/Output: Intake & Output 04/15/25 04/16/25 04/17/25 04/18/25 23:59 23:59 23:59 23:59 Intake Total 1085.8 2116.4 2322.5 1499.7 Output Total 580 387 4746 825 Balance 235.8 1591.4 1147.5 674.7 Meds/Results Medications: Active Medications Generic Name Dose Route Start Last Admin Trade Name Freq PRN Reason Stop Dose Admin Acetaminophen 650 mg 04/12/25 15:51 Acetaminophen 325 Mg Tablet PO Q6H PRN Mild Pain (1-3) or Fever Hydrocodone Bitart/Acetaminophen 1 tab 04/12/25 15:51 Hydrocodone/Acetaminophen (*Crx) 5-325 Mg Tablet PO Q6H PRN Pain Rated 4-6 Acyclovir 200 mg 04/12/25 22:30 04/18/25 08:59 Acyclovir 200 Mg Capsule PO 200 mg Q12HR MANISHA Administration Aspirin 81 mg 04/12/25 22:30 04/17/25 20:34 Aspirin 81 Mg Enteric Tablet PO 81 mg HS MANISHA Administration Calcium Carbonate 200 mg 04/12/25 15:51 Calcium Carbonate (Tums) 500 Mg (200 Mg Elemental) PO Q6H PRN Indigestion Carvedilol 3.125 mg 04/12/25 22:30 04/18/25 08:59 Carvedilol 3.125 Mg Tablet PO 3.125 mg Q12HR MANISHA Administration Dexamethasone 12 mg 04/18/25 09:00 04/18/25 08:59 Dexamethasone 4 Mg Tablet PO 12 mg WEEKLY MANISHA Administration Finasteride 5 mg 04/12/25 22:30 04/17/25 20:35 Finasteride 5 Mg Tablet PO 5 mg HS MANISHA Administration Heparin Sodium (Porcine) 6,000 units 04/12/25 16:39 04/15/25 10:05 Heparin Sodium 5,000 Units/Ml Vial IV PUSH 6,000 units PRN PRN Administration aPTT less than 55 seconds Heparin Sodium (Porcine) 3,000 units 04/12/25 16:39 04/14/25 20:50 Heparin Sodium 5,000 Units/Ml Vial IV PUSH 3,000 units PRN PRN Administration aPTT 55 - 70 seconds Heparin Sodium/Dextrose 25,000 units in 250 mls @ 13 mls/hr 04/12/25 16:40 04/18/25 00:35 Heparin Sodium/D5w 100 Units/Ml IV CONT 1,300 units/hr .[id number] MANISHA 13 mls/hr Protocol Administration 1,300 UNITS/HR Ondansetron HCl 4 mg 04/12/25 15:51 Ondansetron Hcl Odt 4 Mg Tablet PO Q6H PRN Nausea And Vomiting Sodium Bicarbonate 1,300 mg 04/15/25 10:45 04/18/25 08:59 Sodium Bicarbonate Tab 650 Mg Tablet PO 1,300 mg BID MANISHA Administration Tamsulosin HCl 0.4 mg 04/12/25 22:30 04/17/25 20:34 Tamsulosin Hcl 0.4 Mg Capsule PO 0.4 mg HS MANISHA Administration Warfarin Sodium 5 mg 04/16/25 17:00 04/17/25 17:45 Warfarin (*Pbkc) 5 Mg Tablet PO 5 mg DAILY@1700 MANISHA Administration Radiology Results: ITS Impressions Abdomen/Pelvis CT 04/12/25 15:19 IMPRESSION: 1. Multiple right renal masses with intermediate density. Correlation with CT or MRI with contrast recommended for further assessment. 2: Severe enlargement of the prostate gland likely causing outlet obstruction with resultant distention of the bladder and bilateral hydronephrosis. Pulmonary Perfusion Imaging 04/12/25 16:34 IMPRESSION: 1. High probability for pulmonary embolism. Findings were discussed with Kenna Williamson, the nurse caring for the patient, at 4:36 PM. Renal Ultrasound 04/12/25 21:07 Impression: 1: Multiple right renal cysts. No suspicious solid masses are identified to suggest malignancy. Chest X-Ray 04/13/25 08:35 IMPRESSION: 1. No acute cardiopulmonary disease. Venous Doppler Study 04/15/25 16:38 Impression: Right-sided DVT detailed above. Abdomen X-Ray 04/17/25 08:50 IMPRESSION: 1. Nonspecific mild gas pattern with no frankly dilated gas-filled loops of bowel to suggest obstruction. Labs Labs: Laboratory Results - last 24 hr 04/18/25 05:17 WBC 7.1 RBC 3.65 L Hgb 10.8 L Hct 34.0 L MCV 93.2 MCH 29.6 MCHC 31.8 L RDW 15.4 H Plt Count 141 L MPV 10.9 H Immature Gran % (Auto) 1.4 H Neut % (Auto) 76.4 H Lymph % (Auto) 10.0 L [place] % (Auto) 8.1 Eos % (Auto) 3.8 Baso % (Auto) 0.3 Lymph # (Auto) 0.71 L [place] # (Auto) 0.6 Eos # (Auto) 0.3 Baso # (Auto) 0.0 Abs Immat Gran (auto) 0.10 H Absolute Neuts (auto) 5.4 Absolute Nucleated RBC 0.060 H Nucleated RBC % 0.8 H % Immature Plt Fraction 4.4 PT 17.4 H INR 1.5 Sodium 137 Potassium 3.3 L Chloride 106 Carbon Dioxide 23 Anion Gap 8 BUN 89 H Creatinine 4.31 H Estim Creat Clear Calc 15 Estimated GFR 13 L Glucose 141 H Calcium 7.3 L Phosphorus 4.0 Magnesium 1.7 Total Bilirubin 0.5 AST 17 ALT 14 Alkaline Phosphatase 60 Total Protein 4.9 L Albumin 2.7 L
[2025-04-18] MEDS: WARFARIN (*PBKC) 5 MG TABLET PO (17:17)
[2025-04-18] MEDS: FINASTERIDE 5 MG TABLET PO (21:50)
[2025-04-18] MEDS: ASPIRIN 81 MG ENTERIC TABLET PO (21:50)
[2025-04-18] MEDS: TAMSULOSIN HCL 0.4 MG CAPSULE PO (21:50)
[2025-04-19] VITALS (9 sets, daily range): BP systolic 141–153; BP diastolic 78–93; PULSE 47–57; RESP 18; TEMP 36.3–36.4; O2SAT 96–98
[2025-04-19 05:30] LABS: INR 1.4; Prothrombin Time 17.1 Seconds (11.1-14.7)
[2025-04-19] MEDS: ACYCLOVIR 200 MG CAPSULE PO ×2 (09:15→21:53)
[2025-04-19] MEDS: SODIUM BICARBONATE TAB 650 MG TABLET 1300 MG PO ×2 (09:15→16:54)
[2025-04-19 10:01] LABS: Anion Gap 9 mmol/L (4-12); Blood Urea Nitrogen 85 mg/dL (9-20); Calcium 7.6 mg/dL (8.4-10.2); Carbon Dioxide 21 mmol/L (22-30); Chloride 107 mmol/L (98-107); Estimated CRCL calculation 16 ml/min; Estimated Glomerular Filt Rate 14; Glucose 167 mg/dL (65-110); Magnesium 2.2 mg/dL (1.6-2.3); Potassium 4.0 mmol/L (3.4-5.0); Sodium 137 mmol/L (137-145)
[2025-04-19 11:35] LABS: Partial Thromboplastin Time 104.2 Seconds (22.3-36.8)
--- NOTE | 2025-04-19 12:57 | PCNWS ---
Weekly nutritional screen. Patient is tolerating current Renal diet with adequate intake. No weight loss reported. No nutritional needs at this time.
--- NOTE | 2025-04-19 13:35 | P.PNNP_ITS ---
Progress Note: A&P Assessment and Plan (1) Acute kidney injury: Code(s): N17.9 - Acute kidney failure, unspecified Status: Acute Assessment and Plan: * suspect this was present on admission * slow improvement in creatinine noted since hospitalization began... * multifactorial etiology: * relative hypotension * possible embolic event (given #5)? * element of CKD progression(?) * other(?) * evaluation to date noted: * CT of A/P with evidence of BPH and obstruction/bilateral hydronephrosis * renal ultrasound with multiple right renal cysts * urine electrolytes non-prerenal * urine eosinophils negative * CPK only mildly elevated (not enough to affect kidney function) * moderate proteinuria * bailon catheter in place * follow respiratory and volume status closely - so far no sign of volume overload * no symptoms of uremia, critical electrolytes, or volume overload; hence, no need urgent dialysis at this time * follow trend of repeat labs and UOP (2) Stage 5 chronic kidney disease: Code(s): N18.5 - Chronic kidney disease, stage 5 Status: Chronic Assessment and Plan: * unclear what baseline creatinine normally runs... * however, patient able to verify that he has CKD stage V * was referred to Vascular Surgery for AV access placement * attempt to get records from his physician back home ([place], [place]) to ascertain baseline creatinine/GFR) (3) Hyperkalemia: Code(s): E87.5 - Hyperkalemia Status: Acute Assessment and Plan: * resolved (4) Metabolic acidosis: Code(s): E87.20 - Acidosis, unspecified Status: Acute Assessment and Plan: * resolved * on oral bicarb (5) Pulmonary embolism: Qualifiers: Pulmonary embolism type: unspecified Chronicity: acute Acute cor pulmonale presence: unspecified Qualified Code(s): I26.99 - Other pulmonary embolism without acute cor pulmonale Code(s): I26.99 - Other pulmonary embolism without acute cor pulmonale Status: Acute Assessment and Plan: * presumed etiology of shortness of breath * recent car travel a week ago ([place], [place] --> to this area) * V/Q scan with high probability for PE * lower extremity dopplers with right LE DVT * on heparin gtt and coumadin * follow INR (6) Azotemia: Code(s): R79.89 - Other specified abnormal findings of blood chemistry Status: Acute Assessment and Plan: * noted rising BUN (despite improvement in creatinine) * BUN slowly down trending * etiology? * possible hypercatabolic state? * bleeding issue? * related to his advanced CKD... * follow trend of BUN (7) Shortness of breath: Code(s): R06.02 - Shortness of breath Status: Acute Assessment and Plan: * slow improvement * as noted on presentation * likely due to PE (8) Elevated troponin: Code(s): R79.89 - Other specified abnormal findings of blood chemistry Status: Acute Assessment and Plan: * noted by testing in ER * EKGs noted - evidence of Afib but no acute ST elevations/depressions * Cardiology recommendations noted * Echo results noted: * normal appearing left ventricular size with vigorous systolic function * right ventricular enlargement with right ventricular hypokinesia * at least moderate if not moderate to severe aortic stenosis. * suspect secondary to right heart strain from PE (9) Atrial fibrillation: Qualifiers: Atrial fibrillation type: paroxysmal Qualified Code(s): I48.0 - Paroxysmal atrial fibrillation Code(s): I48.91 - Unspecified atrial fibrillation Status: Acute Assessment and Plan: * supposedly new onset (or at least paroxysmal) * follow telemetry * rate control strategy * on anticoagulation (heparin gtt + coumadin) (10) Anemia: Code(s): D64.9 - Anemia, unspecified Status: Acute Assessment and Plan: * due in part to TEOFILO and CKD along with IVF hydration * cannot discount multiple myeloma playing a role * no need for JOSE * follow trend of H/H (11) Multiple myeloma: Code(s): C90.00 - Multiple myeloma not having achieved remission Status: Chronic Assessment and Plan: * follows with Hem/Onc * on active treatment (12) Diabetes: Qualifiers: Diabetes mellitus type: type 2 Diabetes mellitus oysterman insulin use: without snf use Diabetes mellitus complication status: with kidney complications Diabetes mellitus complication detail: with chronic kidney disease Chronic kidney disease stage: stage 5 (GFR < 15), not on chronic dialysis Qualified Code(s): E11.22 - Type 2 diabetes mellitus with diabetic chronic kidney disease; N18.5 - Chronic kidney disease, stage 5 Code(s): E11.9 - Type 2 diabetes mellitus without complications Status: Chronic Assessment and Plan: * reported history * however, on no medications (diet controlled?) * follow blood sugars * institute SSI if needed Not alot more to add -- will continue to follow intermittently. L Subjective Date/time seen: 04/19/25 13:35 Interval history: Follow-up for acute kidney injury/acute renal failure on chronic kidney disease. No apparent distress noted at the time of my visit -- feels reasonably well and has no acute complaints or concerns when seen; renal function/creatinine continues to slowly improve if not stabilize; continues to have reasonable urine output as well. Exam 2 Narrative: General: elderly but WD/WN male in NAD Heart: normal S1 and S2; no rub Lungs: clear to auscultation Abdomen: soft, nondistended, positive bowel sounds Extremities: no cyanosis or clubbing; trace edema Skin: no nodules Objective Data Vital Signs Vital Signs: Vital Signs Temp Pulse Resp BP Pulse Ox O2 Del Method FiO2 04/19/25 12:00 97.6 F 57 L 18 148/80 H 97 04/19/25 11:18 Room Air 04/19/25 09:15 56 L 04/19/25 08:00 57 L 04/19/25 08:00 Room Air 04/19/25 06:00 97.4 F L 56 L 18 153/93 H 98 04/19/25 04:00 51 L Intake/Output Intake/Output: Intake & Output 04/17/25 04/18/25 04/19/25 04/20/25 23:59 23:59 23:59 23:59 Intake Total 2322.5 2460.4 2400.0 Output Total 1175 1025 1700 Balance 1147.5 1435.4 700.0 Meds/Results Medications: Active Medications Generic Name Dose Route Start Last Admin Trade Name Freq PRN Reason Stop Dose Admin Acetaminophen 650 mg 04/12/25 15:51 Acetaminophen 325 Mg Tablet PO Q6H PRN Mild Pain (1-3) or Fever Hydrocodone Bitart/Acetaminophen 1 tab 04/12/25 15:51 Hydrocodone/Acetaminophen (*Crx) 5-325 Mg Tablet PO Q6H PRN Pain Rated 4-6 Acyclovir 200 mg 04/12/25 22:30 04/19/25 21:53 Acyclovir 200 Mg Capsule PO 200 mg Q12HR [facility] Administration Aspirin 81 mg 04/12/25 22:30 04/19/25 21:52 Aspirin 81 Mg Enteric Tablet PO 81 mg HS [facility] Administration Calcium Carbonate 200 mg 04/12/25 15:51 Calcium Carbonate (Tums) 500 Mg (200 Mg Elemental) PO Q6H PRN Indigestion Carvedilol 1.56 mg 04/19/25 21:00 04/19/25 21:52 Carvedilol 1.56 Mg Tablet PO 1.56 mg Q12HR [facility] Administration Finasteride 5 mg 04/12/25 22:30 04/19/25 21:53 Finasteride 5 Mg Tablet PO 5 mg HS [facility] Administration Heparin Sodium (Porcine) 6,000 units 04/12/25 16:39 04/15/25 10:05 Heparin Sodium 5,000 Units/Ml Vial IV PUSH 6,000 units PRN PRN Administration aPTT less than 55 seconds Heparin Sodium (Porcine) 3,000 units 04/12/25 16:39 04/14/25 20:50 Heparin Sodium 5,000 Units/Ml Vial IV PUSH 3,000 units PRN PRN Administration aPTT 55 - 70 seconds Heparin Sodium/Dextrose 25,000 units in 250 mls @ 13 mls/hr 04/12/25 16:40 04/19/25 16:54 Heparin Sodium/D5w 100 Units/Ml IV CONT 1,300 units/hr .[id number] [facility] 13 mls/hr Protocol Administration 1,300 UNITS/HR Ondansetron HCl 4 mg 04/12/25 15:51 Ondansetron Hcl Odt 4 Mg Tablet PO Q6H PRN Nausea And Vomiting Sodium Bicarbonate 1,300 mg 04/15/25 10:45 04/19/25 16:54 Sodium Bicarbonate Tab 650 Mg Tablet PO 1,300 mg BID [facility] Administration Tamsulosin HCl 0.8 mg 04/19/25 21:00 04/19/25 21:53 Tamsulosin Hcl 0.4 Mg Capsule PO 0.8 mg HS [facility] Administration Warfarin Sodium 7.5 mg 04/19/25 17:00 04/19/25 16:54 Warfarin (*Pbkc) 7.5 Mg Tablet PO 7.5 mg DAILY@1700 [facility] Administration Radiology Results: ITS Impressions Abdomen/Pelvis CT 04/12/25 15:19 IMPRESSION: 1. Multiple right renal masses with intermediate density. Correlation with CT or MRI with contrast recommended for further assessment. 2: Severe enlargement of the prostate gland likely causing outlet obstruction with resultant distention of the bladder and bilateral hydronephrosis. Pulmonary Perfusion Imaging 04/12/25 16:34 IMPRESSION: 1. High probability for pulmonary embolism. Findings were discussed with Kenna Williamson, the nurse caring for the patient, at 4:36 PM. Renal Ultrasound 04/12/25 21:07 Impression: 1: Multiple right renal cysts. No suspicious solid masses are identified to suggest malignancy. Chest X-Ray 04/13/25 08:35 IMPRESSION: 1. No acute cardiopulmonary disease. Venous Doppler Study 04/15/25 16:38 Impression: Right-sided DVT detailed above. Abdomen X-Ray 04/17/25 08:50 IMPRESSION: 1. Nonspecific mild gas pattern with no frankly dilated gas-filled loops of bowel to suggest obstruction. Labs Labs: Laboratory Tests 04/18/25 05:17 04/19/25 05:03 PT 17.1 H INR 1.4 Calcium 7.6 L Magnesium 2.2
--- NOTE | 2025-04-19 16:16 | P.PNIM_ITS ---
Progress Note: A&P Assessment and Plan (1) Pulmonary embolism: Qualifiers: Pulmonary embolism type: unspecified Chronicity: acute Acute cor pulmonale presence: unspecified Qualified Code(s): I26.99 - Other pulmonary embolism without acute cor pulmonale Code(s): I26.99 - Other pulmonary embolism without acute cor pulmonale Status: Acute Plan Right lower extremity DVT Probable PE -patient is from [place], recent travel 1 week ago via car. They plan on driving back home after discharge from the hospital. He will be stopping every few hours, advised the patient get up and walk around as much as possible. They agreed to do so. He will not be driving. -V/Q scan on 04/12/2025 with high probability for PE -currently on heparin GTT -warfarin started on 04/16/2025 at 5 mg p.o. at 5:00 p.m. -INR on day 2 of warfarin is 1.5, continue warfarin 5 mg p.o. daily -INR on day 3 of warfarin is 1.4, increase warfarin to 7.5 mg p.o. q.day, as opposed to 10 mg per up-to-date recommendations since he has severe kidney dysfunction. Discussed the risks versus benefits with the family and they agree to this plan. Weakness/deconditioning -PT OT to see today. -ambulate with assistance, fall precautions. BPH -urinary retention, 1st time this hospital stay. He has been a mobile. Failed voiding trial on 04/18/2025. Increase tamsulosin to 0.8 mg p.o. q.h.s.. Try voiding trial again tomorrow after he is more mobile. Heart rate consistently in the high 50s, decrease Coreg to 1.56 mg p.o. b.i.d.., monitor blood pressure. 1+ lower extremity edema, otherwise appears euvolemic. Likely due to immobility. Continue with physical therapy, apply thigh-high Vijay hose stockings. Patient wishes to be full code. Subjective Date/time seen: 04/19/25 16:16 Interval history: Patient has no specific complaints. Unfortunately, therapy was not able to get to him yesterday but they are coming today. Review of Systems Review of Systems: All systems reviewed & are unremarkable except as noted in HPI and below (Subjective) Exam Const: General: comfortable and no acute distress HENMT: Mouth: Yes moist mucous membranes Eyes: Pupils: Equal, round and reactive pupils present Neck: Neck: supple Resp: Effort & Inspection: normal respiratory effort Auscultation: clear to auscultation bilaterally Cardio: Rate: regular rate Rhythm: abnormal rhythm GI: Inspection: non-distended GI Palp: Yes Soft to palpation Extrem: Other: 1+ pitting edema bilateral lower extremi ties Objective Data Vital Signs Vital Signs: Vital Signs - 24 hr 04/18/25 20:00 04/18/25 20:00 04/18/25 21:57 Temperature 97.4 F L Pulse Rate 61 46 L Respiratory Rate 18 Blood Pressure 159/87 H Pulse Oximetry 97 Oxygen Delivery Room Air 04/19/25 00:00 04/19/25 04:00 04/19/25 06:00 Temperature 97.4 F L Pulse Rate 51 L 51 L 56 L Respiratory Rate 18 Blood Pressure 153/93 H Pulse Oximetry 98 Oxygen Delivery 04/19/25 08:00 04/19/25 08:00 04/19/25 09:15 Temperature Pulse Rate 57 L 56 L Respiratory Rate Blood Pressure Pulse Oximetry Oxygen Delivery Room Air 04/19/25 11:18 04/19/25 12:00 04/19/25 14:00 Temperature 97.6 F Pulse Rate 55 L 57 L Respiratory Rate 18 Blood Pressure 148/80 H Pulse Oximetry 97 Oxygen Delivery Room Air Intake/Output Intake/Output: Intake & Output 04/16/25 04/17/25 04/18/25 04/19/25 23:59 23:59 23:59 23:59 Intake Total 2116.4 2322.5 2460.4 859.7 Output Total 525 1175 1025 1700 Balance 1591.4 1147.5 1435.4 -840.3 Meds/Results Medications: Active Medications Generic Name Dose Route Start Last Admin Trade Name Freq PRN Reason Stop Dose Admin Acetaminophen 650 mg 04/12/25 15:51 Acetaminophen 325 Mg Tablet PO Q6H PRN Mild Pain (1-3) or Fever Hydrocodone Bitart/Acetaminophen 1 tab 04/12/25 15:51 Hydrocodone/Acetaminophen (*Crx) 5-325 Mg Tablet PO Q6H PRN Pain Rated 4-6 Acyclovir 200 mg 04/12/25 22:30 04/19/25 09:15 Acyclovir 200 Mg Capsule PO 200 mg Q12HR [facility] Administration Aspirin 81 mg 04/12/25 22:30 04/18/25 21:50 Aspirin 81 Mg Enteric Tablet PO 81 mg HS [facility] Administration Calcium Carbonate 200 mg 04/12/25 15:51 Calcium Carbonate (Tums) 500 Mg (200 Mg Elemental) PO Q6H PRN Indigestion Carvedilol 1.56 mg 04/19/25 21:00 Carvedilol 1.56 Mg Tablet PO Q12HR [facility] Finasteride 5 mg 04/12/25 22:30 04/18/25 21:50 Finasteride 5 Mg Tablet PO 5 mg HS [facility] Administration Heparin Sodium (Porcine) 6,000 units 04/12/25 16:39 04/15/25 10:05 Heparin Sodium 5,000 Units/Ml Vial IV PUSH 6,000 units PRN PRN Administration aPTT less than 55 seconds Heparin Sodium (Porcine) 3,000 units 04/12/25 16:39 04/14/25 20:50 Heparin Sodium 5,000 Units/Ml Vial IV PUSH 3,000 units PRN PRN Administration aPTT 55 - 70 seconds Heparin Sodium/Dextrose 25,000 units in 250 mls @ 13 mls/hr 04/12/25 16:40 04/19/25 12:00 Heparin Sodium/D5w 100 Units/Ml IV CONT 1,300 units/hr .[id number] [facility] 13 mls/hr Protocol Titration 1,300 UNITS/HR Ondansetron HCl 4 mg 04/12/25 15:51 Ondansetron Hcl Odt 4 Mg Tablet PO Q6H PRN Nausea And Vomiting Sodium Bicarbonate 1,300 mg 04/15/25 10:45 04/19/25 09:15 Sodium Bicarbonate Tab 650 Mg Tablet PO 1,300 mg BID [facility] Administration Tamsulosin HCl 0.8 mg 04/19/25 21:00 Tamsulosin Hcl 0.4 Mg Capsule PO [facility] Warfarin Sodium 7.5 mg 04/19/25 17:00 Warfarin (*Pbkc) 7.5 Mg Tablet PO DAILY@1700 [facility] Radiology Results: ITS Impressions Abdomen/Pelvis CT 04/12/25 15:19 IMPRESSION: 1. Multiple right renal masses with intermediate density. Correlation with CT or MRI with contrast recommended for further assessment. 2: Severe enlargement of the prostate gland likely causing outlet obstruction with resultant distention of the bladder and bilateral hydronephrosis. Pulmonary Perfusion Imaging 04/12/25 16:34 IMPRESSION: 1. High probability for pulmonary embolism. Findings were discussed with Kenna Williamson, the nurse caring for the patient, at 4:36 PM. Renal Ultrasound 04/12/25 21:07 Impression: 1: Multiple right renal cysts. No suspicious solid masses are identified to suggest malignancy. Chest X-Ray 04/13/25 08:35 IMPRESSION: 1. No acute cardiopulmonary disease. Venous Doppler Study 04/15/25 16:38 Impression: Right-sided DVT detailed above. Abdomen X-Ray 04/17/25 08:50 IMPRESSION: 1. Nonspecific mild gas pattern with no frankly dilated gas-filled loops of bowel to suggest obstruction. Labs Labs: Laboratory Results - last 24 hr 04/19/25 04/19/25 05:03 11:05 PT 17.1 H INR 1.4 APTT 104.2 H Sodium 137 Potassium 4.0 Chloride 107 Carbon Dioxide 21 L Anion Gap 9 BUN 85 H Creatinine 4.14 H Estim Creat Clear Calc 16 Estimated GFR 14 L Glucose 167 H Calcium 7.6 L Magnesium 2.2
[2025-04-19] MEDS: HEPARIN SOD/D5W 100 UNITS/ML 25,000 UNITS/250 ML BAG 13 UNITS IV CONT (16:54)
[2025-04-19] MEDS: WARFARIN (*PBKC) 7.5 MG TABLET PO (16:54)
[2025-04-19] MEDS: carvediloL 1.56 MG TABLET PO (21:52)
[2025-04-19] MEDS: ASPIRIN 81 MG ENTERIC TABLET PO (21:52)
[2025-04-19] MEDS: TAMSULOSIN HCL 0.4 MG CAPSULE 0.8 MG PO (21:53)
[2025-04-19] MEDS: FINASTERIDE 5 MG TABLET PO (21:53)
[2025-04-20 06:00] VITALS: BP 158/85; PULSE 45; RESP 18; TEMP 36.6; O2SAT 97
[2025-04-20 07:01] LABS: INR 1.5; Prothrombin Time 18.1 Seconds (11.1-14.7)
[2025-04-20 07:03] LABS: Partial Thromboplastin Time 117.3 Seconds (22.3-36.8)
[2025-04-20] MEDS: ACYCLOVIR 200 MG CAPSULE PO ×2 (08:44→21:21)
[2025-04-20] MEDS: SODIUM BICARBONATE TAB 650 MG TABLET 1300 MG PO ×2 (08:44→16:49)
[2025-04-20] MEDS: carvediloL 1.56 MG TABLET PO (08:44)
--- NOTE | 2025-04-20 09:53 | P.PNIM_ITS ---
Progress Note: A&P Assessment and Plan (1) Pulmonary embolism: Qualifiers: Pulmonary embolism type: unspecified Chronicity: acute Acute cor pulmonale presence: unspecified Qualified Code(s): I26.99 - Other pulmonary embolism without acute cor pulmonale Code(s): I26.99 - Other pulmonary embolism without acute cor pulmonale Status: Acute Plan Right lower extremity DVT Probable PE -patient is from [place], recent travel 1 week ago via car. They plan on driving back home after discharge from the hospital. He will be stopping every few hours, advised the patient get up and walk around as much as possible. They agreed to do so. He will not be driving. -V/Q scan on 04/12/2025 with high probability for PE -currently on heparin GTT -warfarin started on 04/16/2025 at 5 mg p.o. at 5:00 p.m. -INR on day 2 of warfarin is 1.5, continue warfarin 5 mg p.o. daily -INR on day 3 of warfarin is 1.4, increase warfarin to 7.5 mg p.o. q.day, as opposed to 10 mg per up-to-date recommendations since he has severe kidney dysfunction. Discussed the risks versus benefits with the family and they agree to this plan. -INR on day 4 of warfarin is 1.5, keep current mgmt. Weakness/deconditioning -cont PT/OT, recommending [facility], pt thus far not amenable as he will be returning home to [place], will continue discussions. -ambulate with assistance, fall precautions. BPH -urinary retention, 1st time this hospital stay. he has been immobile. Failed voiding trial on 04/18/2025. Increase tamsulosin to 0.8 mg p.o. q.h.s.. try voiding trial prior to discharge. In spite of decreasing coreg, he has bradycardia again. stop coreg, start telemetry and monitor HR and blood pressure. 1+ lower extremity edema, mild scrotal swelling. otherwise appears euvolemic. Likely due to immobility. Continue with physical therapy, apply thigh-high Vijay hose stockings. Patient wishes to be full code. Subjective Date/time seen: 04/20/25 09:53 Interval history: no complaints. reported scrotal swelling, pt unbothered by it. he does not want to take lasix due to kidney dysfunction Review of Systems Review of Systems: All systems reviewed & are unremarkable except as noted in HPI and below (Subjective) Exam Const: General: comfortable and no acute distress HENMT: Mouth: Yes moist mucous membranes Eyes: Pupils: Equal, round and reactive pupils present Neck: Neck: supple Resp: Effort & Inspection: normal respiratory effort Auscultation: clear to auscultation bilaterally Cardio: Rate: regular rate Rhythm: regular rhythm GI: Inspection: non-distended GI Palp: Yes Soft to palpation Auscultation: normal bowel sounds : Other: mild scrotal swelling, no TTP, erythema or lesions Extrem: Other: 1+ pitting edema bilateral lower extremi ties Objective Data Vital Signs Vital Signs: Vital Signs - 24 hr 04/19/25 11:18 04/19/25 12:00 04/19/25 14:00 Temperature 97.6 F Pulse Rate 55 L 57 L Respiratory Rate 18 Blood Pressure 148/80 H Pulse Oximetry 97 Oxygen Delivery Room Air Fraction of Inspired Oxygen 04/19/25 19:42 04/19/25 20:00 04/19/25 22:17 Temperature 97.6 F Pulse Rate 47 L Respiratory Rate 18 Blood Pressure 141/78 H Pulse Oximetry 96 97 Oxygen Delivery Room Air Room Air Fraction of Inspired Oxygen 21 04/20/25 06:00 Temperature 97.9 F Pulse Rate 45 L Respiratory Rate 18 Blood Pressure 158/85 H Pulse Oximetry 97 Oxygen Delivery Fraction of Inspired Oxygen Intake/Output Intake/Output: Intake & Output 04/17/25 04/18/25 04/19/25 04/20/25 23:59 23:59 23:59 23:59 Intake Total 2322.5 2460.4 2400.0 600 Output Total 1175 1025 1700 3000 Balance 1147.5 1435.4 700.0 -2400 Meds/Results Medications: Active Medications Generic Name Dose Route Start Last Admin Trade Name Freq PRN Reason Stop Dose Admin Acetaminophen 650 mg 04/12/25 15:51 Acetaminophen 325 Mg Tablet PO Q6H PRN Mild Pain (1-3) or Fever Hydrocodone Bitart/Acetaminophen 1 tab 04/12/25 15:51 Hydrocodone/Acetaminophen (*Crx) 5-325 Mg Tablet PO Q6H PRN Pain Rated 4-6 Acyclovir 200 mg 04/12/25 22:30 04/20/25 08:44 Acyclovir 200 Mg Capsule PO 200 mg Q12HR [facility] Administration Aspirin 81 mg 04/12/25 22:30 04/19/25 21:52 Aspirin 81 Mg Enteric Tablet PO 81 mg HS [facility] Administration Calcium Carbonate 200 mg 04/12/25 15:51 Calcium Carbonate (Tums) 500 Mg (200 Mg Elemental) PO Q6H PRN Indigestion Carvedilol 1.56 mg 04/19/25 21:00 04/20/25 08:44 Carvedilol 1.56 Mg Tablet PO 1.56 mg Q12HR [facility] Administration Finasteride 5 mg 04/12/25 22:30 04/19/25 21:53 Finasteride 5 Mg Tablet PO 5 mg HS [facility] Administration Heparin Sodium (Porcine) 6,000 units 04/12/25 16:39 04/15/25 10:05 Heparin Sodium 5,000 Units/Ml Vial IV PUSH 6,000 units PRN PRN Administration aPTT less than 55 seconds Heparin Sodium (Porcine) 3,000 units 04/12/25 16:39 04/14/25 20:50 Heparin Sodium 5,000 Units/Ml Vial IV PUSH 3,000 units PRN PRN Administration aPTT 55 - 70 seconds Heparin Sodium/Dextrose 25,000 units in 250 mls @ 13 mls/hr 04/12/25 16:40 04/19/25 16:54 Heparin Sodium/D5w 100 Units/Ml IV CONT 1,300 units/hr .[id number] [facility] 13 mls/hr Protocol Administration 1,300 UNITS/HR Ondansetron HCl 4 mg 04/12/25 15:51 Ondansetron Hcl Odt 4 Mg Tablet PO Q6H PRN Nausea And Vomiting Sodium Bicarbonate 1,300 mg 04/15/25 10:45 04/20/25 08:44 Sodium Bicarbonate Tab 650 Mg Tablet PO 1,300 mg BID [facility] Administration Tamsulosin HCl 0.8 mg 04/19/25 21:00 04/19/25 21:53 Tamsulosin Hcl 0.4 Mg Capsule PO 0.8 mg HS [facility] Administration Warfarin Sodium 7.5 mg 04/19/25 17:00 04/19/25 16:54 Warfarin (*Pbkc) 7.5 Mg Tablet PO 7.5 mg DAILY@1700 [facility] Administration Radiology Results: ITS Impressions Abdomen/Pelvis CT 04/12/25 15:19 IMPRESSION: 1. Multiple right renal masses with intermediate density. Correlation with CT or MRI with contrast recommended for further assessment. 2: Severe enlargement of the prostate gland likely causing outlet obstruction with resultant distention of the bladder and bilateral hydronephrosis. Pulmonary Perfusion Imaging 04/12/25 16:34 IMPRESSION: 1. High probability for pulmonary embolism. Findings were discussed with Kenna Williamson, the nurse caring for the patient, at 4:36 PM. Renal Ultrasound 04/12/25 21:07 Impression: 1: Multiple right renal cysts. No suspicious solid masses are identified to suggest malignancy. Chest X-Ray 04/13/25 08:35 IMPRESSION: 1. No acute cardiopulmonary disease. Venous Doppler Study 04/15/25 16:38 Impression: Right-sided DVT detailed above. Abdomen X-Ray 04/17/25 08:50 IMPRESSION: 1. Nonspecific mild gas pattern with no frankly dilated gas-filled loops of bowel to suggest obstruction. Labs Labs: Laboratory Results - last 24 hr 04/19/25 04/19/25 04/20/25 05:03 11:05 06:12 PT 18.1 H INR 1.5 APTT 104.2 H 117.3 H Sodium 137 Potassium 4.0 Chloride 107 Carbon Dioxide 21 L Anion Gap 9 BUN 85 H Creatinine 4.14 H Estim Creat Clear Calc 16 Estimated GFR 14 L Glucose 167 H Calcium 7.6 L Magnesium 2.2
[2025-04-20] MEDS: HEPARIN SOD/D5W 100 UNITS/ML 25,000 UNITS/250 ML BAG 11 UNITS IV CONT (12:39)
[2025-04-20 13:30] LABS: Partial Thromboplastin Time 75.3 Seconds (22.3-36.8)
[2025-04-20 14:00] VITALS: BP 146/65; PULSE 91; RESP 12; TEMP 37; O2SAT 98
[2025-04-20] MEDS: WARFARIN (*PBKC) 7.5 MG TABLET PO (16:49)
[2025-04-20 19:08] LABS: Partial Thromboplastin Time 78.6 Seconds (22.3-36.8)
[2025-04-20 20:00] VITALS: PULSE 62
--- NOTE | 2025-04-20 20:21 | PC.NURSE ---
1922: PTT RESULTED AT 1847 AT 78.6. VERIFIED AT 1922 BY THIS NURSE. PER PROTOCOL NO RATE CHANGE AT THIS TIME.
[2025-04-20] MEDS: FINASTERIDE 5 MG TABLET PO (21:21)
[2025-04-20] MEDS: TAMSULOSIN HCL 0.4 MG CAPSULE 0.8 MG PO (21:21)
[2025-04-20] MEDS: ASPIRIN 81 MG ENTERIC TABLET PO (21:22)
[2025-04-20 21:55] VITALS: BP 148/72; PULSE 62; RESP 18; TEMP 36.3; O2SAT 98
[2025-04-21] VITALS (8 sets, daily range): BP systolic 136–173; BP diastolic 66–70; PULSE 42–62; RESP 16–18; TEMP 36.1–36.8; O2SAT 96–99
[2025-04-21 05:56] LABS: Hematocrit 31.7 % (42.0-52.0); Hemoglobin 10.1 g/dL (14.0-18.0); Mean Corpuscular HGB Conc 31.9 g/dl (32-36); Mean Corpuscular Hemoglobin 30.0 pg (26-34); Mean Corpuscular Volume 94.1 fl (80-100); Platelet Count Result 126 k/mm3 (150-375); Red Blood Count 3.37 M/mm3 (4.6-6.20); White Blood Count 6.5 K/mm3 (4.5-10.0)
[2025-04-21 06:06] LABS: INR 1.7; Prothrombin Time 19.5 Seconds (11.1-14.7)
[2025-04-21 06:09] LABS: Anion Gap 4 mmol/L (4-12); Blood Urea Nitrogen 72 mg/dL (9-20); Calcium 7.6 mg/dL (8.4-10.2); Carbon Dioxide 25 mmol/L (22-30); Chloride 107 mmol/L (98-107); Estimated CRCL calculation 18 ml/min; Estimated Glomerular Filt Rate 17; Glucose 124 mg/dL (65-110); Magnesium 1.8 mg/dL (1.6-2.3); Partial Thromboplastin Time 101.8 Seconds (22.3-36.8); Potassium 3.5 mmol/L (3.4-5.0); Sodium 136 mmol/L (137-145)
[2025-04-21] MEDS: HEPARIN SOD/D5W 100 UNITS/ML 25,000 UNITS/250 ML BAG 11 UNITS IV CONT ×2 (06:32→11:47)
[2025-04-21] MEDS: ACYCLOVIR 200 MG CAPSULE PO ×2 (08:53→21:00)
[2025-04-21] MEDS: SODIUM BICARBONATE TAB 650 MG TABLET 1300 MG PO ×2 (08:53→17:20)
--- NOTE | 2025-04-21 10:35 | P.PNNP_ITS ---
Progress Note: A&P Assessment and Plan (1) Acute kidney injury: Code(s): N17.9 - Acute kidney failure, unspecified Status: Acute Assessment and Plan: * suspect this was present on admission * slow improvement in creatinine noted since hospitalization began... * multifactorial etiology: * relative hypotension * possible embolic event (given #5)? * element of CKD progression(?) * other(?) * evaluation to date noted: * CT of A/P with evidence of BPH and obstruction/bilateral hydronephrosis * renal ultrasound with multiple right renal cysts * urine electrolytes non-prerenal * urine eosinophils negative * CPK only mildly elevated (not enough to affect kidney function) * moderate proteinuria * bailon catheter in place * follow respiratory and volume status closely - so far no sign of volume overload * no symptoms of uremia, critical electrolytes, or volume overload; hence, no need urgent dialysis at this time * follow trend of repeat labs and UOP (2) Stage 5 chronic kidney disease: Code(s): N18.5 - Chronic kidney disease, stage 5 Status: Chronic Assessment and Plan: * unclear what baseline creatinine normally runs... * however, patient able to verify that he has CKD stage V * was referred to Vascular Surgery for AV access placement (3) Hyperkalemia: Code(s): E87.5 - Hyperkalemia Status: Acute Assessment and Plan: * resolved (4) Metabolic acidosis: Code(s): E87.20 - Acidosis, unspecified Status: Acute Assessment and Plan: * resolved * on oral bicarb (5) Pulmonary embolism: Qualifiers: Acute cor pulmonale presence: unspecified Chronicity: acute Pulmonary embolism type: unspecified Qualified Code(s): I26.99 - Other pulmonary embolism without acute cor pulmonale Code(s): I26.99 - Other pulmonary embolism without acute cor pulmonale Status: Acute Assessment and Plan: * presumed etiology of shortness of breath * recent car travel a week ago ([place], [place] --> to this area) * V/Q scan with high probability for PE * lower extremity dopplers with right LE DVT * on heparin gtt and coumadin * follow INR (6) Azotemia: Code(s): R79.89 - Other specified abnormal findings of blood chemistry Status: Acute Assessment and Plan: * noted rising BUN (despite improvement in creatinine) * BUN slowly down trending * etiology? * possible hypercatabolic state? * bleeding issue? * related to his advanced CKD... * follow trend of BUN (7) Shortness of breath: Code(s): R06.02 - Shortness of breath Status: Acute Assessment and Plan: * slow improvement * as noted on presentation * likely due to PE (8) Elevated troponin: Code(s): R79.89 - Other specified abnormal findings of blood chemistry Status: Acute Assessment and Plan: * noted by testing in ER * EKGs noted - evidence of Afib but no acute ST elevations/depressions * Cardiology recommendations noted * Echo results noted: * normal appearing left ventricular size with vigorous systolic function * right ventricular enlargement with right ventricular hypokinesia * at least moderate if not moderate to severe aortic stenosis. * suspect secondary to right heart strain from PE (9) Atrial fibrillation: Qualifiers: Atrial fibrillation type: paroxysmal Qualified Code(s): I48.0 - Paroxysmal atrial fibrillation Code(s): I48.91 - Unspecified atrial fibrillation Status: Acute Assessment and Plan: * supposedly new onset (or at least paroxysmal) * follow telemetry * rate control strategy * on anticoagulation (heparin gtt + coumadin) (10) Anemia: Code(s): D64.9 - Anemia, unspecified Status: Acute Assessment and Plan: * due in part to TEOFILO and CKD along with IVF hydration * cannot discount multiple myeloma playing a role * no need for JOSE * follow trend of H/H (11) Multiple myeloma: Code(s): C90.00 - Multiple myeloma not having achieved remission Status: Chronic Assessment and Plan: * follows with Hem/Onc * on active treatment (12) Diabetes: Qualifiers: Chronic kidney disease stage: stage 5 (GFR < 15), not on chronic dialysis Diabetes mellitus complication detail: with chronic kidney disease D iabetes mellitus complication status: with kidney complications Diabetes mellitus mcfp insulin use: without mcfp use Diabetes mellitus type: t ype 2 Qualified Code(s): E11.22 - Type 2 diabetes mellitus with diabetic chronic kidney disease; N18.5 - Chronic kidney disease, stage 5 Code(s): E11.9 - Type 2 diabetes mellitus without complications Status: Chronic Assessment and Plan: * reported history * however, on no medications (diet controlled?) * follow blood sugars * institute SSI if needed Will continue to follow intermittently. L Subjective Date/time seen: 04/21/25 10:35 Interval history: Follow-up for acute kidney injury/acute renal failure on chronic kidney disease. Renal function/creatinine continues to slowly improve/stabilize with fairly good urine output noted as well; remains on heparin gtt + coumadin and awaiting therapeutic INR; no other acute complaints voiced at this time. Exam 2 Narrative: General: elderly but WD/WN male in NAD Heart: normal S1 and S2; no rub Lungs: clear to auscultation Abdomen: soft, nondistended, positive bowel sounds Extremities: no cyanosis or clubbing; trace edema Skin: warm and dry Objective Data Vital Signs Vital Signs: Vital Signs Temp Pulse Resp BP Pulse Ox O2 Del Method 04/21/25 08:53 Room Air 04/21/25 08:00 42 L 04/21/25 06:00 97.0 F L 56 L 18 136/66 96 04/21/25 04:00 54 L 04/21/25 00:00 48 L 04/20/25 21:55 97.4 F L 62 18 148/72 H 98 04/20/25 20:00 62 04/20/25 20:00 Room Air Intake/Output Intake/Output: Intake & Output 04/18/25 04/19/25 04/20/25 04/21/25 23:59 23:59 23:59 23:59 Intake Total 2460.4 2400.0 1564 1234.5 Output Total 1025 1700 3800 2200 Balance 1435.4 700.0 -2236 -965.5 Meds/Results Medications: Active Medications Generic Name Dose Route Start Last Admin Trade Name Rafal PRN Reason Stop Dose Admin Acetaminophen 650 mg 04/12/25 15:51 Acetaminophen 325 Mg Tablet PO Q6H PRN Mild Pain (1-3) or Fever Hydrocodone Bitart/Acetaminophen 1 tab 04/12/25 15:51 Hydrocodone/Acetaminophen (*Crx) 5-325 Mg Tablet PO Q6H PRN Pain Rated 4-6 Acyclovir 200 mg 04/12/25 22:30 04/21/25 08:53 Acyclovir 200 Mg Capsule PO 200 mg Q12HR MANISHA Administration Aspirin 81 mg 04/12/25 22:30 04/20/25 21:22 Aspirin 81 Mg Enteric Tablet PO 81 mg HS MANISHA Administration Calcium Carbonate 200 mg 04/12/25 15:51 Calcium Carbonate (Tums) 500 Mg (200 Mg Elemental) PO Q6H PRN Indigestion Finasteride 5 mg 04/12/25 22:30 04/20/25 21:21 Finasteride 5 Mg Tablet PO 5 mg HS MANISHA Administration Heparin Sodium (Porcine) 6,000 units 04/12/25 16:39 04/15/25 10:05 Heparin Sodium 5,000 Units/Ml Vial IV PUSH 6,000 units PRN PRN Administration aPTT less than 55 seconds Heparin Sodium (Porcine) 3,000 units 04/12/25 16:39 04/14/25 20:50 Heparin Sodium 5,000 Units/Ml Vial IV PUSH 3,000 units PRN PRN Administration aPTT 55 - 70 seconds Heparin Sodium/Dextrose 25,000 units in 250 mls @ 11 mls/hr 04/12/25 16:40 04/21/25 11:47 Heparin Sodium/D5w 100 Units/Ml IV CONT 1,100 units/hr .[id number] MANISHA 11 mls/hr Protocol Administration 1,100 UNITS/HR Ondansetron HCl 4 mg 04/12/25 15:51 Ondansetron Hcl Odt 4 Mg Tablet PO Q6H PRN Nausea And Vomiting Sodium Bicarbonate 1,300 mg 04/15/25 10:45 04/21/25 08:53 Sodium Bicarbonate Tab 650 Mg Tablet PO 1,300 mg BID MANISHA Administration Tamsulosin HCl 0.8 mg 04/19/25 21:00 04/20/25 21:21 Tamsulosin Hcl 0.4 Mg Capsule PO 0.8 mg HS [facility] Administration Warfarin Sodium 7.5 mg 04/19/25 17:00 04/20/25 16:49 Warfarin (*Pbkc) 7.5 Mg Tablet PO 7.5 mg DAILY@1700 MANISHA Administration Radiology Results: ITS Impressions Abdomen/Pelvis CT 04/12/25 15:19 IMPRESSION: 1. Multiple right renal masses with intermediate density. Correlation with CT or MRI with contrast recommended for further assessment. 2: Severe enlargement of the prostate gland likely causing outlet obstruction with resultant distention of the bladder and bilateral hydronephrosis. Pulmonary Perfusion Imaging 04/12/25 16:34 IMPRESSION: 1. High probability for pulmonary embolism. Findings were discussed with Kenna Williamson, the nurse caring for the patient, at 4:36 PM. Renal Ultrasound 04/12/25 21:07 Impression: 1: Multiple right renal cysts. No suspicious solid masses are identified to suggest malignancy. Chest X-Ray 04/13/25 08:35 IMPRESSION: 1. No acute cardiopulmonary disease. Venous Doppler Study 04/15/25 16:38 Impression: Right-sided DVT detailed above. Abdomen X-Ray 04/17/25 08:50 IMPRESSION: 1. Nonspecific mild gas pattern with no frankly dilated gas-filled loops of bowel to suggest obstruction. Labs Labs: Laboratory Tests 04/21/25 05:20 04/21/25 05:20 PT 19.5 H INR 1.7 Calcium 7.6 L Magnesium 1.8
--- NOTE | 2025-04-21 15:46 | PM.IMPN ---
Progress Note: A&P Assessment and Plan (1) Pulmonary embolism: Qualifiers: Pulmonary embolism type: unspecified Chronicity: acute Acute cor pulmonale presence: unspecified Qualified Code(s): I26.99 - Other pulmonary embolism without acute cor pulmonale Code(s): I26.99 - Other pulmonary embolism without acute cor pulmonale Status: Acute Plan Right lower extremity DVT Probable PE -patient is from [place], recent travel 1 week ago via car. They plan on driving back home after discharge from the hospital. He will be stopping every few hours, advised the patient get up and walk around as much as possible. They agreed to do so. He will not be driving. -V/Q scan on 04/12/2025 with high probability for PE -currently on heparin GTT -warfarin started on 04/16/2025 at 5 mg p.o. at 5:00 p.m. -INR on day 2 of warfarin is 1.5, continue warfarin 5 mg p.o. daily -INR on day 3 of warfarin is 1.4, increase warfarin to 7.5 mg p.o. q.day, as opposed to 10 mg per up-to-date recommendations since he has severe kidney dysfunction. Discussed the risks versus benefits with the family and they agree to this plan. -INR on day 4 of warfarin is 1.5, keep current mgmt. -INR on day 5 of warfarin is 1.7, this is day 2 of increased dose 7.5 mg. Weakness/deconditioning -cont PT/OT, recommending MERCEDES, pt thus far not amenable as he will be returning home to [place], will continue discussions. -ambulate with assistance, fall precautions. BPH -urinary retention, 1st time this hospital stay. he has been immobile. Failed voiding trial on 04/18/2025. Increase tamsulosin to 0.8 mg p.o. q.h.s.. try voiding trial prior to discharge. In spite of decreasing coreg, he has bradycardia again. stop coreg, start telemetry and monitor HR and blood pressure. 1+ lower extremity edema, mild scrotal swelling. otherwise appears euvolemic. Likely due to immobility. Slightly improved. Continue with physical therapy, apply thigh-high Vijay hose stockings. Patient wishes to be full code. Subjective Date/time seen: 04/21/25 15:46 Interval history: no complaints. Please scrotal swelling is improved. Has no complaints, feels more energetic ready to work with therapy. Denies any blood in stool, he had a stool yesterday. Denies hemoptysis. Review of Systems Review of Systems: All systems reviewed & are unremarkable except as noted in HPI and below (Subjective) Exam Const: General: comfortable and no acute distress HENMT: Mouth: Yes moist mucous membranes Eyes: Pupils: Equal, round and reactive pupils present Neck: Neck: supple Resp: Effort & Inspection: normal respiratory effort Auscultation: clear to auscultation bilaterally Cardio: Rate: regular rate Rhythm: regular rhythm GI: Inspection: non-distended GI Palp: Yes Soft to palpation Auscultation: normal bowel sounds : Other: mild scrotal swelling, no TTP, erythema or lesions Extrem: Other: 1+ pitting edema bilateral lower extremities Objective Data Vital Signs Vital Signs: Vital Signs - 24 hr 04/20/25 20:00 04/20/25 20:00 04/20/25 21:55 Temperature 97.4 F L Pulse Rate 62 62 Respiratory Rate 18 Blood Pressure 148/72 H Pulse Oximetry 98 Oxygen Delivery Room Air 04/21/25 00:00 04/21/25 04:00 04/21/25 06:00 Temperature 97.0 F L Pulse Rate 48 L 54 L 56 L Respiratory Rate 18 Blood Pressure 136/66 Pulse Oximetry 96 Oxygen Delivery 04/21/25 08:00 04/21/25 08:53 04/21/25 12:00 Temperature Pulse Rate 42 L 62 Respiratory Rate Blood Pressure Pulse Oximetry Oxygen Delivery Room Air Intake/Output Intake/Output: Intake & Output 04/18/25 04/19/25 04/20/25 04/21/25 23:59 23:59 23:59 23:59 Intake Total 2460.4 2400.0 1564 1234.5 Output Total 1025 1700 3800 2200 Balance 1435.4 700.0 -2236 -965.5 Meds/Results Medications: Active Medications Generic Name Dose Route Start Last Admin Trade Name Freq PRN Reason Stop Dose Admin Acetaminophen 650 mg 04/12/25 15:51 Acetaminophen 325 Mg Tablet PO Q6H PRN Mild Pain (1-3) or Fever Hydrocodone Bitart/Acetaminophen 1 tab 04/12/25 15:51 Hydrocodone/Acetaminophen (*Crx) 5-325 Mg Tablet PO Q6H PRN Pain Rated 4-6 Acyclovir 200 mg 04/12/25 22:30 04/21/25 08:53 Acyclovir 200 Mg Capsule PO 200 mg Q12HR MANISHA Administration Aspirin 81 mg 04/12/25 22:30 04/20/25 21:22 Aspirin 81 Mg Enteric Tablet PO 81 mg HS MANISHA Administration Calcium Carbonate 200 mg 04/12/25 15:51 Calcium Carbonate (Tums) 500 Mg (200 Mg Elemental) PO Q6H PRN Indigestion Finasteride 5 mg 04/12/25 22:30 04/20/25 21:21 Finasteride 5 Mg Tablet PO 5 mg HS MANISHA Administration Heparin Sodium (Porcine) 6,000 units 04/12/25 16:39 04/15/25 10:05 Heparin Sodium 5,000 Units/Ml Vial IV PUSH 6,000 units PRN PRN Administration aPTT less than 55 seconds Heparin Sodium (Porcine) 3,000 units 04/12/25 16:39 04/14/25 20:50 Heparin Sodium 5,000 Units/Ml Vial IV PUSH 3,000 units PRN PRN Administration aPTT 55 - 70 seconds Heparin Sodium/Dextrose 25,000 units in 250 mls @ 11 mls/hr 04/12/25 16:40 04/21/25 11:47 Heparin Sodium/D5w 100 Units/Ml IV CONT 1,100 units/hr .[id number] MANISHA 11 mls/hr Protocol Administration 1,100 UNITS/HR Ondansetron HCl 4 mg 04/12/25 15:51 Ondansetron Hcl Odt 4 Mg Tablet PO Q6H PRN Nausea And Vomiting Sodium Bicarbonate 1,300 mg 04/15/25 10:45 04/21/25 08:53 Sodium Bicarbonate Tab 650 Mg Tablet PO 1,300 mg BID MANISHA Administration Tamsulosin HCl 0.8 mg 04/19/25 21:00 04/20/25 21:21 Tamsulosin Hcl 0.4 Mg Capsule PO 0.8 mg HS [facility] Administration Warfarin Sodium 7.5 mg 04/19/25 17:00 04/20/25 16:49 Warfarin (*Pbkc) 7.5 Mg Tablet PO 7.5 mg DAILY@1700 MANISHA Administration Radiology Results: ITS Impressions Abdomen/Pelvis CT 04/12/25 15:19 IMPRESSION: 1. Multiple right renal masses with intermediate density. Correlation with CT or MRI with contrast recommended for further assessment. 2: Severe enlargement of the prostate gland likely causing outlet obstruction with resultant distention of the bladder and bilateral hydronephrosis. Pulmonary Perfusion Imaging 04/12/25 16:34 IMPRESSION: 1. High probability for pulmonary embolism. Findings were discussed with Kenna Williamson, the nurse caring for the patient, at 4:36 PM. Renal Ultrasound 04/12/25 21:07 Impression: 1: Multiple right renal cysts. No suspicious solid masses are identified to suggest malignancy. Chest X-Ray 04/13/25 08:35 IMPRESSION: 1. No acute cardiopulmonary disease. Venous Doppler Study 04/15/25 16:38 Impression: Right-sided DVT detailed above. Abdomen X-Ray 04/17/25 08:50 IMPRESSION: 1. Nonspecific mild gas pattern with no frankly dilated gas-filled loops of bowel to suggest obstruction. Labs Labs: Laboratory Results - last 24 hr 04/20/25 04/21/25 18:48 05:20 WBC 6.5 RBC 3.37 L Hgb 10.1 L Hct 31.7 L MCV 94.1 MCH 30.0 MCHC 31.9 L RDW 15.6 H Plt Count 126 L MPV 11.1 H PT 19.5 H INR 1.7 APTT 78.6 H 101.8 H Sodium 136 L Potassium 3.5 Chloride 107 Carbon Dioxide 25 Anion Gap 4 BUN 72 H D Creatinine 3.58 H Estim Creat Clear Calc 18 Estimated GFR 17 L Glucose 124 H Calcium 7.6 L Magnesium 1.8
[2025-04-21] MEDS: WARFARIN (*PBKC) 7.5 MG TABLET PO (17:20)
[2025-04-21] MEDS: ASPIRIN 81 MG ENTERIC TABLET PO (21:01)
[2025-04-21] MEDS: FINASTERIDE 5 MG TABLET PO (21:01)
[2025-04-21] MEDS: TAMSULOSIN HCL 0.4 MG CAPSULE 0.8 MG PO (21:01)
[2025-04-22] VITALS (9 sets, daily range): BP systolic 152–177; BP diastolic 79–81; PULSE 43–91; RESP 18; TEMP 36.2–36.7; O2SAT 97–100
[2025-04-22 06:16] LABS: INR 1.7; Prothrombin Time 19.7 Seconds (11.1-14.7)
[2025-04-22 07:19] LABS: Partial Thromboplastin Time 115.1 Seconds (22.3-36.8)
[2025-04-22] MEDS: SODIUM BICARBONATE TAB 650 MG TABLET 1300 MG PO ×2 (09:39→17:24)
[2025-04-22] MEDS: ACYCLOVIR 200 MG CAPSULE PO ×2 (09:40→21:44)
[2025-04-22] MEDS: HEPARIN SOD/D5W 100 UNITS/ML 25,000 UNITS/250 ML BAG 9 UNITS IV CONT (12:49)
--- NOTE | 2025-04-22 13:20 | P.PNIM_ITS ---
Progress Note: A&P Assessment and Plan (1) Pulmonary embolism: Qualifiers: Pulmonary embolism type: unspecified Chronicity: acute Acute cor pulmonale presence: unspecified Qualified Code(s): I26.99 - Other pulmonary embolism without acute cor pulmonale Code(s): I26.99 - Other pulmonary embolism without acute cor pulmonale Status: Acute Plan Right lower extremity DVT Probable PE -patient is from [place], recent travel 1 week ago via car. They plan on driving back home after discharge from the hospital. He will be stopping every few hours, advised the patient get up and walk around as much as possible. They agreed to do so. He will not be driving. -V/Q scan on 04/12/2025 with high probability for PE -currently on heparin GTT -warfarin started on 04/16/2025 at 5 mg p.o. at 5:00 p.m. -INR on day 2 of warfarin is 1.5, continue warfarin 5 mg p.o. daily -INR on day 3 of warfarin is 1.4, increase warfarin to 7.5 mg p.o. q.day, as opposed to 10 mg per up-to-date recommendations since he has severe kidney dysfunction. Discussed the risks versus benefits with the family and they agree to this plan. -INR on day 4 of warfarin is 1.5, keep current mgmt. -INR on day 5 of warfarin is 1.7, this is day 2 of increased dose 7.5 mg. -INR on day 6 of warfarin is 1.7, increase dose to 10 mg p.o. daily. Weakness/deconditioning -cont PT/OT, recommending MERCEDES, pt thus far not amenable as he will be returning home to [place], will continue discussions. He is improving. -ambulate with assistance, fall precautions. BPH -urinary retention, 1st time this hospital stay. he has been immobile. Failed voiding trial on 04/18/2025. Increase tamsulosin to 0.8 mg p.o. q.h.s.. Discontinue Ackerman on 04/22/2025, voiding trial. In spite of decreasing coreg, he has bradycardia again. stop coreg, start telemetry and monitor HR and blood pressure. 1+ lower extremity edema, mild scrotal swelling. otherwise appears euvolemic. Likely due to immobility. Slightly improved. Continue with physical therapy, apply thigh-high Vijay hose stockings. Left upper extremity swelling, check venous ultrasound. Chronic kidney disease stage 5. Nephrology following. Possible superimposed TEOFILO. Renal function is stable. No fluids or diuretics at this moment. CT abdomen pelvis showed renal masses with indeterminate density. Patient reports a history of renal carcinoma and partial nephrectomy. Records have been requested. At this time, unable to go to MRI on heparin drip. Elevated troponin: Cardiology recommendations noted, believed to be due to right heart strain from the pulmonary embolism. He has a history of multiple myeloma, he was seen by in-house oncologist however he follows with his oncologist in [place]. They will be following up upon discharge. His next cycle of Velcade was supposed to be on 04/18/2025 but that has been postponed. Patient wishes to be full code. Saline lock IV. Precautions, ambulate with assistance. Subjective Date/time seen: 04/22/25 13:20 Interval history: no complaints. Reports gross swelling is still there. Believes he is improving energy and mobility. Family at bedside. All their questions and concerns were answered to satisfaction. Agree to increase warfarin to 10 mg tonight. Review of Systems Review of Systems: All systems reviewed & are unremarkable except as noted in HPI and below (Subjective) Exam Const: General: comfortable and no acute distress HENMT: Mouth: Yes moist mucous membranes Eyes: Pupils: Equal, round and reactive pupils present Neck: Neck: supple Resp: Effort & Inspection: normal respiratory effort Auscultation: clear to auscultation bilaterally Cardio: Rate: regular rate Rhythm: regular rhythm GI: Inspection: non-distended GI Palp: Yes Soft to palpation Ausc ultation: normal bowel sounds : Other: mild scrotal swelling, no TTP, erythema or lesions Extrem: Other: 1+ pitting edema bilateral lower extremi ties, edema of the left upper extremity. Objective Data Vital Signs Vital Signs: Vital Signs - 24 hr 04/21/25 14:00 04/21/25 16:00 04/21/25 20:00 Temperature 98.2 F Pulse Rate 48 L 49 L Respiratory Rate 16 Blood Pressure 153/70 H Pulse Oximetry 98 Oxygen Delivery Room Air 04/21/25 20:00 04/21/25 20:00 04/22/25 00:00 Temperature 98.2 F Pulse Rate 51 L 60 55 L Respiratory Rate 18 Blood Pressure 173/69 H Pulse Oximetry 99 Oxygen Delivery 04/22/25 04:00 04/22/25 04:17 04/22/25 08:00 Temperature 97.1 F L Pulse Rate 51 L 61 Respiratory Rate 18 Blood Pressure 155/80 H Pulse Oximetry 97 Oxygen Delivery Room Air Intake/Output Intake/Output: Intake & Output 04/19/25 04/20/25 04/21/25 04/22/25 23:59 23:59 23:59 23:59 Intake Total 2400.0 1564 3444.5 1360.0 Output Total 1700 3800 3100 1300 Balance 700.0 -2236 344.5 60.0 Meds/Results Medications: Active Medications Generic Name Dose Route Start Last Admin Trade Name Freq PRN Reason Stop Dose Admin Acetaminophen 650 mg 04/12/25 15:51 Acetaminophen 325 Mg Tablet PO Q6H PRN Mild Pain (1-3) or Fever Hydrocodone Bitart/Acetaminophen 1 tab 04/12/25 15:51 Hydrocodone/Acetaminophen (*Crx) 5-325 Mg Tablet PO Q6H PRN Pain Rated 4-6 Acyclovir 200 mg 04/12/25 22:30 04/22/25 09:40 Acyclovir 200 Mg Capsule PO 200 mg Q12HR MANISHA Administration Aspirin 81 mg 04/12/25 22:30 04/21/25 21:01 Aspirin 81 Mg Enteric Tablet PO 81 mg HS [facility] Administration Calcium Carbonate 200 mg 04/12/25 15:51 Calcium Carbonate (Tums) 500 Mg (200 Mg Elemental) PO Q6H PRN Indigestion Finasteride 5 mg 04/12/25 22:30 04/21/25 21:01 Finasteride 5 Mg Tablet PO 5 mg HS MANISHA Administration Heparin Sodium (Porcine) 6,000 units 04/12/25 16:39 04/15/25 10:05 Heparin Sodium 5,000 Units/Ml Vial IV PUSH 6,000 units PRN PRN Administration aPTT less than 55 seconds Heparin Sodium (Porcine) 3,000 units 04/12/25 16:39 04/14/25 20:50 Heparin Sodium 5,000 Units/Ml Vial IV PUSH 3,000 units PRN PRN Administration aPTT 55 - 70 seconds Heparin Sodium/Dextrose 25,000 units in 250 mls @ 9 mls/hr 04/12/25 16:40 04/22/25 12:49 Heparin Sodium/D5w 100 Units/Ml IV CONT 900 units/hr .Q24H MANISHA 9 mls/hr Protocol Administration 900 UNITS/HR Ondansetron HCl 4 mg 04/12/25 15:51 Ondansetron Hcl Odt 4 Mg Tablet PO Q6H PRN Nausea And Vomiting Sodium Bicarbonate 1,300 mg 04/15/25 10:45 04/22/25 09:39 Sodium Bicarbonate Tab 650 Mg Tablet PO 1,300 mg BID MANISHA Administration Tamsulosin HCl 0.8 mg 04/19/25 21:00 04/21/25 21:01 Tamsulosin Hcl 0.4 Mg Capsule PO 0.8 mg HS [facility] Administration Warfarin Sodium 10 mg 04/22/25 17:00 Warfarin (*Pbkc) 10 Mg Tablet PO DAILY@1700 MANISHA Radiology Results: ITS Impressions Abdomen/Pelvis CT 04/12/25 15:19 IMPRESSION: 1. Multiple right renal masses with intermediate density. Correlation with CT or MRI with contrast recommended for further assessment. 2: Severe enlargement of the prostate gland likely causing outlet obstruction with resultant distention of the bladder and bilateral hydronephrosis. Pulmonary Perfusion Imaging 04/12/25 16:34 IMPRESSION: 1. High probability for pulmonary embolism. Findings were discussed with Kenna Williamson, the nurse caring for the patient, at 4:36 PM. Renal Ultrasound 04/12/25 21:07 Impression: 1: Multiple right renal cysts. No suspicious solid masses are identified to suggest malignancy. Chest X-Ray 04/13/25 08:35 IMPRESSION: 1. No acute cardiopulmonary disease. Venous Doppler Study 04/15/25 16:38 Impression: Right-sided DVT detailed above. Abdomen X-Ray 04/17/25 08:50 IMPRESSION: 1. Nonspecific mild gas pattern with no frankly dilated gas-filled loops of bowel to suggest obstruction. Labs Labs: Laboratory Results - last 24 hr 04/22/25 05:24 PT 19.7 H INR 1.7 APTT 115.1 H
[2025-04-22 13:40] LABS: Anion Gap 5 mmol/L (4-12); Blood Urea Nitrogen 65 mg/dL (9-20); Calcium 7.6 mg/dL (8.4-10.2); Carbon Dioxide 24 mmol/L (22-30); Chloride 108 mmol/L (98-107); Estimated CRCL calculation 19 ml/min; Estimated Glomerular Filt Rate 17; Glucose 119 mg/dL (65-110); Potassium 3.5 mmol/L (3.4-5.0); Sodium 137 mmol/L (137-145)
[2025-04-22] MEDS: WARFARIN (*PBKC) 10 MG TABLET PO (17:24)
[2025-04-22] MEDS: TAMSULOSIN HCL 0.4 MG CAPSULE 0.8 MG PO (21:43)
[2025-04-22] MEDS: ASPIRIN 81 MG ENTERIC TABLET PO (21:44)
[2025-04-22] MEDS: FINASTERIDE 5 MG TABLET PO (21:45)
[2025-04-23] VITALS (9 sets, daily range): BP systolic 153–169; BP diastolic 59–72; PULSE 44–77; RESP 18–22; TEMP 36.3–36.9; O2SAT 97–98
[2025-04-23 00:05] LABS: Partial Thromboplastin Time 74.6 Seconds (22.3-36.8)
[2025-04-23 05:57] LABS: Hematocrit 32.2 % (42.0-52.0); Hemoglobin 10.0 g/dL (14.0-18.0); Mean Corpuscular HGB Conc 31.1 g/dl (32-36); Mean Corpuscular Hemoglobin 29.3 pg (26-34); Mean Corpuscular Volume 94.4 fl (80-100); Platelet Count Result 129 k/mm3 (150-375); Red Blood Count 3.41 M/mm3 (4.6-6.20); White Blood Count 6.6 K/mm3 (4.5-10.0)
[2025-04-23 06:16] LABS: Magnesium 1.6 mg/dL (1.6-2.3)
[2025-04-23 06:34] LABS: INR 2.0; Prothrombin Time 22.0 Seconds (11.1-14.7)
[2025-04-23 06:36] LABS: Partial Thromboplastin Time 73.9 Seconds (22.3-36.8)
--- NOTE | 2025-04-23 08:35 | P.PNIM_ITS ---
Progress Note: A&P Assessment and Plan (1) Pulmonary embolism: Qualifiers: Acute cor pulmonale presence: unspecified Chronicity: acute Pulmonary embolism type: unspecified Qualified Code(s): I26.99 - Other pulmonary embolism without acute cor pulmonale Code(s): I26.99 - Other pulmonary embolism without acute cor pulmonale Status: Acute Plan Right lower extremity DVT Probable PE -patient is from [place], recent travel 1 week ago via car. They plan on driving back home after discharge from the hospital. He will be stopping every few hours, advised the patient get up and walk around as much as possible. They agreed to do so. He will not be driving. -V/Q scan on 04/12/2025 with high probability for PE -currently on heparin GTT -warfarin started on 04/16/2025 at 5 mg p.o. at 5:00 p.m. -INR on day 2 of warfarin is 1.5, continue warfarin 5 mg p.o. daily -INR on day 3 of warfarin is 1.4, increase warfarin to 7.5 mg p.o. q.day, as opposed to 10 mg per up-to-date recommendations since he has severe kidney dysfunction. Discussed the risks versus benefits with the family and they agree to this plan. -INR on day 4 of warfarin is 1.5, keep current mgmt. -INR on day 5 of warfarin is 1.7, this is day 2 of increased dose 7.5 mg. -INR on day 6 of warfarin is 1.7, increase dose to 10 mg p.o. daily. -INR on day 7 (04/23) is 2.0 - maintain dose and continue to monitor Weakness/deconditioning -cont PT/OT, recommending MERCEDES, pt thus far not amenable as he will be returning home to [place], will continue discussions. He is improving. -ambulate with assistance, fall precautions. -Encourage further ambulation BPH -urinary retention, 1st time this hospital stay. he has been immobile. Failed voiding trial on 04/18/2025. Increase tamsulosin to 0.8 mg p.o. q.h.s.. Discontinue Ackerman on 04/22/2025, voiding trial. -Failed voiding trial on 04/22, will consult Urology for further recommendations In spite of decreasing coreg, he has bradycardia again. stop coreg, start telemetry and monitor HR and blood pressure. Improving 1+ lower extremity edema, mild scrotal swelling. otherwise appears euvolemic. Likely due to immobility. Continue to improve. Continue with physical therapy, apply thigh-high Vijay hose stockings. Left upper extremity swelling, check venous ultrasound - Negative for DVT Chronic kidney disease stage 5. Nephrology following. Possible superimposed TEOFILO. Renal function is stable. No fluids or diuretics at this moment. CT abdomen pelvis showed renal masses with indeterminate density. Patient reports a history of renal carcinoma and partial nephrectomy. Records have been requested. At this time, unable to go to MRI on heparin drip. Elevated troponin: Cardiology recommendations noted, believed to be due to right heart strain from the pulmonary embolism. He has a history of multiple myeloma, he was seen by in-house oncologist however he follows with his oncologist in [place]. They will be following up upon discharge. His next cycle of Velcade was supposed to be on 04/18/2025 but that has been postponed. Patient wishes to be full code. Saline lock IV. Precautions, ambulate with assistance. Subjective Date/time seen: 04/23/25 08:35 Interval history: 04/23/2025 Patient sitting at bedside during examination. Denies any chest pain, shortness of breath, n/v, abd pain at this time. INR has increased to 2.0 - will continue to monitor until tomorrow to ensure efficatious effect of Warfarin. Voiding trial attempted last night, was unsuccessful so catheter was replaced. Will consult Urology for any further recommendations. Review of Systems Review of Systems: 79 y/o M with PMH of CHF, multiple myelo ma, partial nephrectomy (believes it was on the left), DM2, HLD, BPH, and CKD (has previously had discussion for possible dialysis) presents here with shortness of breath. All systems reviewed & are unremarkable except as noted in HPI and below (Subjective) Exam Narrative: General - Awake and alert. No acute distress Eyes - PERRLA, EOM intact ENT - No thrush, No erythema Neck - No noticeable or palpable swelling Lymph Nodes - No lymphadenopathy Cardiovascular - RRR no m/r/g, no JVD Lungs: Clear to auscultation, No wheezing, use of accessory muscles, no crackles Skin - Skin warm and dry, no wounds or rashes Abdomen - Normal bowel sounds, abdomen soft, TTP left abdomen Extremities - No edema, cyanosis or clubbing Musculoskeletal - 5/5 strength, normal range of motion, no swollen or erythematous joints. Neurological ? Alert and oriented x 3, CN 2-12 grossly intact. Psych: Normal mood and affect Const: General: comfortable and no acute distress Other: , male, elderly, modestly ill-appearing HENMT: Face/Nose/Sinus: Normal nares present Mouth: Yes moist mucous membranes Eyes: General: appearance normal, both eyes and all related structures Scl era: sclerae normal Pupils: Equal, round and reactive pupils present EOM: EOMs intact bilaterally Neck: Neck: supple Resp: Effort & Inspection: normal respiratory effort Auscultation: clear to auscultation bilaterally Other: Increased work of breathing without accessory muscle use. No wheezing or crackles noted on exam. Nasal cannula place for patient comfort, no hypoxia noted on monitor. Cardio: Rate: regular rate Rhythm: regular rhythm and abnormal rhythm Other: No murmur or rub appreciated. GI: Inspection: non-distended Auscultation: normal bowel sounds Other: Abdomen soft, nondistended, nontender. Normoactive bowel sounds in all quadrants. : Other: mild scrotal swelling, no TTP, erythema or lesions Skin: General skin exam: normal color and no rashes or lesions noted Wounds: no wounds Neuro: Cranial nerves: Yes Equal, round and reactive pupils present Speech: normal speech Motor exam (neuro): 5/5 motor strength present throughout Sensory Exam: normal sensation Other: A&O x4 Extrem: General: no edema Other: 1+ pitting edema bilateral lower extremi ties, edema of the left upper extremity. Psych: Mental Status: mental status grossly normal Affect: normal affect Other: Good insight and judgment, pleasant Objective Data Vital Signs Vital Signs: Vital Signs - 24 hr 04/22/25 12:00 04/22/25 14:00 04/22/25 16:00 Temperature 98.1 F Pulse Rate 62 48 L 56 L Respiratory Rate 18 Blood Pressure 177/81 H Pulse Oximetry 100 Oxygen Delivery 04/22/25 21:45 04/22/25 21:45 04/22/25 22:00 Temperature 97.7 F Pulse Rate 43 L 91 Respiratory Rate 18 Blood Pressure 152/79 H Pulse Oximetry 98 Oxygen Delivery Room Air 04/23/25 00:00 04/23/25 05:00 04/23/25 06:00 Temperature 97.6 F Pulse Rate 49 L 68 55 L Respiratory Rate 18 Blood Pressure 153/62 H Pulse Oximetry 97 Oxygen Delivery Intake/Output Intake/Output: Intake & Output 04/20/25 04/21/25 04/22/25 04/23/25 23:59 23:59 23:59 23:59 Intake Total 1564 3444.5 3340.0 760.8 Output Total 3800 3100 1300 1800 Balance -2236 344.5 2040.0 -1039.2 Meds/Results Medications: Active Medications Generic Name Dose Route Start Last Admin Trade Name Freq PRN Reason Stop Dose Admin Acetaminophen 650 mg 04/12/25 15:51 Acetaminophen 325 Mg Tablet PO Q6H PRN Mild Pain (1-3) or Fever Hydrocodone Bitart/Acetaminophen 1 tab 04/12/25 15:51 Hydrocodone/Acetaminophen (*Crx) 5-325 Mg Tablet PO Q6H PRN Pain Rated 4-6 Acyclovir 200 mg 04/12/25 22:30 04/22/25 21:44 Acyclovir 200 Mg Capsule PO 200 mg Q12HR MANISHA Administration Aspirin 81 mg 04/12/25 22:30 04/22/25 21:44 Aspirin 81 Mg Enteric Tablet PO 81 mg HS MANISHA Administration Calcium Carbonate 200 mg 04/12/25 15:51 Calcium Carbonate (Tums) 500 Mg (200 Mg Elemental) PO Q6H PRN Indigestion Finasteride 5 mg 04/12/25 22:30 04/22/25 21:45 Finasteride 5 Mg Tablet PO 5 mg HS MANISHA Administration Heparin Sodium (Porcine) 6,000 units 04/12/25 16:39 04/15/25 10:05 Heparin Sodium 5,000 Units/Ml Vial IV PUSH 6,000 units PRN PRN Administration aPTT less than 55 seconds Heparin Sodium (Porcine) 3,000 units 04/12/25 16:39 04/14/25 20:50 Heparin Sodium 5,000 Units/Ml Vial IV PUSH 3,000 units PRN PRN Administration aPTT 55 - 70 seconds Heparin Sodium/Dextrose 25,000 units in 250 mls @ 9 mls/hr 04/12/25 16:40 04/23/25 06:42 Heparin Sodium/D5w 100 Units/Ml IV CONT Not Given .Q24H MANISHA Protocol 900 UNITS/HR Ondansetron HCl 4 mg 04/12/25 15:51 Ondansetron Hcl Odt 4 Mg Tablet PO Q6H PRN Nausea And Vomiting Sodium Bicarbonate 1,300 mg 04/15/25 10:45 04/22/25 17:24 Sodium Bicarbonate Tab 650 Mg Tablet PO 1,300 mg BID MANISHA Administration Tamsulosin HCl 0.8 mg 04/19/25 21:00 04/22/25 21:43 Tamsulosin Hcl 0.4 Mg Capsule PO 0.8 mg HS MANISHA Administration Warfarin Sodium 10 mg 04/22/25 17:00 04/22/25 17:24 Warfarin (*Pbkc) 10 Mg Tablet PO 10 mg DAILY@1700 MANISHA Administration Radiology Results: ITS Impressions Abdomen/Pelvis CT 04/12/25 15:19 IMPRESSION: 1. Multiple right renal masses with intermediate density. Correlation with CT or MRI with contrast recommended for further assessment. 2: Severe enlargement of the prostate gland likely causing outlet obstruction with resultant distention of the bladder and bilateral hydronephrosis. Pulmonary Perfusion Imaging 04/12/25 16:34 IMPRESSION: 1. High probability for pulmonary embolism. Findings were discussed with Kenna Williamson, the nurse caring for the patient, at 4:36 PM. Renal Ultrasound 04/12/25 21:07 Impression: 1: Multiple right renal cysts. No suspicious solid masses are identified to suggest malignancy. Chest X-Ray 04/13/25 08:35 IMPRESSION: 1. No acute cardiopulmonary disease. Abdomen X-Ray 04/17/25 08:50 IMPRESSION: 1. Nonspecific mild gas pattern with no frankly dilated gas-filled loops of bowel to suggest obstruction. Venous Doppler Study 04/22/25 17:44 Impression: Negative for DVT. Labs Labs: Laboratory Results - last 24 hr 04/22/25 04/22/25 04/23/25 05:22 23:30 05:49 WBC 6.6 RBC 3.41 L Hgb 10.0 L Hct 32.2 L MCV 94.4 MCH 29.3 MCHC 31.1 L RDW 15.6 H Plt Count 129 L MPV 10.8 H PT 22.0 H INR 2.0 APTT 74.6 H 73.9 H Sodium 137 Potassium 3.5 Chloride 108 H Carbon Dioxide 24 Anion Gap 5 BUN 65 H Creatinine 3.43 H Estim Creat Clear Calc 19 Estimated GFR 17 L Glucose 119 H Calcium 7.6 L Magnesium 1.6 Quality VTE Prophylaxis VTE prophylaxis: pharmacologic ordered
[2025-04-23 09:06] LABS: Alanine Aminotransferase 12 U/L (6-50); Albumin Level 2.4 g/dL (3.5-5.1); Alkaline Phosphatase 56 U/L (38-126); Anion Gap 5 mmol/L (4-12); Aspartate Amino Transferase 35 U/L (17-59); Bilirubin,Total 0.4 mg/dL (0.2-1.3); Blood Urea Nitrogen 63 mg/dL (9-20); Calcium 7.6 mg/dL (8.4-10.2); Carbon Dioxide 22 mmol/L (22-30); Chloride 107 mmol/L (98-107); Estimated CRCL calculation 19 ml/min; Estimated Glomerular Filt Rate 18; Glucose 130 mg/dL (65-110); Potassium 3.6 mmol/L (3.4-5.0); Sodium 134 mmol/L (137-145); Total Protein 4.6 g/dL (6.3-8.2)
[2025-04-23] MEDS: SODIUM BICARBONATE TAB 650 MG TABLET 1300 MG PO ×2 (09:35→16:54)
[2025-04-23] MEDS: ACYCLOVIR 200 MG CAPSULE PO ×2 (09:35→21:22)
--- NOTE | 2025-04-23 12:58 | P.PNNP_ITS ---
Progress Note: A&P Assessment and Plan (1) Acute kidney injury: Code(s): N17.9 - Acute kidney failure, unspecified Status: Acute Assessment and Plan: * suspect this was present on admission * slow improvement in creatinine noted since hospitalization began... * multifactorial etiology: * relative hypotension * possible embolic event (given #5)? * element of CKD progression(?) * other(?) * evaluation to date noted: * CT of A/P with evidence of BPH and obstruction/bilateral hydronephrosis * renal ultrasound with multiple right renal cysts * urine electrolytes non-prerenal * urine eosinophils negative * CPK only mildly elevated (not enough to affect kidney function) * moderate proteinuria * bailon catheter in place * failed voiding trial * Urology consulted * follow respiratory and volume status closely - so far no sign of volume overload * no symptoms of uremia, critical electrolytes, or volume overload; hence, no need urgent dialysis at this time * follow trend of repeat labs and UOP (2) Stage 5 chronic kidney disease: Code(s): N18.5 - Chronic kidney disease, stage 5 Status: Chronic Assessment and Plan: * unclear what baseline creatinine normally runs... * however, patient able to verify that he has CKD stage V * was referred to Vascular Surgery for AV access placement (3) Hyperkalemia: Code(s): E87.5 - Hyperkalemia Status: Acute Assessment and Plan: * resolved (4) Metabolic acidosis: Code(s): E87.20 - Acidosis, unspecified Status: Acute Assessment and Plan: * resolved * on oral bicarb (5) Pulmonary embolism: Qualifiers: Pulmonary embolism type: unspecified Chronicity: acute Acute cor pulmonale presence: unspecified Qualified Code(s): I26.99 - Other pulmonary embolism without acute cor pulmonale Code(s): I26.99 - Other pulmonary embolism without acute cor pulmonale Status: Acute Assessment and Plan: * presumed etiology of shortness of breath * recent car travel a week ago ([place], [place] --> to this area) * V/Q scan with high probability for PE * lower extremity dopplers with right LE DVT * on heparin gtt and coumadin * follow INR (6) Azotemia: Code(s): R79.89 - Other specified abnormal findings of blood chemistry Status: Acute Assessment and Plan: * noted rising BUN (despite improvement in creatinine) * BUN slowly down trending * etiology? * possible hypercatabolic state? * bleeding issue? * related to his advanced CKD... * follow trend of BUN (7) Shortness of breath: Code(s): R06.02 - Shortness of breath Status: Acute Assessment and Plan: * slow improvement * as noted on presentation * likely due to PE (8) Elevated troponin: Code(s): R79.89 - Other specified abnormal findings of blood chemistry Status: Acute Assessment and Plan: * noted by testing in ER * EKGs noted - evidence of Afib but no acute ST elevations/depressions * Cardiology recommendations noted * Echo results noted: * normal appearing left ventricular size with vigorous systolic function * right ventricular enlargement with right ventricular hypokinesia * at least moderate if not moderate to severe aortic stenosis. * suspect secondary to right heart strain from PE (9) Atrial fibrillation: Qualifiers: Atrial fibrillation type: paroxysmal Qualified Code(s): I48.0 - Paroxysmal atrial fibrillation Code(s): I48.91 - Unspecified atrial fibrillation Status: Acute Assessment and Plan: * supposedly new onset (or at least paroxysmal) * follow telemetry * rate control strategy * on anticoagulation (on coumadin) (10) Anemia: Code(s): D64.9 - Anemia, unspecified Status: Acute Assessment and Plan: * due in part to TEOFILO and CKD along with IVF hydration * cannot discount multiple myeloma playing a role * no need for JOSE * follow trend of H/H (11) Multiple myeloma: Code(s): C90.00 - Multiple myeloma not having achieved remission Status: Chronic Assessment and Plan: * follows with Hem/Onc * on active treatment (12) Diabetes: Qualifiers: Diabetes mellitus type: type 2 Diabetes mellitus termite exterminator insulin use: without termite exterminator use Diabetes mellitus complication status: with kidney complications Diabetes mellitus complication detail: with chronic kidney disease Chronic kidney disease stage: stage 5 (GFR < 15), not on chronic dialysis Qualified Code(s): E11.22 - Type 2 diabetes mellitus with diabetic chronic kidney disease; N18.5 - Chronic kidney disease, stage 5 Code(s): E11.9 - Type 2 diabetes mellitus without complications Status: Chronic Assessment and Plan: * reported history * however, on no medications (diet controlled?) * follow blood sugars * institute SSI if needed Will continue to follow intermittently. L Subjective Date/time seen: 04/23/25 12:58 Interval history: Follow-up for acute kidney injury/acute renal failure on chronic kidney disease. Renal function/creatinine remains relatively stable (but significantly improved in comparison to admission); INR at goal by recent testing; no other acute issues/events overnight or earlier this mornign; failed voiding trial so Urololgy consulted for further recommendations. Exam 2 Narrative: General: elderly but WD/WN male in NAD Heart: normal S1 and S2; no rub Lungs: clear to auscultation Abdomen: soft, nondistended, positive bowel sounds Extremities: no cyanosis or clubbing; trace edema Skin: warm and intact Objective Data Vital Signs Vital Signs: Vital Signs Temp Pulse Resp BP Pulse Ox O2 Del Method 04/23/25 12:00 98.4 F 77 L 22 H 158/72 H 98 04/23/25 08:00 56 L 04/23/25 08:00 Room Air 04/23/25 06:00 97.6 F 55 L 18 153/62 H 97 04/23/25 05:00 68 04/23/25 00:00 49 L 04/22/25 22:00 97.7 F 91 18 152/79 H 98 04/22/25 21:45 43 L 04/22/25 21:45 Room Air Intake/Output Intake/Output: Intake & Output 04/20/25 04/21/25 04/22/25 04/23/25 23:59 23:59 23:59 23:59 Intake Total 1564 3444.5 3340.0 2120.0 Output Total 3800 3100 1300 1800 Balance -2236 344.5 2040.0 320.0 Meds/Results Medications: Active Medications Generic Name Dose Route Start Last Admin Trade Name Freq PRN Reason Stop Dose Admin Acetaminophen 650 mg 04/12/25 15:51 Acetaminophen 325 Mg Tablet PO Q6H PRN Mild Pain (1-3) or Fever Hydrocodone Bitart/Acetaminophen 1 tab 04/12/25 15:51 Hydrocodone/Acetaminophen (*Crx) 5-325 Mg Tablet PO Q6H PRN Pain Rated 4-6 Acyclovir 200 mg 04/12/25 22:30 04/23/25 09:35 Acyclovir 200 Mg Capsule PO 200 mg Q12HR MANISHA Administration Aspirin 81 mg 04/12/25 22:30 04/22/25 21:44 Aspirin 81 Mg Enteric Tablet PO 81 mg HS MANISHA Administration Calcium Carbonate 200 mg 04/12/25 15:51 Calcium Carbonate (Tums) 500 Mg (200 Mg Elemental) PO Q6H PRN Indigestion Finasteride 5 mg 04/12/25 22:30 04/22/25 21:45 Finasteride 5 Mg Tablet PO 5 mg HS MANISHA Administration Heparin Sodium (Porcine) 6,000 units 04/12/25 16:39 04/15/25 10:05 Heparin Sodium 5,000 Units/Ml Vial IV PUSH 6,000 units PRN PRN Administration aPTT less than 55 seconds Heparin Sodium (Porcine) 3,000 units 04/12/25 16:39 04/14/25 20:50 Heparin Sodium 5,000 Units/Ml Vial IV PUSH 3,000 units PRN PRN Administration aPTT 55 - 70 seconds Heparin Sodium/Dextrose 25,000 units in 250 mls @ 9 mls/hr 04/12/25 16:40 04/23/25 16:54 Heparin Sodium/D5w 100 Units/Ml IV CONT 900 units/hr .Q24H MANISHA 9 mls/hr Protocol Administration 900 UNITS/HR Ondansetron HCl 4 mg 04/12/25 15:51 Ondansetron Hcl Odt 4 Mg Tablet PO Q6H PRN Nausea And Vomiting Sodium Bicarbonate 1,300 mg 04/15/25 10:45 04/23/25 16:54 Sodium Bicarbonate Tab 650 Mg Tablet PO 1,300 mg BID MANISHA Administration Tamsulosin HCl 0.8 mg 04/19/25 21:00 04/22/25 21:43 Tamsulosin Hcl 0.4 Mg Capsule PO 0.8 mg HS MANISHA Administration Warfarin Sodium 10 mg 04/22/25 17:00 04/23/25 16:55 Warfarin (*Pbkc) 10 Mg Tablet PO 10 mg DAILY@1700 MANISHA Administration Radiology Results: ITS Impressions Abdomen/Pelvis CT 04/12/25 15:19 IMPRESSION: 1. Multiple right renal masses with intermediate density. Correlation with CT or MRI with contrast recommended for further assessment. 2: Severe enlargement of the prostate gland likely causing outlet obstruction with resultant distention of the bladder and bilateral hydronephrosis. Pulmonary Perfusion Imaging 04/12/25 16:34 IMPRESSION: 1. High probability for pulmonary embolism. Findings were discussed with Kenna Williamson, the nurse caring for the patient, at 4:36 PM. Renal Ultrasound 04/12/25 21:07 Impression: 1: Multiple right renal cysts. No suspicious solid masses are identified to suggest malignancy. Chest X-Ray 04/13/25 08:35 IMPRESSION: 1. No acute cardiopulmonary disease. Abdomen X-Ray 04/17/25 08:50 IMPRESSION: 1. Nonspecific mild gas pattern with no frankly dilated gas-filled loops of bowel to suggest obstruction. Venous Doppler Study 04/22/25 17:44 Impression: Negative for DVT. Labs Labs: Laboratory Tests 04/23/25 05:49 04/23/25 05:49 Calcium 7.6 L Magnesium 1.6 Total Bilirubin 0.4 AST 35 ALT 12 Alkaline Phosphatase 56 Total Protein 4.6 L Albumin 2.4 L
[2025-04-23] MEDS: HEPARIN SOD/D5W 100 UNITS/ML 25,000 UNITS/250 ML BAG 9 UNITS IV CONT (16:54)
[2025-04-23] MEDS: WARFARIN (*PBKC) 10 MG TABLET PO (16:55)
[2025-04-23] MEDS: TAMSULOSIN HCL 0.4 MG CAPSULE 0.8 MG PO (21:21)
[2025-04-23] MEDS: FINASTERIDE 5 MG TABLET PO (21:22)
[2025-04-23] MEDS: ASPIRIN 81 MG ENTERIC TABLET PO (21:22)
[2025-04-24] VITALS: PULSE 82
[2025-04-24 03:29] VITALS: PULSE 75
[2025-04-24 05:52] LABS: Hematocrit 31.2 % (42.0-52.0); Hemoglobin 9.9 g/dL (14.0-18.0); Immature Granulocyte Percent A 0.6 % (0-0.5); Immature Platelet Fraction Pct 2.9 % (0.9-11.2); Lymphocytes Absolute Auto 1.09 K/mm3 (0.9-3.2); Mean Corpuscular HGB Conc 31.7 g/dl (32-36); Mean Corpuscular Hemoglobin 29.9 pg (26-34); Mean Corpuscular Volume 94.3 fl (80-100); Nucleated Red Blood Cells Absolute Auto 0.000 K/mm3 (0.0-0.012); Nucleated Red Blood Cells Perc 0.0 % (0.0-0.2); Platelet Count Result 135 k/mm3 (150-375); Red Blood Count 3.31 M/mm3 (4.6-6.20); White Blood Count 6.9 K/mm3 (4.5-10.0)
[2025-04-24 06:00] VITALS: BP 173/71; PULSE 57; RESP 16; TEMP 36.1; O2SAT 97
[2025-04-24 06:00] LABS: INR 2.4; Prothrombin Time 25.5 Seconds (11.1-14.7)
[2025-04-24 07:04] LABS: Alanine Aminotransferase 12 U/L (6-50); Albumin Level 2.4 g/dL (3.5-5.1); Alkaline Phosphatase 57 U/L (38-126); Anion Gap 4 mmol/L (4-12); Aspartate Amino Transferase 20 U/L (17-59); Bilirubin,Total 0.3 mg/dL (0.2-1.3); Blood Urea Nitrogen 55 mg/dL (9-20); Calcium 7.5 mg/dL (8.4-10.2); Carbon Dioxide 25 mmol/L (22-30); Chloride 106 mmol/L (98-107); Estimated CRCL calculation 19 ml/min; Estimated Glomerular Filt Rate 18; Glucose 126 mg/dL (65-110); Potassium 3.4 mmol/L (3.4-5.0); Sodium 135 mmol/L (137-145); Total Protein 4.5 g/dL (6.3-8.2)
[2025-04-24 08:00] VITALS: PULSE 56
--- NOTE | 2025-04-24 08:23 | PM.IMPN ---
Progress Note: A&P Assessment and Plan (1) Pulmonary embolism: Qualifiers: Acute cor pulmonale presence: unspecified Chronicity: acute Pulmonary embolism type: unspecified Qualified Code(s): I26.99 - Other pulmonary embolism without acute cor pulmonale Code(s): I26.99 - Other pulmonary embolism without acute cor pulmonale Status: Acute Plan Right lower extremity DVT Probable PE -patient is from [place], recent travel 1 week ago via car. They plan on driving back home after discharge from the hospital. He will be stopping every few hours, advised the patient get up and walk around as much as possible. They agreed to do so. He will not be driving. -V/Q scan on 04/12/2025 with high probability for PE -currently on heparin GTT -warfarin started on 04/16/2025 at 5 mg p.o. at 5:00 p.m. -INR on day 2 of warfarin is 1.5, continue warfarin 5 mg p.o. daily -INR on day 3 of warfarin is 1.4, increase warfarin to 7.5 mg p.o. q.day, as opposed to 10 mg per up-to-date recommendations since he has severe kidney dysfunction. Discussed the risks versus benefits with the family and they agree to this plan. -INR on day 4 of warfarin is 1.5, keep current mgmt. -INR on day 5 of warfarin is 1.7, this is day 2 of increased dose 7.5 mg. -INR on day 6 of warfarin is 1.7, increase dose to 10 mg p.o. daily. -INR on day 7 (04/23) is 2.0 - maintain dose and continue to monitor Weakness/deconditioning -cont PT/OT, recommending MERCEDES, pt thus far not amenable as he will be returning home to [place], will continue discussions. He is improving. -ambulate with assistance, fall precautions. -Encourage further ambulation BPH -urinary retention, 1st time this hospital stay. he has been immobile. Failed voiding trial on 04/18/2025. Increase tamsulosin to 0.8 mg p.o. q.h.s.. Discontinue Ackerman on 04/22/2025, voiding trial. -Failed voiding trial on 04/22, will consult Urology for further recommendations In spite of decreasing coreg, he has bradycardia again. stop coreg, start telemetry and monitor HR and blood pressure. Improving 1+ lower extremity edema, mild scrotal swelling. otherwise appears euvolemic. Likely due to immobility. Continue to improve. Continue with physical therapy, apply thigh-high Vijay hose stockings. Left upper extremity swelling, check venous ultrasound - Negative for DVT Chronic kidney disease stage 5. Nephrology following. Possible superimposed TEOFILO. Renal function is stable. No fluids or diuretics at this moment. CT abdomen pelvis showed renal masses with indeterminate density. Patient reports a history of renal carcinoma and partial nephrectomy. Records have been requested. At this time, unable to go to MRI on heparin drip. Elevated troponin: Cardiology recommendations noted, believed to be due to right heart strain from the pulmonary embolism. He has a history of multiple myeloma, he was seen by in-house oncologist however he follows with his oncologist in [place]. They will be following up upon discharge. His next cycle of Velcade was supposed to be on 04/18/2025 but that has been postponed. Patient wishes to be full code. Saline lock IV. Precautions, ambulate with assistance. Subjective Date/time seen: 04/24/25 08:23 Interval history: INR trending up, 2.4 today. Follow-up for acute kidney injury/acute renal failure on chronic kidney disease. Renal function/creatinine remains relatively stable (but significantly improved in comparison to admission); INR at goal by recent testing; no other acute issues/events overnight or earlier this mornign; failed voiding trial so Urololgy consulted for further recommendations. Review of Systems Review of Systems: 79 y/o M with PMH of CHF, multiple myeloma, partial nephrectomy (believes it was on the left), DM2, HLD, BPH, and CKD (has previously had discussion for possible dialysis) presents here with shortness of breath. All systems reviewed & are unremarkable except as noted in HPI and below (Subjective) Exam Narrative: General - Awake and alert. No acute distress Eyes - PERRLA, EOM intact ENT - No thrush, No erythema Neck - No noticeable or palpable swelling Lymph Nodes - No lymphadenopathy Cardiovascular - RRR no m/r/g, no JVD Lungs: Clear to auscultation, No wheezing, use of accessory muscles, no crackles Skin - Skin warm and dry, no wounds or rashes Abdomen - Normal bowel sounds, abdomen soft, TTP left abdomen Extremities - No edema, cyanosis or clubbing Musculoskeletal - 5/5 strength, normal range of motion, no swollen or erythematous joints. Neurological ? Alert and oriented x 3, CN 2-12 grossly intact. Psych: Normal mood and affect Objective Data Vital Signs Vital Signs: Vital Signs - 24 hr 04/23/25 12:00 04/23/25 14:00 04/23/25 16:00 Temperature 98.4 F Pulse Rate 77 58 L 44 L Respiratory Rate 22 H Blood Pressure 158/72 H Pulse Oximetry 98 Oxygen Delivery Fraction of Inspired Oxygen 04/23/25 20:00 04/23/25 20:00 04/23/25 20:43 Temperature 97.3 F L Pulse Rate 61 61 61 Respiratory Rate 20 20 Blood Pressure 169/59 H Pulse Oximetry 97 97 Oxygen Delivery Room Air Fraction of Inspired Oxygen 04/24/25 00:00 04/24/25 03:29 04/24/25 06:00 Temperature 96.9 F L Pulse Rate 82 75 57 L Respiratory Rate 16 Blood Pressure 173/71 H Pulse Oximetry 97 Oxygen Delivery Fraction of Inspired Oxygen Intake/Output Intake/Output: Intake & Output 04/21/25 04/22/25 04/23/25 04/24/25 23:59 23:59 23:59 23:59 Intake Total 3444.5 3340.0 3800.0 131.4 Output Total 3100 1300 1800 1000 Balance 344.5 2040.0 2000.0 -868.6 Meds/Results Medications: Active Medications Generic Name Dose Route Start Last Admin Trade Name Freq PRN Reason Stop Dose Admin Acetaminophen 650 mg 04/12/25 15:51 Acetaminophen 325 Mg Tablet PO Q6H PRN Mild Pain (1-3) or Fever Hydrocodone Bitart/Acetaminophen 1 tab 04/12/25 15:51 Hydrocodone/Acetaminophen (*Crx) 5-325 Mg Tablet PO Q6H PRN Pain Rated 4-6 Acyclovir 200 mg 04/12/25 22:30 04/23/25 21:22 Acyclovir 200 Mg Capsule PO 200 mg Q12HR MANISHA Administration Aspirin 81 mg 04/12/25 22:30 04/23/25 21:22 Aspirin 81 Mg Enteric Tablet PO 81 mg HS MANISHA Administration Calcium Carbonate 200 mg 04/12/25 15:51 Calcium Carbonate (Tums) 500 Mg (200 Mg Elemental) PO Q6H PRN Indigestion Finasteride 5 mg 04/12/25 22:30 04/23/25 21:22 Finasteride 5 Mg Tablet PO 5 mg HS MANISHA Administration Ondansetron HCl 4 mg 04/12/25 15:51 Ondansetron Hcl Odt 4 Mg Tablet PO Q6H PRN Nausea And Vomiting Sodium Bicarbonate 1,300 mg 04/15/25 10:45 04/23/25 16:54 Sodium Bicarbonate Tab 650 Mg Tablet PO 1,300 mg BID MANISHA Administration Tamsulosin HCl 0.8 mg 04/19/25 21:00 04/23/25 21:21 Tamsulosin Hcl 0.4 Mg Capsule PO 0.8 mg HS MANISHA Administration Warfarin Sodium 10 mg 04/22/25 17:00 04/23/25 16:55 Warfarin (*Pbkc) 10 Mg Tablet PO 10 mg DAILY@1700 MANISHA Administration Radiology Results: ITS Impressions Abdomen/Pelvis CT 04/12/25 15:19 IMPRESSION: 1. Multiple right renal masses with intermediate density. Correlation with CT or MRI with contrast recommended for further assessment. 2: Severe enlargement of the prostate gland likely causing outlet obstruction with resultant distention of the bladder and bilateral hydronephrosis. Pulmonary Perfusion Imaging 04/12/25 16:34 IMPRESSION: 1. High probability for pulmonary embolism. Findings were discussed with Kenna Williamson, the nurse caring for the patient, at 4:36 PM. Renal Ultrasound 04/12/25 21:07 Impression: 1: Multiple right renal cysts. No suspicious solid masses are identified to suggest malignancy. Chest X-Ray 04/13/25 08:35 IMPRESSION: 1. No acute cardiopulmonary disease. Abdomen X-Ray 04/17/25 08:50 IMPRESSION: 1. Nonspecific mild gas pattern with no frankly dilated gas-filled loops of bowel to suggest obstruction. Venous Doppler Study 04/22/25 17:44 Impression: Negative for DVT. Labs Labs: Laboratory Results - last 24 hr 04/23/25 04/23/25 04/23/25 05:49 05:49 05:49 WBC RBC Hgb Hct MCV MCH MCHC RDW Plt Count MPV Immature Gran % (Auto) Neut % (Auto) Lymph % (Auto) [place] % (Auto) Eos % (Auto) Baso % (Auto) Lymph # (Auto) [place] # (Auto) Eos # (Auto) Baso # (Auto) Abs Immat Gran (auto) Absolute Neuts (auto) Absolute Nucleated RBC Nucleated RBC % % Immature Plt Fraction PT INR Sodium 134 L Cancelled Potassium 3.6 Cancelled Chloride 107 Carbon Dioxide Anion Gap BUN Creatinine Estim Creat Clear Calc Estimated GFR Glucose Calcium Total Bilirubin AST ALT Alkaline Phosphatase Total Protein Albumin 04/23/25 04/23/25 04/23/25 05:49 05:49 05:49 WBC RBC Hgb Hct MCV MCH MCHC RDW Plt Count MPV Immature Gran % (Auto) Neut % (Auto) Lymph % (Auto) [place] % (Auto) Eos % (Auto) Baso % (Auto) Lymph # (Auto) [place] # (Auto) Eos # (Auto) Baso # (Auto) Abs Immat Gran (auto) Absolute Neuts (auto) Absolute Nucleated RBC Nucleated RBC % % Immature Plt Fraction PT INR Sodium Potassium Chloride Cancelled Carbon Dioxide 22 Cancelled Anion Gap 5 Cancelled BUN 63 H Creatinine Estim Creat Clear Calc Estimated GFR Glucose Calcium Total Bilirubin AST ALT Alkaline Phosphatase Total Protein Albumin 04/23/25 04/23/25 04/23/25 05:49 05:49 05:49 WBC RBC Hgb Hct MCV MCH MCHC RDW Plt Count MPV Immature Gran % (Auto) Neut % (Auto) Lymph % (Auto) [place] % (Auto) Eos % (Auto) Baso % (Auto) Lymph # (Auto) [place] # (Auto) Eos # (Auto) Baso # (Auto) Abs Immat Gran (auto) Absolute Neuts (auto) Absolute Nucleated RBC Nucleated RBC % % Immature Plt Fraction PT INR Sodium Potassium Chloride Carbon Dioxide Anion Gap BUN Cancelled Creatinine 3.37 H Cancelled Estim Creat Clear Calc 19 Cancelled Estimated GFR 18 L Glucose Calcium Total Bilirubin AST ALT Alkaline Phosphatase Total Protein Albumin 04/23/25 04/23/25 04/23/25 05:49 05:49 05:49 WBC RBC Hgb Hct MCV MCH MCHC RDW Plt Count MPV Immature Gran % (Auto) Neut % (Auto) Lymph % (Auto) [place] % (Auto) Eos % (Auto) Baso % (Auto) Lymph # (Auto) [place] # (Auto) Eos # (Auto) Baso # (Auto) Abs Immat Gran (auto) Absolute Neuts (auto) Absolute Nucleated RBC Nucleated RBC % % Immature Plt Fraction PT INR Sodium Potassium Chloride Carbon Dioxide Anion Gap BUN Creatinine Estim Creat Clear Calc Estimated GFR Cancelled Glucose 130 H Cancelled Calcium 7.6 L Cancelled Total Bilirubin 0.4 AST ALT Alkaline Phosphatase Total Protein Albumin 04/23/25 04/23/25 04/23/25 05:49 05:49 05:49 WBC RBC Hgb Hct MCV MCH MCHC RDW Plt Count MPV Immature Gran % (Auto) Neut % (Auto) Lymph % (Auto) [place] % (Auto) Eos % (Auto) Baso % (Auto) Lymph # (Auto) [place] # (Auto) Eos # (Auto) Baso # (Auto) Abs Immat Gran (auto) Absolute Neuts (auto) Absolute Nucleated RBC Nucleated RBC % % Immature Plt Fraction PT INR Sodium Potassium Chloride Carbon Dioxide Anion Gap BUN Creatinine Estim Creat Clear Calc Estimated GFR Glucose Calcium Total Bilirubin Cancelled AST 35 Cancelled ALT 12 Cancelled Alkaline Phosphatase 56 Total Protein Albumin 04/23/25 04/23/25 04/23/25 05:49 05:49 05:49 WBC RBC Hgb Hct MCV MCH MCHC RDW Plt Count MPV Immature Gran % (Auto) Neut % (Auto) Lymph % (Auto) [place] % (Auto) Eos % (Auto) Baso % (Auto) Lymph # (Auto) [place] # (Auto) Eos # (Auto) Baso # (Auto) Abs Immat Gran (auto) Absolute Neuts (auto) Absolute Nucleated RBC Nucleated RBC % % Immature Plt Fraction PT INR Sodium Potassium Chloride Carbon Dioxide Anion Gap BUN Creatinine Estim Creat Clear Calc Estimated GFR Glucose Calcium Total Bilirubin AST ALT Alkaline Phosphatase Cancelled Total Protein 4.6 L Cancelled Albumin 2.4 L Cancelled 04/24/25 05:16 WBC 6.9 RBC 3.31 L Hgb 9.9 L Hct 31.2 L MCV 94.3 MCH 29.9 MCHC 31.7 L RDW 15.7 H Plt Count 135 L MPV 10.6 H Immature Gran % (Auto) 0.6 H Neut % (Auto) 68.6 Lymph % (Auto) 15.8 L [place] % (Auto) 9.5 H Eos % (Auto) 5.2 H Baso % (Auto) 0.3 Lymph # (Auto) 1.09 [place] # (Auto) 0.7 H Eos # (Auto) 0.4 H Baso # (Auto) 0.0 Abs Immat Gran (auto) 0.04 H Absolute Neuts (auto) 4.8 Absolute Nucleated RBC 0.000 Nucleated RBC % 0.0 % Immature Plt Fraction 2.9 PT 25.5 H INR 2.4 Sodium 135 L Potassium 3.4 Chloride 106 Carbon Dioxide 25 Anion Gap 4 BUN 55 H Creatinine 3.39 H Estim Creat Clear Calc 19 Estimated GFR 18 L Glucose 126 H Calcium 7.5 L Total Bilirubin 0.3 AST 20 ALT 12 Alkaline Phosphatase 57 Total Protein 4.5 L Albumin 2.4 L Quality VTE Prophylaxis VTE prophylaxis: pharmacologic ordered
[2025-04-24] MEDS: SODIUM BICARBONATE TAB 650 MG TABLET 1300 MG PO (09:03)
[2025-04-24] MEDS: ACYCLOVIR 200 MG CAPSULE PO (09:03)
--- NOTE | 2025-04-24 10:49 | P.DS_ITS ---
DS: Admitting Diagnosis Discharge Date 04/24/2025 Admitting Diagnosis Shortness of breath PE TEOFILO DS: Summary Hospital Course Reason for hospitalization: Copied from [facility] 04/12: 79 y/o M with PMH of CHF, multiple myeloma, partial nephrectomy (believes it was on the left), DM2, HLD, BPH, and CKD (has previously had discussion for possible dialysis) presents here with shortness of breath. The patient presents here from a local hotel on 04/12 for further evaluation of shortness of breath. He reports onset 2 days prior to arrival with significant worsening this morning which prompted him to seek care and call EMS. He reports recent travel from [place] via car approximately 1 week ago. He is not currently on anticoagulation and he denies a previous history of DVT/PE. Shortness of breath is accompanied by diarrhea, abdominal pain (mild, between his umbilicus and suprapubic, intermittent) and lower extremity edema. He denies cough, hemoptysis, chest pain, nausea, vomiting, fever, chills, abdominal pain, or weight gain. He denies a previous hx of atrial fibrillation. Typically get his care at the [facility] in [place], [place] and [facility] in [place], [place] for his oncology care ([facility]). He is currently traveling to the area to visit with friends and family. Initial VS at presentation: 97.7? F, HR 75, R 26, 98/66, and 100% on RA. ED workup showed: WBC 11.7, hemoglobin 13.6, potassium 6.9, CO2 8, gap 19, creatinine 6.99 and GFR 8 (no previous available for comparison), glucose 205, phosphorus 6.5, initial troponin 2.23, BNP greater than 30,000. CXR showed no acute cardiopulmonary disease. EKG showed atrial fibrillation, rate 84, incomplete right bundle branch block, possible anterior [place] of indeterminate age. Hospital Course: RLE DVT Pulmonary embolism Started on Warfarin for an acute RLE DVT on venous dopplers 04/22. VQ scan also high probability for PE 04/12 INR trending up, 2.4 day of discharge. Discussed with pharmacy and changing to 8mg daily. Will need to continue to follow INR's locally in [place] with his PCP TEOFILO Metabolic acidosis acute kidney injury/acute renal failure on chronic kidney disease. 6.99 on admission, 3.39 at discharge 04/24 Initially required a bicarb drip, decreased to bicarb daily at discharge Renal function/creatinine remains relatively stable (but significantly improved in comparison to admission); Nephrology consulted and followed during admission, Dr. Del Toro-- appreciate recommendations Urinary retention Failed void trial. Urology consulted during admission. Discharged with a Ackerman Continued tamsulosin and finasteride Will follow up with urology locally Time Spent with Patient Time attestation: Total time spent providing and/or coordinating discharge services: Exam Narrative: General - Awake and alert. No acute distress Eyes - PERRLA, EOM intact ENT - No thrush, No erythema Neck - No noticeable or palpable swelling Lymph Nodes - No lymphadenopathy Cardiovascular - RRR no m/r/g, no JVD Lungs: Clear to auscultation, No wheezing, use of accessory muscles, no crackles Skin - Skin warm and dry, no wounds or rashes Abdomen - Normal bowel sounds, abdomen soft, TTP left abdomen Extremities - No edema, cyanosis or clubbing Musculoskeletal - 5/5 strength, normal range of motion, no swollen or erythematous joints. Neurological ? Alert and oriented x 3, CN 2-12 grossly intact. Psych: Normal mood and affect DS: Data Data Completed and Pending Labs on day of discharge: Labs from last 24 hours 04/24/25 05:16 WBC 6.9 RBC 3.31 L Hgb 9.9 L Hct 31.2 L MCV 94.3 MCH 29.9 MCHC 31.7 L RDW 15.7 H Plt Count 135 L MPV 10.6 H Immature Gran % (Auto) 0.6 H Neut % (Auto) 68.6 Lymph % (Auto) 15.8 L [place] % (Auto) 9.5 H Eos % (Auto) 5.2 H Baso % (Auto) 0.3 Lymph # (Auto) 1.09 [place] # (Auto) 0.7 H Eos # (Auto) 0.4 H Baso # (Auto) 0.0 Abs Immat Gran (auto) 0.04 H Absolute Neuts (auto) 4.8 Absolute Nucleated RBC 0.000 Nucleated RBC % 0.0 % Immature Plt Fraction 2.9 PT 25.5 H INR 2.4 Sodium 135 L Potassium 3.4 Chloride 106 Carbon Dioxide 25 Anion Gap 4 BUN 55 H Creatinine 3.39 H Estim Creat Clear Calc 19 Estimated GFR 18 L Glucose 126 H Calcium 7.5 L Total Bilirubin 0.3 AST 20 ALT 12 Alkaline Phosphatase 57 Total Protein 4.5 L Albumin 2.4 L Discharge Plan Discharge Attending physician on discharge: Maryann Hopson Consulting providers: Mari Del Toro; Almaz Vergara; Ernesto Dale; Benita Adan; Klarissa Blackmon; Benita Cameron; Juani Mason; Ricky Jung; Sudhir Cardenas; Steven Jordan; Kenan Schulz; Reji Ulrich; Lesvia Boyer; Rodrick Rodriguez; Aniceto Castro; Juan Francisco Wang; Robert Flores; Ishan Sheth Discharging Clinician: Maryann Hopson Anticipated Discharge Date/Time: 04/24/25 10:36 Patient Disposition: Home Activity: may shower Diet: other - see discharge instructions Discharge Instructions: Consistent vitamin K diet. You will need regular INR checks while on warfarin (coumadin). Follow up with your PCP in 1-2 weeks if possible. Check your blood pressure at home if possible. You should continue amlodipine but stop carvedilol You will need follow up with urology for a trial to remove your catheter and for evaluation of prostate enlargement Patient Instructions: Antibiotic Form, Warfarin (By mouth), Blood Thinners (GEN) Patient Language: Georgian Stand Alone Forms: General Discharge Information Follow-up/Referrals: [facility] [Other] - 1 Week Referral Note: Follow kidney function, INR checks Discharge Medications: New sodium bicarbonate 650 mg Tablet 650 mg PO BID Qty: 60 0RF tamsulosin 0.4 mg Capsule 0.8 mg PO HS Qty: 60 1RF warfarin 4 mg tablet 8 mg PO DAILY Qty: 60 0RF amlodipine 5 mg tablet 5 mg PO DAILY Qty: 30 0RF calcium carbonate [Oyster Shell Calcium 500] 500 mg calcium (1,250 mg) tablet 500 mg PO DAILY Qty: 30 0RF calcitriol 0.25 mcg capsule 0.25 mcg PO DAILY Qty: 30 0RF Continued acyclovir 400 mg tablet 200 mg PO Q12H aspirin 81 mg tablet,delayed release (DR/EC) 81 mg PO HS dexamethasone 4 mg tablet 12 mg PO WEEKLY Patient Comments: Pt takes on Thursday before Chemotherapy finasteride 5 mg tablet 5 mg PO HS Discontinued carvedilol 3.125 mg tablet 3.125 mg PO Q12H tamsulosin 0.4 mg capsule 0.4 mg PO HS Other Ambulatory Orders: Basic Metabolic Panel (Routine) Timeframe: 3 Days Location: Determined by Patient Ordered By: Maryann Hopson Complete Blood Count with Diff (Routine) Timeframe: 3 Days Location: Determined by Patient Ordered By: Maryann Hopson Phosphorus (Routine) Timeframe: 3 Days Location: Determined by Patient Ordered By: Maryann Hopson Prothrombin Time INR (Routine) Timeframe: 3 Days Location: Determined by Patient Ordered By: Maryann Hopson Date of admission: 04/12/25 13:38 Primary Care Provider: LISA Williamson [facility] Admitting Provider: Klarissa Blackmon Attending physician on admission: Maryann Hopson Condition: Guarded Prognosis
[2025-04-24 12:00] VITALS: PULSE 60
--- NOTE | 2025-04-24 14:30 | P.CONUR_ITS ---
Assessment and Plan Assessment and plan (1) Acute urinary retention: Code(s): R33.8 - Other retention of urine Status: Acute Assessment and Plan: Pt is a 79 year old M admitted for PE found to be in AUR s/p Ackerman catheter placement s/p failed trial of void (x2). - Pt with unsuccessful TOV on max medical therapy; etiology of retention likely multifactorial including BPH, constipation, immobility - Maintain Ackerman catheter on discharge and pt to follow up closely with OSH urologist. Discussed Ackerman catheter care and ED return precautions in the setting of obstruction, dislodgement or significant gross hematuria with clots. - Continue tamsulosin 0.8 mg and finasteride - Recommend continued use of stool softener to improve constipation - CT A/P suggests possible renal masses, however, not present on subsequent [place]. Pt to follow up further with OSH urologist regarding findings. - Urologically cleared for discharge (2) BPH with obstruction/lower urinary tract symptoms: Code(s): N40.1 - Benign prostatic hyperplasia with lower urinary tract symptoms; N13.8 - Other obstructive and reflux uropathy Status: Chronic Urology Consult Note HPI Date Seen: 04/24/25 Requesting Physician: Klarissa Blackmon MD Primary Care Provider: [facility] Consult Narrative Narrative: Cosmo Voss is a 79 year old male PMH of CHF, multiple myeloma, partial nephrectomy (believes it was on the left), DM2, HLD, BPH on finasteride and tamsulosin, and CKD (has previously had discussion for possible dialysis) presented to ED with shortness of breath found to have PE for whom urology is consulted for AUR. Pt states that prior to admission he was voiding without issue with finasteride and tamsulosin use; denies stranguria, weak stream, incomplete emptying. Typically takes stool softener daily but has not been doing so during his admission and reports significant constipation without bowel movement in the last week. Has been minimally ambulatory during admission and largely immobile. During his admission pt failed first attempted TOV; at that time tamsulosin dose increased to 0.8 mg QD. Second TOV on max medical therapy unsuccessful and currently with Ackerman catheter in place. States Ackerman has been draining clear, yellow urine without issue. Of note, pt has established urology care at [facility] in [place] and is hoping to return home for continued care following discharge. Review of Systems 2 Constitutional: Constitutional: Denies chills and Denies weakness ENT: Reports Normal hearing present Respiratory: Respiratory: Denies cough and Denies dyspnea Gastrointestinal: Gastrointestinal: Denies abdominal pain and Reports constipation Genitourinary: Genitourinary: Denies hematuria Neurologic: Denies Abnormal speech present and Denies confusion Psychiatric: Psychiatric: Denies behavioral changes and Denies confusion [facility] Past Medical History Medical History (Updated 04/24/25 @ 14:46 by Benita Adan APRN) Renal carcinoma Hyperlipidemia History of DVT (deep vein thrombosis) Anemia Hypertension Diabetes Multiple myeloma CHF (congestive heart failure) CKD (chronic kidney disease) Surgical History Surgical History History of bilateral cataract extraction History of cardiac catheterization Hx of partial nephrectomy left Social History Social History Smoking packs per day: 2 Smoking cigarettes per day: 40.0 Years smoked: 20 Smoking pack-years: 40.00 Smoking status: Former smoker Tobacco type: cigarettes Additional smoking assessment comments: quit 1990 Alcohol intake: never Substance use: never Lack of Transportation: No Lack of Food: Never True Current Housing: I Have Housing Concerned About Future Housing: No Difficulty Paying Gas/Electric Bills: No Difficulty Paying for Meds: No Currently Unemployed: No Education: Bachelor's Degree Difficulty w/ Childcare or Family Care: No Spiritual care concerns: No Meds Home Medications and Allergies Home Medications ?Medication ?Instructions ?Recorded ?Confirmed ?Type acyclovir 400 mg tablet 200 mg PO Q12H 04/12/2504/03 History aspirin 81 mg tablet,delayed 81 mg PO HS 04/12/2504/03 History release dexamethasone 4 mg tablet 12 mg PO WEEKLY 04/12/2505/27 History finasteride 5 mg tablet 5 mg PO HS 04/12/25 04/12/25 History amlodipine 5 mg tablet 5 mg PO DAILY #30 tabs 04/24 Rx calcitriol 0.25 mcg capsule 0.25 mcg PO DAILY #30 caps 04/24/25 Rx calcium carbonate (Oyster Shell 500 mg PO DAILY #30 ta bs 04/24/25 Rx Calcium 500) sodium bicarbonate 650 mg tablet 650 mg PO BID #60 tab s 04/24/25 Rx tamsulosin 0.4 mg capsule 0.8 mg (2 x 0.4 mg) PO HS #6 0 caps 04/24/25 Rx warfarin 4 mg tablet 8 mg (2 x 4 mg) PO DAILY #60 tabs 04/24/25 Rx Allergies Allergy/AdvReac Type Severity Reaction Status Date / Time No Known Allergies Allergy Verified 04/12/25 13:46 Vital Signs Vital Signs - 24 hr 04/23/25 16:00 04/23/25 20:00 04/23/25 20:00 Temperature Pulse Rate 44 L 61 61 Respiratory Rate 20 Blood Pressure Pulse Oximetry 97 Oxygen Delivery Room Air Fraction of Inspired Oxygen 21 04/23/25 20:43 04/24/25 00:00 04/24/25 03:29 Temperature 97.3 F L Pulse Rate 61 82 75 Respiratory Rate 20 Blood Pressure 169/59 H Pulse Oximetry 97 Oxygen Delivery Fraction of Inspired Oxygen 04/24/25 06:00 04/24/25 08:00 Temperature 96.9 F L Pulse Rate 57 L Respiratory Rate 16 Blood Pressure 173/71 H Pulse Oximetry 97 Oxygen Delivery Room Air Fraction of Inspired Oxygen Exam 2 Const: General: comfortable and no acute distress Eyes: General: appearance normal, both eyes and all related structures Resp: Effort & Inspection: normal respiratory effort GI: Inspection: non-distended Urinary Catheter: Urinary Catheter: patent and draining and urine clear Skin: General skin exam: normal color Results Labs 04/24/25 05:16 04/24/25 05:16 Labs: Short CBC 04/24/25 Range/Units 05:16 WBC 6.9 (4.5-10.0) K/mm3 Hgb 9.9 L (14.0-18.0) g/dL Hct 31.2 L (42.0-52.0) % Plt Count 135 L (150-375) k/mm3 BMP 04/24/25 05:16 Sodium 135 L Potassium 3.4 Chloride 106 Carbon Dioxide 25 BUN 55 H Creatinine 3.39 H Glucose 126 H Calcium 7.5 L Liver Function 04/24/25 Range/Units 05:16 Total Bilirubin 0.3 (0.2-1.3) mg/dL AST 20 (17-59) U/L ALT 12 (6-50) U/L Alkaline Phosphatase 57 (38-126) U/L Albumin 2.4 L (3.5-5.1) g/dL
== END 2025-04-24 14:00 | disposition home or self-care (01) | DRG 176 ==
LOC: ANHED 12:41 → ANHIMU 14:47 → ANH3MED 04-16 10:57
PROVIDERS: General Practice; Internal Medicine; Internal Medicine Nephrology; Nurse Practitioner; Nurse Practitioner Gerontology; Physician Assistant; Student in an Organized Health Care Education/Training Program; Admitting Provider General Practice; Emergency Provider Student in an Organized Health Care Education/Training Program; Visit Provider Nurse Practitioner Acute Care
DX: I26.99 Other pulmonary embolism without acute cor pulmonale (principal); N18.5 Chronic kidney disease, stage 5; N17.9 Acute kidney failure, unspecified; E87.21 Acute metabolic acidosis; C90.00 Multiple myeloma not having achieved remission; I50.22 Chronic systolic (congestive) heart failure; N13.1 Hydronephrosis with ureteral stricture, not elsewhere classified; I82.411 Acute embolism and thrombosis of right femoral vein; I82.431 Acute embolism and thrombosis of right popliteal vein; I82.441 Acute embolism and thrombosis of right tibial vein; N40.1 Benign prostatic hyperplasia with lower urinary tract symptoms; I48.0 Paroxysmal atrial fibrillation; E87.5 Hyperkalemia; E11.22 Type 2 diabetes mellitus with diabetic chronic kidney disease; D63.1 Anemia in chronic kidney disease; D63.0 Anemia in neoplastic disease; E78.5 Hyperlipidemia, unspecified; I35.0 Nonrheumatic aortic (valve) stenosis; E86.0 Dehydration; I95.9 Hypotension, unspecified; D69.6 Thrombocytopenia, unspecified; R01.1 Cardiac murmur, unspecified; R60.0 Localized edema; R19.7 Diarrhea, unspecified; R10.32 Left lower quadrant pain; R79.89 Other specified abnormal findings of blood chemistry; E87.6 Hypokalemia; N49.2 Inflammatory disorders of scrotum; R33.8 Other retention of urine; Z20.822 Contact with and (suspected) exposure to COVID-19; Z85.528 Personal history of other malignant neoplasm of kidney; Z79.69 Long term (current) use of other immunomodulators and immunosuppressants; Z87.891 Personal history of nicotine dependence; Z90.5 Acquired absence of kidney; Z79.82 Long term (current) use of aspirin
CPT/HCPCS: 36415; 71045; 71046; 74018; 74176; 76770; 78582; 80048; 80053; 80061; 80069; 81001; 82550; 82570; 82948; 83036; 83735; 83880; 84100; 84132; 84133; 84145; 84153; 84156; 84300; 84439; 84443; 84480; 84484; 85025; 85027; 85055; 85610; 85730; 85999; 86704; 86706; 87340; 87493; 87637; 93005; 93970; 93971; 94640; 96374; 97110; 97161; 97165; 97530; 97535; 99285; A9270; A9540; A9558; C8929; J0612; J1644; J1815; J1938; J3475; J7030; J7120; J8540; Q9957